=== PATIENT | male | born 1950 | race Caucasian/White ===

== ENCOUNTER 2018-08-31 01:38 | Inpatient (IN) ==
[2018-08-31] MEDS ORDERED: GLUCAGON FOR INJ 1 MG VIAL SQ PRN (04:44)
[2018-08-31] MEDS ORDERED: GLUCOSE 10 TABS/TUBE PO PRN (04:44)
[2018-08-31] MEDS ORDERED: DEXTROSE 50% 50 ML SYRINGE IV PRN (04:44)
[2018-08-31] MEDS ORDERED: CARBOHYDRATES FOR HYPOGLYCEMIA PO PRN (04:44)
[2018-08-31] MEDS ORDERED: GLUCOSE 40% GEL 15 GM TUBE PO PRN (04:44)
--- NOTE | 2018-08-31 05:01 | History & Physical Report ---
Date of Service August 31, 2018 Assessment & Plan (1) Atrial fibrillation: Patient with new onset atrial fibrillation with RVR. HR presently 132. Blood pressure stable. Patient is asymptomatic at present. -Check electrolytes and replete as needed -TSH with T4 reflex, Troponin, BNP, EKG and CXR -2D echocardiogram -Continue Cardizem gtt, presently at 15 -Continue Metoprolol. Patient has been taking 25mg po BID, will increase to 50mg po BID as tolerated -Continue anticoagulation with Xarelto Present on Admission?: Yes (2) SOB (shortness of breath): Patient with O2 dependent COPD, nocturnal hypoxia on 3L oxygen. Patient presently with adequate oxygenation but is visibly dyspneic with mobility. Ddx to include exacerbation of COPD, AF/Flutter, possible CHF. -Check CXR -Check troponin/BNP -Supplemental O2 as needed to maintain saturation of 92% -Management of acute and chronic medical problems as above Present on Admission?: Yes (3) Fever: Patient with subjective fevers, reported temperature of 39.3 at OSH. WBC per report from OSH=1.7. Patient given Zosyn 4.5 gm at OSH, presently afebrile -Check CBC with differential, UA and CXR -Follow cultures, urine and blood -Empiric Zosyn 3.375 gm IV q 8h -Tylenol as needed for fever Present on Admission?: Yes (4) Diabetes: Patient reports adequate control with oral agents -Hold Januvia, Metformin for now -Lantus 15u BID, ISS 20:7 by weight -CC diet as tolerated -Check AIC Present on Admission?: Yes (5) Gout: Chronic -Continue Allopurinol 300mg po daily, 100mg po qHS Present on Admission?: Yes (6) COPD (chronic obstructive pulmonary disease): Patient with O2 dependent COPD presenting with worsening SOB -DuoNeb q 4 hours -Albuterol q 2 hours PRN -Supplemental O2 as needed Present on Admission?: Yes (7) Pulmonary embolism: Patient with newly diagnosed PE, on anticoagulation with Xarelto. He was administered Lovenox 1mg/kg SC at OSH for concern for PE (reported to have an elevated D-dimer, some renal insufficiency which inhibits contrast dye for CTA) -Continue Xarelto, will give next dose tomorrow AM Present on Admission?: Yes (8) Obesity: Patient is quite large -Bariatric bed -Encourage lifestyle modification (9) Hypertension: Blood pressure presently well controlled -Continue Lisinopril 2.5mg po daily -Continue Metoprolol - will increase to 50mg po BID to assist with rate control -Continue Lasix and Spironolactone -Medications may need to be held/adjusted pending results of labs (10) Chronic venous insufficiency: Patient with history of chronic venous insufficiency. Recently with cellulitis and poorly healing wounds. No ulcers or drainage appreciated at present. Patient is on Keflex BID for suppressive therapy -Continue Keflex BID at home dose -EDDIE hose to bilateral LE F/E/N - Heplock, monitor electrolytes and replete as needed, continue PO magnesium and potassium supplements, CC diet as tolerated, will hold vitamins and neutraceuticals for now Ppx - Continue home Omeprazole, Xarelto as above Code - Full Dispo - Admit to PCU History of Present Illness Chief Complaint: SOB Primary Care Provider: Josi Sampson DO Antonio Leary is a 68yo C male with history of newly diagnosed SCC of the CIARRA s/p XRT and chemotherapy with Taxol/Carbaplatin, last course 16 August 2018. Patient reports feeling ill immediately following chemotherapy with subjective fevers/chills and body aches. His symptoms improved and he was feeling fairly well. Today patient developed subjective fevers and chills/rigors as well as diffuse weakness, nausea, appetite loss and shortness of breath, inability to ambulate due to weakness and dyspnea. EMS was called and the patient was transported to [facility]. Per report he was tachycardic in the ambulance with HR of 180. He was administered IV Cardizem en route to [place] [facility]. While at [place] he was given IVF, Cardizem and Zosyn. He was subsequently transferred to [facility] for continuity of care. Patient presently with multiple complaints. Mostly dyspnea with minimal exertion, dry couch. He had brief episode of chest discomfort on transport which has since resolved. No additional complaints at this time OSH: NSS, Cardizem 25mg bolus, Cardizem 60mg bolus then gtt, Ativan 0.5mg, Tylenol 1000mg PO, Zosyn 4.5 gm, Lovenox 1mg/kg EKG from OSH: AF with RVR at 126bpm, no acute ischemic changes Update: patient with worsening dyspnea, restlessness, HR increased to 150bpm, saturation decreased to 86-88%. 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 consult for possible MICU transfer Allergies Allergy/AdvReac Type Severity Reaction Status Date / Time No Known Allergies Allergy Verified 08/01/18 11:03 Home Medications Home Medications Medication Instructions Recorded Confirmed Type Lactobacillus acidophilus 100 mg 100 mg PO BID 05/04/18 08/31/18 History (1 billion cell) capsule acetaminophen 500 mg tablet 500 mg PO Q6H PRN 05/04/18 08/31/18 History allopurinol 300 mg tablet 300 mg PO QAM 05/04/18 08/31/18 History celecoxib 200 mg capsule 200 mg PO QAM 05/04/18 08/31/18 History cephalexin 250 mg capsule 250 mg PO BID cap 05/04/18 08/31/18 History cilostazol 100 mg tablet 100 mg PO BID tab 05/04/18 08/31/18 History furosemide 40 mg tablet 80 mg PO QAM tab 05/04/18 08/31/18 History geriatric multivit with iron and 1 tab PO QAM 05/04/18 08/31/18 History minerals tablet glucosamine-chondroitin 250 mg-200 1 tab PO BID tab 05/04/18 08/31/18 History mg tablet loperamide 1 mg/7.5 mL oral liquid 2 mg PO Q4H PRN 05/04/18 08/31/18 History lorazepam 0.5 mg tablet 0.5 mg PO DAILY PRN 05/04/18 08/31/18 History metformin 1,000 mg tablet 1,000 mg PO BID 05/04/18 08/31/18 History metoprolol tartrate 25 mg tablet 25 mg PO BID tab 05/04/18 08/31/18 History omeprazole 20 mg capsule,delayed 20 mg PO QAM 05/04/18 08/31/18 History release rivaroxaban 20 mg tablet 20 mg PO QAM 05/04/18 08/31/18 History sitagliptin 100 mg tablet 100 mg PO QAM 05/04/18 08/31/18 History spironolactone 50 mg tablet 50 mg PO QAM 05/04/18 08/31/18 History tramadol 50 mg tablet 50 mg PO Q12H PRN 05/04/18 08/31/18 History Adult 50+ Probiotic 1 cap PO QAM 05/23/18 08/31/18 History Anoro Ellipta 1 - 2 inh INHALATION BID PRN 05/23/18 08/31/18 History allopurinol 100 mg PO QPM 05/23/18 08/31/18 History magnesium oxide 1,000 mg PO QAM 05/23/18 08/31/18 History magnesium oxide 1,500 mg PO QPM 05/23/18 08/31/18 History potassium chloride 40 meq PO QAM 05/23/18 08/31/18 History potassium chloride 60 meq PO QPM 05/23/18 08/31/18 History lisinopril 2.5 mg PO DAILY 08/31/18 08/31/18 History Past Med/Surg History Social History Preferred Language: Japanese Communication Ability: Effective Visual Impairment: No Limitations Hearing Ability: Normal 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 Beliefs That Will Affect Care: Latter Day L[employer] Day Beliefs: Anglican marital status: marital status details: Current Living Situation: Family 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[employer] Feels Safe at Home: Yes Safety Concerns: Feels Safe At This Time Smoking Status: Former smoker Tobacco Type: cigarettes Cigarettes Per Day: 20 Do You Dip or Chew Tobacco: No Second Hand Exposure: No Hx Alcohol Use: Yes Hx Substance Use: No Review of Systems Review of Systems: All systems reviewed & are unremarkable except as noted in HPI & below +Urinary incontinence today Physical Exam Physical Exam: General: morbidly obese C male resting comfortably, mild conversational dyspnea and dyspnea with minimal exertion, NAD, non-toxic in appearance, AA&O x 4 Skin: warm, dry, intact, chronic venous stasis changes of bilateral LEs, skin thickening and hemosiderin staining, small abrasion on lateral portion of left ankle, no bleeding/drainage/purulence or active cellulitis appreciated HEENT: NC/AT, PERRL, EOMI, anicteric sclera, conjunctiva without injection, external ear normal to inspection and nontender, nares patent, moist mucus membranes, dentition intact, no oropharyngeal lesions, neck supple, trachea midline, no LAD, no thyromegaly, no JVD Heart: +S1/S2, irregularly irregular, tachycardic, no m/r/g, port present left chest wall, nontender, no erythema or drainage Lungs: diminished breath sounds bilaterally, faint crackles in CIARRA, no rhonchi/wheezes Abd: obese, +BS, soft, NT/ND, no masses/organomegaly/ascites, ventral hernia reducible Ext: warm, 2+ pulses in UE/LE bilaterally, no clubbing/cyanosis or edema, chronic venous stasis changes as above Neuro: nonfocal, patient AA&O x 4, speech intact, no facial droop, moving all extremities on command with equal strength 5/5 Results & Data Vital Signs (Past 12 Hours) Tc=36.9 MB=131, irregularly irregular BQ=859/68 RR=24 99% on 3L Laboratory Results Ordered basic labs Diagnostic Findings CXR ordered ECG Additional Comments: EKG ordered Code Status & VTE Plan Code Status Full VTE Prophylaxis Plan VTE Prophylaxis will be ordered: Yes PG Care Time/CCT Total # of Minutes Spent Total Time Spent with Patient: Total time spent is greater than 50% in coordination of care (as documented) at patient's floor/unit and/or counseling patient: (1) Fever Fever type: unspecified Qualified Code(s): R50.9 - Fever, unspecified (2) Diabetes Diabetes mellitus complication status: without complication Diabetes mellitus retirement insulin use: without retirement use Diabetes mellitus type: type 2 Qualified Code(s): E11.9 - Type 2 diabetes mellitus without complications (3) Gout Chronicity: chronic Gout etiology: unspecified cause Gout site: unspecified site (4) Atrial fibrillation Atrial fibrillation type: unspecified Qualified Code(s): I48.91 - Unspecified atrial fibrillation (5) COPD (chronic obstructive pulmonary disease) COPD type: unspecified COPD Qualified Code(s): J44.9 - Chronic obstructive pulmonary disease, unspecified (6) Pulmonary embolism Acute cor pulmonale presence: without acute cor pulmonale Chronicity: unspecified Pulmonary embolism type: unspecified Qualified Code(s): I26.99 - Other pulmonary embolism without acute cor pulmonale (7) Hypertension Hypertension type: essential hypertension Qualified Code(s): I10 - Essential (primary) hypertension (8) Obesity Body mass index: BMI 60.0-69.9 Obesity classification: adult class 3 (BMI >= 40) Obesity type: due to excess calories Serious obesity comorbidity presence: with serious comorbidity Qualified Code(s): E66.01 - Morbid (severe) obesity due to excess calories; Z68.44 - Body mass index (BMI) 60.0-69.9, adult
[2018-08-31] MEDS: dilTIAZem HCl 125 MG in DEXTROSE 5% 100 ML IV SCH ×2 (05:32→17:22)
[2018-08-31] MEDS ORDERED: LOPERAMIDE LIQUID 120 ML BOTTLE PO PRN (05:32)
[2018-08-31] MEDS ORDERED: TRAMADOL HCL 50 MG TABLET PO PRN (05:32)
[2018-08-31] MEDS ORDERED: PIPERACILL/TAZOBAC CONSULT ACTIVE PRN (06:02)
[2018-08-31] MEDS ORDERED: PIPERACILLIN/TAZOBACTAM 4.5 GM in DEXTROSE 5% 100 ML IV ONE (06:15)
[2018-08-31] MEDS: METOPROLOL TARTRATE 25 MG TAB PO SCH ×2 (06:16→06:33)
[2018-08-31] MEDS: LORazepam 0.5 MG TAB PO STA ×2 (06:16→06:33)
[2018-08-31 06:18] LABS: Appearance Urine Clear (Clear); Bacteria Urine Automated Negative (Negative); Bilirubin Urine Negative (Negative); Blood Urine Negative (Negative); Color Urine Yellow; Epithelial Cell Urine Auto 20-30 /lpf (0-5); Glucose Urine UA Negative (Negative); Ketones Urine Negative (Negative); Leukocyte Esterase Urine Trace (Negative); Nitrite Urine Positive (Negative); Protein Urine Negative (Negative); RBC Urine Automated 0-4 /hpf (0-4); Specific Gravity Urine 1.014 (1.000-1.030); Urobilinogen Urine Negative (Negative)
[2018-08-31] MEDS ORDERED: METOPROLOL TARTRATE 1 MG/ML VIAL IV STA (06:23)
[2018-08-31] MEDS ORDERED: METOPROLOL TARTRATE 1 MG/ML VIAL IV ONE (06:25)
[2018-08-31] MEDS ORDERED: FUROSEMIDE 20 MG in SYRINGE 0 ML IV ONE (06:30)
[2018-08-31 06:50] LABS: Hematocrit (blood only) 22.1 % (42-52); Hemoglobin 7.5 g/dL (14.0-18.0); Mean Corpuscular Hgb Conc 33.9 g/dL (32-36); Mean Corpuscular Volume 97.8 fL (80-100); RDW Coefficient of Variation 22.4 % (11.5-14.5); RDW Standard Deviation 76.2 fL (36.4-46.3); Red Blood Count 2.26 M/uL (4.7-6.1); White Blood Count 1.25 K/uL (4.8-10.8)
[2018-08-31 07:03] LABS: INR 1.1 (0.9-1.1); Prothrombin Time 11.4 Seconds (9.0-12.0)
[2018-08-31 07:22] LABS: BUN Creatinine Ratio 10.8 (10-20); Bilirubin Direct 0.6 mg/dl (0-0.2); Calcium 8.1 mg/dl (8.5-10.1); Creatinine Clr Calc Pharmacy 74.1 ml/min; Est GFR (African American) 49.9; Magnesium 1.3 mg/dl (1.8-2.4); Potassium 4.2 mmol/L (3.5-5.1)
[2018-08-31] MEDS: ALBUT/IPRATROP 3MG/0.5MG NEB 3 ML VIAL NEB SCH ×3 (07:26→19:31)
[2018-08-31 07:32] LABS: Bilirubin,Total 1.2 mg/dl (0.2-1); Phosphorus 2.4 mg/dl (2.5-4.9); Troponin I 0.026 ng/ml (0-0.045)
[2018-08-31 07:32] LABS: Allen Test Pos (Pos); Base Excess ABG -2.7 mEq/L (-9-1.8); HCO3 ABG 20 mmol/L (19-24); Oxygen Saturation ABG 94.6 % (90-95); PCO2 ABG 27 mmHg (35-46); PO2 ABG 127 mm/Hg (80-95); pH ABG 7.48 (7.35-7.45)
--- NOTE | 2018-08-31 07:40 | XRay Report ---
XR chest 1V portable HISTORY: Shortness of breath. COMPARISON: Chest 06/14/2018. FINDINGS: Interval improvement in the left upper lobe masslike density. No pneumothorax. No pleural e ffusions. The heart remains mildly enlarged. Mild central pulmonary vascular congestion without overt edema. Left subclavian Port-A-Cath terminates at the brachiocephalic/SVC junction. This remains unch anged. IMPRESSION: 1. Stable mild cardiomegaly with mild central pulmonary vascular congestion. 2. Left upper lobe masslike density has improved. Electronically signed by: Andi Kamara M.D. 08/31/2018 7:38 AM
[2018-08-31 07:43] LABS: Mean Platelet Volume 10.8 fL (7.4-10.4); Nucleated RBC # (auto) 0.13 K/uL (0-0); Nucleated RBC % (auto) 10.5 %; Platelet Count 59 K/uL (130-400)
[2018-08-31 07:47] LABS: Basophils # (auto) 0.01 K/uL (0-0.2); Basophils % (auto) 0.8 %; Dohle Bodies 1+; Immature Granulocytes # (auto) 0.01 K/uL (0.00-0.02); Immature Granulocytes % (auto) 0.8 %; Lymphocytes # (auto) 0.32 K/uL (1.2-3.4); Lymphocytes % (auto) 25.6 %; Monocytes # (auto) 0.09 K/uL (0.11-0.59); Monocytes % (auto) 7.2 %; Neutrophils # (auto) 0.82 K/uL (1.4-6.5); Neutrophils % (auto) 65.6 %; Platelet Estimate Decreased (Normal)
[2018-08-31] MEDS ORDERED: FUROSEMIDE 60 MG in SYRINGE 0 ML IV STA (08:10)
[2018-08-31] MEDS ORDERED: PHARMACY GLYCEMIC MGMT CONSULT SCH (08:13)
[2018-08-31] MEDS ORDERED: FUROSEMIDE 10 MG/ML 10 ML VIAL IV ONE (08:15)
--- NOTE | 2018-08-31 08:35 | Pharmacy Report ---
Pharmacy Glycemic Short Note 2 - Date of Service August 31, 2018 - Glycemic Short BSG Results (Last 24 hours): 08/31/18 08/31/18 08/31/18 06:34 06:38 07:31 Glucose 186 H POC Glucose 187 H 200 H OUTPATIENT ANTIDIABETIC REGIMEN: * Metformin 1gm PO BID * Sitagliptin 100mg PO Q AM * A1c = ? ASSESSMENT: * Type 2 diabetic admitted for A fib RVR, ADHF, and fever * We do not have a recent A1c to guide therapy. Patient states he tests BSG once daily prior to lunch and reports BSGs in the 130s * Admitting provider has ordered basal/bolus regimen based upon weight and low stress level. The current insulin doses are reasonable starting points. Would be hesitant to use weight and moderate stress level or higher for initial dose calculations given his body habitus and lack of A1c data. PLAN FOR INPATIENT GLYCEMIC CONTROL: * Hold outpatient oral diabetes medications (metformin, sitagliptin) * Basal insulin (using wt and low stress level) * Lantus 20 units SQ BID * Bolus insulin * NovoLog per scale ACHS or Q6hrs while NPO (and at 0200 tonight should initial insulin doses fall short) * Goal Range: Low 110 mg/dL - High 140 mg/dL * Correction Factor: 20 mg/dL/unit * Nutritional / Prandial insulin per carb ratio of 1 unit per 7 grams CHO consumed PLAN FOR DISCHARGE: * to be determined
[2018-08-31] MEDS ORDERED: INSULIN GLARGINE SOLOSTAR 100 UNITS/ML 3 ML PEN SC SCH (09:00)
[2018-08-31] MEDS: INSULIN ASPART 100 UNITS/ML 3 ML PEN SC SCH ×4 (09:32→21:03)
[2018-08-31] MEDS: PANTOprazole 40 MG TAB PO SCH (09:34)
[2018-08-31] MEDS: CeleBREX 200 MG CAP PO SCH (09:34)
[2018-08-31] MEDS: ALLOPURINOL 300 MG TAB PO SCH (09:34)
[2018-08-31] MEDS: MAGNESIUM OXIDE 400 MG TAB PO SCH ×2 (09:34→20:51)
[2018-08-31] MEDS: POTASSIUM CHLORIDE 20 MEQ TABCR PO SCH ×2 (09:35→20:53)
[2018-08-31] MEDS: CILOSTAZOL 100 MG TAB PO SCH ×2 (09:35→20:52)
[2018-08-31] MEDS: cephALEXin 250 MG CAP PO SCH ×2 (09:35→20:52)
[2018-08-31] MEDS: FUROSEMIDE 80 MG TAB PO SCH (10:03)
[2018-08-31] MEDS: LISINOPRIL 2.5 MG TAB PO SCH (10:04)
[2018-08-31] MEDS: SPIRONOLACTONE 25 MG TAB PO SCH (12:22)
[2018-08-31] MEDS: PIPERACILLIN/TAZOBACTAM 4.5 GM in DEXTROSE 5% 100 ML IV SCH ×2 (12:25→19:31)
--- NOTE | 2018-08-31 12:32 | Cardiology Consultation ---
Date of Consultation August 31, 2018 Assessment & Plan (1) Atrial fibrillation: Although I do not see a twelve-lead of his presenting arrhythmia on telemetry he is clearly in atrial fibrillation with a rapid heart rate. This spontaneously converted to normal. He was aware of the arrhythmia and from his description he may have had it for about 3 hours a week ago. It is possibly related to his lung cancer, and echocardiogram is pending to look for pericardial effusion or pericardial metastases. Since he is spontaneously converted to sinus rhythm I will titrate his diltiazem off. I am going to increase his metoprolol, as an outpatient he was on metoprolol tartrate 25 mg twice a day, I would like to increase him to 100 mg daily and we continue the use metoprolol tartrate 50 mg twice a day or metoprolol succinate 100 mg daily. I would favor the latter but since he is already on metoprolol tartrate 50 mg twice daily I have not altered that. (2) Anticoagulant long-term use: He has been on anticoagulation with Xarelto for a pulmonary embolism, that should be appropriate for his atrial fibrillation as well. I agree with his dose of 20 mg daily. History of Present Illness Reason for Consultation: Atrial fibrillation with rapid ventricular response Attending Physician: Ace Merchant History of Present Illness This is a 68-year-old male who has a history of oxygen dependent COPD, and recently diagnosed small cell lung cancer. He has received x-ray therapy and chemotherapy. He presents with palpitations and a rapid heart rate which occurred on the morning of August 31, 2018. He noted that his heart was beating rapidly, he felt very poorly and came into the emergency room. He notes that he had this perhaps a week ago lasting about 3 hours but this was worse and lasted longer. In the emergency room he was noted to be in atrial fibrillation with a rapid heart rate. He was treated with intravenous diltiazem (he is on metoprolol tartrate 25 mg twice daily as an outpatient). He has no prior history of atrial fibrillation, and prior to the episode a week ago had not had symptoms of it. He has a history of pulmonary embolism for which he is on Xarelto therapy at 20 mg daily. His rate was reasonably well controlled on intravenous diltiazem, and he converted to sinus rhythm at 6:29 AM and has been in sinus rhythm and low-grade sinus tachycardia since. He was aware of the change in rhythm. He has not had chest discomfort, he has not had prior cardiac history. Allergies Allergy/AdvReac Type Severity Reaction Status Date / Time No Known Allergies Allergy Verified 08/01/18 11:03 Home Medications Home Medications Medication Instructions Recorded Confirmed Type Lactobacillus acidophilus 100 mg 100 mg PO BID 05/04/18 08/31/18 History (1 billion cell) capsule acetaminophen 500 mg tablet 500 mg PO Q6H PRN 05/04/18 08/31/18 History allopurinol 300 mg tablet 300 mg PO QAM 05/04/18 08/31/18 History celecoxib 200 mg capsule 200 mg PO QAM 05/04/18 08/31/18 History cephalexin 250 mg capsule 250 mg PO BID cap 05/04/18 08/31/18 History cilostazol 100 mg tablet 100 mg PO BID tab 05/04/18 08/31/18 History furosemide 40 mg tablet 80 mg PO QAM tab 05/04/18 08/31/18 History geriatric multivit with iron and 1 tab PO QAM 05/04/18 08/31/18 History minerals tablet glucosamine-chondroitin 250 mg-200 1 tab PO BID tab 05/04/18 08/31/18 History mg tablet loperamide 1 mg/7.5 mL oral liquid 2 mg PO Q4H PRN 05/04/18 08/31/18 History lorazepam 0.5 mg tablet 0.5 mg PO DAILY PRN 05/04/18 08/31/18 History metformin 1,000 mg tablet 1,000 mg PO BID 05/04/18 08/31/18 History metoprolol tartrate 25 mg tablet 25 mg PO BID tab 05/04/18 08/31/18 History omeprazole 20 mg capsule,delayed 20 mg PO QAM 05/04/18 08/31/18 History release rivaroxaban 20 mg tablet 20 mg PO QAM 05/04/18 08/31/18 History sitagliptin 100 mg tablet 100 mg PO QAM 05/04/18 08/31/18 History spironolactone 50 mg tablet 50 mg PO QAM 05/04/18 08/31/18 History tramadol 50 mg tablet 50 mg PO Q12H PRN 05/04/18 08/31/18 History Adult 50+ Probiotic 1 cap PO QAM 05/23/18 08/31/18 History Anoro Ellipta 1 - 2 inh INHALATION BID PRN 05/23/18 08/31/18 History allopurinol 100 mg PO QPM 05/23/18 08/31/18 History magnesium oxide 1,000 mg PO QAM 05/23/18 08/31/18 History magnesium oxide 1,500 mg PO QPM 05/23/18 08/31/18 History potassium chloride 40 meq PO QAM 05/23/18 08/31/18 History potassium chloride 60 meq PO QPM 05/23/18 08/31/18 History lisinopril 2.5 mg PO DAILY 08/31/18 08/31/18 History Patient History Medical History Diabetes mellitus (Acute) Gout (Acute) Lung cancer (Acute) Squamous cell, CIARRA. Anemia Anxiety Cellulitis Chronic, on Keflex BID. Chronic obstructive pulmonary disease Depression Exertional dyspnea History of pulmonary embolism 06/2016. Has been on Xarelto since. Morbid obesity with BMI of 60.0-69.9, adult On home oxygen therapy 3L NC CONT. Osteoarthritis Suspected sleep apnea No sleep study, but per pulm rates on [place] Sleepiness Scale (+morbid obesity and need for O2 HS) Surgical History Difficult airway for intubation GLIDESCOPE #3 FOR 05/27/18 EBUS History of bronchoscopy WITH LYMPH NODE BIOPSY 05/27/18. PER SURGEON H+P "THE FACT THAT HE IS ON OXYGEN AND HIS SHEER SIZE AND OTHER COMORBID FACTORS WOULD MAKE HIM EXTREMELY HIGH RISK FOR ANY TYPE OF SURGERY." EBUS WAS WELL TOLERATED. 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 Beliefs That Will Affect Care: Orthodox Orthodox Beliefs: Alevism marital status: marital status details: Current Living Situation: Family 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 Morbidly obese. HEENT: Unremarkable Neck: No jugular venous distention although difficult to examine, carotid pulses are normal and equal bilaterally without bruits. Pulmonary: Decreased breath sounds throughout although clear to auscultation bilaterally. Cardiac: Regular rhythm with no murmur, gallop or rub. Abdomen: Soft, obese, nontender with normal bowel sounds. Extremities: +3 bilateral pretibial and pedal edema. Distal pulses are hard to evaluate. Neurologic: No focal findings. Gait was not tested. Skin: No rash, ecchymoses or petechiae. Results & Data Vital Signs (Past 12 Hours) Vital Signs Temp Pulse Pulse Resp BP Pulse Ox 08/31/18 11:45 36.8 C 99 H 22 97/64 L 95 08/31/18 07:28 118 H 24 99 08/31/18 06:29 158/115 H 08/31/18 06:25 161 H 08/31/18 06:05 37.7 C H 144 H 28 H 163/89 H 92 08/31/18 04:14 36.9 C 118 H 24 120/68 99 Diagnostic Findings I do not see an electrocardiogram on presentation, just telemetry. His electrocardiogram from this morning at 9:40 AM shows sinus rhythm with first- degree AV block, heart rate 99 bpm. Telemetry shows atrial fibrillation with a rapid ventricular response until 6:29 AM when he converts to sinus rhythm. After that the heart rate is around 100 bpm. Chest x-ray on admission shows cardiomegaly with possible pulmonary congestion although based on his body habitus this may not be true. (1) Atrial fibrillation Atrial fibrillation type: unspecified Qualified Code(s): I48.91 - Unspecified atrial fibrillation
[2018-08-31] MEDS ORDERED: FUROSEMIDE 40 MG/4 ML VIAL IV STA (19:35)
[2018-08-31] MEDS ORDERED: FUROSEMIDE 40 MG in SYRINGE 0 ML IV ONE (20:00)
[2018-08-31] MEDS: METOPROLOL TARTRATE 50 MG TAB PO SCH (20:50)
[2018-08-31] MEDS: ALLOPURINOL 100 MG TAB PO SCH (20:52)
[2018-08-31] MEDS: INSULIN GLARGINE SOLOSTAR 100 UNITS/ML 3 ML PEN SC SCH (21:02)
[2018-08-31] MEDS: ACETAMINOPHEN 325 MG TAB PO PRN (22:59)
[2018-08-31] MEDS ORDERED: VANCOMYCIN CONSULT ACTIVE PRN (23:20)
--- NOTE | 2018-08-31 23:24 | Progress Note ---
Date of Service August 31, 2018 Received text page from patient's nurse stating that the patient continues to have fever, rigors, and heart rates in the 110s to 130s. Rigors are precluding obtaining a quality EKG. Patient was admitted by Dr. Jack earlier this morning. On brief chart review, he was seen by cardiology and his metoprolol dose was increased. That last dose was about 2.5 hours ago. Discussed case with Dr. Jack. Goal for now is to control his heart rate further with temperature control. - Continue Tylenol as needed. - Added vancomycin empirically for potential lung infections. Manpreet Moore, PGY3 Overnight call Results & Data Vital Signs (Past 12 Hours) Vital Signs Temp Pulse Pulse Resp BP Pulse Ox 08/31/18 23:08 140 H 34 H 154/80 H 93 08/31/18 23:01 95 08/31/18 23:00 38.4 C H 08/31/18 22:25 37.7 C H 127 H 24 115/73 08/31/18 21:03 37.3 C 141 H 23 119/67 97 08/31/18 19:31 118 H 20 97 08/31/18 15:09 36.5 C 94 H 22 99/54 L 90 08/31/18 14:05 78 18 94 08/31/18 11:45 36.8 C 99 H 22 97/64 L 95
[2018-08-31] MEDS ORDERED: VANCOMYCIN HCL 2,750 MG in SODIUM CHLORIDE 0.9% 500 ML IV ONE (23:45)
[2018-09-01 00:32] LABS: Hematocrit (blood only) 19.4 % (42-52); Hemoglobin 6.6 g/dL (14.0-18.0); Mean Platelet Volume 10.1 fL (7.4-10.4); Nucleated RBC % (auto) 4.8 %; Platelet Count 49 K/uL (130-400); RDW Coefficient of Variation 22.9 % (11.5-14.5); RDW Standard Deviation 76.7 fL (36.4-46.3); White Blood Count 2.13 K/uL (4.8-10.8)
[2018-09-01 00:33] LABS: BUN Creatinine Ratio 13.2 (10-20); Calcium 7.9 mg/dl (8.5-10.1); Creatinine Clr Calc Pharmacy 67.3 ml/min; Est GFR (African American) 44.4; Est GFR (Non-African American) 38.3
[2018-09-01] MEDS ORDERED: SODIUM CHLORIDE 0.9% 250 ML IV PRN (00:41)
[2018-09-01 00:42] LABS: Anisocytosis Present; Basophilic Stippling Occasional; Dohle Bodies 1+; Lymphocytes # (auto) 0.14 K/uL (1.2-3.4); Lymphocytes % (auto) 6.6 %; Monocytes # (auto) 0.24 K/uL (0.11-0.59); Monocytes % (auto) 11.3 %; Neutrophils # (auto) 1.75 K/uL (1.4-6.5); Neutrophils % (auto) 82.1 %; Polychromasia 1+
[2018-09-01] MEDS ORDERED: HEPARIN 100 UNIT/ML 5ML FLUSH FLUSH PRN (00:56)
[2018-09-01] MEDS ORDERED: FUROSEMIDE 40 MG in SYRINGE 0 ML IV ONE (01:00)
[2018-09-01] MEDS: ALBUT/IPRATROP 3MG/0.5MG NEB 3 ML VIAL NEB SCH ×4 (01:33→19:34)
[2018-09-01] MEDS: PIPERACILLIN/TAZOBACTAM 4.5 GM in DEXTROSE 5% 100 ML IV SCH ×3 (01:57→19:53)
[2018-09-01] MEDS ORDERED: INSULIN ASPART 100 UNITS/ML 3 ML PEN SC SCH (02:00)
[2018-09-01] MEDS ORDERED: VANCOMYCIN HCL 2,750 MG in SODIUM CHLORIDE 0.9% 500 ML IV SCH (06:00)
--- NOTE | 2018-09-01 06:11 | Pharmacy Report ---
Pharmacy Abx Initial Consult - Date of Service September 01, 2018 - Pharmacy Dosing Scope Date of Consult: 09/01/18 Consultation requested by: Dr. Moore Pharmacy is consulted to initiate Vancomycin dosing therapy, order appropriate labs and adjust drug dose/frequency. - Subjective The patient is a 68 year old M admitted on 08/31/18 03:51 admitted about 24 hours ago for afib and exacerbation of COPD continued on Zosyn from the ED. Tonight patient HGB dropped to low of 6.6 and he was ordered 2 units of PRBC's. During the course of ordering blood and stabilizing his tachycardia, Dr. Moore added empiric Vancomycin for potential lung infection. - Objective Height: 5 ft 10 in Weight: 201.8 kg Vital Signs (Past 12hrs): Vital Signs Temp Pulse Pulse Pulse Resp BP BP 09/01/18 05:08 36.8 C 116 H 25 H 114/60 09/01/18 04:08 36.9 C 121 H 24 107/63 09/01/18 03:35 37 C 110 H 21 116/69 09/01/18 03:20 37.7 C H 124 H 22 104/61 09/01/18 03:00 37.1 C 126 H 22 146/77 H 09/01/18 01:30 128 H 22 08/31/18 23:59 36.9 C 08/31/18 23:08 140 H 34 H 154/80 H 08/31/18 23:01 08/31/18 23:00 38.4 C H 08/31/18 22:25 37.7 C H 127 H 24 115/73 08/31/18 21:03 37.3 C 141 H 23 119/67 08/31/18 19:31 118 H 20 Pulse Ox 09/01/18 05:08 98 09/01/18 04:08 95 09/01/18 03:35 96 09/01/18 03:20 96 09/01/18 03:00 96 09/01/18 01:30 96 08/31/18 23:59 08/31/18 23:08 93 08/31/18 23:01 95 08/31/18 23:00 08/31/18 22:25 08/31/18 21:03 97 08/31/18 19:31 97 Lab Results (24hrs): Laboratory Tests (24 Hours) 08/31/18 08/31/18 08/31/18 23:57 23:57 23:57 WBC 2.13 L Neut # (Auto) 1.75 Creatinine 1.76 H Est Cr Clr Drug Dosing 67.3 Procalcitonin 29.01 H 08/31/18 08/31/18 06:38 06:38 WBC 1.25 L Neut # (Auto) 0.82 L* Creatinine 1.60 H Est Cr Clr Drug Dosing 74.1 Procalcitonin Micro Results: 08/31/18 05:50 Urine Culture - Pending Urine,Clean Catch - Assessment & Plan Assessment 68 year old M Plan Vancomycin IV * Estimated PK Parameters: Vd 0.7 L/kg, Bry 0.066 hr-1, t1/2 10.5 hr * Loading dose: 2750 mg (14 mg/kg) * Maintenance dose: 2750 mg IV (14 mg/kg) every 12 hours * Goal trough level : 15 to 20 mcg/mL * Trough level ordered prior to 1800 dose on 09/02/18 * A less than traditional dose has been selected due to likelihood of drug accumulation in obese patient. Piperacillin/tazobactam * 4.5 g bolus administered over 30 minutes, then 4.5 g IV extended infusion every 8 hours for CrCl greater than 20 mL/min * Aggressive dosing selected due to critically ill status/BMI 35 or more/history of cystic fibrosis. Pharmacy will continue to follow and will adjust dose/frequency as necessary. Thank you.
[2018-09-01] MEDS: ACETAMINOPHEN 325 MG TAB PO PRN (06:39)
[2018-09-01] MEDS: INSULIN ASPART 100 UNITS/ML 3 ML PEN SC SCH ×4 (08:58→21:51)
[2018-09-01] MEDS: POTASSIUM CHLORIDE 20 MEQ TABCR PO SCH ×3 (08:59→21:43)
[2018-09-01] MEDS: CeleBREX 200 MG CAP PO SCH ×2 (08:59→11:33)
[2018-09-01] MEDS: MAGNESIUM OXIDE 400 MG TAB PO SCH ×3 (08:59→21:41)
[2018-09-01] MEDS: METOPROLOL TARTRATE 50 MG TAB PO SCH ×2 (08:59→14:05)
[2018-09-01] MEDS: RIVAROXABAN 20 MG TAB PO SCH ×2 (08:59→14:05)
[2018-09-01] MEDS: ALLOPURINOL 300 MG TAB PO SCH ×2 (09:00→11:33)
[2018-09-01] MEDS: LISINOPRIL 2.5 MG TAB PO SCH ×2 (09:00→11:33)
[2018-09-01] MEDS: CILOSTAZOL 100 MG TAB PO SCH ×2 (09:00→14:05)
[2018-09-01] MEDS: cephALEXin 250 MG CAP PO SCH ×2 (09:00→11:33)
[2018-09-01] MEDS: PANTOprazole 40 MG TAB PO SCH ×2 (09:00→11:33)
[2018-09-01] MEDS: INSULIN GLARGINE SOLOSTAR 100 UNITS/ML 3 ML PEN SC SCH ×2 (09:01→21:50)
[2018-09-01] MEDS: ONDANSETRON INJ 2 MG/ML 2 ML VIAL IV PRN ×3 (09:16→18:31)
[2018-09-01] MEDS: dilTIAZem HCl 125 MG in DEXTROSE 5% 100 ML IV SCH ×2 (09:19→14:04)
[2018-09-01] MEDS: FUROSEMIDE 80 MG TAB PO SCH (09:52)
[2018-09-01 10:03] LABS: Hematocrit (blood only) 21.7 % (42-52); Hemoglobin 7.5 g/dL (14.0-18.0); Mean Corpuscular Volume 95.2 fL (80-100); Nucleated RBC # (auto) 0.03 K/uL (0-0); Nucleated RBC % (auto) 0.7 %; RDW Coefficient of Variation 21.2 % (11.5-14.5); RDW Standard Deviation 70.1 fL (36.4-46.3); Red Blood Count 2.28 M/uL (4.7-6.1)
[2018-09-01 10:04] LABS: Mean Corpuscular Hgb Conc 34.6 g/dL (32-36); Mean Platelet Volume 10.8 fL (7.4-10.4); Platelet Count 43 K/uL (130-400)
[2018-09-01] MEDS ORDERED: LACTATED RINGER'S 1,000 ML IV SCH (10:15)
[2018-09-01] MEDS ORDERED: dexAMETHasone 4 MG in SYRINGE 0 ML IV PRN (10:16)
[2018-09-01 10:46] LABS: BUN Creatinine Ratio 13.8 (10-20); Calcium 7.6 mg/dl (8.5-10.1); Creatinine Clr Calc Pharmacy 75.7 ml/min; Est GFR (African American) 49.9; Magnesium 1.7 mg/dl (1.8-2.4); Phosphorus 2.4 mg/dl (2.5-4.9); Potassium 3.4 mmol/L (3.5-5.1)
[2018-09-01] MEDS: FAMOTIDINE 20 MG in SYRINGE 3 ML IV SCH ×2 (11:05→21:18)
[2018-09-01] MEDS ORDERED: MoRPHine SULFATE 2 MG/ML CARP IV STA (11:17)
[2018-09-01] MEDS ORDERED: MoRPHine SULFATE 2 MG/ML CARP ONE (11:17)
[2018-09-01] MEDS ORDERED: ACETAMINOPHEN 1,000 MG/100 ML VIAL IV PRN (11:21)
[2018-09-01] MEDS ORDERED: ACETAMINOPHEN 1000 MG/100 ML IV IV ONE (11:24)
--- NOTE | 2018-09-01 11:40 | Critical Care Consultation ---
Date of Consultation September 01, 2018 Assessment & Plan (1) Acute respiratory failure with hypoxia: Neuro- awake alert. anxious CV- BP stable. rapid afib. continue diltiazem Pulmonary- acute hypoxic respiratory failure. not tolerating bipap well but now tolerating facemask. his respiratory status has improved over the past hour. still may need intubation(discussed with him and his ). ABG with hypoxia and slight respiratory alkalosis. titrate fio2 for sat >92% ID- sepsis with evidence of end organ dysfunction. immunocompromised. follow cultures. vancomycin and piperacillin-tazobactam Renal- acute renal failure. suspect prerenal. continue fluids as I suspect he is dry but need to be careful with his respiratory status GI- NPO until respiratory status improved. nausea and diarrhea. may need to consider CT abd. await c diff Heme- pancytopenia. s/p recent chemo for squamous cell CA. hold anticoagulation for now until counts better Endocrine- keep blood sugars <180 Dispo- transfer to ICU for ventilatory and hemodynamic support I have personally spent 90 minutes of critical care time in the direct management of this patient. This is a life/limb threatening event. This includes time spent evaluating patient, direct bedside care, chart review, placing orders, interpretation of diagnostic studies, discussion with consultants, patient, and/or family members regarding treatment decisions, as well as other required patient management activities. This time is exclusive of all separately billable procedures, and teaching time and separate from and in addition to any other critical care service time. (2) Severe sepsis: (3) Atrial fibrillation: History of Present Illness Attending Physician: Ace Merchant History of Present Illness 68 yo male with history of squamous cell ca of the lung s/p chemo 2 weeks ago, afib, pulmonary embolism, COPD who presented yesterday with fevers, chills and bodyaches. He says he has not been feeling well since getting chemo 2 weeks ago. He has been feeling weak. He has had diarrhea. poor appetite. he has been short of breath and coughing. He had one episode of vomiting this morning He has been getting treated with diuretics without response. He has been tachycardic in rapid a fib getting treated with diltiazem just after my initial eval he vomiting again and had worsening respiratory distress and was started on bipap which he did not tolerate because he says that it was making him feel like he needs to throw up. Allergies Allergy/AdvReac Type Severity Reaction Status Date / Time No Known Allergies Allergy Verified 08/01/18 11:03 Home Medications Home Medications Medication Instructions Recorded Confirmed Type Lactobacillus acidophilus 100 mg 100 mg PO BID 05/04/18 08/31/18 History (1 billion cell) capsule acetaminophen 500 mg tablet 500 mg PO Q6H PRN 05/04/18 08/31/18 History allopurinol 300 mg tablet 300 mg PO QAM 05/04/18 08/31/18 History celecoxib 200 mg capsule 200 mg PO QAM 05/04/18 08/31/18 History cephalexin 250 mg capsule 250 mg PO BID cap 05/04/18 08/31/18 History cilostazol 100 mg tablet 100 mg PO BID tab 05/04/18 08/31/18 History furosemide 40 mg tablet 80 mg PO QAM tab 05/04/18 08/31/18 History geriatric multivit with iron and 1 tab PO QAM 05/04/18 08/31/18 History minerals tablet glucosamine-chondroitin 250 mg-200 1 tab PO BID tab 05/04/18 08/31/18 History mg tablet loperamide 1 mg/7.5 mL oral liquid 2 mg PO Q4H PRN 05/04/18 08/31/18 History lorazepam 0.5 mg tablet 0.5 mg PO DAILY PRN 05/04/18 08/31/18 History metformin 1,000 mg tablet 1,000 mg PO BID 05/04/18 08/31/18 History metoprolol tartrate 25 mg tablet 25 mg PO BID tab 05/04/18 08/31/18 History omeprazole 20 mg capsule,delayed 20 mg PO QAM 05/04/18 08/31/18 History release rivaroxaban 20 mg tablet 20 mg PO QAM 05/04/18 08/31/18 History sitagliptin 100 mg tablet 100 mg PO QAM 05/04/18 08/31/18 History spironolactone 50 mg tablet 50 mg PO QAM 05/04/18 08/31/18 History tramadol 50 mg tablet 50 mg PO Q12H PRN 05/04/18 08/31/18 History Adult 50+ Probiotic 1 cap PO QAM 05/23/18 08/31/18 History Anoro Ellipta 1 - 2 inh INHALATION BID PRN 05/23/18 08/31/18 History allopurinol 100 mg PO QPM 05/23/18 08/31/18 History magnesium oxide 1,000 mg PO QAM 05/23/18 08/31/18 History magnesium oxide 1,500 mg PO QPM 05/23/18 08/31/18 History potassium chloride 40 meq PO QAM 05/23/18 08/31/18 History potassium chloride 60 meq PO QPM 05/23/18 08/31/18 History lisinopril 2.5 mg PO DAILY 08/31/18 08/31/18 History Patient History Medical History Diabetes mellitus (Acute) Gout (Acute) Lung cancer (Acute) Squamous cell, CIARRA. Anemia Anxiety Cellulitis Chronic, on Keflex BID. Chronic obstructive pulmonary disease Depression Exertional dyspnea History of pulmonary embolism 06/2016. Has been on Xarelto since. Morbid obesity with BMI of 60.0-69.9, adult On home oxygen therapy 3L [place] CONT. Osteoarthritis Suspected sleep apnea No sleep study, but per pulm rates on Grundy Sleepiness Scale (+morbid obesity and need for O2 HS) Surgical History Difficult airway for intubation GLIDESCOPE #3 FOR 05/27/18 EBUS History of bronchoscopy WITH LYMPH NODE BIOPSY 05/27/18. PER SURGEON H+P "THE FACT THAT HE IS ON OXYGEN AND HIS SHEER SIZE AND OTHER COMORBID FACTORS WOULD MAKE HIM EXTREMELY HIGH RISK FOR ANY TYPE OF SURGERY." EBUS WAS WELL TOLERATED. History of cardiac cath History of cholecystectomy History of tonsillectomy Family History Mother , age 71 Myotonic dystrophy Father , age 58 CHF (congestive heart failure) Diabetes 1.5, managed as type 1 Brother , age 66 Myotonic dystrophy Daughter Anxiety Daughter History of back problems Son History of back problems Uncle , age 87 Lung cancer Social History Preferred Language: Yi Communication Ability: Effective Visual Impairment: No Limitations Hearing Ability: Normal Food And Nutrition Supervisor Required: No Beliefs That Will Affect Care: Gnosticism Gnosticism Beliefs: Islam marital status: marital status details: Current Living Situation: Family current occupational status: retired 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: 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 Feels Safe at Home: Yes Safety Concerns: Feels Safe At This Time Smoking Status: Former smoker Tobacco Type: cigarettes Cigarettes Per Day: 20 Do You Dip or Chew Tobacco: No Second Hand Exposure: No Hx Alcohol Use: Yes Hx Substance Use: No Review of Systems Review of Systems: Constitutional: + fevers no chills no weight loss Eyes: no blurry or double vision EENT: no sore throat, no congestion Respiratory: + cough + shortness of breath Cardiovascular: no chest pain no palpitations GI: no abdominal pain, + nausea, + vomiting, + diarrhea, no constipation Gu: no dysuria, no frequency MSK: no joint pain, no muscle aches Skin: no rash Neuro: no headache, + dizziness, no focal weakness Endocrine: no heat or cold intolerance heme: no easy bruising, no lymphadenopathy Psych: no depression, no anxiety Physical Exam Physical Exam: Constitutional: uncomfortable tachypneic HEENT: normocephalic atraumatic. MMM. no cervical lymphadenopathy CV: RRR nl s1,s2 no murmurs rubs or gallops Lungs: crackles bilaterally. no accessory muscle use Abd: soft nontender nondistended. obese. normal bowel sounds Ext: + LE edema. no cyanosis, no clubbing Skin: warm dry Neuro: alert and oriented. moving all extremities Psych: anxious Results & Data Vital Signs (Past 12 Hours) Vital Signs Temp Pulse Pulse Pulse Resp BP Pulse Ox 09/01/18 08:54 36.6 C 111 H 26 H 126/61 94 09/01/18 08:36 36.8 C 128 H 26 H 118/68 93 09/01/18 07:36 37.7 C H 122 H 24 123/66 94 09/01/18 07:32 113 H 09/01/18 07:06 36.9 C 122 H 28 H 113/74 95 09/01/18 07:02 120 H 22 95 09/01/18 06:51 36.7 C 128 H 24 141/68 H 93 09/01/18 06:34 36.8 C 115 H 22 104/69 09/01/18 06:13 36.8 C 109 H 22 117/67 95 09/01/18 06:08 36.8 C 117 H 22 126/68 92 09/01/18 05:08 36.8 C 116 H 25 H 114/60 98 09/01/18 04:08 36.9 C 121 H 24 107/63 95 09/01/18 03:35 37 C 110 H 21 116/69 96 09/01/18 03:20 37.7 C H 124 H 22 104/61 96 09/01/18 03:00 37.1 C 126 H 22 146/77 H 96 09/01/18 01:30 128 H 22 96 08/31/18 23:59 36.9 C Laboratory Results Laboratory Results - last 24 hr 08/31/18 08/31/18 08/31/18 11:01 16:43 20:57 WBC RBC Hgb Hct MCV MCH MCHC RDW Std Deviation RDW Coeff of Preeti Plt Count MPV Immature Gran % (Auto) Neut % (Auto) Lymph % (Auto) Josephine % (Auto) Eos % (Auto) Baso % (Auto) Immature Gran # (Auto) Neut # (Auto) Lymph # (Auto) Josephine # (Auto) Eos # (Auto) Baso # (Auto) Absolute Nucleated RBC Nucleated RBC % (auto) Dohle Bodies Polychromasia Basophilic Stippling Anisocytosis Sodium Potassium Chloride Carbon Dioxide Anion Gap BUN Creatinine Est Cr Clr Drug Dosing Est GFR ( Amer) Est GFR (Non-Af Amer) BUN/Creatinine Ratio Glucose POC Glucose 185 H 144 H 136 H Lactate Calcium Phosphorus Magnesium Procalcitonin Nasal Screen MRSA (PCR) Stl C. diff Tox B Gene Blood Type Blood Type Recheck Antibody Screen Crossmatch 08/31/18 08/31/18 08/31/18 23:57 23:57 23:57 WBC 2.13 L RBC 2.00 L Hgb 6.6 L* Hct 19.4 L* MCV 97.0 MCH 33.0 MCHC 34.0 RDW Std Deviation 76.7 H RDW Coeff of Preeti 22.9 H Plt Count 49 L MPV 10.1 Immature Gran % (Auto) 0.0 Neut % (Auto) 82.1 Lymph % (Auto) 6.6 Josephine % (Auto) 11.3 Eos % (Auto) 0.0 Baso % (Auto) 0.0 Immature Gran # (Auto) 0.00 Neut # (Auto) 1.75 Lymph # (Auto) 0.14 L Josephine # (Auto) 0.24 Eos # (Auto) 0.00 Baso # (Auto) 0.00 Absolute Nucleated RBC 0.10 H Nucleated RBC % (auto) 4.8 Dohle Bodies 1+ Polychromasia 1+ Basophilic Stippling Occasional Anisocytosis Present Sodium 135 L Potassium 4.0 Chloride 100 Carbon Dioxide 24 Anion Gap 11.0 BUN 23 H Creatinine 1.76 H Est Cr Clr Drug Dosing 67.3 Est GFR ( Amer) 44.4 Est GFR (Non-Af Amer) 38.3 BUN/Creatinine Ratio 13.2 Glucose 160 H POC Glucose Lactate 3.0 H* Calcium 7.9 L Phosphorus Magnesium Procalcitonin Nasal Screen MRSA (PCR) Stl C. diff Tox B Gene Blood Type Blood Type Recheck Antibody Screen Crossmatch 08/31/18 08/31/18 09/01/18 23:57 23:57 00:56 WBC RBC Hgb Hct MCV MCH MCHC RDW Std Deviation RDW Coeff of Preeti Plt Count MPV Immature Gran % (Auto) Neut % (Auto) Lymph % (Auto) Josephine % (Auto) Eos % (Auto) Baso % (Auto) Immature Gran # (Auto) Neut # (Auto) Lymph # (Auto) Josephine # (Auto) Eos # (Auto) Baso # (Auto) Absolute Nucleated RBC Nucleated RBC % (auto) Dohle Bodies Polychromasia Basophilic Stippling Anisocytosis Sodium Potassium Chloride Carbon Dioxide Anion Gap BUN Creatinine Est Cr Clr Drug Dosing Est GFR ( Amer) Est GFR (Non-Af Amer) BUN/Creatinine Ratio Glucose POC Glucose Lactate Calcium Phosphorus Magnesium Procalcitonin 29.01 H Nasal Screen MRSA (PCR) Stl C. diff Tox B Gene Blood Type O Negative Blood Type Recheck O Negative Antibody Screen NEGATIVE Crossmatch See Detail 09/01/18 09/01/18 09/01/18 01:54 02:55 07:26 WBC RBC Hgb Hct MCV MCH MCHC RDW Std Deviation RDW Coeff of Preeti Plt Count MPV Immature Gran % (Auto) Neut % (Auto) Lymph % (Auto) Josephine % (Auto) Eos % (Auto) Baso % (Auto) Immature Gran # (Auto) Neut # (Auto) Lymph # (Auto) Josephine # (Auto) Eos # (Auto) Baso # (Auto) Absolute Nucleated RBC Nucleated RBC % (auto) Dohle Bodies Polychromasia Basophilic Stippling Anisocytosis Sodium Potassium Chloride Carbon Dioxide Anion Gap BUN Creatinine Est Cr Clr Drug Dosing Est GFR ( Amer) Est GFR (Non-Af Amer) BUN/Creatinine Ratio Glucose POC Glucose 179 H 142 H Lactate Calcium Phosphorus Magnesium Procalcitonin Nasal Screen MRSA (PCR) Negative Stl C. diff Tox B Gene Blood Type Blood Type Recheck Antibody Screen Crossmatch 09/01/18 09/01/18 09/01/18 09:44 09:44 09:44 WBC 3.80 L RBC 2.28 L Hgb 7.5 L Hct 21.7 L MCV 95.2 MCH 32.9 MCHC 34.6 RDW Std Deviation 70.1 H RDW Coeff of Preeti 21.2 H Plt Count 43 L MPV 10.8 H Immature Gran % (Auto) Neut % (Auto) Lymph % (Auto) Josephine % (Auto) Eos % (Auto) Baso % (Auto) Immature Gran # (Auto) Neut # (Auto) Lymph # (Auto) Josephine # (Auto) Eos # (Auto) Baso # (Auto) Absolute Nucleated RBC 0.03 H Nucleated RBC % (auto) 0.7 Dohle Bodies Polychromasia Basophilic Stippling Anisocytosis Sodium 135 L Potassium 3.4 L Chloride 101 Carbon Dioxide 26 Anion Gap 8.0 BUN 22 H Creatinine 1.60 H Est Cr Clr Drug Dosing 75.7 Est GFR ( Amer) 49.9 Est GFR (Non-Af Amer) 43.0 BUN/Creatinine Ratio 13.8 Glucose 173 H POC Glucose Lactate 1.4 Calcium 7.6 L Phosphorus 2.4 L Magnesium 1.7 L Procalcitonin Nasal Screen MRSA (PCR) Stl C. diff Tox B Gene Blood Type Blood Type Recheck Antibody Screen Crossmatch 09/01/18 09/01/18 09/01/18 09:44 11:00 11:35 WBC RBC Hgb Hct MCV MCH MCHC RDW Std Deviation RDW Coeff of Preeti Plt Count MPV Immature Gran % (Auto) Neut % (Auto) Lymph % (Auto) Josephine % (Auto) Eos % (Auto) Baso % (Auto) Immature Gran # (Auto) Neut # (Auto) Lymph # (Auto) Josephine # (Auto) Eos # (Auto) Baso # (Auto) Absolute Nucleated RBC Nucleated RBC % (auto) Dohle Bodies Polychromasia Basophilic Stippling Anisocytosis Sodium Cancelled Potassium Cancelled Chloride Cancelled Carbon Dioxide Cancelled Anion Gap Cancelled BUN Cancelled Creatinine Cancelled Est Cr Clr Drug Dosing Cancelled Est GFR ( Amer) Cancelled Est GFR (Non-Af Amer) Cancelled BUN/Creatinine Ratio Cancelled Glucose Cancelled POC Glucose 195 H Lactate Calcium Cancelled Phosphorus Magnesium Procalcitonin Nasal Screen MRSA (PCR) Stl C. diff Tox B Gene Pending Blood Type Blood Type Recheck Antibody Screen Crossmatch Diagnostic Findings XR chest 1V portable HISTORY: 68 years-old Male shortness of breath acute shortness of breath COMPARISON: Chest radiograph 08/31/2018 TECHNIQUE: Semierect AP view of the chest FINDINGS: Cardiac silhouette is enlarged, unchanged. Mild pulmonary vascular congestion. Persistent ill-defined opacity of the left upper lobe. No pneumothorax, pleural effusion or new focal airspace consolidation. Stable positioning of left subclavian [id number] catheter. IMPRESSION: 1. Cardiomegaly with mild pulmonary vascular congestion. 2. Masslike opacity of the left upper lobe appears unchanged. The above report was generated using voice recognition software. It may contain grammatical, syntax or spelling errors. Electronically signed by: Mc Jones M.D. 09/01/2018 11:48 AM PG Care Time/CCT Critical Care Time: Yes Total Critical Care Time: 90 (1) Atrial fibrillation Atrial fibrillation type: unspecified Qualified Code(s): I48.91 - Unspecified atrial fibrillation
--- NOTE | 2018-09-01 11:49 | XRay Report ---
XR chest 1V portable HISTORY: 68 years-old Male shortness of breath acute shortness of breath COMPARISON: Chest radiograph 08/31/2018 TECHNIQUE: Semierect AP view of the chest FINDINGS: Cardiac silhouette is enlarged, unchanged. Mild pulmonary vascular congestion. Persistent ill-defined opacity of the left upper lobe. No pneumothorax, pleural effusion or new focal airspace consolidatio n. Stable positioning of left subclavian [id number] catheter. IMPRESSION: 1. Cardiomegaly with mild pulmonary vascular congestion. 2. Masslike opacity of the left upper lobe appears unchanged. The above report was generated using voice recognition software. It may contain grammatical, syntax o r spelling errors. Electronically signed by: Mc Jones M.D. 09/01/2018 11:48 AM
--- NOTE | 2018-09-01 12:06 | Pharmacy Report ---
Pharmacy Abx Dose Short Note - Date of Service September 01, 2018 - Assessment & Plan Assessment 68 year old M receiving Vancomycin for treatment of potential lung infection. Patient received chemo around 2 weeks ago. Day # 1 of antimicrobial therapy. Vancomycin was dosed at 2750 mg (14 mg/kg) IV x1 @ 2355 last night. Then Vancomycin 2750 mg IV q12h was started this AM at 0520. This dose was started early so that patient can receive a full loading dose of 24 mg/kg. However patient is morbidly obese with BMI = 61.8 kg/m2 which increases risk for Vancomycin accumulation. Also Scr is high at 1.6 currently (this was 1.7 earlier this AM). Plan Vancomycin * Patient is morbidly obese with BMI = 61.8 kg/m2. Decreased Vancomycin dosing to prevent drug accumulation. * Dose changed to 1750 mg (9 mg/kg) IV x 1 for tonight at 2000. * A peak Vanco level was ordered after this dose and then a random level 14 hrs after the dose to try to estimate a half-life for this patient. * If renal function is stable, patient may need every 14 to 16 hr dosing interval. * Levels ordered for tomorrow will not be at steady state since these are checked on day 2 of therapy after 1 maintenance dose. * Goal trough level for lung infection: 15 to 20 mcg/mL Pharmacy will continue to follow and will adjust dose/frequency as necessary. Thank you.
[2018-09-01 12:22] LABS: iSTAT Arterial Blood Gas HCO3 21 meg/L (19-24); iSTAT Arterial Blood Gas pCO2 32 mmHg (35-46); iSTAT Arterial Blood Gas pH 7.43 (7.35-7.45); iSTAT Carbon Dioxide 22 mEq/l (24-31); iSTAT Site R Radial
[2018-09-01] MEDS: SPIRONOLACTONE 25 MG TAB PO SCH (14:04)
[2018-09-01] MEDS: POTASSIUM CHLORIDE / WTR 20 MEQ/100 ML PLCT IV SCH ×2 (14:24→16:34)
[2018-09-01] MEDS: MAGNESIUM SULFATE / D5W 1 GM/100 ML BAG IV SCH ×2 (14:26→15:32)
[2018-09-01] MEDS ORDERED: POTASSIUM CHLORIDE / WTR 10 MEQ/100 ML PLCT IV SCH (14:30)
--- NOTE | 2018-09-01 14:31 | Ultrasound Report ---
US renal/blad retro comp HISTORY: 68 years-old Male BACTEREMIA/ RENAL ABSCESS acute bacteremia COMPARISON: PET CT 04/14/2018 TECHNIQUE: Multiple real-time sonographic images of the kidneys and urinary bladder were obtained ass essing grayscale appearance and color flow FINDINGS: Limited exam secondary to patient body habitus and portable technique. Left kidney not diagnostically visualized. Right kidney is suboptimally visualized, 12.5 cm without focal abnormality, renal calcul i or hydronephrosis identified. Hepatic steatosis. Urinary bladder is also not visualized. IMPRESSION: 1. Extremely limited exam secondary to portable technique and body habitus. 2. Nonvisualization of the urinary bladder and left kidney. Visualized right kidney demonstrates no g ross abnormality. The above report was generated using voice recognition software. It may contain grammatical, syntax o r spelling errors. Electronically signed by: Mc Jones M.D. 09/01/2018 2:30 PM
[2018-09-01] MEDS ORDERED: LORazepam 1 MG/2 ML VIAL IV ONE (15:44)
[2018-09-01] MEDS ORDERED: LORazepam 2 MG/4 ML VIAL ONE (18:30)
[2018-09-01] MEDS: LORazepam 1 MG/2 ML VIAL IV PRN ×2 (18:31→19:25)
[2018-09-01] MEDS ORDERED: VANCOMYCIN HCL 1,750 MG in SODIUM CHLORIDE 0.9% 500 ML IV SCH (20:00)
[2018-09-01] MEDS ORDERED: [UNRECOGNIZED DRUG - OTHER] IV SCH (20:00)
--- NOTE | 2018-09-01 20:09 | CT Scan Report ---
CT chest wo con, CT abd pelvis wo con CT DOSE: 3759.92 mGy.cm CLINICAL HISTORY: 68 years-old Male with acute hypoxic respiratory failure. SCC of lung. Acute gener alized abdominal pain. Acute respiratory failure with squamous cell carcinoma of the lung. TECHNIQUE: Multiaxial CT images of the chest, abdomen and pelvis were performed without contrast. A dose lowering technique was utilized adhering to the principles of ALARA. COMPARISON: Chest CT from outside hospital 04/18/2018 and 04/04/2018 (images only without accompanying r eport), PET CT 04/14/2018. FINDINGS: CT CHEST: Limited exam without the use of IV contrast. No focal thyroid nodule. Subcarinal lymph nodes are seen measuring up to 1.6 x 1.2 cm on image 146 series 6, previously 1.5 x 1.1 cm. No definite new or prog ressive adenopathy of the chest. Moderate cardiomegaly with coronary arterial calcifications. Mild di lation of the pulmonary arterial tree may reflect pulmonary arterial hypertension. No aortic aneurysm . Left subclavian [id number] catheter terminates about the mid SVC. Trace left pleural effusion. Linear subsegmental consolidative opacities suggest atelectasis. Limited evaluation of the lungs secondary to respiratory motion. Calcified granuloma of the anterior segment right upper lobe. Mild bibasilar bronchial wall thickening. No focal airspace consolidation typical for pneumonia. Mild intralobular septal thickening of the left upper lobe. Irregular cavitary mass of the left upper lobe, 5.5 x 3.1 x 4.4 cm in AP, transverse and cranial, dimensions respectively (prev iously measuring 5.5 x 4.2 x 4.4 cm when measured in a similar fashion) there is progressive central cavitation on today's study with overall decreased size of the mass. No new pulmonary nodules or mass es identified. Central airways appear patent. Soft tissues are within normal limits. Degenerative des nges of the shoulders and spine. No new suspicious bone lesions. Healed remote left-sided rib fractur es. CT ABDOMEN/PELVIS: No pneumatosis or pneumoperitoneum. Study is limited without the use of IV contrast. Hepatomegaly wit h hepatic steatosis. No definite focal hepatic mass lesion identified. Cholecystectomy. Spleen, pancr eas and right adrenal gland are unremarkable. Moderate thickening of the left adrenal gland suggestiv e of hyperplasia. Kidneys, and ureters are unremarkable. Decompressed urinary bladder with Cooper cath eter. Aorta and IVC are within normal limits. Enlarged bilateral inguinal chain lymph nodes, 3.0 x 1. 9 cm on the right and 3.1 x 1.8 cm on the left, both of which have mildly increased in size from comp arison. Additional more superior inguinal lymph nodes have also increased in size. Small fat filled b ilateral inguinal hernias. Fluid-filled distended esophagus with mostly air-filled moderately distended stomach. Duodenum is air and fluid-filled measuring up to 4.2 cm transversely. No obstructing process or lesion identified. E xtensive colonic diverticulosis without acute diverticulitis identified. Mild nonspecific inflammator y stranding about the sigmoid colon, image 362 series 7. Appendix not definitively seen. Soft tissues are unremarkable. No new suspicious lytic or blastic bony lesions. IMPRESSION: 1. Limited exam without the use of IV contrast. 2. Slightly decreased size of the large mass of the left upper lobe compatible with patient's known p rimary bronchogenic carcinoma. Additionally, there is progressive central cavitation suggestive of po st treatment-related change. 3. Increased size of the enlarged bilateral inguinal chain lymph nodes, nonspecific without additiona l progressive adenopathy identified within each chest, abdomen or pelvis. Attention at follow-up victorino mmended. 4. Mild nonspecific inflammatory stranding about the mid sigmoid colon may reflect a nonspecific coli tis or diverticulitis. 5. Air-filled distended stomach and duodenum without obstructing lesion identified may be on a physio logic basis. 6. Hepatomegaly with hepatic steatosis. 7. Trace left pleural effusion with bibasilar opacities suggestive of probable atelectasis. 8. Additional findings as above. Electronically signed by: Mc Jones M.D. 09/01/2018 8:07 PM
[2018-09-01] MEDS: ALLOPURINOL 100 MG TAB PO SCH (21:42)
--- NOTE | 2018-09-01 23:15 | Hospitalist Progress Note ---
Date of Service September 01, 2018 Assessment & Plan (1) Severe sepsis: Patient appearc clinically ill. Patient is hypoxic bacteremia. Overnight patient was found to have elevated lactic acid. patient also having temps. Cultures from outside hospital are positive. Will continue with vanc and zosyn. Will repeat blood cultures. Patient will require IV fluids. Source appears likely to be urinary given urine findings. (2) Acute respiratory failure with hypoxia: will be transferred to ICU. Currently placed on BIPAP. Patient may require intubation. Will defer to ICU team. (3) Atrial fibrillation: Patient with new onset atrial fibrillation with RVR. HR presently 132. Blood pressure stable. Patient is asymptomatic at present. -Check electrolytes and replete as needed -TSH with T4 reflex, Troponin, BNP, EKG and CXR -2D echocardiogram -Continue Cardizem gtt, presently at 15 -Continue Metoprolol. Patient has been taking 25mg po BID, will increase to 50mg po BID as tolerated -Continue anticoagulation with Xarelto (4) SOB (shortness of breath): Initally felt patient may be in CHF as he was improving with lasix, had elevated BNP despite morbid obesity and was no longer hypoxic. However he worsened overnight. (5) Fever: As noted above. (6) Diabetes: Patient reports adequate control with oral agents -Hold Januvia, Metformin for now -Lantus 15u BID, ISS 20:7 by weight -CC diet as tolerated (7) Gout: Chronic -Continue Allopurinol 300mg po daily, 100mg po qHS (8) COPD (chronic obstructive pulmonary disease): Patient with O2 dependent COPD presenting with worsening SOB -DuoNeb q 4 hours -Albuterol q 2 hours PRN -Supplemental O2 as needed (9) Pulmonary embolism: Patient with newly diagnosed PE, on anticoagulation with Xarelto. He was administered Lovenox 1mg/kg SC at OSH for concern for PE (reported to have an elevated D-dimer, some renal insufficiency which inhibits contrast dye for CTA) -Continue Xarelto, (10) Obesity: Patient is quite large -Bariatric bed -Encourage lifestyle modification (11) Hypertension: Blood pressure presently well controlled -will hold diuretics for now. (12) Chronic venous insufficiency: Patient with history of chronic venous insufficiency. Recently with cellu litis and poorly healing wounds. No ulcers or drainage appreciated at present. Patient is on Keflex BID for suppressive therapy -Continue Keflex BID at home dose -EDDIE hose to bilateral LE F/E/N - Heplock, monitor electrolytes and replete as needed, continue PO magnesium and potassium supplements, CC diet as tolerated, will hold vitamins and neutraceuticals for now Ppx - Continue home Omeprazole, Xarelto as above Code - Full Spent 80 minutes in management of patient. 45 minutes were in critical care. This is a life/limb threatening event. This includes time spent evaluating patient, direct bedside care, chart review, placing orders, interpretation of diagnostic studies, discussion with consultants, patient, and/or family members regarding treatment decisions, as well as other required patient management activities. This time is exclusive of all separately billable procedures, and teaching time and separate from and in addition to any other critical care service time. 8:00 to 8:40 9:00 to 9:40 Subjective Patient appears clinically ill. He reports he has been vomiting multiple times today. He also appears SOB. D/W nurse overnight, patient required PRBC. 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 Review of Systems Constitutional: + sweats, + malaise and + weakness Eyes: no diplopia Ear, Nose, Mouth, Throat: no ear trauma Respiratory: + cough and + dyspnea Cardiovascular: no chest pain Gastrointestinal: + bloating, + nausea and + vomiting Musculoskeletal: no myalgia Neurologic: no falls Psychiatric: no hallucinations Endocrine: + fatigue Physical Exam Physical Exam: General: morbidly obese appears dyspneic, AA&O x 4 Skin: warm, dry, intact, chronic venous stasis changes of bilateral LEs, skin thickening and hemosiderin staining, small abrasion on lateral portion of left ankle, no bleeding/drainage/purulence or active cellulitis appreciated HEENT: NC/AT, PERRL, EOMI, anicteric sclera, conjunctiva without injection, external ear normal to inspection and nontender, nares patent, moist mucus membranes, dentition intact, no oropharyngeal lesions, neck supple, trachea midline, no LAD, no thyromegaly, no JVD Heart: +S1/S2, irregularly irregular, tachycardic, no m/r/g, port present left chest wall, nontender, no erythema or drainage Lungs: diminished breath sounds bilaterally Abd: obese, +BS, soft, NT, distended, no masses/organomegaly/ascites, ventral hernia reducible Ext: warm, 2+ pulses in UE/LE bilaterally, no clubbing/cyanosis or edema, chronic venous stasis changes as above Neuro: nonfocal, patient AA&O x 4, speech intact, no facial droop, moving all extremities on command with equal strength 5/5 Results & Data Vital Signs (Past 12 Hours) Vital Signs Temp Pulse Pulse Pulse Resp BP Pulse Ox 09/01/18 19:34 103 H 20 97 09/01/18 18:01 36.9 C 91 H 24 161/90 H 96 09/01/18 17:46 99 H 26 H 115/68 96 09/01/18 17:31 107 H 110/76 93 09/01/18 17:16 111 H 26 H 136/105 H 98 09/01/18 17:02 98 H 24 118/80 95 09/01/18 16:46 117 H 28 H 110/61 95 09/01/18 16:31 109 H 137/75 96 09/01/18 16:30 100 H 96 09/01/18 16:22 90 124/107 H 95 09/01/18 16:16 108 H 124/107 H 93 09/01/18 16:01 37.4 C 115 H 25 H 133/69 94 09/01/18 16:00 110 H 09/01/18 15:31 115 H 109/76 96 09/01/18 15:16 105 H 128/76 96 09/01/18 15:01 111 H 96/58 L 96 09/01/18 14:46 110 H 138/76 97 09/01/18 14:19 106 H 114/81 96 09/01/18 14:15 119 H 114/81 97 09/01/18 14:02 113 H 24 96 09/01/18 14:00 37.8 C H 109 H 114/81 96 09/01/18 13:45 121 H 117/61 93 09/01/18 13:30 123 H 108/80 96 09/01/18 13:15 124 H 113/50 L 95 09/01/18 13:00 120 H 99/55 L 95 09/01/18 12:46 121 H 104/62 95 09/01/18 12:15 120 H 134/80 09/01/18 12:10 130 H 96 09/01/18 12:01 36.8 C 136 H 105/62 96 09/01/18 12:00 136 H 97 09/01/18 11:50 129 H 96 09/01/18 11:41 135 H 135/79 96 09/01/18 11:31 138 H 141/90 H 95 09/01/18 11:16 141 H 117/53 L 96 PG Care Time/CCT Total # of Minutes Spent Total Time Spent with Patient: Total time spent is greater than 50% in coordination of care (as documented) at patient's floor/unit and/or counseling patient: Critical Care Time: Yes Total Critical Care Time: 35 (1) Fever Fever type: unspecified Qualified Code(s): R50.9 - Fever, unspecified (2) Diabetes Diabetes mellitus complication status: without complication Diabetes mellitus long term care pharmacist insulin use: without long term care pharmacist use Diabetes mellitus type: type 2 Qualified Code(s): E11.9 - Type 2 diabetes mellitus without complications (3) Gout Chronicity: chronic Gout etiology: unspecified cause Gout site: unspecified site (4) Atrial fibrillation Atrial fibrillation type: unspecified Qualified Code(s): I48.91 - Unspecified atrial fibrillation (5) COPD (chronic obstructive pulmonary disease) COPD type: unspecified COPD Qualified Code(s): J44.9 - Chronic obstructive pulmonary disease, unspecified (6) Pulmonary embolism Acute cor pulmonale presence: without acute cor pulmonale Chronicity: unspecified Pulmonary embolism type: unspecified Qualified Code(s): I26.99 - Other pulmonary embolism without acute cor pulmonale (7) Hypertension Hypertension type: essential hypertension Qualified Code(s): I10 - Essential (primary) hypertension (8) Obesity Body mass index: BMI 60.0-69.9 Obesity classification: adult class 3 (BMI >= 40) Obesity type: due to excess calories Serious obesity comorbidity presence: with serious comorbidity Qualified Code(s): E66.01 - Morbid (severe) obesity due to excess calories; Z68.44 - Body mass index (BMI) 60.0-69.9, adult
[2018-09-02] MEDS ORDERED: [UNRECOGNIZED DRUG - OTHER] IV SCH
[2018-09-02] MEDS: dilTIAZem HCl 125 MG in DEXTROSE 5% 100 ML IV SCH ×3 (00:41→15:49)
[2018-09-02] MEDS: LORazepam 1 MG/2 ML VIAL IV PRN (01:12)
[2018-09-02] MEDS: ALBUT/IPRATROP 3MG/0.5MG NEB 3 ML VIAL NEB SCH ×4 (02:10→19:55)
[2018-09-02] MEDS: PIPERACILLIN/TAZOBACTAM 4.5 GM in DEXTROSE 5% 100 ML IV SCH ×3 (04:06→18:04)
[2018-09-02] MEDS ORDERED: VANCOMYCIN HCL 2,250 MG in SODIUM CHLORIDE 0.9% 500 ML IV STA (07:08)
[2018-09-02 07:33] LABS: Hematocrit (blood only) 21.3 % (42-52); Hemoglobin 7.2 g/dL (14.0-18.0); Mean Corpuscular Hgb Conc 33.8 g/dL (32-36); Mean Corpuscular Volume 96.4 fL (80-100); Nucleated RBC # (auto) 0.05 K/uL (0-0); RDW Coefficient of Variation 21.9 % (11.5-14.5); RDW Standard Deviation 73.7 fL (36.4-46.3); Red Blood Count 2.21 M/uL (4.7-6.1); White Blood Count 5.02 K/uL (4.8-10.8)
[2018-09-02 07:37] LABS: Mean Platelet Volume 11.5 fL (7.4-10.4); Platelet Count 38 K/uL (130-400)
[2018-09-02] MEDS: PANTOprazole 40 MG TAB PO SCH (07:54)
[2018-09-02] MEDS: MAGNESIUM OXIDE 400 MG TAB PO SCH ×2 (07:54→20:40)
[2018-09-02 07:55] LABS: Anisocytosis Present; Basophils # (auto) 0.01 K/uL (0-0.2); Basophils % (auto) 0.2 %; Immature Granulocytes # (auto) 0.01 K/uL (0.00-0.02); Immature Granulocytes % (auto) 0.2 %; Lymphocytes # (auto) 0.38 K/uL (1.2-3.4); Lymphocytes % (auto) 7.6 %; Monocytes # (auto) 0.64 K/uL (0.11-0.59); Monocytes % (auto) 12.7 %; Neutrophils # (auto) 3.98 K/uL (1.4-6.5); Neutrophils % (auto) 79.3 %; Spherocytes 1+
[2018-09-02] MEDS: POTASSIUM CHLORIDE 20 MEQ TABCR PO SCH ×2 (07:55→20:40)
[2018-09-02] MEDS: INSULIN ASPART 100 UNITS/ML 3 ML PEN SC SCH ×4 (07:55→20:36)
[2018-09-02] MEDS: INSULIN GLARGINE SOLOSTAR 100 UNITS/ML 3 ML PEN SC SCH ×2 (07:58→20:41)
[2018-09-02] MEDS ORDERED: LORazepam 0.5 MG/1 ML VIAL IV PRN (08:34)
[2018-09-02 08:43] LABS: BUN Creatinine Ratio 17.8 (10-20); Calcium 8.2 mg/dl (8.5-10.1); Creatinine Clr Calc Pharmacy 95.7 ml/min; Est GFR (African American) 67.2
[2018-09-02] MEDS: MoRPHine SULFATE 2 MG/ML CARP IV PRN ×3 (09:21→20:43)
[2018-09-02 09:57] LABS: Potassium 4.2 mmol/L (3.5-5.1)
[2018-09-02] MEDS: FAMOTIDINE 20 MG in SYRINGE 3 ML IV SCH ×2 (10:12→20:40)
--- NOTE | 2018-09-02 10:13 | Pharmacy Report ---
Pharmacy Glycemic Short Note 2 - Date of Service September 02, 2018 - Glycemic Short BSG Results (Last 24 hours): 09/01/18 09/01/18 09/01/18 09:44 09:44 11:35 Glucose 173 H Cancelled POC Glucose 195 H 09/01/18 09/01/18 09/02/18 16:40 21:36 07:22 Glucose 197 H POC Glucose 229 H 248 H 09/02/18 07:36 Glucose POC Glucose 208 H OUTPATIENT ANTIDIABETIC REGIMEN: * Metformin 1gm PO BID * Sitagliptin 100mg PO Q AM * A1c = ? The patient is currently receiving: * Basal insulin: Lantus 20 units every 12 hours * Correctional Insulin: Novolog Correction per scale ACHS Goal Range: Low 110 mg/dL - High 140 mg/dL Correction Factor: 20 mg/dL/unit * Prandial insulin: Per carb ratio of 1 unit per 6 grams CHO consumed ASSESSMENT: 09/02 * Glycemic control deteriorated quickly yesterday with the administration of dexamethasone IV for nausea * Dexamethasone was administered at ~1400 09/01 and BSGs have remained in the mid 200s since * Patient was transferred to ICU for increasing respiratory distress * Will begin IV insulin drip at this time per ICU protocol as BSG > 220 is a trigger to begin the drip. [facility] recommends initiating IV insulin drip when BSG is greater than 150. An IV insulin drip is really the best suited method to address hyperglycemia induced by PRN high dose steroid therapy as it can be titrated up and down quickly. * This patient may not be agreeable to IV insulin infusion, thus will continue some basal insulin should we have to return to a SQ basal/bolus regimen due to patient refusal 08/31 * Type 2 diabetic admitted for A fib RVR, ADHF, and fever * We do not have a recent A1c to guide therapy. Patient states he tests BSG once daily prior to lunch and reports BSGs in the 130s * Admitting provider has ordered basal/bolus regimen based upon weight and low stress level. The current insulin doses are reasonable starting points. Would be hesitant to use weight and moderate stress level or higher for initial dose calculations given his body habitus and lack of A1c data. PLAN FOR INPATIENT GLYCEMIC CONTROL: * Hold outpatient oral diabetes medications (metformin, sitagliptin) * Initiate IV insulin infusion per MODERATE stress protocol; goal range: 110- 180mg/dL * Basal insulin (dose increase) * Lantus 30 units SQ BID - to be given with the insulin drip * Bolus insulin * Nutritional / Prandial insulin per carb ratio of 1 unit per 4 grams CHO consumed with meals PLAN FOR DISCHARGE: * to be determined
[2018-09-02] MEDS ORDERED: MODERATE STRESS LEVEL ONE (10:30)
[2018-09-02] MEDS ORDERED: NovoLIN-R BOLUS FROM BAG IV ONE (10:31)
[2018-09-02] MEDS: INSULIN REGULAR 250 UNITS in SODIUM CHLORIDE 0.9% 247.5 ML IV SCH (10:31)
--- NOTE | 2018-09-02 10:36 | Pharmacy Report ---
Pharmacy Abx Dose Short Note - Date of Service September 02, 2018 - Assessment & Plan Assessment * 68 year old M receiving empiric VANCOMYCIN + ZOSYN therapy for sepsis in the setting of immunocompromise (chemotherapy ~2 wks ago); possible pulm vs urinary vs gi source vs skin * Day # 3 of antimicrobial therapy * Cultures remain negative thus far * MRSA nasal swab was negative greatly lessening the likelihood of MRSA pneumonia * Renal fxn may be improving at this time based upon labs * CT read as nonspecific inflammatory stranding of mid-sigmoid colon, trace pleural effusion with bibasilar opacities sugg of atelectasis, large mass of CIARRA consistent w/ CA, central cavitation consistent w/ treatment related changes * WBC count recovering; non-neutropenic Plan Vancomycin * 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 * I estimate the following p'kinetic parameters based upon these levels: half- life 8-9 hrs, Vd 0.55L/kg (due to BMI > 40) * Will begin new maint dose of 2250mg (~11.4mg/kg) Q 10 hrs * Goal trough: 15-20mcg/mL for sepsis * Will order trough level w/ 4th dose of this regimen Zosyn * eCrCl >20; BMI > 35 * Continue 4.5gm ext-infusion IV Q 8 hrs Pharmacy will continue to follow and will adjust dose/frequency as necessary. Thank you.
[2018-09-02] MEDS ORDERED: LIDOCAINE HCL 2% VISCOUS 60 ML, DiphenhydrAMINE Syrup 150 MG, ALUMINUM/MAGNESIUM SUSP 6... PO PRN (11:27)
[2018-09-02] MEDS: ONDANSETRON INJ 2 MG/ML 2 ML VIAL IV PRN (11:53)
--- NOTE | 2018-09-02 12:22 | Critical Care Progress Note ---
Date of Service September 02, 2018 Assessment & Plan (1) Acute respiratory failure with hypoxia: Neuro- awake alert. anxious CV- BP stable. rapid afib. continue diltiazem - transition to oral once nausea improves Pulmonary- acute hypoxic respiratory failure. tolerating facemask. titrate fio2 for sat >92%. PE off anticoagulation with platlet count ID- possible sepsis with evidence of end organ dysfunction. immunocompromised. follow cultures. vancomycin and piperacillin-tazobactam. CT without clear source on infection Renal- acute renal failure. suspect prerenal. cr improved. good UOP. continue fluids GI- nausea and diarrhea. ct abd without cause of abd pain but does have air filled stomach and air and fluid filled duodeunum Heme- pancytopenia. s/p recent chemo for squamous cell CA. hold anticoagulation for now until counts better. his symptoms may be related to his chemotherapy Endocrine- blood sugars high. insulin drip to keep <180 Dispo- continue ICU care for ventilatory and hemodynamic support I have personally spent 35 minutes of critical care time in the direct management of this patient. This is a life/limb threatening event. This includes time spent evaluating patient, direct bedside care, chart review, placing orders, interpretation of diagnostic studies, discussion with consultants, patient, and/or family members regarding treatment decisions, as well as other required patient management activities. This time is exclusive of all separately billable procedures, and teaching time and separate from and in addition to any other critical care service time. (2) Severe sepsis: (3) Atrial fibrillation: Subjective overnight with agitation continued nausea Physical Exam Physical Exam: Constitutional: comfortable NAD HEENT: normocephalic atraumatic. MMM. CV: RRR nl s1,s2 no murmurs rubs or gallops Lungs: decreased bilaterally. no accessory muscle use Abd: soft nontender nondistended. obese. normal bowel sounds Ext: + LE edema. no cyanosis, no clubbing Skin: warm dry Neuro: alert and oriented. moving all extremities Psych: anxious Results & Data Vital Signs (Past 12 Hours) Vital Signs Temp Pulse Pulse Resp BP BP Pulse Ox 09/02/18 08:00 37.1 C 108 H 24 133/78 94 09/02/18 07:10 104 H 18 95 09/02/18 06:31 95 H 137/69 95 09/02/18 06:30 100 H 95 09/02/18 06:01 105 H 124/81 96 09/02/18 06:00 99 H 96 09/02/18 05:31 108 H 116/79 98 09/02/18 05:30 103 H 94 09/02/18 05:03 101 H 124/75 99 09/02/18 05:02 97 H 124/73 99 09/02/18 05:00 99 H 98 09/02/18 04:30 101 H 96 09/02/18 04:02 36.4 C L 104 H 122/66 92 09/02/18 04:00 100 H 93 09/02/18 03:32 99 H 118/72 99 09/02/18 03:30 101 H 100 09/02/18 03:03 107 H 150/78 H 91 09/02/18 03:01 101 H 68/55 L 91 09/02/18 03:00 103 H 90 09/02/18 02:32 102 H 98/45 L 89 L 09/02/18 02:30 102 H 82 L 09/02/18 02:01 91 H 81/55 L 91 09/02/18 02:00 106 H 91 09/02/18 01:30 99/56 L 92 09/02/18 01:01 107 H 103/45 L 89 L 09/02/18 01:00 99 H 93 09/02/18 00:30 100 H 104/55 L 95 Laboratory Results Laboratory Results - last 24 hr 09/01/18 09/01/18 09/01/18 11:00 16:40 21:36 WBC RBC Hgb Hct MCV MCH MCHC RDW Std Deviation RDW Coeff of Preeti Plt Count MPV Immature Gran % (Auto) Neut % (Auto) Lymph % (Auto) [place] % (Auto) Eos % (Auto) Baso % (Auto) Immature Gran # (Auto) Neut # (Auto) Lymph # (Auto) [place] # (Auto) Eos # (Auto) Baso # (Auto) Absolute Nucleated RBC Nucleated RBC % (auto) Anisocytosis Spherocytes Sodium Potassium Chloride Carbon Dioxide Anion Gap BUN Creatinine Est Cr Clr Drug Dosing Est GFR ( Amer) Est GFR (Non-Af Amer) BUN/Creatinine Ratio Glucose POC Glucose 229 H 248 H Calcium Stl C. diff Tox B Gene Negative Cdiff Gene Vancomycin Peak Random Vancomycin 09/02/18 09/02/1809/02/19 01:23 05:59 07:22 WBC 5.02 RBC 2.21 L Hgb 7.2 L Hct 21.3 L MCV 96.4 MCH 32.6 MCHC 33.8 RDW Std Deviation 73.7 H RDW Coeff of Preeti 21.9 H Plt Count 38 L MPV 11.5 H Immature Gran % (Auto) 0.2 Neut % (Auto) 79.3 Lymph % (Auto) 7.6 [place] % (Auto) 12.7 Eos % (Auto) 0.0 Baso % (Auto) 0.2 Immature Gran # (Auto) 0.01 Neut # (Auto) 3.98 Lymph # (Auto) 0.38 L [place] # (Auto) 0.64 H Eos # (Auto) 0.00 Baso # (Auto) 0.01 Absolute Nucleated RBC 0.05 H Nucleated RBC % (auto) 1.0 Anisocytosis Present Spherocytes 1+ Sodium Potassium Chloride Carbon Dioxide Anion Gap BUN Creatinine Est Cr Clr Drug Dosing Est GFR ( Amer) Est GFR (Non-Af Amer) BUN/Creatinine Ratio Glucose POC Glucose Calcium Stl C. diff Tox B Gene Vancomycin Peak 23.9 L Random Vancomycin 16.3 09/02/18 09/02/18 09/02/18 07:22 07:36 10:21 WBC RBC Hgb Hct MCV MCH MCHC RDW Std Deviation RDW Coeff of Preeti Plt Count MPV Immature Gran % (Auto) Neut % (Auto) Lymph % (Auto) [place] % (Auto) Eos % (Auto) Baso % (Auto) Immature Gran # (Auto) Neut # (Auto) Lymph # (Auto) [place] # (Auto) Eos # (Auto) Baso # (Auto) Absolute Nucleated RBC Nucleated RBC % (auto) Anisocytosis Spherocytes Sodium 134 L Potassium 4.2 D Chloride 100 Carbon Dioxide 27 Anion Gap 7.0 BUN 22 H Creatinine 1.25 D Est Cr Clr Drug Dosing 95.7 Est GFR ( Amer) 67.2 Est GFR (Non-Af Amer) 58.0 BUN/Creatinine Ratio 17.8 Glucose 197 H POC Glucose 208 H 210 H Calcium 8.2 L Stl C. diff Tox B Gene Vancomycin Peak Random Vancomycin 09/02/18 09/02/18 11:03 11:45 WBC RBC Hgb Hct MCV MCH MCHC RDW Std Deviation RDW Coeff of Preeti Plt Count MPV Immature Gran % (Auto) Neut % (Auto) Lymph % (Auto) [place] % (Auto) Eos % (Auto) Baso % (Auto) Immature Gran # (Auto) Neut # (Auto) Lymph # (Auto) [place] # (Auto) Eos # (Auto) Baso # (Auto) Absolute Nucleated RBC Nucleated RBC % (auto) Anisocytosis Spherocytes Sodium Potassium Chloride Carbon Dioxide Anion Gap BUN Creatinine Est Cr Clr Drug Dosing Est GFR ( Amer) Est GFR (Non-Af Amer) BUN/Creatinine Ratio Glucose POC Glucose 186 H 181 H Calcium Stl C. diff Tox B Gene Vancomycin Peak Random Vancomycin Diagnostic Findings CT chest wo con, CT abd pelvis wo con CT DOSE: 3759.92 mGy.cm CLINICAL HISTORY: 68 years-old Male with acute hypoxic respiratory failure. SCC of lung. Acute generalized abdominal pain. Acute respiratory failure with squamous cell carcinoma of the lung. TECHNIQUE: Multiaxial CT images of the chest, abdomen and pelvis were performed without contrast. A dose lowering technique was utilized adhering to the principles of ALARA. COMPARISON: Chest CT from outside hospital 04/18/2018 and 04/04/2018 (images only without accompanying report), PET CT 04/14/2018. FINDINGS: CT CHEST: Limited exam without the use of IV contrast. No focal thyroid nodule. Subcarinal lymph nodes are seen measuring up to 1.6 x 1.2 cm on image 146 series 6, previously 1.5 x 1.1 cm. No definite new or progressive adenopathy of the chest. Moderate cardiomegaly with coronary arterial calcifications. Mild dilation of the pulmonary arterial tree may reflect pulmonary arterial hypertension. No aortic aneurysm. Left subclavian [id number] catheter terminates about the mid SVC. Trace left pleural effusion. Linear subsegmental consolidative opacities suggest atelectasis. Limited evaluation of the lungs secondary to respiratory motion. Calcified granuloma of the anterior segment right upper lobe. Mild bibasilar bronchial wall thickening. No focal airspace consolidation typical for pneumonia. Mild intralobular septal thickening of the left upper lobe. Irregular cavitary mass of the left upper lobe, 5.5 x 3.1 x 4.4 cm in AP, transverse and cranial, dimensions respectively (previously measuring 5.5 x 4.2 x 4.4 cm when measured in a similar fashion) there is progressive central cavitation on today's study with overall decreased size of the mass. No new pulmonary nodules or masses identified. Central airways appear patent. Soft tissues are within normal limits. Degenerative changes of the shoulders and spine. No new suspicious bone lesions. Healed remote left-sided rib fractures. CT ABDOMEN/PELVIS: No pneumatosis or pneumoperitoneum. Study is limited without the use of IV contrast. Hepatomegaly with hepatic steatosis. No definite focal hepatic mass lesion identified. Cholecystectomy. Spleen, pancreas and right adrenal gland are unremarkable. Moderate thickening of the left adrenal gland suggestive of hyperplasia. Kidneys, and ureters are unremarkable. Decompressed urinary bladder with Cooper catheter. Aorta and IVC are within normal limits. Enlarged bilateral inguinal chain lymph nodes, 3.0 x 1.9 cm on the right and 3.1 x 1.8 cm on the left, both of which have mildly increased in size from comparison. Additional more superior inguinal lymph nodes have also increased in size. Small fat filled bilateral inguinal hernias. Fluid-filled distended esophagus with mostly air-filled moderately distended stomach. Duodenum is air and fluid-filled measuring up to 4.2 cm transversely. No obstructing process or lesion identified. Extensive colonic diverticulosis without acute diverticulitis identified. Mild nonspecific inflammatory stranding about the sigmoid colon, image 362 series 7. Appendix not definitively seen. Soft tissues are unremarkable. No new suspicious lytic or blastic bony lesions. IMPRESSION: 1. Limited exam without the use of IV contrast. 2. Slightly decreased size of the large mass of the left upper lobe compatible with patient's known primary bronchogenic carcinoma. Additionally, there is progressive central cavitation suggestive of post treatment-related change. 3. Increased size of the enlarged bilateral inguinal chain lymph nodes, nonspecific without additional progressive adenopathy identified within each chest, abdomen or pelvis. Attention at follow-up recommended. 4. Mild nonspecific inflammatory stranding about the mid sigmoid colon may reflect a nonspecific colitis or diverticulitis. 5. Air-filled distended stomach and duodenum without obstructing lesion identified may be on a physiologic basis. 6. Hepatomegaly with hepatic steatosis. 7. Trace left pleural effusion with bibasilar opacities suggestive of probable atelectasis. 8. Additional findings as above. Electronically signed by: Mc Jones M.D. 09/01/2018 8:07 PM Dictated: 09/01/181921 Transcribed: 09/01/181923 PG Care Time/CCT Critical Care Time: Yes Total Critical Care Time: 35 (1) Atrial fibrillation Atrial fibrillation type: unspecified Qualified Code(s): I48.91 - Unspecified atrial fibrillation
--- NOTE | 2018-09-02 12:40 | Consultation Report ---
DATE OF CONSULTATION: 09/02/2018 MEDICAL ONCOLOGY CONSULTATION REASON FOR CONSULTATION: Morbidly obese 68-year-old gentleman with locally advanced nonsmall cell lung cancer. HISTORY OF PRESENT ILLNESS: Mr. Leary is a very pleasant morbidly obese 68-year-old gentleman who was admitted to [facility] on August 31 with the complaint of generally feeling ill, fevers, chills, and musculoskeletal pain. Apparently, he originally presented to [facility], was reportedly tachycardic with the heart rate in excess of 180 beats per minute. He was administered IV Cardizem and given IV fluids, subsequently transferred to our facility for further evaluation. When I was at Mr. Leary's bedside yesterday, he was in the midst of decompensating manifested by recurrent fever, again uncontrolled atrial fibrillation and hypoxia. He was subsequently transferred to the ICU and was immediately placed on BiPAP. I spoke to the critical care team today and Mr. Leary is doing much better, was administered morphine. His nausea is better controlled and his heart rate is now in the 90 beats per minute range. Mr. Leary again is a patient of Dr. Crandall's diagnosed with a stage IIB nonsmall cell lung cancer, originally treated with chemoradiation and had received his first course of consolidative paclitaxel and carboplatin approximately 2 weeks ago. He is due for cycle #2 within the next week or so. PAST MEDICAL HISTORY: Positive for morbid obesity, recent diagnosis of pulmonary embolism, COPD, diabetes mellitus, nonsmall cell lung cancer. MEDICATIONS: Prior to admission include acetaminophen p.r.n., allopurinol 300 mg p.o. daily, celecoxib 200 mg p.o. daily, cephalexin 250 mg p.o. b.i.d., cilostazol 100 mg p.o. b.i.d., furosemide 40 mg p.o. daily, lorazepam 0.5 mg p.o. daily p.r.n., metformin 1000 mg p.o. b.i.d., metoprolol 25 mg p.o. b.i.d., omeprazole 20 mg p.o. daily, Xarelto 20 mg p.o. daily, sitagliptin 100 mg p.o. daily, spironolactone 50 mg p.o. daily, tramadol 50 mg p.o. q. 12 hours p.r.n., Anoro Ellipta 1-2 inhalation b.i.d. p.r.n., mag oxide 1000 mg p.o. q.a.m. and 1500 mg q.p.m., potassium chloride 40 mEq p.o. q.a.m. and 60 mEq p.o. q.p.m., lisinopril 2.5 mg p.o. daily. ALLERGIES: No known drug allergies. SOCIAL HISTORY: He is retired. 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 FAMILY HISTORY: Noncontributory. REVIEW OF SYSTEMS: As per HPI, most notably for shortness of breath, asthenia, intractable nausea and vomiting and fever. SKIN: Suffers from stasis dermatitis, but no active dermatoses otherwise. HEENT: Negative for headaches, lightheadedness or dizziness. No acute visual or hearing deficits. No sinus symptoms. Positive for sore throat. No dysphagia, however. LYMPH: No history of lymphoproliferative disease. CARDIAC: No history of coronary artery disease. Positive history of atrial fibrillation. No current angina or palpitation. PULMONARY: Positive for mild COPD. He is presently on nonrebreather oxygen. No cough or hemoptysis presently. GASTROINTESTINAL: Negative for abdominal pain. Positive for nausea and vomiting. Positive for intermittent diarrhea. No hematochezia, melena or mateo rectal bleeding. GENITOURINARY: No history of prostate disease. No hematuria, dysuria, urinary incontinence. PSYCHIATRIC: Negative for anxiety, depression or psychoses. ENDOCRINE: Positive for diabetes. Negative for thyroid disease. MUSCULOSKELETAL: No arthralgias or myalgias. No overt focal muscle weakness. NEUROLOGIC: Negative for seizure, stroke, or migraine headache. HEMATOLOGIC: Positive for cytopenias, attributable to therapy. PHYSICAL EXAMINATION: GENERAL: Examined this morbidly obese 68-year-old gentleman at bedside. He is awake, alert and appropriate. VITAL SIGNS: Temperature 36.4, pulse 104, respiratory rate 18, blood pressure 137/69. SKIN: Warm, dry, noncyanotic without petechiae, rash or ecchymosis. Again, stasis dermatitis changes in his lower extremity noted. HEENT: Head: Atraumatic, normocephalic. Eyes: PERRLA, EOMI. Sclerae nonicteric. No conjunctival injection. Nares are patent without rhinorrhea or discharge. Throat is clear. No evidence of thrush. No buccal lesions or ulcerations. NECK: Bull neck. Trachea is midline. HEART: Tachy, but regular. LUNGS: Clear to auscultation bilaterally. ABDOMEN: Soft, nontender, nondistended without palpable hepatosplenomegaly. EXTREMITIES: No clubbing, cyanosis or edema. NEUROLOGICALLY: He is awake, alert and oriented x3. Cranial nerves are intact. LABORATORY DATA: WBC count 5020, hemoglobin 7.2, platelet count 38,000. Chemistries pending. Phosphorus was decreased yesterday 2.4, magnesium the same 1.7. CT scan of the chest was a limited examination, slightly decreased large mass in the left upper lobe is noted, increased size of enlarged bilateral inguinal chain lymph nodes. IMPRESSION: 1. Atrial fibrillation. 2. Acute respiratory failure. 3. Pulmonary embolism. 4. Locally advanced nonsmall cell lung cancer. 5. Electrolyte dysfunction. 6. Cytopenias/anemia/thrombocytopenia, attributable treatment. 7. Fever. PLAN: In summary, Mr. Leary is a very pleasant 68-year-old morbidly obese gentleman with a stage IIB nonsmall cell lung cancer, currently under the care of Dr. Crandall, recently completed chemoradiation and consolidative chemotherapy x1 cycle administered 2 weeks prior. He had presented with what I suspect treatment-induced effects asthenia, intractable nausea and vomiting and skeletal pain. He initially presented to [facility], subsequently transferred to our facility. He acutely decompensated yesterday and was transferred to the ICU where he is doing much better today. Mr. Leary received a very generous dose of chemotherapy 2 weeks ago and anticipate a prolonged myelosuppression. Therefore, would proceed with transfusion 2 units packed RBCs and anticipate the need for platelet transfusion within the next day or two, if his platelets fall below 20,000. His risk of bleeding is high on anticoagulation. Would continue to monitor peripheral blood counts on a daily basis. I spoke to the critical care team with his improvement, I believe he will remain in the critical care unit for another 24 hours or so and then hopefully be transferred out to a monitored bed. Mr. Leary is due for his next dose consolidative chemotherapy and anticipate dose adjustment as per Dr. Crandall. Reviewed his most recent blood and urine cultures which were negative thus far. I believe his fevers have also improved over the past 24 hours. Perhaps adding Magic mouthwash would be helpful in alleviating Mr. Leary's sore throat. I also recommended synergistic dexamethasone with Zofran dosing moving forward. Thank you very much for allowing us to participate in his care. We will continue to follow Mr. Leary periodically during his hospital stay.
[2018-09-02] MEDS ORDERED: VANCOMYCIN TROUGH ONE (17:30)
[2018-09-02] MEDS: VANCOMYCIN HCL 2,250 MG in SODIUM CHLORIDE 0.9% 500 ML IV SCH (18:04)
--- NOTE | 2018-09-02 20:28 | Cardiology Progress Note ---
Date of Service September 02, 2018 Assessment & Plan (1) Atrial fibrillation: Although I do not see a twelve-lead of his presenting arrhythmia on telemetry he is clearly in atrial fibrillation with a rapid heart rate. This spontaneously converted to normal but he has had recurrence. He was aware of the arrhythmia initially and from his description he may have had it for about 3 hours a week ago. Now he is unaware of it. I suspect he has more of it than he realizes and it is likely a chronic issue. It is possibly related to his lung cancer, an echocardiogram is unrevealing. 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 (2) Anticoagulant long-term use: He has been on anticoagulation with Xarelto for a pulmonary embolism, that should be appropriate for his atrial fibrillation as well. I agree with his dose of 20 mg daily. Subjective He denies cardiovascular symptoms today. He is SOB but in good spirits. He may be a little confused but is conversational. Physical Exam Physical Exam: Constitutional: Alert, cooperative and in mild respiratory distress. Morbidly obese. HEENT: Unremarkable. On an oxygen mask. Neck: No jugular venous distention although difficult to examine, carotid pulses are normal and equal bilaterally without bruits. Pulmonary: Decreased breath sounds throughout although clear to auscultation bilaterally. Cardiac: Irregular rhythm with no murmur, gallop or rub. Abdomen: Soft, obese, nontender with normal bowel sounds. Skin: No rash, ecchymoses or petechiae. Results & Data Vital Signs (Past 12 Hours) Vital Signs Pulse Pulse Pulse Resp BP Pulse Ox Pulse Ox 09/02/18 19:55 105 H 22 93 09/02/18 18:33 107 H 24 161/87 H 88 L 09/02/18 18:30 104 H 18 97 09/02/18 18:00 108 H 20 95 09/02/18 17:30 109 H 26 H 96 09/02/18 17:01 100 H 23 122/85 91 09/02/18 17:00 100 H 25 H 93 09/02/18 16:52 105 H 24 168/85 H 94 09/02/18 16:30 107 H 25 H 149/77 H 96 09/02/18 16:00 97 H 147/88 H 93 09/02/18 15:30 108 H 143/76 H 96 09/02/18 15:01 111 H 132/85 96 09/02/18 15:00 111 H 92 09/02/18 14:30 103 H 115/66 94 09/02/18 14:22 97 H 24 87 L 09/02/18 14:00 103 H 130/88 97 09/02/18 13:30 106 H 123/79 95 09/02/18 13:00 102 H 140/81 96 09/02/18 12:30 102 H 128/76 97 09/02/18 12:29 94 09/02/18 12:04 115 H 147/79 H 92 09/02/18 12:00 119 H 93 09/02/18 11:31 104 H 93/65 L 95 09/02/18 11:30 111 H 95 09/02/18 11:01 103 H 118/60 95 09/02/18 11:00 100 H 94 09/02/18 10:30 95 H 133/84 99 09/02/18 10:00 100 H 140/99 95 09/02/18 09:30 97 H 138/79 95 09/02/18 09:28 98 H 139/72 96 09/02/18 09:24 113 H 139/72 95 09/02/18 09:01 116 H 91/68 L 94 09/02/18 09:00 107 H 92 09/02/18 08:30 101 H 95 Diagnostic Findings Telemetry: Although a little hard to tell at times, he is having frequent episodes of atrial fibrillation at a somewhat rapid HR. Echo: Although technically limited his LV function is normal. (1) Atrial fibrillation Atrial fibrillation type: unspecified Qualified Code(s): I48.91 - Unspecified atrial fibrillation
[2018-09-02] MEDS: ALLOPURINOL 100 MG TAB PO SCH (20:40)
--- NOTE | 2018-09-02 22:53 | Hospitalist Progress Note ---
Date of Service September 02, 2018 Assessment & Plan (1) Severe sepsis: due to gram negative with acute organ dysfunction including acute on chronic hypoxic respiratory failure and CRESCENCIO Patient appears clinically ill. Patient is hypoxic and bacteremic. Patient transferred to ICU Cultures from outside hospital are positive. Will continue with vanc and zosyn. Will await repeat blood cultures. Patient will require IV fluids. Source appears likely to be urinary given urine findings. (2) Acute respiratory failure with hypoxia: IN ICU. On oxymask. Patient may require intubation. Will defer to ICU team. (3) Atrial fibrillation: Patient with new onset atrial fibrillation with RVR. HR presently 132. Blood pressure stable. Patient is asymptomatic at present. -Check electrolytes and replete as needed -TSH with T4 reflex, Troponin, BNP, EKG and CXR -2D echocardiogram -Continue Cardizem gtt, presently at 15 -Continue Metoprolol. Patient has been taking 25mg po BID, will increase to 50mg po BID as tolerated -Xarelto held by patient care manager (4) SOB (shortness of breath): Initially felt patient may be in CHF as he was improving with lasix, had elevated BNP despite morbid obesity and was no longer hypoxic. However he worsened overnight. (5) Fever: As noted above. (6) Diabetes: Patient reports adequate control with oral agents -Hold Januvia, Metformin for now -Lantus 15u BID, ISS 20:7 by weight -CC diet as tolerated (7) Gout: Chronic -Continue Allopurinol 300mg po daily, 100mg po qHS (8) COPD (chronic obstructive pulmonary disease): Patient with O2 dependent COPD presenting with worsening SOB -DuoNeb q 4 hours -Albuterol q 2 hours PRN -Supplemental O2 as needed (9) Pulmonary embolism: Patient with newly diagnosed PE, on anticoagulation with Xarelto. He was administered Lovenox 1mg/kg SC at OSH for concern for PE (reported to have an elevated D-dimer, some renal insufficiency which inhibits contrast dye for CTA) -xarelto held by patient care manager (10) Obesity: Patient is quite large -Bariatric bed -Encourage lifestyle modification (11) Hypertension: Blood pressure presently well controlled -will hold diuretics for now. (12) Chronic venous insufficiency: Patient with history of chronic venous insufficiency. Recently with cellulitis and poorly healing wounds. No ulcers or drainage appreciated at present. Patient is on Keflex BID for suppressive therapy -Continue Keflex BID at home dose -EDDIE hose to bilateral LE F/E/N - Heplock, monitor electrolytes and replete as needed, continue PO magnesium and potassium supplements, CC diet as tolerated, will hold vitamins and neutraceuticals for now Ppx - Continue home Omeprazole, Xarelto as above Code - Full spent 35 minutes of management of case. d/w patient care manager. (13) Antineoplastic chemotherapy induced pancytopenia: Subjective Patient continues to be a poor historian. He is tolerating his oxy-mask. He is confused and does not provide a good history. Family is not at bedside. Review of Systems Review of Systems: Unobtainable due to mental health condition Physical Exam Physical Exam: General: morbidly obese appears dyspneic, AA&O x 2 Skin: warm, dry, intact, chronic venous stasis changes of bilateral LEs, skin thickening and hemosiderin staining, small abrasion on lateral portion of left ankle, no bleeding/drainage/purulence or active cellulitis appreciated HEENT: NC/AT, PERRL, EOMI, anicteric sclera, conjunctiva without injection, external ear normal to inspection and nontender, nares patent, moist mucus membranes, dentition intact, no oropharyngeal lesions, neck supple, trachea midline, no LAD, no thyromegaly, no JVD Heart: +S1/S2, irregularly irregular, tachycardic, no m/r/g, port present left chest wall, nontender, no erythema or drainage Lungs: diminished breath sounds bilaterally Abd: obese, +BS, soft, NT, distended, no masses/organomegaly/ascites, ventral hernia reducible Ext: warm, 2+ pulses in UE/LE bilaterally, no clubbing/cyanosis or edema, chronic venous stasis changes as above Neuro: nonfocal, patient AA&O x 2, speech intact, no facial droop, moving all extremities on command with equal strength 5/5 Results & Data Vital Signs (Past 12 Hours) Vital Signs Pulse Pulse Pulse Resp BP Pulse Ox Pulse Ox 09/02/18 19:55 105 H 22 93 09/02/18 18:33 107 H 24 161/87 H 88 L 09/02/18 18:30 104 H 18 97 09/02/18 18:00 108 H 20 95 09/02/18 17:30 109 H 26 H 96 09/02/18 17:01 100 H 23 122/85 91 09/02/18 17:00 100 H 25 H 93 09/02/18 16:52 105 H 24 168/85 H 94 09/02/18 16:30 107 H 25 H 149/77 H 96 09/02/18 16:00 97 H 147/88 H 93 09/02/18 15:30 108 H 143/76 H 96 09/02/18 15:01 111 H 132/85 96 09/02/18 15:00 111 H 92 09/02/18 14:30 103 H 115/66 94 09/02/18 14:22 97 H 24 87 L 09/02/18 14:00 103 H 130/88 97 09/02/18 13:30 106 H 123/79 95 09/02/18 13:00 102 H 140/81 96 09/02/18 12:30 102 H 128/76 97 09/02/18 12:29 94 09/02/18 12:04 115 H 147/79 H 92 09/02/18 12:00 119 H 93 09/02/18 11:31 104 H 93/65 L 95 09/02/18 11:30 111 H 95 09/02/18 11:01 103 H 118/60 95 09/02/18 11:00 100 H 94 PG Care Time/CCT Total # of Minutes Spent Total Time Spent with Patient: Total time spent is greater than 50% in coordination of care (as documented) at patient's floor/unit and/or counseling patient: (1) Fever Fever type: unspecified Qualified Code(s): R50.9 - Fever, unspecified (2) Diabetes Diabetes mellitus complication status: without complication Diabetes mellitus terminal system operator insulin use: without terminal system operator use Diabetes mellitus type: type 2 Qualified Code(s): E11.9 - Type 2 diabetes mellitus without complications (3) Gout Chronicity: chronic Gout etiology: unspecified cause Gout site: unspecified site (4) Atrial fibrillation Atrial fibrillation type: unspecified Qualified Code(s): I48.91 - Unspecified atrial fibrillation (5) COPD (chronic obstructive pulmonary disease) COPD type: unspecified COPD Qualified Code(s): J44.9 - Chronic obstructive pulmonary disease, unspecified (6) Pulmonary embolism Acute cor pulmonale presence: without acute cor pulmonale Chronicity: unspecified Pulmonary embolism type: unspecified Qualified Code(s): I26.99 - Other pulmonary embolism without acute cor pulmonale (7) Hypertension Hypertension type: essential hypertension Qualified Code(s): I10 - Essential (primary) hypertension (8) Obesity Body mass index: BMI 60.0-69.9 Obesity classification: adult class 3 (BMI >= 40) Obesity type: due to excess calories Serious obesity comorbidity presence: with serious comorbidity Qualified Code(s): E66.01 - Morbid (severe) obesity due to excess calories; Z68.44 - Body mass index (BMI) 60.0-69.9, adult
[2018-09-03] MEDS: MoRPHine SULFATE 2 MG/ML CARP IV PRN (00:02)
[2018-09-03] MEDS: dilTIAZem HCl 125 MG in DEXTROSE 5% 100 ML IV SCH ×3 (00:34→17:56)
[2018-09-03] MEDS ORDERED: HALOPERIDOL LACTATE 5 MG/ML 1 ML VIAL IV STA (01:11)
[2018-09-03] MEDS ORDERED: MoRPHine SULFATE 2 MG/ML CARP IV STA (01:11)
[2018-09-03] MEDS ORDERED: HALOPERIDOL LACTATE 5 MG/ML 1 ML VIAL ONE (01:18)
--- NOTE | 2018-09-03 01:19 | Hospitalist Progress Note ---
Date of Service September 03, 2018 Subjective Called by nurse for tachycardia, elevated respiratory rate and tachypnea. On exam patient is afebrile, EB=692 WY=200/79 RR=35 96% on BiPAP 02/03 60% Patient appears to be delirious, possible hallucinations and talking about his dog HEENT - BiPAP placed Heart - +S1/S2, irregularly irregular and tachycardic Lungs - coarse BS anteriorly Abd - Obese, +BS Labs from the day reviewed Assessment/Plan: -Will administer additional dose of Morphine 2mg -Haldol 2mg IV x 2 -BiPAP placed -Will continue to follow -Metoprolol 5mg IV Results & Data Vital Signs (Past 12 Hours) Vital Signs Pulse Pulse Pulse Resp BP Pulse Ox 09/02/18 19:55 105 H 22 93 09/02/18 18:33 107 H 24 161/87 H 88 L 09/02/18 18:30 104 H 18 97 09/02/18 18:00 108 H 20 95 09/02/18 17:30 109 H 26 H 96 09/02/18 17:01 100 H 23 122/85 91 09/02/18 17:00 100 H 25 H 93 09/02/18 16:52 105 H 24 168/85 H 94 09/02/18 16:30 107 H 25 H 149/77 H 96 09/02/18 16:00 97 H 147/88 H 93 09/02/18 15:30 108 H 143/76 H 96 09/02/18 15:01 111 H 132/85 96 09/02/18 15:00 111 H 92 09/02/18 14:30 103 H 115/66 94 09/02/18 14:22 97 H 24 87 L 09/02/18 14:00 103 H 130/88 97 09/02/18 13:30 106 H 123/79 95
[2018-09-03] MEDS ORDERED: METOPROLOL TARTRATE 1 MG/ML VIAL IV STA (01:30)
[2018-09-03] MEDS: ALBUT/IPRATROP 3MG/0.5MG NEB 3 ML VIAL NEB SCH ×4 (01:55→18:58)
[2018-09-03] MEDS: VANCOMYCIN HCL 2,250 MG in SODIUM CHLORIDE 0.9% 500 ML IV SCH ×2 (03:53→13:12)
[2018-09-03] MEDS: PIPERACILLIN/TAZOBACTAM 4.5 GM in DEXTROSE 5% 100 ML IV SCH ×2 (03:53→11:13)
[2018-09-03 04:59] LABS: Creatinine Clr Calc Pharmacy 110.7 ml/min; Est GFR (African American) 80.2; Est GFR (Non-African American) 69.2
[2018-09-03 08:04] LABS: Hemoglobin 7.6 g/dL (14.0-18.0); Mean Corpuscular Volume 98.7 fL (80-100); Nucleated RBC # (auto) 0.06 K/uL (0-0); Nucleated RBC % (auto) 0.8 %; RDW Coefficient of Variation 22.5 % (11.5-14.5); RDW Standard Deviation 78.5 fL (36.4-46.3); Red Blood Count 2.33 M/uL (4.7-6.1); White Blood Count 7.53 K/uL (4.8-10.8)
[2018-09-03] MEDS: PANTOprazole 40 MG TAB PO SCH ×2 (08:14→19:56)
[2018-09-03] MEDS: FAMOTIDINE 20 MG in SYRINGE 3 ML IV SCH ×2 (08:14→20:55)
[2018-09-03 08:17] LABS: Mean Platelet Volume 11.3 fL (7.4-10.4); Platelet Count 38 K/uL (130-400)
[2018-09-03] MEDS: MAGNESIUM OXIDE 400 MG TAB PO SCH ×2 (08:21→19:56)
[2018-09-03] MEDS: POTASSIUM CHLORIDE 20 MEQ TABCR PO SCH ×2 (08:22→19:56)
[2018-09-03] MEDS: INSULIN GLARGINE SOLOSTAR 100 UNITS/ML 3 ML PEN SC SCH ×2 (08:22→20:59)
[2018-09-03 08:29] LABS: Anisocytosis Present; Immature Granulocytes # (auto) 0.03 K/uL (0.00-0.02); Immature Granulocytes % (auto) 0.4 %; Lymphocytes # (auto) 0.19 K/uL (1.2-3.4); Lymphocytes % (auto) 2.5 %; Monocytes # (auto) 1.06 K/uL (0.11-0.59); Monocytes % (auto) 14.1 %; Neutrophils # (auto) 6.25 K/uL (1.4-6.5); Ovalocytes 1+
[2018-09-03] MEDS: INSULIN ASPART 100 UNITS/ML 3 ML PEN SC SCH ×4 (08:39→20:58)
[2018-09-03 09:01] LABS: BUN Creatinine Ratio 16.3 (10-20); Calcium 8.3 mg/dl (8.5-10.1); Creatinine Clr Calc Pharmacy 107.7 ml/min; Est GFR (Non-African American) 70.8; Magnesium 2.5 mg/dl (1.8-2.4); Phosphorus 2.5 mg/dl (2.5-4.9); Potassium 5.1 mmol/L (3.5-5.1)
--- NOTE | 2018-09-03 09:02 | Critical Care Progress Note ---
Date of Service September 03, 2018 Assessment & Plan (1) Acute respiratory failure with hypoxia: Neuro- mental status worse. toxic metabolic encephalopathy due to medications(sedatives or chemo) vs infectious. check ABG if agitated again try dexmedetomidine CV- BP stable. rapid afib. continue diltiazem - transition to oral once nausea and mental status improves Pulmonary- acute hypoxic respiratory failure. on bipap today continue as needed. titrate fio2 for sat >92%. history PE off anticoagulation with platelet count ID- possible sepsis with evidence of end organ dysfunction. immunocompromised. follow cultures. vancomycin and piperacillin-tazobactam. CT without clear source on infection Renal- acute renal failure. suspect prerenal. cr improved. good UOP. continue fluids GI- nausea and diarrhea. ct abd without cause of abd pain but does have air filled stomach and air and fluid filled duodenum Heme- pancytopenia. s/p recent chemo for squamous cell CA. hold anticoagulation for now until counts better. his symptoms may be related to his chemotherapy Endocrine- blood sugars controlled on insulin drip Dispo- continue ICU care for ventilatory and hemodynamic support I have personally spent 35 minutes of critical care time in the direct management of this patient. This is a life/limb threatening event. This includes time spent evaluating patient, direct bedside care, chart review, placing orders, interpretation of diagnostic studies, discussion with co nsultants, patient, and/or family members regarding treatment decisions, as well as other required patient management activities. This time is exclusive of all separately billable procedures, and teaching time and separate from and in addition to any other critical care service time. (2) Severe sepsis: (3) Atrial fibrillation: Subjective more agitated. delirium last night this morning more lethargic Physical Exam Physical Exam: Constitutional: comfortable NAD on bipap. tachypnea HEENT: normocephalic atraumatic. MMM. CV: RRR nl s1,s2 no murmurs rubs or gallops Lungs: decreased bilaterally. no accessory muscle use tachypnea Abd: soft nontender nondistended. obese. normal bowel sounds Ext: + LE edema. no cyanosis, no clubbing Skin: warm dry Neuro: lethargic. opens eyes to voice but not following other commands Psych: lethargic Results & Data Vital Signs (Past 12 Hours) Vital Signs Temp Pulse Pulse Resp BP Pulse Ox 09/03/18 07:19 113 H 27 H 94 07/06/19 07:17 113 H 27 H 94 09/03/18 06:00 117 H 34 H 141/81 H 94 09/03/18 05:30 110 H 31 H 94 09/03/18 05:18 113 H 30 H 145/65 H 95 09/03/18 05:00 110 H 33 H 96 09/03/18 04:30 112 H 31 H 94 09/03/18 04:00 37.7 C H 109 H 32 H 176/88 H 95 09/03/18 03:30 123 H 30 H 94 09/03/18 03:00 120 H 31 H 160/84 H 95 09/03/18 02:30 122 H 30 H 96 09/03/18 02:00 113 H 29 H 155/83 H 99 09/03/18 01:55 123 H 123 H 31 H 96 09/03/18 01:36 122 H 30 H 161/85 H 93 09/03/18 01:30 119 H 30 H 94 09/03/18 01:26 126 H 33 H 193/85 H 93 09/03/18 01:24 135 H 32 H 193/87 H 93 09/03/18 01:00 118 H 36 H 87 L 09/03/18 00:30 128 H 28 H 90 09/03/18 00:01 114 H 27 H 116/79 89 L 09/03/18 00:00 37.3 C 121 H 21 96 09/02/18 23:30 119 H 46 H 95 09/02/18 23:10 114 H 26 H 151/85 H 90 09/02/18 23:00 113 H 35 H 193/103 H 91 09/02/18 22:30 121 H 32 H 93 09/02/18 22:00 108 H 29 H 157/78 H 93 09/02/18 21:30 120 H 28 H 95 09/02/18 21:16 117 H 28 H 177/78 H 96 09/02/18 21:01 122 H 17 186/146 H 09/02/18 21:00 121 H 24 87 L Laboratory Results Laboratory Results - last 24 hr 09/02/18 09/02/18 09/02/18 07:22 10:21 11:03 WBC RBC Hgb Hct MCV MCH MCHC RDW Std Deviation RDW Coeff of Preeti Plt Count MPV Immature Gran % (Auto) Neut % (Auto) Lymph % (Auto) [place] % (Auto) Eos % (Auto) Baso % (Auto) Immature Gran # (Auto) Neut # (Auto) Lymph # (Auto) [place] # (Auto) Eos # (Auto) Baso # (Auto) Absolute Nucleated RBC Nucleated RBC % (auto) Anisocytosis Ovalocytes Sodium Potassium 4.2 D Chloride Carbon Dioxide Anion Gap BUN Creatinine Est Cr Clr Drug Dosing Est GFR ( Amer) Est GFR (Non-Af Amer) BUN/Creatinine Ratio Glucose POC Glucose 210 H 186 H Calcium Phosphorus Magnesium 09/02/18 09/02/18 09/02/18 11:45 12:49 13:55 WBC RBC Hgb Hct MCV MCH MCHC RDW Std Deviation RDW Coeff of Preeti Plt Count MPV Immature Gran % (Auto) Neut % (Auto) Lymph % (Auto) [place] % (Auto) Eos % (Auto) Baso % (Auto) Immature Gran # (Auto) Neut # (Auto) Lymph # (Auto) [place] # (Auto) Eos # (Auto) Baso # (Auto) Absolute Nucleated RBC Nucleated RBC % (auto) Anisocytosis Ovalocytes Sodium Potassium Chloride Carbon Dioxide Anion Gap BUN Creatinine Est Cr Clr Drug Dosing Est GFR ( Amer) Est GFR (Non-Af Amer) BUN/Creatinine Ratio Glucose POC Glucose 181 H 155 H 151 H Calcium Phosphorus Magnesium 09/02/18 09/02/18 09/02/18 15:52 17:56 20:04 WBC RBC Hgb Hct MCV MCH MCHC RDW Std Deviation RDW Coeff of Preeti Plt Count MPV Immature Gran % (Auto) Neut % (Auto) Lymph % (Auto) [place] % (Auto) Eos % (Auto) Baso % (Auto) Immature Gran # (Auto) Neut # (Auto) Lymph # (Auto) [place] # (Auto) Eos # (Auto) Baso # (Auto) Absolute Nucleated RBC Nucleated RBC % (auto) Anisocytosis Ovalocytes Sodium Potassium Chloride Carbon Dioxide Anion Gap BUN Creatinine Est Cr Clr Drug Dosing Est GFR ( Amer) Est GFR (Non-Af Amer) BUN/Creatinine Ratio Glucose POC Glucose 166 H 179 H 192 H Calcium Phosphorus Magnesium 09/02/18 09/02/18 09/02/18 21:09 22:14 23:07 WBC RBC Hgb Hct MCV MCH MCHC RDW Std Deviation RDW Coeff of Preeti Plt Count MPV Immature Gran % (Auto) Neut % (Auto) Lymph % (Auto) [place] % (Auto) Eos % (Auto) Baso % (Auto) Immature Gran # (Auto) Neut # (Auto) Lymph # (Auto) [place] # (Auto) Eos # (Auto) Baso # (Auto) Absolute Nucleated RBC Nucleated RBC % (auto) Anisocytosis Ovalocytes Sodium Potassium Chloride Carbon Dioxide Anion Gap BUN Creatinine Est Cr Clr Drug Dosing Est GFR ( Amer) Est GFR (Non-Af Amer) BUN/Creatinine Ratio Glucose POC Glucose 169 H 188 H 170 H Calcium Phosphorus Magnesium 09/03/18 09/03/18 09/03/18 00:07 01:07 03:11 WBC RBC Hgb Hct MCV MCH MCHC RDW Std Deviation RDW Coeff of Preeti Plt Count MPV Immature Gran % (Auto) Neut % (Auto) Lymph % (Auto) [place] % (Auto) Eos % (Auto) Baso % (Auto) Immature Gran # (Auto) Neut # (Auto) Lymph # (Auto) [place] # (Auto) Eos # (Auto) Baso # (Auto) Absolute Nucleated RBC Nucleated RBC % (auto) Anisocytosis Ovalocytes Sodium Potassium Chloride Carbon Dioxide Anion Gap BUN Creatinine Est Cr Clr Drug Dosing Est GFR ( Amer) Est GFR (Non-Af Amer) BUN/Creatinine Ratio Glucose POC Glucose 155 H 146 H 148 H Calcium Phosphorus Magnesium 09/03/18 09/03/18 09/03/18 04:10 05:09 07:21 WBC RBC Hgb Hct MCV MCH MCHC RDW Std Deviation RDW Coeff of Preeti Plt Count MPV Immature Gran % (Auto) Neut % (Auto) Lymph % (Auto) [place] % (Auto) Eos % (Auto) Baso % (Auto) Immature Gran # (Auto) Neut # (Auto) Lymph # (Auto) [place] # (Auto) Eos # (Auto) Baso # (Auto) Absolute Nucleated RBC Nucleated RBC % (auto) Anisocytosis Ovalocytes Sodium Potassium Chloride Carbon Dioxide Anion Gap BUN Creatinine 1.08 Est Cr Clr Drug Dosing 110.7 Est GFR ( Amer) 80.2 Est GFR (Non-Af Amer) 69.2 BUN/Creatinine Ratio Glucose POC Glucose 150 H 139 H Calcium Phosphorus Magnesium 09/03/18 09/03/18 07:48 07:48 WBC 7.53 RBC 2.33 L Hgb 7.6 L Hct 23.0 L MCV 98.7 MCH 32.6 MCHC 33.0 RDW Std Deviation 78.5 H RDW Coeff of Preeti 22.5 H Plt Count 38 L MPV 11.3 H Immature Gran % (Auto) 0.4 Neut % (Auto) 83.0 Lymph % (Auto) 2.5 [place] % (Auto) 14.1 Eos % (Auto) 0.0 Baso % (Auto) 0.0 Immature Gran # (Auto) 0.03 H Neut # (Auto) 6.25 Lymph # (Auto) 0.19 L [place] # (Auto) 1.06 H Eos # (Auto) 0.00 Baso # (Auto) 0.00 Absolute Nucleated RBC 0.06 H Nucleated RBC % (auto) 0.8 Anisocytosis Present Ovalocytes 1+ Sodium Pending Potassium Pending Chloride Pending Carbon Dioxide Pending Anion Gap Pending BUN Pending Creatinine Pending Est Cr Clr Drug Dosing Pending Est GFR ( Amer) Pending Est GFR (Non-Af Amer) Pending BUN/Creatinine Ratio Pending Glucose Pending POC Glucose Calcium Pending Phosphorus Pending Magnesium Pending PG Care Time/CCT Critical Care Time: Yes Total Critical Care Time: 35 (1) Atrial fibrillation Atrial fibrillation type: unspecified Qualified Code(s): I48.91 - Unspecified atrial fibrillation
[2018-09-03 09:30] LABS: iSTAT Allen Test Pass; iSTAT Arterial Blood Gas HCO3 29 meg/L (19-24); iSTAT Arterial Blood Gas pCO2 71 mmHg (35-46); iSTAT Arterial Blood Gas pH 7.21 (7.35-7.45); iSTAT Carbon Dioxide 31 mEq/l (24-31); iSTAT FiO2 50 %; iSTAT Site R Radial
[2018-09-03] MEDS ORDERED: VANCOMYCIN TROUGH ONE (13:30)
--- NOTE | 2018-09-03 14:34 | Pharmacy Report ---
Pharmacy Abx Dose Short Note - Date of Service September 03, 2018 - Assessment & Plan Assessment 68 year old M receiving empiric vancomycin and Zosyn for treatment of sepsis in the setting of immunocompromise (chemotherapy about 2 weeks ago) * Unknown source at this time * Day # 4 of antimicrobial therapy * MRSA nasal swab negative - MRSA pneumonia unlikely * Blood culture x 2: gram negative bacilli in 1 anaerobic bottle * Patient intermittently febrile (Tmax over last 24 hours is 37.7 C) * WBC: 7.53 * Procalcitonin on 08/31: 29.01 Plan Vancomycin * Trough level of 19.3 mcg/mL is therapeutic * Continue dose of 2250 mg IV every 10 hours * Goal trough level for sepsis : 15 to 20 mcg/mL * Follow-up trough will be ordered if vancomycin is to continue beyond tomorrow Zosyn * Continue 4.5 g IV q8h based on CrCl > 20 mL/min and BMI > 35 Pharmacy will continue to follow and will adjust dose/frequency as necessary. Thank you.
--- NOTE | 2018-09-03 15:10 | Hospitalist Progress Note ---
Date of Service September 03, 2018 Assessment & Plan (1) Severe sepsis: due to gram negative with acute organ dysfunction including acute on chronic hypoxic respiratory failure and CRESCENCIO -await further sensitivities on GNR in blood culture - continue zosyn for now. consider cessation of vanco, although severity of illness and possible polymicrobial pulmonary source - continue for now. (2) Acute respiratory failure with hypoxia: related to sepsis. continue bipap, supportive care. (3) Atrial fibrillation: Patient with new onset atrial fibrillation with RVR. -rates controlled -Continue anticoagulation with Xarelto (4) SOB (shortness of breath): likely multifactorial. continue bipap/supportive care (5) Fever: related to sepsis. (6) Diabetes: insulin management. sugars reasonable. (7) Gout: Chronic -Continue Allopurinol 300mg po daily, 100mg po qHS (8) COPD (chronic obstructive pulmonary disease): bipap, supportive care (9) Pulmonary embolism: Patient with newly diagnosed PE, on anticoagulation with Xarelto. -Continue Xarelto, supportive care (10) Obesity: noted. current BMI listed as 58.2 (11) Hypertension: follow BP (12) Chronic venous insufficiency: Patient with history of chronic venous insufficiency. Recently with cellulitis and poorly healing wounds. No ulcers or drainage appreciated at present. Patient is on Keflex BID for suppressive therapy (13) Antineoplastic chemotherapy induced pancytopenia: Subjective no HPI or ROS obtainable from pt. d/w nursing. no new issues. hemodynamically stable. updated family and answered all questions to their satisfaction Review of Systems Review of Systems: Unobtainable due to reduced consciousness Physical Exam Physical Exam: gen - sedate, on bipap, resting comfortably though and no appearance of distress. heent nc at bipap in place without notable air leak. breathing unlabored on bipap no accessory muscles or appearance of dysnpnea/tachypnea when i am in the room. abd large. ext no cyanosis. neuro no focal deficits at rest. Results & Data Vital Signs (Past 12 Hours) Vital Signs Temp Pulse Pulse Resp BP Pulse Ox 09/03/18 14:11 97 H 25 H 95 09/03/18 14:10 97 H 25 H 95 09/03/18 12:30 91 H 25 H 97 09/03/18 12:00 36.7 C 90 30 H 122/73 99 09/03/18 11:33 90 30 H 95 09/03/18 11:30 114 H 22 96 09/03/18 11:01 109 H 23 147/75 H 96 09/03/18 11:00 102 H 29 H 92 09/03/18 10:30 96 H 36 H 93 09/03/18 10:29 107 H 36 H 144/75 H 92 09/03/18 10:00 105 H 32 H 97 09/03/18 09:32 102 H 30 H 95 09/03/18 09:30 102 H 30 H 96 09/03/18 09:00 111 H 38 H 131/74 92 09/03/18 08:30 108 H 39 H 90 09/03/18 08:01 104 H 32 H 123/72 92 09/03/18 08:00 36.6 C 106 H 28 H 92 09/03/18 07:30 110 H 34 H 93 09/03/18 07:19 113 H 27 H 94 09/03/18 07:17 113 H 27 H 94 09/03/18 07:00 110 H 31 H 157/78 H 94 09/03/18 06:00 117 H 34 H 141/81 H 94 09/03/18 05:30 110 H 31 H 94 09/03/18 05:18 113 H 30 H 145/65 H 95 09/03/18 05:00 110 H 33 H 96 09/03/18 04:30 112 H 31 H 94 09/03/18 04:00 37.7 C H 109 H 32 H 176/88 H 95 09/03/18 03:30 123 H 30 H 94 PG Care Time/CCT Total # of Minutes Spent Total Time Spent with Patient: Total time spent is greater than 50% in coordination of care (as documented) at patient's floor/unit and/or counseling patient: (1) Atrial fibrillation Atrial fibrillation type: unspecified Qualified Code(s): I48.91 - Unspecified atrial fibrillation (2) Fever Fever type: unspecified Qualified Code(s): R50.9 - Fever, unspecified (3) Diabetes Diabetes mellitus type: type 2 Diabetes mellitus [facility] insulin use: without [facility] use Diabetes mellitus complication status: without complication Qualified Code(s): E11.9 - Type 2 diabetes mellitus without complications (4) Gout Gout site: unspecified site Gout etiology: unspecified cause Chronicity: chronic (5) COPD (chronic obstructive pulmonary disease) COPD type: unspecified COPD Qualified Code(s): J44.9 - Chronic obstructive pulmonary disease, unspecified (6) Pulmonary embolism Pulmonary embolism type: unspecified Chronicity: unspecified Acute cor pulmonale presence: without acute cor pulmonale Qualified Code(s): I26.99 - Other pulmonary embolism without acute cor pulmonale (7) Obesity Obesity type: due to excess calories Obesity classification: adult class 3 (BMI >= 40) Serious obesity comorbidity presence: with serious comorbidity Body mass index: BMI 60.0-69.9 Qualified Code(s): E66.01 - Morbid (severe) obesity due to excess calories; Z68.44 - Body mass index (BMI) 60.0-69.9, adult (8) Hypertension Hypertension type: essential hypertension Qualified Code(s): I10 - Essential (primary) hypertension
[2018-09-03] MEDS: ERTAPENEM SODIUM 1,000 MG in SODIUM CHLORIDE 0.9% 50 ML IV SCH (18:07)
[2018-09-03] MEDS: INSULIN REGULAR 250 UNITS in SODIUM CHLORIDE 0.9% 247.5 ML IV SCH (20:55)
[2018-09-03] MEDS: ALLOPURINOL 100 MG TAB PO SCH (21:00)
[2018-09-04] MEDS: VANCOMYCIN HCL 2,250 MG in SODIUM CHLORIDE 0.9% 500 ML IV SCH (00:52)
[2018-09-04] MEDS: ALBUT/IPRATROP 3MG/0.5MG NEB 3 ML VIAL NEB SCH ×4 (02:02→19:56)
[2018-09-04] MEDS: dilTIAZem HCl 125 MG in DEXTROSE 5% 100 ML IV SCH ×3 (02:46→23:06)
[2018-09-04 04:36] LABS: Creatinine Clr Calc Pharmacy 132.7 ml/min; Est GFR (African American) 101.8; Est GFR (Non-African American) 87.9
[2018-09-04] MEDS: INSULIN GLARGINE SOLOSTAR 100 UNITS/ML 3 ML PEN SC SCH (07:44)
[2018-09-04] MEDS: INSULIN ASPART 100 UNITS/ML 3 ML PEN SC SCH ×4 (07:46→21:54)
[2018-09-04] MEDS: FAMOTIDINE 20 MG in SYRINGE 3 ML IV SCH ×2 (07:49→21:49)
--- NOTE | 2018-09-04 07:59 | Critical Care Progress Note ---
Date of Service September 04, 2018 Assessment & Plan (1) Acute respiratory failure with hypoxia: Neuro- mental status slightly better today. toxic metabolic encephalopathy due to medications(sedatives or chemo) vs infectious. if agitated again try dexmedetomidine CV- BP stable. rapid afib. continue diltiazem - transition to oral once nausea and mental status improves Pulmonary- acute hypoxic respiratory failure. on bipap today continue as needed. titrate fio2 for sat >92%. history PE off anticoagulation with platelet count ID- sepsis with evidence of end organ dysfunction. immunocompromised. e coli bacteremia sensaative to piperacillin-tazobactam though was switched to ertapenam. can stop vancomycin. ?source. CT without clear source on infection Renal- acute renal failure resolved. cr improved. good UOP. GI- nausea and diarrhea. improved. tolerating diet Heme- pancytopenia. s/p recent chemo for squamous cell CA. hold anticoagulation for now until counts better. his symptoms may be related to his chemotherapy Endocrine- blood sugars controlled on insulin drip Dispo- continue ICU care for ventilatory and hemodynamic support I have personally spent 35 minutes of critical care time in the direct management of this patient. This is a life/limb threatening event. This includes time spent evaluating patient, direct bedside care, chart review, placing orders, interpretation of diagnostic studies, discussion with consultants, patient, and/or family members regarding treatment decisions, as well as other required patient management activities. This time is exclusive of all separately billable procedures, and teaching time and separate from and in addition to any other critical care service time. (2) Severe sepsis: (3) Atrial fibrillation: Subjective more awake making more sense today only tolerates short periods off bipap Physical Exam Physical Exam: Constitutional: comfortable NAD on bipap. tachypnea HEENT: normocephalic atraumatic. MMM. CV: RRR nl s1,s2 no murmurs rubs or gallops Lungs: decreased bilaterally. no accessory muscle use tachypnea Abd: soft nontender nondistended. obese. normal bowel sounds Ext: + LE edema. no cyanosis, no clubbing Skin: warm dry Neuro: awake but confused Psych: not as agitated as yesterday Results & Data Vital Signs (Past 12 Hours) Vital Signs Temp Pulse Pulse Pulse Resp BP Pulse Ox 09/04/18 07:45 102 H 35 H 93 09/04/18 07:39 102 H 22 94 09/04/18 06:01 93 H 31 H 126/70 98 09/04/18 06:00 103 H 34 H 92 09/04/18 05:30 97 H 36 H 98 09/04/18 05:01 96 H 39 H 120/63 97 09/04/18 05:00 90 31 H 96 09/04/18 04:30 95 H 30 H 96 09/04/18 04:01 98 H 34 H 136/64 97 09/04/18 04:00 37.2 C 99 H 29 H 87 L 09/04/18 03:30 92 H 37 H 96 09/04/18 03:00 87 34 H 138/79 88 L 09/04/18 02:30 101 H 36 H 93 09/04/18 02:04 100 H 30 H 97 09/04/18 02:02 100 H 30 H 97 09/04/18 02:01 86 36 H 135/76 98 09/04/18 02:00 100 H 35 H 97 09/04/18 01:30 96 H 34 H 92 09/04/18 01:01 103 H 32 H 123/80 98 09/04/18 01:00 97 H 37 H 99 09/04/18 00:30 92 H 34 H 99 09/04/18 00:01 93 H 32 H 148/69 H 97 09/04/18 00:00 37.2 C 100 H 35 H 95 09/03/18 23:30 95 H 33 H 92 09/03/18 23:14 95 H 33 H 95 09/03/18 23:00 92 H 39 H 146/68 H 96 09/03/18 22:30 95 H 31 H 96 09/03/18 22:00 95 H 33 H 133/72 98 09/03/18 21:30 91 H 30 H 95 09/03/18 21:00 100 H 30 H 126/72 93 09/03/18 20:30 87 33 H 79 L 09/03/18 20:01 90 29 H 126/64 98 09/03/18 20:00 37.1 C 97 H 36 H 98 Laboratory Results Laboratory Results - last 24 hr 09/03/18 09/03/18 09/03/18 07:48 07:48 09:15 WBC 7.53 RBC 2.33 L Hgb 7.6 L Hct 23.0 L MCV 98.7 MCH 32.6 MCHC 33.0 RDW Std Deviation 78.5 H RDW Coeff of Preeti 22.5 H Plt Count 38 L MPV 11.3 H Immature Gran % (Auto) 0.4 Neut % (Auto) 83.0 Lymph % (Auto) 2.5 [place] % (Auto) 14.1 Eos % (Auto) 0.0 Baso % (Auto) 0.0 Immature Gran # (Auto) 0.03 H Neut # (Auto) 6.25 Lymph # (Auto) 0.19 L [place] # (Auto) 1.06 H Eos # (Auto) 0.00 Baso # (Auto) 0.00 Absolute Nucleated RBC 0.06 H Nucleated RBC % (auto) 0.8 Anisocytosis Present Ovalocytes 1+ Sample Site R Radial POC pH 7.21 L POC pCO2 71 H POC pO2 78 L POC HCO3 29 H POC Total CO2 31 POC Base Excess 1.0 POC ABG O2 Sat 92.0 Pete Test Pass O2 Delivery Device BIPAP POC O2 Rate 12 POC FiO2 50 IPAP 12 Sodium 137 Potassium 5.1 D Chloride 103 Carbon Dioxide 30 Anion Gap 4.0 BUN 17 Creatinine 1.06 Est Cr Clr Drug Dosing 107.7 Est GFR ( Amer) 82.0 Est GFR (Non-Af Amer) 70.8 BUN/Creatinine Ratio 16.3 Glucose 163 H POC Glucose Calcium 8.3 L Phosphorus 2.5 Magnesium 2.5 H Vancomycin Trough 09/03/18 09/03/18 09/03/18 11:09 13:07 15:09 WBC RBC Hgb Hct MCV MCH MCHC RDW Std Deviation RDW Coeff of Preeti Plt Count MPV Immature Gran % (Auto) Neut % (Auto) Lymph % (Auto) [place] % (Auto) Eos % (Auto) Baso % (Auto) Immature Gran # (Auto) Neut # (Auto) Lymph # (Auto) [place] # (Auto) Eos # (Auto) Baso # (Auto) Absolute Nucleated RBC Nucleated RBC % (auto) Anisocytosis Ovalocytes Sample Site POC pH POC pCO2 POC pO2 POC HCO3 POC Total CO2 POC Base Excess POC ABG O2 Sat Pete Test O2 Delivery Device POC O2 Rate POC FiO2 IPAP Sodium Potassium Chloride Carbon Dioxide Anion Gap BUN Creatinine Est Cr Clr Drug Dosing Est GFR ( Amer) Est GFR (Non-Af Amer) BUN/Creatinine Ratio Glucose POC Glucose 151 H 134 H Calcium Phosphorus Magnesium Vancomycin Trough 19.3 09/03/18 09/03/18 09/03/18 19:19 19:34 20:38 WBC RBC Hgb Hct MCV MCH MCHC RDW Std Deviation RDW Coeff of Preeti Plt Count MPV Immature Gran % (Auto) Neut % (Auto) Lymph % (Auto) [place] % (Auto) Eos % (Auto) Baso % (Auto) Immature Gran # (Auto) Neut # (Auto) Lymph # (Auto) [place] # (Auto) Eos # (Auto) Baso # (Auto) Absolute Nucleated RBC Nucleated RBC % (auto) Anisocytosis Ovalocytes Sample Site POC pH POC pCO2 POC pO2 POC HCO3 POC Total CO2 POC Base Excess POC ABG O2 Sat Pete Test O2 Delivery Device POC O2 Rate POC FiO2 IPAP Sodium Potassium Chloride Carbon Dioxide Anion Gap BUN Creatinine Est Cr Clr Drug Dosing Est GFR ( Amer) Est GFR (Non-Af Amer) BUN/Creatinine Ratio Glucose POC Glucose 108 H 121 H 125 H Calcium Phosphorus Magnesium Vancomycin Trough 09/03/18 09/03/18 09/04/18 21:46 22:35 00:43 WBC RBC Hgb Hct MCV MCH MCHC RDW Std Deviation RDW Coeff of Preeti Plt Count MPV Immature Gran % (Auto) Neut % (Auto) Lymph % (Auto) [place] % (Auto) Eos % (Auto) Baso % (Auto) Immature Gran # (Auto) Neut # (Auto) Lymph # (Auto) [place] # (Auto) Eos # (Auto) Baso # (Auto) Absolute Nucleated RBC Nucleated RBC % (auto) Anisocytosis Ovalocytes Sample Site POC pH POC pCO2 POC pO2 POC HCO3 POC Total CO2 POC Base Excess POC ABG O2 Sat Pete Test O2 Delivery Device POC O2 Rate POC FiO2 IPAP Sodium Potassium Chloride Carbon Dioxide Anion Gap BUN Creatinine Est Cr Clr Drug Dosing Est GFR ( Amer) Est GFR (Non-Af Amer) BUN/Creatinine Ratio Glucose POC Glucose 117 H 116 H 123 H Calcium Phosphorus Magnesium Vancomycin Trough 09/04/18 09/04/18 09/04/18 02:39 03:52 04:48 WBC RBC Hgb Hct MCV MCH MCHC RDW Std Deviation RDW Coeff of Preeti Plt Count MPV Immature Gran % (Auto) Neut % (Auto) Lymph % (Auto) [place] % (Auto) Eos % (Auto) Baso % (Auto) Immature Gran # (Auto) Neut # (Auto) Lymph # (Auto) [place] # (Auto) Eos # (Auto) Baso # (Auto) Absolute Nucleated RBC Nucleated RBC % (auto) Anisocytosis Ovalocytes Sample Site POC pH POC pCO2 POC pO2 POC HCO3 POC Total CO2 POC Base Excess POC ABG O2 Sat Pete Test O2 Delivery Device POC O2 Rate POC FiO2 IPAP Sodium Potassium Chloride Carbon Dioxide Anion Gap BUN Creatinine 0.86 Est Cr Clr Drug Dosing 132.7 Est GFR ( Amer) 101.8 Est GFR (Non-Af Amer) 87.9 BUN/Creatinine Ratio Glucose POC Glucose 120 H 115 H Calcium Phosphorus Magnesium Vancomycin Trough 09/04/18 07:52 WBC RBC Hgb Hct MCV MCH MCHC RDW Std Deviation RDW Coeff of Preeti Plt Count MPV Immature Gran % (Auto) Neut % (Auto) Lymph % (Auto) [place] % (Auto) Eos % (Auto) Baso % (Auto) Immature Gran # (Auto) Neut # (Auto) Lymph # (Auto) [place] # (Auto) Eos # (Auto) Baso # (Auto) Absolute Nucleated RBC Nucleated RBC % (auto) Anisocytosis Ovalocytes Sample Site POC pH POC pCO2 POC pO2 POC HCO3 POC Total CO2 POC Base Excess POC ABG O2 Sat Pete Test O2 Delivery Device POC O2 Rate POC FiO2 IPAP Sodium Potassium Chloride Carbon Dioxide Anion Gap BUN Creatinine Est Cr Clr Drug Dosing Est GFR ( Amer) Est GFR (Non-Af Amer) BUN/Creatinine Ratio Glucose POC Glucose 111 H Calcium Phosphorus Magnesium Vancomycin Trough PG Care Time/CCT Critical Care Time: Yes Total Critical Care Time: 35 (1) Atrial fibrillation Atrial fibrillation type: unspecified Qualified Code(s): I48.91 - Unspecified atrial fibrillation
--- NOTE | 2018-09-04 08:19 | Pharmacy Report ---
Glycemic Control Progress Note - Date of Service September 04, 2018 - Scope Glycemic Pharmacist consulted for glycemic control to write orders per [facility] inpatient glycemic control protocol. - Objective Accuchecks BSG(last 24 hours):: 09/03/18 09/03/18 09/03/18 07:48 11:09 15:09 Glucose 163 H POC Glucose 151 H 134 H 09/03/18 09/03/18 09/03/18 19:19 19:34 20:38 Glucose POC Glucose 108 H 121 H 125 H 09/03/18 09/03/18 09/04/18 21:46 22:35 00:43 Glucose POC Glucose 117 H 116 H 123 H 09/04/18 09/04/18 09/04/18 02:39 04:48 07:52 Glucose POC Glucose 120 H 115 H 111 H - Recent Pertinent Medications The patient is currently receiving: * Basal insulin: Lantus 30 units every 12 hours * Correctional Insulin: Novolog Correction per scale ACHS Goal Range: Low 110 mg/dL - High 180 mg/dL Correction Factor: (INSULIN INFUSION) mg/dL/unit * Prandial insulin: Per carb ratio of 1 unit per (PER CALCULATOR) grams CHO consumed * Insulin infusion: stable rate, yesterday decreased in the evening from 5.8 units/hr to 4.6 units/hr - Outpatient Anti-Diabetic Meds metformin 1 gm PO BID plus Januvia 100 mg PO daily - Assessment & Plan ASSESSMENT: * See progress note from 08/31/18 for more background info, in short: * Pt receiving SQ basal bolus insulin regimen for hyperglycemia secondary to baseline DM (outpatient regimen on hold),stress/infection (bacteremia currently on vancomycin and Invanz), diltiazem infusion, and BiPAP (only tolerates short time off). Patient does have PRN dexamethasone available (no doses given yesterday). * Patient is currently receiving an average of 60 units of insulin per day * 60 units of basal insulin * 0 units of prandial/correctional insulin * IV insulin via infusion: 133 units * BSGs ranging 116 - 151 mg/dl over the past 24hrs * Changes needed to insulin regimen: * AM Fasting BSG = 111 mg/dl. This is in goal range for patient based on inpatient targets and co-morbidities. Patient is very stable on insulin infusion with only one titration downwards yesterday. This is expected as steroid's hyperglycemic effect wears off. Patient is still not taking oral and only tolerates being off BiPAP for short periods. Continue current regimen. * Post-prandial BSGs cannot be evaluated at this time. * Total daily dose = ? units. Will be evaluated once patient eating and off insulin infusion. PLAN FOR INPATIENT GLYCEMIC CONTROL: * Continuing IV insulin infusion per moderate (moderate/severe) stress protocol * Goal Range 110 - 180 mg/dl * In the critical care setting, continuous IV insulin infusion has been shown to be the best method for achieving glycemic targets. * Oral Agents * Continue to hold outpatient oral diabetes medications. * Basal insulin * Lantus 30 units SQ BID * Bolus insulin * NovoLog per scale ACHS or Q6hrs while NPO * Goal Range: Low 110 mg/dL - High 180 mg/dL * Correction Factor: -- mg/dL/unit * Nutritional / Prandial insulin per carb ratio of 1 unit per (per calculator) grams CHO consumed RECOMMENDATIONS FOR DISCHARGE: * await patient improvement for further recommendations * Please note that the plan above was derived based on current level of insulin resistance and hospital stress. These recommendations are appropriate for inpatient admission only. Plan of care upon discharge will need to be reassessed to avoid potential outpatient hypo/hyperglycemia. Thank you.
[2018-09-04 08:22] LABS: Mean Corpuscular Hgb Conc 32.5 g/dL (32-36); Nucleated RBC # (auto) 0.04 K/uL (0-0); Nucleated RBC % (auto) 0.8 %
[2018-09-04 08:26] LABS: BUN Creatinine Ratio 19.5 (10-20); Calcium 8.7 mg/dl (8.5-10.1); Creatinine Clr Calc Pharmacy 126.7 ml/min; Est GFR (African American) 98.6; Est GFR (Non-African American) 85.1; Potassium 5.4 mmol/L (3.5-5.1)
[2018-09-04 08:40] LABS: Hematocrit (blood only) 22.8 % (42-52); Hemoglobin 7.4 g/dL (14.0-18.0); Mean Corpuscular Volume 102.7 fL (80-100); RDW Coefficient of Variation 22.9 % (11.5-14.5); RDW Standard Deviation 82.4 fL (36.4-46.3); Red Blood Count 2.22 M/uL (4.7-6.1); White Blood Count 5.28 K/uL (4.8-10.8)
[2018-09-04 08:50] LABS: Platelet Count 35 K/uL (130-400)
[2018-09-04 08:51] LABS: Anisocytosis Present; Immature Granulocytes # (auto) 0.02 K/uL (0.00-0.02); Immature Granulocytes % (auto) 0.4 %; Lymphocytes # (auto) 0.33 K/uL (1.2-3.4); Lymphocytes % (auto) 6.3 %; Monocytes % (auto) 9.5 %; Neutrophils # (auto) 4.43 K/uL (1.4-6.5); Neutrophils % (auto) 83.8 %; Platelet Estimate Decreased (Normal)
--- NOTE | 2018-09-04 10:02 | XRay Report ---
XR chest 1V portable HISTORY: 68 years-old Male hypoxia, rales acute hypoxia COMPARISON: Chest radiograph 09/01/2018 TECHNIQUE: Portable AP view of the chest FINDINGS: Cardiac silhouette is enlarged. Pulmonary vascular congestion with progressed bilateral mixed interst itial and alveolar opacities. No pneumothorax. Trace pleural effusions with bibasilar opacities. Mass like opacity of the left upper lobe redemonstrated. Stable positioning of left subclavian Infuse-a-Po rt catheter. Degenerative changes of the shoulders and spine. IMPRESSION: 1. Cardiomegaly with bilateral mixed interstitial and alveolar opacities congestive of pulmonary rhea a versus multifocal pneumonia. 2. Small pleural effusions with bibasilar opacities. 3. Masslike opacity of the left upper lobe appears unchanged. The above report was generated using voice recognition software. It may contain grammatical, syntax o r spelling errors. Electronically signed by: Mc Jones M.D. 09/04/2018 10:01 AM
[2018-09-04 10:23] LABS: iSTAT Allen Test Pass; iSTAT Arterial Blood Gas HCO3 32 meg/L (19-24); iSTAT Arterial Blood Gas pCO2 68 mmHg (35-46); iSTAT Arterial Blood Gas pH 7.29 (7.35-7.45); iSTAT Carbon Dioxide 34 mEq/l (24-31); iSTAT FiO2 55 %; iSTAT Site R Radial
[2018-09-04] MEDS ORDERED: RAPID SEQUENCE INDUCTION BAG ONE (11:34)
[2018-09-04] MEDS ORDERED: fentaNYL citrate 100 MCG/2 ML VIAL IV PRN (12:05)
[2018-09-04] MEDS ORDERED: MIDAZOLAM HCL 5 MG/ML 1 ML VIAL IV STA (12:05)
[2018-09-04] MEDS ORDERED: ETOMIDATE 2 MG/ML 20 ML VIAL IV ONE ×2 (12:05→13:18)
--- NOTE | 2018-09-04 12:10 | Procedure Note ---
Procedure Note Date of Service September 04, 2018 Note pt with worsening mental status and increased RR and was not getting his volumes on the bipap. decision made to intubate. discussed with etomidate 40 mg given using glidescope 4 grade 1 view. 8-0 tube placed and secured 25 at lip good color change equal breath sounds. Coding CPT Codes Resuscitation - Resuscitation: Endotracheal Intubation, emergency ([id number])
--- NOTE | 2018-09-04 12:31 | XRay Report ---
XR chest 1V portable HISTORY: 68 years-old Male intubation acute respiratory failure COMPARISON: Chest radiograph of same day at 9:50 AM, chest CT 09/01/2018 TECHNIQUE: Portable AP view of the chest FINDINGS: Endotracheal tube overlies the midline, 5.9 cm superior to the alyson. Stable positioning of left sub clavian [id number] catheter. Cardiomegaly with persistent bilateral mixed interstitial and alveola r opacities with pulmonary vascular congestion, small pleural effusions with bibasilar opacities. Ill -defined masslike opacity of the left upper lung redemonstrated. No pneumothorax. Degenerative change s of the shoulders and spine. IMPRESSION: 1. Endotracheal tube overlies the midline, 5.9 cm superior to the alyson. 2. Cardiomegaly with persistent bilateral mixed interstitial and alveolar opacities, right greater th an left. 3. Small pleural effusions. The above report was generated using voice recognition software. It may contain grammatical, syntax o r spelling errors. Electronically signed by: Mc Jones M.D. 09/04/2018 12:29 PM
[2018-09-04] MEDS: fentaNYL DRIP 1,250 MCG/250 ML BAG IV PRN (12:36)
[2018-09-04] MEDS ORDERED: ROCURONIUM BROMIDE 10 MG/ML 5 ML VIAL IV ONE (13:18)
[2018-09-04] MEDS ORDERED: MIDAZOLAM HCL 5 MG/ML 1 ML VIAL IV ONE (13:18)
--- NOTE | 2018-09-04 13:23 | Progress Note ---
DATE: 09/04/2018 MEDICAL ONCOLOGY PROGRESS NOTE DIAGNOSES: 1. Acute on chronic respiratory failure. 2. Pulmonary embolism. 3. Locally advanced nonsmall cell lung cancer. 4. Electrolyte dysfunction. 5. Obesity/hypoventilation syndrome. 6. Bacteremia (E. coli). 7. Low-grade fever. HISTORY OF PRESENT ILLNESS: Mr. Leary is a morbidly obese 68-year-old gentleman originally, admitted to [facility] on August 31 with complaint of generally feeling ill, fevers, chills, and musculoskeletal pain, originally presenting to [facility] where he was reportedly tachycardic. He has been intermittently battling with atrial fibrillation since his arrival at [facility]. He was transferred to the ICU on 01 of September because of rapid decompensation, shortness of breath, dyspnea on exertion and uncontrolled atrial fibrillation. Initially, he was doing reasonably well; however, over the past 24 hours, critical care team had to titrate BiPAP to improve his breathing status. He is once again making slow progress, but was minimally verbal during my encounter with him today. PHYSICAL EXAMINATION: GENERAL: Morbidly obese 68-year-old gentleman in no acute distress. VITAL SIGNS: Temperature 37.2, pulse 101, respiratory rate 33, blood pressure 126/70. SKIN: Without rash or lesion. HEENT: BiPAP mask in place. NECK: Supple. Trachea midline. HEART: Tachycardic, but regular. LUNGS: Clear. Visibly tachypneic. ABDOMEN: Obese, soft, nontender, nondistended. EXTREMITIES: 1+ peripheral edema bilaterally. NEUROLOGIC: Grossly intact. LABORATORY DATA: WBC count 5280, hemoglobin 7.4, platelet count 35,000. Sodium 141, potassium 5.4, chloride 107, carbon dioxide 32, creatinine 0.86, BUN 18. IMPRESSION: 1. Acute respiratory failure with hypoxia. 2. Atrial fibrillation. 3. Bacteremia (E. coli), acute renal injury. 4. Nonsmall cell lung cancer. 5. Hyperkalemia. 6. Cytopenias, attributable to previous treatment. PLAN: I spoke with the critical care team outlining Mr. Leary's progress over the past 24 hours, apparently had some difficulties yesterday and thus required adjustment of BiPAP with an expiratory pressure of 18. According to Dr. Hurd, Antonio has improved but still has considerable way to go. I believe Mr. Leary is due for chemotherapy this week, but don'tt anticipate that will occur. Again, he is currently under Dr. Crandall's care and will defer when therapy is resumed. The only suggestion I have today is perhaps again 2 packed RBCs to assist in oxygen carrying capability. His platelets I believe are near krystyna and hopefully we will start to rise. Thrombocytopenia is most likely an effect from carboplatin. Dr. Crandall will take over service tomorrow. Thank you very much for assisting us in the care of this very pleasant gentleman. TANISHA
[2018-09-04 13:26] LABS: iSTAT Allen Test Pass; iSTAT Arterial Blood Gas HCO3 32 meg/L (19-24); iSTAT Arterial Blood Gas pCO2 74 mmHg (35-46); iSTAT Arterial Blood Gas pH 7.24 (7.35-7.45); iSTAT Carbon Dioxide 34 mEq/l (24-31); iSTAT FiO2 100 %; iSTAT Site R Radial
[2018-09-04] MEDS ORDERED: PROPOFOL IV EMULSION 10 MG/ML 100 ML VIAL IV ONE (13:44)
[2018-09-04] MEDS: PROPOFOL 1,000 MG/100 ML VIAL IV SCH ×3 (13:45→21:30)
[2018-09-04] MEDS ORDERED: FUROSEMIDE 40 MG in SYRINGE 0 ML IV ONE (13:45)
--- NOTE | 2018-09-04 14:17 | Hospitalist Progress Note ---
Date of Service September 04, 2018 Assessment & Plan (1) Severe sepsis: Appears to be due to urinary tract infection/sepsis/bacteremia. Current sensitivities on blood cultures drawn here pending, but [facility], most sensitive to ertapenem, antibiotics adjusted accordingly (2) Acute respiratory failure with hypoxia: Seems to be related to sepsis and/or primary lung pathology. He seemed nonspecifically worse this morning, chest x-ray and blood gas checked and noted, later in the day with progression of respiratory distress the decision was made for intubation. Continue ventilator support at this time. (3) Atrial fibrillation: Patient with new onset atrial fibrillation with RVR. -rates controlled -Depending on the duration of his intubation, we may need to switch over to Lovenox or heparin drip for anticoagulation (4) SOB (shortness of breath): likely multifactorial. Now intubated, continue supportive care (5) Fever: related to sepsis. (6) Diabetes: insulin management. sugars show reasonable control (7) Gout: Chronic -Continue Allopurinol 300mg po daily, 100mg po qHS (8) COPD (chronic obstructive pulmonary disease): bipap, supportive care (9) Pulmonary embolism: Patient with newly diagnosed PE, will likely need parenteral anticoagulation as above noted (10) Obesity: noted. current BMI listed as 59.2 (11) Hypertension: follow BP, medicate as needed. (12) Chronic venous insufficiency: Patient with history of chronic venous insufficiency. Recently with cellulitis and poorly healing wounds. No ulcers or drainage appreciated at present. Patient is on Keflex BID for suppressive therapy, current antibiotics certainly will cover (13) Antineoplastic chemotherapy induced pancytopenia: Subjective Awake this morning, but talking nonsensically with the BiPAP on, discussing that he needed to check his email. No meaningful HPI or review of systems obtainable. Later with ongoing poor respiratory status the decision was made to intubate. Review of Systems Review of Systems: Unobtainable due to cognitive status Physical Exam Physical Exam: In general he is awake and alert but disoriented. Mild respiratory distress. HEENT normocephalic atraumatic mucous membranes moist. Breathing somewhat labored and discoordinated with the BiPAP, he had scattered rhonchi, no accessory muscle use, good effort. Mildly tachypneic. Cardio distant without any notable rubs murmurs or gallops. Abdomen soft but protuberant, no guarding/rebound/rigidity. Extremities show no cyanosis, neuro shows no deficits. Results & Data Vital Signs (Past 12 Hours) Vital Signs Temp Pulse Pulse Resp BP Pulse Ox 09/04/18 13:18 18 09/04/18 12:18 105 H 19 93 09/04/18 10:15 101 H 33 H 96 09/04/18 07:45 102 H 35 H 93 09/04/18 07:39 102 H 22 94 09/04/18 06:01 93 H 31 H 126/70 98 09/04/18 06:00 103 H 34 H 92 09/04/18 05:30 97 H 36 H 98 09/04/18 05:01 96 H 39 H 120/63 97 09/04/18 05:00 90 31 H 96 09/04/18 04:30 95 H 30 H 96 09/04/18 04:01 98 H 34 H 136/64 97 09/04/18 04:00 37.2 C 99 H 29 H 87 L 09/04/18 03:30 92 H 37 H 96 09/04/18 03:00 87 34 H 138/79 88 L 09/04/18 02:30 101 H 36 H 93 PG Care Time/CCT Total # of Minutes Spent Total Time Spent with Patient: Total time spent is greater than 50% in coordination of care (as documented) at patient's floor/unit and/or counseling patient: (1) Atrial fibrillation Atrial fibrillation type: unspecified Qualified Code(s): I48.91 - Unspecified atrial fibrillation (2) Fever Fever type: unspecified Qualified Code(s): R50.9 - Fever, unspecified (3) Diabetes Diabetes mellitus type: type 2 Diabetes mellitus fci insulin use: without meterman use Diabetes mellitus complication status: without complication Qualified Code(s): E11.9 - Type 2 diabetes mellitus without complications (4) Gout Gout site: unspecified site Gout etiology: unspecified cause Chronicity: chronic (5) COPD (chronic obstructive pulmonary disease) COPD type: unspecified COPD Qualified Code(s): J44.9 - Chronic obstructive pulmonary disease, unspecified (6) Pulmonary embolism Pulmonary embolism type: unspecified Chronicity: unspecified Acute cor pulmonale presence: without acute cor pulmonale Qualified Code(s): I26.99 - Other pulmonary embolism without acute cor pulmonale (7) Obesity Obesity type: due to excess calories Obesity classification: adult class 3 (BMI >= 40) Serious obesity comorbidity presence: with serious comorbidity Body mass index: BMI 60.0-69.9 Qualified Code(s): E66.01 - Morbid (severe) obesity due to excess calories; Z68.44 - Body mass index (BMI) 60.0-69.9, adult (8) Hypertension Hypertension type: essential hypertension Qualified Code(s): I10 - Essential (primary) hypertension
[2018-09-04] MEDS: ERTAPENEM SODIUM 1,000 MG in SODIUM CHLORIDE 0.9% 50 ML IV SCH (17:34)
[2018-09-04] MEDS: ALLOPURINOL 100 MG TAB PO SCH (21:50)
[2018-09-05] MEDS: PROPOFOL 1,000 MG/100 ML VIAL IV SCH ×10 (00:21→23:14)
[2018-09-05] MEDS: fentaNYL DRIP 1,250 MCG/250 ML BAG IV PRN ×2 (00:56→14:02)
[2018-09-05] MEDS: ALBUT/IPRATROP 3MG/0.5MG NEB 3 ML VIAL NEB SCH ×4 (02:29→20:16)
[2018-09-05] MEDS: INSULIN ASPART 100 UNITS/ML 3 ML PEN SC SCH ×5 (04:09→20:53)
[2018-09-05 06:11] LABS: Hematocrit (blood only) 21.2 % (42-52); Hemoglobin 6.9 g/dL (14.0-18.0); Mean Corpuscular Hgb Conc 32.5 g/dL (32-36); Mean Corpuscular Volume 103.4 fL (80-100); Nucleated RBC # (auto) 0.03 K/uL (0-0); Nucleated RBC % (auto) 0.8 %; Platelet Count 49 K/uL (130-400); RDW Coefficient of Variation 22.8 % (11.5-14.5); RDW Standard Deviation 83.1 fL (36.4-46.3); Red Blood Count 2.05 M/uL (4.7-6.1); White Blood Count 3.16 K/uL (4.8-10.8)
[2018-09-05 06:28] LABS: Anisocytosis Present; Eosinophils # (auto) 0.01 K/uL (0-0.5); Eosinophils % (auto) 0.3 %; Immature Granulocytes # (auto) 0.02 K/uL (0.00-0.02); Immature Granulocytes % (auto) 0.6 %; Lymphocytes # (auto) 0.58 K/uL (1.2-3.4); Lymphocytes % (auto) 18.4 %; Monocytes # (auto) 0.39 K/uL (0.11-0.59); Monocytes % (auto) 12.3 %; Neutrophils # (auto) 2.16 K/uL (1.4-6.5); Neutrophils % (auto) 68.4 %
[2018-09-05 06:36] LABS: BUN Creatinine Ratio 27.3 (10-20); Calcium 8.8 mg/dl (8.5-10.1); Creatinine Clr Calc Pharmacy 108.8 ml/min; Est GFR (Non-African American) 70.8; Magnesium 2.3 mg/dl (1.8-2.4); Potassium 4.8 mmol/L (3.5-5.1)
[2018-09-05 06:37] LABS: Phosphorus 2.7 mg/dl (2.5-4.9)
--- NOTE | 2018-09-05 07:36 | Hospitalist Progress Note ---
Date of Service September 05, 2018 Assessment & Plan (1) Severe sepsis: Appears to be due to urinary tract infection/sepsis/bacteremia. Current sensitivities on blood cultures drawn here pending, but blood cultures from sodus reviewed, E coli bacteremia most sensitive to ertapenem, antibiotics adjusted accordingly (2) Acute respiratory failure with hypoxia: Seems to be related to sepsis and/or primary lung pathology. pt developed acidosis and hypercarbia, the decision was made for intubation. Continues with ventilator support at this time. (3) Atrial fibrillation: Patient with new onset atrial fibrillation with RVR. -rates controlled -Depending on the duration of his intubation, pt is now pancytopenic, with low platelets, will delay starting Lovenox or heparin drip for anticoagulation (4) SOB (shortness of breath): likely multifactorial. Now intubated, continue supportive care (5) Fever: related to sepsis. (6) Diabetes: insulin sliding scale management. with reasonable control (7) Gout: Chronic -Continue Allopurinol 300mg po daily, 100mg po qHS (8) COPD (chronic obstructive pulmonary disease): bipap, supportive care, playing a role in his respiratory distress (9) Pulmonary embolism: Patient with newly diagnosed PE, (10) Obesity: noted. current BMI listed as 59.2 (11) Hypertension: follow BP, medicate as needed. (12) Chronic venous insufficiency: Patient with history of chronic venous insufficiency. Recently with cellulitis and poorly healing wounds. No ulcers or drainage appreciated at present. Patient is ertapenem (13) Antineoplastic chemotherapy induced pancytopenia: Subjective pt is sedated on diprivan and on ventilator, at bedside and updated Review of Systems Review of Systems: Unobtainable due to endotracheal tube Physical Exam Physical Exam: The patient appeared morbidly obese in mild to moderate distress Vital signs as documented. Head exam is unremarkable. normocephalic, atraumatic Neck is without jugular venous distension, trachea is midline Lungs are clear but coarse bilaterally Cardiac exam reveals Rhythm is regular. First and second heart sounds normal. Abdominal exam reveals normal bowel sounds, no masses, no organomegaly Extremities are mildly edematous and both pedal pulses are present Neurologic exam is unable be assessed due to sedation Skin is warm Dry with some bruises on his abdomen likely from DVT prevention injections however he is now thrombus cytopenic and this should be stopped Results & Data Vital Signs (Past 12 Hours) Vital Signs Temp Pulse Pulse Resp BP Pulse Ox 09/05/18 07:26 106 H 24 96 09/05/18 06:30 96 H 97/62 L 91 09/05/18 06:15 101 H 99/53 L 87 L 09/05/18 06:07 101 H 90/64 L 91 09/05/18 06:00 107 H 09/05/18 05:57 90 20 95 09/05/18 05:46 96 H 106/53 L 94 09/05/18 05:31 92 H 107/60 95 09/05/18 05:30 103 H 95 09/05/18 05:15 98 H 111/59 L 95 09/05/18 05:01 97 H 102/59 L 93 09/05/18 05:00 99 H 92 09/05/18 04:45 87 88/52 L 94 09/05/18 04:31 101 H 84/62 L 95 09/05/18 04:30 97 H 94 09/05/18 04:15 95 H 90/58 L 95 09/05/18 04:01 36.9 C 96 H 101/51 L 93 09/05/18 04:00 92 H 93 09/05/18 03:46 94 H 108/52 L 94 09/05/18 03:30 95 H 111/53 L 94 09/05/18 03:15 97 H 94/55 L 94 09/05/18 03:01 98 H 98/58 L 93 09/05/18 03:00 96 H 93 09/05/18 02:45 104 H 111/53 L 93 09/05/18 02:35 97 H 20 92 09/05/18 02:31 97 H 99/54 L 92 09/05/18 02:30 96 H 93 09/05/18 02:16 95 H 101/56 L 93 09/05/18 02:00 104 H 109/58 L 93 09/05/18 01:45 107 H 106/61 93 09/05/18 01:30 104 H 108/66 93 09/05/18 01:15 101 H 104/61 92 09/05/18 01:01 97 H 109/59 L 93 09/05/18 01:00 99 H 93 09/05/18 00:46 102 H 109/73 93 09/05/18 00:31 99 H 116/60 93 09/05/18 00:30 101 H 94 09/05/18 00:15 109 H 132/55 L 94 09/05/18 00:01 95 H 113/58 L 93 09/05/18 00:00 37 C 95 H 93 09/04/18 23:46 98 H 107/61 93 09/04/18 23:31 95 H 110/52 L 94 09/04/18 23:30 92 H 93 09/04/18 23:15 96 H 124/54 L 93 09/04/18 23:14 103 H 98/64 L 93 09/04/18 23:00 94 H 98/64 L 93 09/04/18 22:45 99 H 98/59 L 93 09/04/18 22:30 102 H 20 105/64 93 09/04/18 22:15 99 H 111/54 L 93 09/04/18 22:00 102 H 101/59 L 93 09/04/18 21:45 103 H 105/54 L 93 09/04/18 21:30 104 H 99/57 L 92 09/04/18 21:15 102 H 112/60 93 09/04/18 21:01 101 H 101/57 L 92 09/04/18 21:00 105 H 92 09/04/18 20:46 100 H 110/63 88 L 09/04/18 20:30 98 H 105/57 L 92 09/04/18 20:15 105 H 108/57 L 94 09/04/18 20:00 37.1 C 100 H 124/60 94 09/04/18 19:56 101 H 20 95 09/04/18 19:45 103 H 103/59 L 92 PG Care Time/CCT Total # of Minutes Spent Total Time Spent with Patient: Total time spent is greater than 50% in coordination of care (as documented) at patient's floor/unit and/or counseling patient: (1) Fever Fever type: unspecified Qualified Code(s): R50.9 - Fever, unspecified (2) Diabetes Diabetes mellitus complication status: without complication Diabetes mellitus fpc insulin use: without long term care pharmacist use Diabetes mellitus type: type 2 Qualified Code(s): E11.9 - Type 2 diabetes mellitus without complications (3) Gout Chronicity: chronic Gout etiology: unspecified cause Gout site: unspecified site (4) Atrial fibrillation Atrial fibrillation type: unspecified Qualified Code(s): I48.91 - Unspecified atrial fibrillation (5) COPD (chronic obstructive pulmonary disease) COPD type: unspecified COPD Qualified Code(s): J44.9 - Chronic obstructive pulmonary disease, unspecified (6) Pulmonary embolism Acute cor pulmonale presence: without acute cor pulmonale Chronicity: unspecified Pulmonary embolism type: unspecified Qualified Code(s): I26.99 - Other pulmonary embolism without acute cor pulmonale (7) Hypertension Hypertension type: essential hypertension Qualified Code(s): I10 - Essential (primary) hypertension (8) Obesity Body mass index: BMI 60.0-69.9 Obesity classification: adult class 3 (BMI >= 40) Obesity type: due to excess calories Serious obesity comorbidity presence: with serious comorbidity Qualified Code(s): E66.01 - Morbid (severe) obesity due to excess calories; Z68.44 - Body mass index (BMI) 60.0-69.9, adult
[2018-09-05] MEDS: FAMOTIDINE 20 MG in SYRINGE 3 ML IV SCH ×2 (07:48→21:06)
--- NOTE | 2018-09-05 08:04 | Critical Care Progress Note ---
Date of Service September 05, 2018 Assessment & Plan (1) Acute respiratory failure with hypoxia: Neuro- toxic metabolic encephalopathy due to medications(sedatives or chemo) vs infectious. now sedated on fentanyl and propofol CV- BP stable. rapid afib. now off diltiazem IV. if rate high will start PO meds Pulmonary- acute hypoxic respiratory failure. intubated yesterday. remains uncomfortable at times on vent. does not appear ready for weaning at this time. SBT tomorrow . titrate fio2 for sat >92%. history PE off anticoagulation with platelet count ID- sepsis with evidence of end organ dysfunction. immunocompromised. ESBL e coli bacteremia ertapenam. ?source. CT without clear source of infection Renal- acute renal failure resolved. cr improved. good UOP. GI- will start tube feeds. famotidine proph Heme- pancytopenia. s/p recent chemo for squamous cell CA. hold anticoagulation for now until counts better then will start heparin drip. his symptoms may be related to his chemotherapy Endocrine- blood sugars controlled on insulin drip Dispo- continue ICU care for ventilatory and hemodynamic support I have personally spent 50 minutes of critical care time in the direct management of this patient. This is a life/limb threatening event. This includes time spent evaluating patient, direct bedside care, chart review, placing orders, interpretation of diagnostic studies, discussion with consultants, patient, and/or family members regarding treatment decisions, as well as other required patient management activities. This time is exclusive of all separately billable procedures, and teaching time and separate from and in addition to any other critical care service time. (2) Severe sepsis: (3) Atrial fibrillation: Subjective remains on vent sedated on fentanyl and propofol. Physical Exam Physical Exam: Constitutional: comfortable NAD on vent HEENT: normocephalic atraumatic. MMM. CV: RRR nl s1,s2 no murmurs rubs or gallops Lungs: decreased bilaterally. no accessory muscle use. tachypnea low 30s Abd: soft nontender nondistended. obese. normal bowel sounds Ext: + LE edema. no cyanosis, no clubbing Skin: warm dry Neuro: sedated but opens eyes to voice Psych: sedated Results & Data Vital Signs (Past 12 Hours) Vital Signs Temp Pulse Resp BP Pulse Ox 09/05/18 07:26 106 H 24 96 09/05/18 06:30 96 H 97/62 L 91 09/05/18 06:15 101 H 99/53 L 87 L 09/05/18 06:07 101 H 90/64 L 91 09/05/18 06:00 107 H 09/05/18 05:57 90 20 95 09/05/18 05:46 96 H 106/53 L 94 09/05/18 05:31 92 H 107/60 95 09/05/18 05:30 103 H 95 09/05/18 05:15 98 H 111/59 L 95 09/05/18 05:01 97 H 102/59 L 93 09/05/18 05:00 99 H 92 09/05/18 04:45 87 88/52 L 94 09/05/18 04:31 101 H 84/62 L 95 09/05/18 04:30 97 H 94 09/05/18 04:15 95 H 90/58 L 95 09/05/18 04:01 36.9 C 96 H 101/51 L 93 09/05/18 04:00 92 H 93 09/05/18 03:46 94 H 108/52 L 94 09/05/18 03:30 95 H 111/53 L 94 09/05/18 03:15 97 H 94/55 L 94 09/05/18 03:01 98 H 98/58 L 93 09/05/18 03:00 96 H 93 09/05/18 02:45 104 H 111/53 L 93 09/05/18 02:35 97 H 20 92 09/05/18 02:31 97 H 99/54 L 92 09/05/18 02:30 96 H 93 09/05/18 02:16 95 H 101/56 L 93 09/05/18 02:00 104 H 109/58 L 93 09/05/18 01:45 107 H 106/61 93 09/05/18 01:30 104 H 108/66 93 09/05/18 01:15 101 H 104/61 92 09/05/18 01:01 97 H 109/59 L 93 09/05/18 01:00 99 H 93 09/05/18 00:46 102 H 109/73 93 09/05/18 00:31 99 H 116/60 93 09/05/18 00:30 101 H 94 09/05/18 00:15 109 H 132/55 L 94 09/05/18 00:01 95 H 113/58 L 93 09/05/18 00:00 37 C 95 H 93 09/04/18 23:46 98 H 107/61 93 09/04/18 23:31 95 H 110/52 L 94 09/04/18 23:30 92 H 93 09/04/18 23:15 96 H 124/54 L 93 09/04/18 23:14 103 H 98/64 L 93 09/04/18 23:00 94 H 98/64 L 93 09/04/18 22:45 99 H 98/59 L 93 09/04/18 22:30 102 H 20 105/64 93 09/04/18 22:15 99 H 111/54 L 93 09/04/18 22:00 102 H 101/59 L 93 09/04/18 21:45 103 H 105/54 L 93 09/04/18 21:30 104 H 99/57 L 92 09/04/18 21:15 102 H 112/60 93 09/04/18 21:01 101 H 101/57 L 92 09/04/18 21:00 105 H 92 09/04/18 20:46 100 H 110/63 88 L 09/04/18 20:30 98 H 105/57 L 92 09/04/18 20:15 105 H 108/57 L 94 Laboratory Results Laboratory Results - last 24 hr 09/04/18 09/04/18 09/04/18 03:51 03:51 03:52 WBC 5.28 RBC 2.22 L Hgb 7.4 L Hct 22.8 L MCV 102.7 H MCH 33.3 MCHC 32.5 RDW Std Deviation 82.4 H RDW Coeff of Preeti 22.9 H Plt Count 35 L MPV Immature Gran % (Auto) 0.4 Neut % (Auto) 83.8 Lymph % (Auto) 6.3 [place] % (Auto) 9.5 Eos % (Auto) 0.0 Baso % (Auto) 0.0 Immature Gran # (Auto) 0.02 Neut # (Auto) 4.43 Lymph # (Auto) 0.33 L [place] # (Auto) 0.50 Eos # (Auto) 0.00 Baso # (Auto) 0.00 Absolute Nucleated RBC 0.04 H Nucleated RBC % (auto) 0.8 Platelet Estimate Decreased L Anisocytosis Present Sample Site POC pH POC pCO2 POC pO2 POC HCO3 POC Total CO2 POC Base Excess POC ABG O2 Sat Pete Test O2 Delivery Device POC O2 Rate Minute Ventilation POC FiO2 Tidal Volume PEEP IPAP Sodium 141 Potassium 5.4 H Chloride 107 Carbon Dioxide 32 Anion Gap 2.0 L BUN 18 Creatinine 0.91 0.86 Est Cr Clr Drug Dosing 126.7 Est GFR ( Amer) 98.6 Est GFR (Non-Af Amer) 85.1 BUN/Creatinine Ratio 19.5 Glucose 113 H POC Glucose Calcium 8.7 Phosphorus Magnesium 09/04/18 09/04/18 09/04/18 10:08 12:10 13:11 WBC RBC Hgb Hct MCV MCH MCHC RDW Std Deviation RDW Coeff of Preeti Plt Count MPV Immature Gran % (Auto) Neut % (Auto) Lymph % (Auto) [place] % (Auto) Eos % (Auto) Baso % (Auto) Immature Gran # (Auto) Neut # (Auto) Lymph # (Auto) [place] # (Auto) Eos # (Auto) Baso # (Auto) Absolute Nucleated RBC Nucleated RBC % (auto) Platelet Estimate Anisocytosis Sample Site R Radial R Radial POC pH 7.29 L 7.24 L POC pCO2 68 H 74 H POC pO2 97 H 110 H POC HCO3 32 H 32 H POC Total CO2 34 H 34 H POC Base Excess 6.0 H 4.0 H POC ABG O2 Sat 96.0 H 97.0 H Pete Test Pass Pass O2 Delivery Device BIPAP Ventilator POC O2 Rate 16 18 Minute Ventilation 8.8 POC FiO2 55 100 Tidal Volume 500 PEEP 5 IPAP 18 Sodium Potassium Chloride Carbon Dioxide Anion Gap BUN Creatinine Est Cr Clr Drug Dosing Est GFR ( Amer) Est GFR (Non-Af Amer) BUN/Creatinine Ratio Glucose POC Glucose 128 H Calcium Phosphorus Magnesium 09/04/18 09/04/18 09/04/18 16:17 17:06 17:44 WBC RBC Hgb Hct MCV MCH MCHC RDW Std Deviation RDW Coeff of Preeti Plt Count MPV Immature Gran % (Auto) Neut % (Auto) Lymph % (Auto) [place] % (Auto) Eos % (Auto) Baso % (Auto) Immature Gran # (Auto) Neut # (Auto) Lymph # (Auto) [place] # (Auto) Eos # (Auto) Baso # (Auto) Absolute Nucleated RBC Nucleated RBC % (auto) Platelet Estimate Anisocytosis Sample Site POC pH POC pCO2 POC pO2 POC HCO3 POC Total CO2 POC Base Excess POC ABG O2 Sat Pete Test O2 Delivery Device POC O2 Rate Minute Ventilation POC FiO2 Tidal Volume PEEP IPAP Sodium Potassium Chloride Carbon Dioxide Anion Gap BUN Creatinine Est Cr Clr Drug Dosing Est GFR ( Amer) Est GFR (Non-Af Amer) BUN/Creatinine Ratio Glucose POC Glucose 97 80 79 Calcium Phosphorus Magnesium 09/04/18 09/04/18 09/04/18 18:43 19:50 21:53 WBC RBC Hgb Hct MCV MCH MCHC RDW Std Deviation RDW Coeff of Preeti Plt Count MPV Immature Gran % (Auto) Neut % (Auto) Lymph % (Auto) [place] % (Auto) Eos % (Auto) Baso % (Auto) Immature Gran # (Auto) Neut # (Auto) Lymph # (Auto) [place] # (Auto) Eos # (Auto) Baso # (Auto) Absolute Nucleated RBC Nucleated RBC % (auto) Platelet Estimate Anisocytosis Sample Site POC pH POC pCO2 POC pO2 POC HCO3 POC Total CO2 POC Base Excess POC ABG O2 Sat Pete Test O2 Delivery Device POC O2 Rate Minute Ventilation POC FiO2 Tidal Volume PEEP IPAP Sodium Potassium Chloride Carbon Dioxide Anion Gap BUN Creatinine Est Cr Clr Drug Dosing Est GFR ( Amer) Est GFR (Non-Af Amer) BUN/Creatinine Ratio Glucose POC Glucose 110 H 106 H 107 H Calcium Phosphorus Magnesium 09/05/18 09/05/18 09/05/18 00:25 04:05 05:33 WBC RBC Hgb Hct MCV MCH MCHC RDW Std Deviation RDW Coeff of Preeti Plt Count MPV Immature Gran % (Auto) Neut % (Auto) Lymph % (Auto) [place] % (Auto) Eos % (Auto) Baso % (Auto) Immature Gran # (Auto) Neut # (Auto) Lymph # (Auto) [place] # (Auto) Eos # (Auto) Baso # (Auto) Absolute Nucleated RBC Nucleated RBC % (auto) Platelet Estimate Anisocytosis Sample Site POC pH POC pCO2 POC pO2 POC HCO3 POC Total CO2 POC Base Excess POC ABG O2 Sat Pete Test O2 Delivery Device POC O2 Rate Minute Ventilation POC FiO2 Tidal Volume PEEP IPAP Sodium 142 Potassium 4.8 Chloride 105 Carbon Dioxide 32 Anion Gap 5.0 BUN 29 H D Creatinine 1.06 Est Cr Clr Drug Dosing 108.8 Est GFR ( Amer) 82.0 Est GFR (Non-Af Amer) 70.8 BUN/Creatinine Ratio 27.3 H Glucose 130 H POC Glucose 129 H 129 H Calcium 8.8 Phosphorus 2.7 Magnesium 2.3 09/05/18 09/05/18 05:33 05:42 WBC 3.16 L RBC 2.05 L Hgb 6.9 L* Hct 21.2 L MCV 103.4 H MCH 33.7 MCHC 32.5 RDW Std Deviation 83.1 H RDW Coeff of Preeti 22.8 H Plt Count 49 L MPV 12.0 H Immature Gran % (Auto) 0.6 Neut % (Auto) 68.4 Lymph % (Auto) 18.4 [place] % (Auto) 12.3 Eos % (Auto) 0.3 Baso % (Auto) 0.0 Immature Gran # (Auto) 0.02 Neut # (Auto) 2.16 Lymph # (Auto) 0.58 L [place] # (Auto) 0.39 Eos # (Auto) 0.01 Baso # (Auto) 0.00 Absolute Nucleated RBC 0.03 H Nucleated RBC % (auto) 0.8 Platelet Estimate Anisocytosis Present Sample Site POC pH POC pCO2 POC pO2 POC HCO3 POC Total CO2 POC Base Excess POC ABG O2 Sat Pete Test O2 Delivery Device POC O2 Rate Minute Ventilation POC FiO2 Tidal Volume PEEP IPAP Sodium Potassium Chloride Carbon Dioxide Anion Gap BUN Creatinine Est Cr Clr Drug Dosing Est GFR ( Amer) Est GFR (Non-Af Amer) BUN/Creatinine Ratio Glucose POC Glucose 138 H Calcium Phosphorus Magnesium PG Care Time/CCT Critical Care Time: Yes Total Critical Care Time: 50 (1) Atrial fibrillation Atrial fibrillation type: unspecified Qualified Code(s): I48.91 - Unspecified atrial fibrillation
[2018-09-05] MEDS ORDERED: SODIUM CHLORIDE 0.9% 250 ML IV PRN (08:35)
[2018-09-05] MEDS ORDERED: PEPTAMEN INTENSE VHP 1.0 CAL 1,000 ML BAG OG SCH (11:00)
--- NOTE | 2018-09-05 12:52 | Pharmacy Report ---
Glycemic Control Progress Note - Date of Service September 05, 2018 - Scope Glycemic Pharmacist consulted for glycemic control to write orders per [facility] inpatient glycemic control protocol. - Objective Accuchecks BSG(last 24 hours):: 09/04/18 09/04/18 09/04/18 16:17 17:06 17:44 Glucose POC Glucose 97 80 79 09/04/18 09/04/18 09/04/18 18:43 19:50 21:53 Glucose POC Glucose 110 H 106 H 107 H 09/05/18 09/05/18 09/05/18 00:25 04:05 05:33 Glucose 130 H POC Glucose 129 H 129 H 09/05/18 09/05/18 05:42 11:50 Glucose POC Glucose 138 H 116 H - Recent Pertinent Medications The patient is currently receiving: * Basal insulin: Lantus -- units every -- hours * Correctional Insulin: Novolog Correction per scale ACHS Goal Range: Low 110 mg/dL - High 180 mg/dL Correction Factor: (covered by insulin infusion) mg/dL/unit * Prandial insulin: Per carb ratio of 1 unit per (per calculator) grams CHO consumed - Outpatient Anti-Diabetic Meds metformin 1000 mg PO BID plus Januvia 100 mg PO qAM - Assessment & Plan ASSESSMENT: * See progress note from 08/31/18 for more background info, in short: * Pt receiving SQ basal bolus insulin regimen for hyperglycemia secondary to baseline DM (outpatient regimen on hold), currently intubated on propofol and fentanyl infusion, infection on Invanz. * Patient is currently receiving an average of 30 units of insulin per day + IV insulin infusion * 30 units of basal insulin * -- units of prandial/correctional insulin * BSGs ranging 79 - 128 mg/dl over the past 24hrs * Changes needed to insulin regimen: * AM Fasting BSG = 138 mg/dl. This is below goal goal range for patient based on inpatient targets and co-morbidities. Continue to hold basal insulin. Patient has had dramatic change after intubation. Previously was tolerating Lantus 30 units SQ BID plus IV insulin at rates of 4.6-5.8 units/hr. Once intubated, insulin infusion titrated downwards quickly. Ultimately held last night. Yesterday night's Lantus held as well. With such a change, will continue to hold all basal insulin. * Post-prandial BSGs are unable to be evaluated. Patient is not being fed. If tube feeds begin, would only recommend carbohydrate coverage for 20 mL/hr or more. Can utilize carbohydrate ratio of 1 units per 9 grams of carbohydrates consumed. * Total daily dose = ? units. More to see once patient is not critical. * Additional notes / comments: continue to hold oral agents. PLAN FOR INPATIENT GLYCEMIC CONTROL: * HOLD Lantus * Continuing correction factor of 25 mg/dl/unit * Continuing carb ratio of 1 unit per 9 grams CHO consumed * Increasing goal range to Low 140 mg/dL - High 180 mg/dL RECOMMENDATIONS FOR DISCHARGE: * determine once patient less critically ill. * Please note that the plan above was derived based on current level of insulin resistance and hospital stress. These recommendations are appropriate for inpatient admission only. Plan of care upon discharge will need to be reassessed to avoid potential outpatient hypo/hyperglycemia. Thank you.
--- NOTE | 2018-09-05 13:38 | XRay Report ---
XR chest 1V portable CLINICAL HISTORY: 68 years-old Male presenting with intubation. TECHNIQUE: Portable upright AP view of the chest was obtained. COMPARISON: 09/04/2018. FINDINGS: Endotracheal tube terminates in the midthoracic trachea proximate 5 cm from the alyson. Nasogastric t ube is likely in place descending along the course of the esophagus though the portable technique and patient body habitus prohibits visualization of the distal course. Left subclavian Mediport terminat es at the upper SVC. Atherosclerosis of the aortic arch. Cardiac silhouette enlarged. Pulmonary vascu lar prominence similar to prior. Bronchial wall cuffing and perihilar predominant opacities evident t chris these maybe slightly decreased from prior. Small bilateral pleural effusions may be present. No pneumothorax. IMPRESSION: 1. Evaluation limited by portable technique and body habitus. This limits evaluation of the nasogast anabell tube, which is not visualized in the distal course and position cannot be confirmed. 2. Appropriately positioned endotracheal tube. 3. Slight decrease of central predominant pulmonary infiltrates, which may represent slight decrease d edema in the setting of cardiomegaly, volume overload, and congestive change. Electronically signed by: Sami Polanco M.D. 09/05/2018 1:36 PM
--- NOTE | 2018-09-05 14:26 | Cardiology Progress Note ---
Date of Service September 05, 2018 Assessment & Plan (1) Atrial fibrillation: Although by history he did not have much atrial fibrillation prior to admission, I suspect he has had it and now he has been in it in a relatively sustained manner. He should have long-term anticoagulation. Anticoagulation was held with low platelets, however I would recommend starting it as soon as possible. (2) Anticoagulant long-term use: He was on Xarelto for PE which will work for atrial fibrillation over the long run but for now probably heparin would be safer.. Subjective He is now intubated and sedated Physical Exam Physical Exam: Constitutional: Intubated and heavily sedated. Pulmonary: Clear to auscultation bilaterally. Cardiac: Irregular rhythm with no murmur, gallop or rub. Abdomen: Soft, nontender with normal bowel sounds. Extremities: No edema. Skin: No rash, ecchymoses or petechiae. Results & Data Vital Signs (Past 12 Hours) Vital Signs Temp Pulse Resp BP Pulse Ox 09/05/18 14:08 107 H 22 92 09/05/18 13:25 115 H 22 121/73 94 09/05/18 13:00 37.1 C 114 H 23 134/79 93 09/05/18 12:45 105 H 138/76 94 09/05/18 12:30 37 C 107 H 26 H 126/87 94 09/05/18 12:17 111 H 88 L 09/05/18 12:15 37 C 115 H 31 H 118/73 92 09/05/18 12:05 106 H 94 09/05/18 12:00 37 C 115 H 25 H 120/91 92 09/05/18 11:45 36.8 C 107 H 26 H 116/72 94 09/05/18 11:30 36.8 C 112 H 26 H 115/83 93 09/05/18 11:25 116 H 22 94 09/05/18 11:15 113 H 132/73 95 09/05/18 11:00 118 H 111/73 93 09/05/18 10:46 110 H 108/75 09/05/18 10:45 113 H 09/05/18 10:31 123 H 130/74 95 09/05/18 10:30 119 H 90 09/05/18 10:15 114 H 139/71 91 09/05/18 10:05 123 H 127/77 93 09/05/18 10:01 120 H 127/77 88 L 09/05/18 10:00 124 H 87 L 09/05/18 09:46 120 H 112/79 86 L 09/05/18 09:45 105 H 91 09/05/18 09:30 124 H 118/73 95 09/05/18 09:16 113 H 117/81 93 09/05/18 09:15 106 H 09/05/18 09:01 107 H 68/59 L 91 09/05/18 09:00 110 H 92 09/05/18 08:45 121 H 121/88 94 09/05/18 08:30 108 H 107/71 94 09/05/18 08:16 115 H 116/66 93 09/05/18 08:15 108 H 90 09/05/18 08:00 125 H 124/77 92 09/05/18 07:45 112 H 111/75 91 09/05/18 07:31 36.7 C 108 H 103/69 91 09/05/18 07:30 108 H 92 09/05/18 07:26 106 H 24 96 09/05/18 07:17 112 H 114/61 09/05/18 07:15 112 H 89 L 09/05/18 07:00 111 H 100/64 92 09/05/18 06:45 101 H 98/61 L 92 09/05/18 06:30 96 H 97/62 L 91 09/05/18 06:15 101 H 99/53 L 87 L 09/05/18 06:07 101 H 90/64 L 91 09/05/18 06:00 107 H 09/05/18 05:57 90 20 95 09/05/18 05:46 96 H 106/53 L 94 09/05/18 05:45 94 H 94 09/05/18 05:31 92 H 107/60 95 09/05/18 05:30 103 H 95 09/05/18 05:15 98 H 111/59 L 95 09/05/18 05:01 97 H 102/59 L 93 09/05/18 05:00 99 H 92 09/05/18 04:45 87 88/52 L 94 09/05/18 04:31 101 H 84/62 L 95 09/05/18 04:30 97 H 94 09/05/18 04:15 95 H 90/58 L 95 09/05/18 04:01 36.9 C 96 H 101/51 L 93 09/05/18 04:00 92 H 93 09/05/18 03:46 94 H 108/52 L 94 09/05/18 03:45 95 H 94 09/05/18 03:30 95 H 111/53 L 94 09/05/18 03:15 97 H 94/55 L 94 09/05/18 03:01 98 H 98/58 L 93 09/05/18 03:00 96 H 93 09/05/18 02:45 104 H 111/53 L 93 09/05/18 02:35 97 H 20 92 09/05/18 02:31 97 H 99/54 L 92 09/05/18 02:30 96 H 93 Diagnostic Findings Telemetry: Atrial fibrillation with a relatively well-controlled heart rate on no AV jack blocking medications (1) Atrial fibrillation Atrial fibrillation type: unspecified Qualified Code(s): I48.91 - Unspecified atrial fibrillation
[2018-09-05] MEDS: ERTAPENEM SODIUM 1,000 MG in SODIUM CHLORIDE 0.9% 50 ML IV SCH (18:01)
[2018-09-05] MEDS: ALLOPURINOL 100 MG TAB PO SCH (21:06)
[2018-09-05] MEDS: METOPROLOL TARTRATE 1 MG/ML VIAL IV PRN (21:48)
[2018-09-06] MEDS: INSULIN ASPART 100 UNITS/ML 3 ML PEN SC SCH ×7 (00:45→23:19)
[2018-09-06] MEDS: PROPOFOL 1,000 MG/100 ML VIAL IV SCH ×8 (01:46→21:42)
[2018-09-06] MEDS: ALBUT/IPRATROP 3MG/0.5MG NEB 3 ML VIAL NEB SCH ×4 (01:57→19:48)
[2018-09-06] MEDS: fentaNYL DRIP 1,250 MCG/250 ML BAG IV PRN ×2 (03:58→16:20)
[2018-09-06] MEDS: METOPROLOL TARTRATE 1 MG/ML VIAL IV PRN (04:02)
[2018-09-06 04:54] LABS: Hemoglobin 7.4 g/dL (14.0-18.0); Mean Corpuscular Hgb Conc 32.2 g/dL (32-36); Mean Corpuscular Volume 101.3 fL (80-100); Nucleated RBC # (auto) 0.04 K/uL (0-0); Nucleated RBC % (auto) 1.2 %; RDW Coefficient of Variation 23.5 % (11.5-14.5); Red Blood Count 2.27 M/uL (4.7-6.1); White Blood Count 3.19 K/uL (4.8-10.8)
[2018-09-06 05:03] LABS: Mean Platelet Volume 11.6 fL (7.4-10.4); Platelet Count 52 K/uL (130-400)
[2018-09-06 05:22] LABS: Anisocytosis Present; Basophils # (auto) 0.01 K/uL (0-0.2); Basophils % (auto) 0.3 %; Eosinophils # (auto) 0.01 K/uL (0-0.5); Eosinophils % (auto) 0.3 %; Giant Platelets 1+; Immature Granulocytes # (auto) 0.02 K/uL (0.00-0.02); Immature Granulocytes % (auto) 0.6 %; Lymphocytes # (auto) 0.55 K/uL (1.2-3.4); Lymphocytes % (auto) 17.2 %; Monocytes # (auto) 0.37 K/uL (0.11-0.59); Monocytes % (auto) 11.6 %; Neutrophils # (auto) 2.23 K/uL (1.4-6.5)
[2018-09-06 05:25] LABS: BUN Creatinine Ratio 21.9 (10-20); Calcium 8.5 mg/dl (8.5-10.1); Creatinine Clr Calc Pharmacy 103.4 ml/min; Est GFR (African American) 78.4; Est GFR (Non-African American) 67.7; Magnesium 2.1 mg/dl (1.8-2.4); Phosphorus 3.8 mg/dl (2.5-4.9); Potassium 4.3 mmol/L (3.5-5.1)
--- NOTE | 2018-09-06 07:58 | Critical Care Progress Note ---
Date of Service September 06, 2018 Assessment & Plan (1) Admitted to intensive care unit: Reason Critically Ill: Severe Sepsis likely due to UTI and Acute Hypoxic Resp Failure related to sepsis requiring mechanical vent, Pancytopenia 2/2 chemotherapy PLAN: NEURO ICU CAM: NEGATIVE -Toxic metabolic encephalopathy due to medications (sedatives or chemo) vs infectious. Pt sedated on propofol, decreased fentanyl CARDIO -Hemodynamically stable -Afib- IV Diltiazem dcd, today metoprolol 25 mg BID added. Anticoagulation initally held 2/2 low plts, today restart with IV Heparin. Pt was on Xarelto for PE prior. -HTN- Hold Lisinopril, Spirinolactone PULMONARY -Acute hypoxic respiratory failure likely from sepsis and/or primary lung pathology of previous left upper lobe squamous cell carcinoma. -Heme/Onc consult, will f/u for management moving forward - Intubated 09/04. Does not appear ready for weaning at this time. ?SBT tomorrow. Titrate FiO2 for sat >92%. -History PE now on anticoagulation GI -Cont tube feeds (goal of 70). Start enteral meds -Famotidine prophylaxis RENAL/ -Stable Cr. ARF resolved. Good UOP -No other acute concerns or complaints -cont diurese today with 40 Lasix IV ENDO -ICU Hyperglycemia protocol. BSG Stable -No other acute concerns or complaints ID -Sepsis with evidence of end organ dysfunction. Immunocompromised. ESBL e coli bacteremia --> Ertapenam. ?source. CT without clear source of infection HEME -pancytopenia likely from sepsis/chemo, improving. s/p recent chemo for squamous cell CA. hold anticoagulation for now until counts better then will start heparin drip. His symptoms may be related to his chemotherapy -1 unit pRBC 09/05 LINES: L chest port, PIV x3, Cooper DVT Prophylaxis: Heparin low intensity Full Code DISPO: ICU for vent support. Pal Care consult placed- family contemplating Code status and if want to undergo further chemo. Supervising Physician Co-Signing Physician Notes Dr. Watson was resident physician during care of patient. I separately evaluated patient for lovelace portions of the history and the exam. I was present during the critical portion of medical decision making, and I discussed the case with the resident. I generally agree with the findings and plan. Patient was discussed in multidisciplinary rounds Reason Critically Ill: Severe sepsis with immunocompromise secondary to chemotherapy-induced pancytopenia PLAN: Neuro: Metabolic encephalopathy -Improving, arouses with sedation vacation -Decreased fentanyl Resp: Acute hypoxic respiratory failure -Weaning ventilator: Weaning parameters in a.m. CV: Atrial fibrillation -Metoprolol 25 mg twice daily Fluids/Renal: Goal diuresis to be negative ID: ESBL E. coli urinary tract infection -Ertapenem GI/Nutrition: Tolerating tube feedings -Can start enteral medications Heme: Pancytopenia -Secondary to chemotherapy induced pancytopenia, improving Pulmonary embolism DVT prophylaxis: Low intensity heparin infusion without bolus -Bleeding precautions Endocrine: ICU hyperglycemia protocol Insulin infusion on hold -Pharmacy glycemic management Vascular access: Peripheral IVs Code Status: Full code: Palliative care consult: Patient not going to receive chemotherapy in immediate future per family discussion I have personally spent 55 minutes of critical care time in the direct management of this patient. This is a life/limb threatening event. This includes time spent evaluating patient, direct bedside care, chart review, placing orders, interpretation of diagnostic studies, discussion with consultants, patient, and/or family members regarding treatment decisions, as well as other required patient management activities. This time is exclusive of all separately billable procedures, and teaching time and separate from and in addition to any other critical care service time. Subjective Limited due to [facility] Vent. Review of Systems Review of Systems: Unobtainable due to endotracheal tube Physical Exam Constitutional: + obese Respiratory: decreased breath sounds b/l, tachypneic Cardiovascular: Rate/Rhythm: + tachycardic systolic murmur Gastrointestinal (Abdomen): normal bowel sounds, soft, nontender, no hepatosplenomegaly Skin: no rashes, warm and dry Lymphatic: mild LE edema Results & Data Vital Signs (Past 12 Hours) Vital Signs Temp Pulse Resp BP Pulse Ox 09/06/18 07:13 112 H 24 91 09/06/18 07:00 122 H 122/67 94 09/06/18 06:30 120 H 130/78 96 09/06/18 06:01 119 H 117/72 96 09/06/18 06:00 116 H 96 09/06/18 05:54 120 H 24 95 09/06/18 05:45 119 H 129/82 100 09/06/18 05:30 118 H 09/06/18 05:00 117 H 129/74 95 09/06/18 04:31 96 H 129/72 99 09/06/18 04:30 115 H 09/06/18 04:02 123 H 135/83 09/06/18 04:00 37 C 126 H 135/83 96 09/06/18 03:30 115 H 118/82 95 09/06/18 03:00 105 H 121/73 94 09/06/18 02:30 123 H 135/70 94 09/06/18 02:05 100 H 22 94 09/06/18 02:00 102 H 123/67 92 09/06/18 01:30 113 H 117/68 93 09/06/18 01:00 107 H 127/73 93 09/06/18 00:30 106 H 105/68 93 09/06/18 00:00 37.2 C 108 H 130/74 93 09/05/18 23:30 110 H 130/65 93 09/05/18 23:00 107 H 129/86 93 09/05/18 22:30 105 H 102/69 94 09/05/18 22:28 105 H 24 93 09/05/18 22:00 104 H 124/67 96 09/05/18 21:48 127 H 125/75 09/05/18 21:30 122 H 96 09/05/18 21:00 120 H 125/75 95 09/05/18 20:30 117 H 94 09/05/18 20:00 37.1 C 117 H 22 112/73 96 Laboratory Results Laboratory Results - last 24 hr 09/05/18 09/05/18 09/06/18 15:47 20:13 00:42 WBC RBC Hgb Hct MCV MCH MCHC RDW Std Deviation RDW Coeff of Preeti Plt Count MPV Immature Gran % (Auto) Neut % (Auto) Lymph % (Auto) [place] % (Auto) Eos % (Auto) Baso % (Auto) Immature Gran # (Auto) Neut # (Auto) Lymph # (Auto) [place] # (Auto) Eos # (Auto) Baso # (Auto) Absolute Nucleated RBC Nucleated RBC % (auto) Giant Platelets Anisocytosis PT INR APTT PTT Ratio Sample Site POC pH POC pCO2 POC pO2 POC HCO3 POC Total CO2 POC Base Excess POC ABG O2 Sat Pete Test O2 Delivery Device POC O2 Rate Minute Ventilation POC FiO2 Tidal Volume PEEP Sodium Potassium Chloride Carbon Dioxide Anion Gap BUN Creatinine Est Cr Clr Drug Dosing Est GFR ( Amer) Est GFR (Non-Af Amer) BUN/Creatinine Ratio Glucose POC Glucose 107 H 133 H 129 H Calcium Phosphorus Magnesium 09/06/18 09/06/18 09/06/18 04:18 04:18 04:21 WBC 3.19 L RBC 2.27 L Hgb 7.4 L Hct 23.0 L MCV 101.3 H MCH 32.6 MCHC 32.2 RDW Std Deviation 83.0 H RDW Coeff of Preeti 23.5 H Plt Count 52 L MPV 11.6 H Immature Gran % (Auto) 0.6 Neut % (Auto) 70.0 Lymph % (Auto) 17.2 [place] % (Auto) 11.6 Eos % (Auto) 0.3 Baso % (Auto) 0.3 Immature Gran # (Auto) 0.02 Neut # (Auto) 2.23 Lymph # (Auto) 0.55 L [place] # (Auto) 0.37 Eos # (Auto) 0.01 Baso # (Auto) 0.01 Absolute Nucleated RBC 0.04 H Nucleated RBC % (auto) 1.2 Giant Platelets 1+ Anisocytosis Present PT INR APTT PTT Ratio Sample Site POC pH POC pCO2 POC pO2 POC HCO3 POC Total CO2 POC Base Excess POC ABG O2 Sat Pete Test O2 Delivery Device POC O2 Rate Minute Ventilation POC FiO2 Tidal Volume PEEP Sodium 143 Potassium 4.3 Chloride 104 Carbon Dioxide 34 H Anion Gap 5.0 BUN 24 H Creatinine 1.10 Est Cr Clr Drug Dosing 103.4 Est GFR ( Amer) 78.4 Est GFR (Non-Af Amer) 67.7 BUN/Creatinine Ratio 21.9 H Glucose 133 H POC Glucose 135 H Calcium 8.5 Phosphorus 3.8 D Magnesium 2.1 09/06/18 09/06/18 09/06/18 08:15 09:07 09:50 WBC RBC Hgb Hct MCV MCH MCHC RDW Std Deviation RDW Coeff of Preeti Plt Count MPV Immature Gran % (Auto) Neut % (Auto) Lymph % (Auto) [place] % (Auto) Eos % (Auto) Baso % (Auto) Immature Gran # (Auto) Neut # (Auto) Lymph # (Auto) [place] # (Auto) Eos # (Auto) Baso # (Auto) Absolute Nucleated RBC Nucleated RBC % (auto) Giant Platelets Anisocytosis PT 11.0 INR 1.1 APTT 23.0 PTT Ratio 0.8 Sample Site L Radial POC pH 7.49 H POC pCO2 43 POC pO2 88 POC HCO3 32 H POC Total CO2 34 H POC Base Excess 9.0 H POC ABG O2 Sat 97.0 H Pete Test Pass O2 Delivery Device Ventilator POC O2 Rate 20 Minute Ventilation 11.3 POC FiO2 50 Tidal Volume 500 PEEP 8 Sodium Potassium Chloride Carbon Dioxide Anion Gap BUN Creatinine Est Cr Clr Drug Dosing Est GFR ( Amer) Est GFR (Non-Af Amer) BUN/Creatinine Ratio Glucose POC Glucose 131 H Calcium Phosphorus Magnesium 09/06/18 12:28 WBC RBC Hgb Hct MCV MCH MCHC RDW Std Deviation RDW Coeff of Preeti Plt Count MPV Immature Gran % (Auto) Neut % (Auto) Lymph % (Auto) [place] % (Auto) Eos % (Auto) Baso % (Auto) Immature Gran # (Auto) Neut # (Auto) Lymph # (Auto) [place] # (Auto) Eos # (Auto) Baso # (Auto) Absolute Nucleated RBC Nucleated RBC % (auto) Giant Platelets Anisocytosis PT INR APTT PTT Ratio Sample Site POC pH POC pCO2 POC pO2 POC HCO3 POC Total CO2 POC Base Excess POC ABG O2 Sat Pete Test O2 Delivery Device POC O2 Rate Minute Ventilation POC FiO2 Tidal Volume PEEP Sodium Potassium Chloride Carbon Dioxide Anion Gap BUN Creatinine Est Cr Clr Drug Dosing Est GFR ( Amer) Est GFR (Non-Af Amer) BUN/Creatinine Ratio Glucose POC Glucose 158 H Calcium Phosphorus Magnesium Medications Administered Current Inpatient Medications Acetaminophen (Tylenol) 650 mg PO Q4H PRN PRN Reason: Pain or Fever Stop: 09/30/18 04:43 Last Admin: 09/01/18 06:39 Dose: 650 mg Documented by: Albuterol (Duoneb) 3 ml NEB Q6R [facility] Stop: 09/30/18 07:59 Last Admin: 09/06/18 14:45 Dose: 3 ml Documented by: Albuterol (Ventolin 0.5% 2.5mg/0.5ml) 2.5 mg NEB Q2H PRN PRN Reason: SOB/Wheeze Stop: 09/30/18 04:49 Allopurinol (Zyloprim) 100 mg PO QPM [facility]Y Stop: 09/30/18 20:59 Last Admin: 09/05/18 21:06 Dose: 100 mg Documented by: Celecoxib (Celebrex) 200 mg PO QAM [facility] Stop: 09/30/18 08:59 Last Admin: 09/01/18 11:33 Dose: Not Given Documented by: Cephalexin HCl (Keflex) 250 mg PO BID GERRY Stop: 09/30/18 08:59 Last Admin: 09/01/18 11:33 Dose: Not Given Documented by: Lidocaine HCl 60 ml/Diphenhydramine HCl 150 mg/ Al Hydrox/Mg Hydrox/Simethicone 60 ml/ Glycerin 60 ml/ BARCODE IDENTIFIER 1 ea 0 ml PO Q8H PRN PRN Reason: SORE THROAT Stop: 10/02/18 11:26 Last Admin: 09/02/18 12:59 Dose: 5 ml Documented by: Dextrose (Dextrose 50%) 25 - 50 ml IV UD PRN; Protocol PRN Reason: Hypoglycemia Protocol Stop: 09/30/18 04:43 Fentanyl Citrate (Fentanyl Citrate) 25 mcg IV ONE PRN PRN Reason: Pain Not Controlled by Drip Stop: 09/18/18 12:04 Furosemide (Lasix) 80 mg PO QAM [facility] Stop: 09/30/18 08:59 Last Admin: 09/01/18 09:52 Dose: Not Given Documented by: Glucagon (Glucagen) 1 mg SQ UD PRN; Protocol PRN Reason: Hypoglycemia Protocol Stop: 09/30/18 04:43 Glucose (Glucose 40%) 15 - 30 gm PO UD PRN; Protocol PRN Reason: Hypoglycemia Protocol Stop: 09/30/18 04:43 Glucose (Dex4 Glucose) 4 - 8 tabs PO UD PRN; Protocol PRN Reason: Hypoglycemia Protocol Stop: 09/30/18 04:43 Heparin Sodium (Porcine) (Heparin Sod 100 Unit/Ml Flush) 5 ml FLUSH PRN PRN PRN Reason: Flush Stop: 10/01/18 00:59 Sodium Chloride (Nss) 250 mls @ 15 mls/hr IV .[id number] PRN PRN Reason: For Transfusion Stop: 10/01/18 00:40 Famotidine 20 mg/ Syringe 5 mls @ 2.5 mls/min IV Q12 [facility] Stop: 10/01/18 09:59 Last Admin: 09/06/18 08:17 Dose: 2.5 mls/min Documented by: Dexamethasone 4 mg/ Syringe 1 mls @ 1 mls/min IV Q6 PRN PRN Reason: Nausea Stop: 10/01/18 11:59 Last Admin: 09/01/18 14:27 Dose: 1 mls/min Documented by: Acetaminophen (Ofirmev) 1,000 mg in 100 mls @ 400 mls/hr IV Q8H PRN PRN Reason: Fever Stop: 10/01/18 11:20 Insulin Human Regular 250 (units/ Sodium Chloride) 250 mls @ 0 mls/hr IV .Q0M [facility]Y; Protocol Stop: 10/02/18 10:31 Last Titration: 09/05/18 06:56 Dose: 0 units/hr, 0 mls/hr Documented by: Ertapenem 1,000 mg/ Sodium (Chloride) 60 mls @ 100 mls/hr IV Q24H [facility] Stop: 09/17/18 17:59 Last Infusion: 09/05/18 18:33 Dose: Infused Documented by: Fentanyl Citrate (Fentanyl Drip) 1,250 mcg in 250 mls @ 10 mls/hr IV .Q24H PRN; Protocol PRN Reason: Pain Stop: 09/18/18 12:04 Last Titration: 09/06/18 07:11 Dose: 100 mcg/hr, 20 mls/hr Documented by: Propofol (Diprivan) 1,000 mg in 100 mls @ 33.66 mls/hr IV .Q2H59M [facility]; Protocol Stop: 09/07/18 13:43 Last Admin: 09/06/18 14:16 Dose: 35.03 mcg/kg/min, 39.3 mls/hr Documented by: Sodium Chloride (Nss) 250 mls @ 15 mls/hr IV .[id number] PRN PRN Reason: For Transfusion Stop: 10/05/18 08:34 Heparin Sodium/Dextrose (Heparin Sodium/Dextrose) 25,000 units in 500 mls @ 20 mls/hr IV .Q24H [facility]Y; Protocol Stop: 10/06/18 10:14 Last Admin: 09/06/18 10:39 Dose: 1,000 units/hr, 20 mls/hr Documented by: Insulin Aspart (Novolog Flexpen) 0 units SC Q4 [facility]; Protocol Stop: 10/05/18 11:59 Last Admin: 09/06/18 12:30 Dose: 1 units Documented by: Lisinopril (Zestril) 2.5 mg PO DAILY [facility] Stop: 09/30/18 08:59 Last Admin: 09/01/18 11:33 Dose: Not Given Documented by: Metoprolol Tartrate (Lopressor) 25 mg PO BID [facility] Stop: 10/06/18 08:59 Last Admin: 09/06/18 09:28 Dose: 25 mg Documented by: Miscellaneous (Pending Order) 1 ea N/A Q4 [facility] Stop: 10/05/18 11:59 Last Admin: 09/06/18 12:30 Dose: Not Given Documented by: Miscellaneous (Carbohydrates For Hypoglycemia) 15 - 30 gm PO UD PRN PRN Reason: Hypoglycemia Treatment Stop: 09/30/18 04:43 Miscellaneous Information (Consult Glycemic Management Pharmacy) 1 ea N/A UD [facility] Stop: 09/30/18 08:12 Morphine Sulfate (Morphine Sulfate) 2 mg IV Q3H PRN PRN Reason: Anxiety Stop: 09/16/18 08:32 Last Admin: 09/03/18 00:02 Dose: 2 mg Documented by: Nutritional Formula (Peptamen Intense Vhp 1.0 Cornel) 1,000 ml OG [facility] [place] Protocol Stop: 10/05/18 10:59 Last Admin: 09/05/18 14:15 Dose: 1,000 ml Documented by: Ondansetron HCl (Zofran) 4 mg IV Q6H PRN PRN Reason: Nausea Stop: 09/30/18 04:43 Last Admin: 09/02/18 11:53 Dose: 4 mg Documented by: PG Care Time/CCT Critical Care Time: Yes Total Critical Care Time: 55 Resident Activity Tracking Resident Involvement: Resident Care Provided Care Provided: Adult Hospital Medicine
[2018-09-06] MEDS: FAMOTIDINE 20 MG in SYRINGE 3 ML IV SCH ×2 (08:17→20:26)
[2018-09-06] MEDS ORDERED: Heparin IV Low Dose *NO* Bolus IV SCH (08:30)
[2018-09-06] MEDS ORDERED: FUROSEMIDE 40 MG in SYRINGE 0 ML IV ONE (08:45)
--- NOTE | 2018-09-06 09:06 | XRay Report ---
XR chest 1V portable CLINICAL HISTORY: 68 years-old Male presenting with repeat. TECHNIQUE: Portable upright AP view of the chest was obtained. COMPARISON: 09/05/2018. FINDINGS: Left subclavian Mediport terminates in the mid SVC. Tracheal tube terminates approximate 5 cm from th e alyson. Nasogastric tube only visualized to the mid to distal esophageal course due to portable mekhi hnique and body habitus. Cardiac silhouette mildly enlarged with persistent pulmonary vascular prominence. Increasing right pl eural effusion suspected. A left pleural effusion may also be present. Linear radiolucency along the left heart border is more apparent on the current exam and could raise concern for underlying pneumom ediastinum. No gas is evident in the base of the neck however. Central and bibasilar predominant opac ities. IMPRESSION: 1. Current radiographic appearance raises concern for underlying pneumomediastinum, although this no gas in the base of the neck to confirm this. 2. Nasogastric tube not visualized beyond the distal esophagus due to portable technique and body wilson bitus. 3. Appropriately positioned endotracheal tube. 4. Right greater than left pleural effusions and central and bibasilar predominant pulmonary infiltr ates. This may represent moderate edema although underlying infection is not excluded. Overall degree of volume overload and congestive changes similar to prior. Electronically signed by: Sami Polanco M.D. 09/06/2018 9:05 AM
[2018-09-06 09:21] LABS: iSTAT Allen Test Pass; iSTAT Arterial Blood Gas HCO3 32 meg/L (19-24); iSTAT Arterial Blood Gas pCO2 43 mmHg (35-46); iSTAT Arterial Blood Gas pH 7.49 (7.35-7.45); iSTAT Carbon Dioxide 34 mEq/l (24-31); iSTAT FiO2 50 %; iSTAT Site L Radial
[2018-09-06] MEDS: METOPROLOL TARTRATE 25 MG TAB PO SCH ×2 (09:28→20:26)
[2018-09-06 10:20] LABS: INR 1.1 (0.9-1.1); Partial Thromboplastin Ratio 0.8
[2018-09-06] MEDS: Heparin Adult LOW DOSE Wt-Based Dextrose 5% 25,000 units/500 mL IV SCH (10:39)
--- NOTE | 2018-09-06 11:48 | Palliative Care Consultation ---
Date of Consultation September 06, 2018 Assessment & Plan (1) Goals of care, counseling/discussion: -68 year old male with non-small cell lung cancer, oxygen-dependent COPD, DM, and obesity, presented to the hospital six days ago from [facility]. Admitted to ICU with respiratory failure and severe sepsis 2/2 UTI. The day of arrival, patient had developed subjective fevers and chills/rigors as well as diffuse weakness, nausea, appetite loss and shortness of breath, inability to ambulate due to weakness and dyspnea. EMS was called and the patient was transported to [facility]. Per report he was tachycardic in the ambulance with HR of 180. He was administered IV Cardizem en route to [place]. While at [place] he was given IVF, Cardizem and Zosyn. He was subsequently transferred to [facility] for continuity of care. Initially, he was doing okay with supplemental oxygen, but continued to decompensate until he had to be sent to ICU and intubated. He remains intubated in the ICU on 50% FiO2, being treated for his severe sepsis. Patient is currently undergoing chemotherapy under the care of Dr. Crandall. Given his cancer diagnosis, comorbidities, and critical illness, palliative care is consulted to discuss goals of care and provide support. -Saw patient initially this morning in room 109. No family at bedside. patient was discussed with IDT at ICU rounds. -Met with patient and his again around 1100 in room 109. He is sedated on ventilator. Patient's , Colette, is at the bedside. She states that prior to patient's dose of "casey chemo" two weeks prior to arrival to hospital, he was doing quite well. He tolerated his 30 radiation treatments and 7 doses of chemo well with little side effects. He was still fully independent and functional, able to go out to eat and had a good quality of life. After his last dose of chemo, he became increasingly weak over a couple weeks. He seemed to be getting better then for a little bit, but suddenly worsened with weakness, fever and chills. Eventually, he could not even stand, which is why they had to call the ambulance. -Colette states patient will not be continuing to under go chemo, "at least until he is able to get better from this." -Discussed CODE STATUS. Patient's would like to discuss with their daughter, Gila, who is a nurse. For now, remain full code. -Goal is for patient to get better and as close to baseline as possible. But states, "I just don't know if he can pull through this." She is hopeful. -For now, continue with full treatment. Palliative care will continue to follow. 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 Chart review, pt seen and examined, collaborated with ELLA Ly. Met with spouse at length at bedside - discussed goal of care and pt's wishes PE: pt intubated and sedated Resp: on vent CV: RR Abd: obese Neuro: seddated, NR Agree with above note assessment and plan as per ELLA Ly - will cont to follow and assist family with medical decision making History of Present Illness Reason for Consultation: Goals of care Requesting Physician: Dr. Kyle Attending Physician: Abe Andersen MD History of Present Illness This 68 year old male with non-small cell lung cancer, oxygen-dependent COPD, DM, and obesity, presented to the hospital six days ago from [facility]. Admitted to ICU with respiratory failure and severe sepsis 2/2 UTI. The day of arrival, patient had developed subjective fevers and chills/rigors as well as diffuse weakness, nausea, appetite loss and shortness of breath, inability to ambulate due to weakness and dyspnea. EMS was called and the patient was transported to [facility]. Per report he was tachycardic in the ambulance with HR of 180. He was administered IV Cardizem en route to [place]. While at [place] he was given IVF, Cardizem and Zosyn. He was subsequently transferred to [facility] for continuity of care. Initially, he was doing okay with supplemental oxygen, but continued to decompensate until he had to be sent to ICU and intubated. He remains intubated in the ICU on 50% FiO2, being treated for his severe sepsis. Patient is currently undergoing chemotherapy under the care of Dr. Crandall. Given his cancer diagnosis, comorbidities, and critical illness, palliative care is consulted to discuss goals of care and provide support. Thank you kindly for this consult. I will follow as needed. Allergies Allergy/AdvReac Type Severity Reaction Status Date / Time No Known Drug Allergies Allergy Verified 09/06/18 16:12 Home Medications Home Medications Medication Instructions Recorded Confirmed Type Lactobacillus acidophilus 100 mg 100 mg PO BID 05/04/18 08/31/18 History (1 billion cell) capsule acetaminophen 500 mg tablet 500 mg PO Q6H PRN 05/04/18 08/31/18 History allopurinol 300 mg tablet 300 mg PO QAM 05/04/18 08/31/18 History celecoxib 200 mg capsule 200 mg PO QAM 05/04/18 08/31/18 History cephalexin 250 mg capsule 250 mg PO BID cap 05/04/18 08/31/18 History cilostazol 100 mg tablet 100 mg PO BID tab 05/04/18 08/31/18 History furosemide 40 mg tablet 80 mg PO QAM tab 05/04/18 08/31/18 History geriatric multivit with iron and 1 tab PO QAM 05/04/18 08/31/18 History minerals tablet glucosamine-chondroitin 250 mg-200 1 tab PO BID tab 05/04/18 08/31/18 History mg tablet loperamide 1 mg/7.5 mL oral liquid 2 mg PO Q4H PRN 05/04/18 08/31/18 History lorazepam 0.5 mg tablet 0.5 mg PO DAILY PRN 05/04/18 08/31/18 History metformin 1,000 mg tablet 1,000 mg PO BID 05/04/18 08/31/18 History metoprolol tartrate 25 mg tablet 25 mg PO BID tab 05/04/18 08/31/18 History omeprazole 20 mg capsule,delayed 20 mg PO QAM 05/04/18 08/31/18 History release rivaroxaban 20 mg tablet 20 mg PO QAM 05/04/18 08/31/18 History sitagliptin 100 mg tablet 100 mg PO QAM 05/04/18 08/31/18 History spironolactone 50 mg tablet 50 mg PO QAM 05/04/18 08/31/18 History tramadol 50 mg tablet 50 mg PO Q12H PRN 05/04/18 08/31/18 History Adult 50+ Probiotic 1 cap PO QAM 05/23/18 08/31/18 History Anoro Ellipta 1 - 2 inh INHALATION BID PRN 05/23/18 08/31/18 History allopurinol 100 mg PO QPM 05/23/18 08/31/18 History magnesium oxide 1,000 mg PO QAM 05/23/18 08/31/18 History magnesium oxide 1,500 mg PO QPM 05/23/18 08/31/18 History potassium chloride 40 meq PO QAM 05/23/18 08/31/18 History potassium chloride 60 meq PO QPM 05/23/18 08/31/18 History lisinopril 2.5 mg PO DAILY 08/31/18 08/31/18 History Patient History Medical History Diabetes mellitus (Acute) Gout (Acute) Lung cancer (Acute) Squamous cell, CIARRA. Anemia Anxiety Cellulitis Chronic, on Keflex BID. Chronic obstructive pulmonary disease Depression Exertional dyspnea History of pulmonary embolism 06/2016. Has been on Xarelto since. Morbid obesity with BMI of 60.0-69.9, adult On home oxygen therapy 3L [place] CONT. Osteoarthritis Suspected sleep apnea No sleep study, but per pulm rates 20/24 on [place] Sleepiness Scale (+morbid obesity and need for O2 HS) Surgical History Difficult airway for intubation GLIDESCOPE #3 FOR 05/27/18 EBUS History of bronchoscopy WITH LYMPH NODE BIOPSY 05/27/18. PER SURGEON H+P "THE FACT THAT HE IS ON OXYGEN AND HIS SHEER SIZE AND OTHER COMORBID FACTORS WOULD MAKE HIM EXTREMELY HIGH RISK FOR ANY TYPE OF SURGERY." EBUS WAS WELL TOLERATED. History of cardiac cath History of cholecystectomy History of tonsillectomy Family History Mother , age 71 Myotonic dystrophy Father , age 58 CHF (congestive heart failure) Diabetes 1.5, managed as type 1 Brother , age 66 Myotonic dystrophy Daughter Anxiety Daughter History of back problems Son History of back problems Uncle , age 87 Lung cancer Social History Preferred Language: Frisian Communication Ability: Effective Visual Impairment: No Limitations Hearing Ability: Normal Lease Buyer Required: No Beliefs That Will Affect Care: Shinto Shinto Beliefs: Rastafarian marital status: marital status details: Current Living Situation: Family current occupational status: retired 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: 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 Feels Safe at Home: Yes Safety Concerns: Feels Safe At This Time Smoking Status: Former smoker Tobacco Type: cigarettes Cigarettes Per Day: 20 Do You Dip or Chew Tobacco: No Second Hand Exposure: No Hx Alcohol Use: Yes Hx Substance Use: No Review of Systems Review of Systems: Unobtainable due to endotracheal tube Physical Exam Constitutional: + ill appearing and + obese ENMT: ETT present Neck: + thick neck Respiratory: normal respiratory effort, lungs clear to auscultation Auscultation: + diminished lung sounds Cardiovascular: RRR, no murmur, no edema Extremities: + edema (generalized) Gastrointestinal (Abdomen): Inspection/Auscultation: + abdomen distended (obesely distended) Neurologic: + not awake (sedated on ventilator) Results & Data Vital Signs (Past 12 Hours) Vital Signs Temp Pulse Resp BP Pulse Ox 09/06/18 10:00 130 H 142/94 H 92 09/06/18 09:00 127 H 120/82 100 09/06/18 08:00 122 H 111/76 99 09/06/18 07:30 37.4 C 116 H 95/64 L 93 09/06/18 07:13 112 H 24 91 09/06/18 07:00 122 H 122/67 94 09/06/18 06:30 120 H 130/78 96 09/06/18 06:01 119 H 117/72 96 09/06/18 06:00 116 H 96 09/06/18 05:54 120 H 24 95 09/06/18 05:45 119 H 129/82 100 09/06/18 05:30 118 H 09/06/18 05:00 117 H 129/74 95 09/06/18 04:31 96 H 129/72 99 09/06/18 04:30 115 H 09/06/18 04:02 123 H 135/83 09/06/18 04:00 37 C 126 H 135/83 96 09/06/18 03:30 115 H 118/82 95 09/06/18 03:00 105 H 121/73 94 09/06/18 02:30 123 H 135/70 94 09/06/18 02:05 100 H 22 94 09/06/18 02:00 102 H 123/67 92 09/06/18 01:30 113 H 117/68 93 09/06/18 01:00 107 H 127/73 93 09/06/18 00:30 106 H 105/68 93 09/06/18 00:00 37.2 C 108 H 130/74 93 PG Care Time/CCT Prolonged Care Time Prolonged Care Time: Yes Total Prolonged Care Time: 105 Time Spent Midlevel 105 minutes with >50% of time spent at bedside with [patient and family] discussing [condition and GOC]. Attending spent 40 min in addition to the 105 min spent by PAYROLL SPECIALIST for a total of 145 min with > 50% of time spent at bedside discussing goals of care and pt's prior stated wishes
--- NOTE | 2018-09-06 13:15 | Hospitalist Progress Note ---
Date of Service September 06, 2018 Assessment & Plan (1) Severe sepsis: Appears to be due to urinary tract infection/sepsis/bacteremia. Current sensitivities on blood cultures drawn here pending, but blood cultures [facility] reviewed, ESBL bacteremia most sensitive to ertapenem due to sepsis this is likely cause of bone marrow supression (2) Acute respiratory failure with hypoxia: Seems to be related to sepsis and/or primary lung pathology of previous left upper lobe squamous cell carcinoma. pt developed acidosis and hypercarbia, the decision was made for intubation. Continues with ventilator support at this time 09/06. (3) Atrial fibrillation: Patient with new onset atrial fibrillation with RVR. -rates remain controlled -Depending on the duration of his intubation, pt is now pancytopenic, with low platelets, currently heparin drip for anticoagulation (4) SOB (shortness of breath): likely multifactorial. Now intubated, continue supportive care (5) Fever: related to esbl sepsis. (6) Diabetes: insulin sliding scale management. remains with reasonable control (7) Gout: Chronic, previously without acute flare -Continue Allopurinol 300mg po daily, 100mg po qHS (8) COPD (chronic obstructive pulmonary disease): , supportive care, playing a role in his respiratory distress (9) Pulmonary embolism: Patient with newly diagnosed PE, systemic anticoagulation cautiously (10) Obesity: noted. will make weaning ventilator more difficult, current BMI listed as 59.2 (11) Hypertension: follow BP, medicate as needed. (12) Chronic venous insufficiency: Patient with history of chronic venous insufficiency. Recently with cellulitis and poorly healing wounds. No ulcers or drainage appreciated at present. Patient is ertapenem (13) Antineoplastic chemotherapy induced pancytopenia: Subjective Patient remains intubated ventilated and sedated. Review of Systems Review of Systems: Unobtainable due to endotracheal tube Physical Exam Physical Exam: The patient appeared well nourished and demian in distress to his ventilation life support Vital signs as documented. Head exam is unremarkable. normocephalic, atraumatic Neck is without jugular venous distension, trachea is midline Lungs are clear to auscultation but with coarse breath sounds Cardiac exam reveals Rhythm is tachycardic systolic murmur heard Abdominal exam reveals hypoactive bowel sounds, no masses, no organomegaly Extremities are mildly edematous and both pedal pulses are present Neurologic exam is obtunded due to sedation Skin is warm Dry Results & Data Vital Signs (Past 12 Hours) Vital Signs Temp Pulse Resp BP Pulse Ox 09/06/18 12:00 37.3 C 122 H 102/76 97 09/06/18 11:41 128 H 24 98 09/06/18 11:00 127 H 126/70 97 09/06/18 10:00 130 H 142/94 H 92 09/06/18 09:00 127 H 120/82 100 09/06/18 08:00 122 H 111/76 99 09/06/18 07:30 37.4 C 116 H 95/64 L 93 09/06/18 07:13 112 H 24 91 09/06/18 07:00 122 H 122/67 94 09/06/18 06:30 120 H 130/78 96 09/06/18 06:01 119 H 117/72 96 09/06/18 06:00 116 H 96 09/06/18 05:54 120 H 24 95 09/06/18 05:45 119 H 129/82 100 09/06/18 05:30 118 H 09/06/18 05:00 117 H 129/74 95 09/06/18 04:31 96 H 129/72 99 09/06/18 04:30 115 H 09/06/18 04:02 123 H 135/83 09/06/18 04:00 37 C 126 H 135/83 96 09/06/18 03:30 115 H 118/82 95 09/06/18 03:00 105 H 121/73 94 09/06/18 02:30 123 H 135/70 94 09/06/18 02:05 100 H 22 94 09/06/18 02:00 102 H 123/67 92 09/06/18 01:30 113 H 117/68 93 PG Care Time/CCT Total # of Minutes Spent Total Time Spent with Patient: Total time spent is greater than 50% in coordination of care (as documented) at patient's floor/unit and/or counseling patient: (1) Fever Fever type: unspecified Qualified Code(s): R50.9 - Fever, unspecified (2) Diabetes Diabetes mellitus complication status: without complication 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 insulin use: without care home use Diabetes mellitus type: type 2 Qualified Code(s): E11.9 - Type 2 diabetes mellitus without complications (3) Gout Chronicity: chronic Gout etiology: unspecified cause Gout site: unspecified site (4) Atrial fibrillation Atrial fibrillation type: unspecified Qualified Code(s): I48.91 - Unspecified atrial fibrillation (5) COPD (chronic obstructive pulmonary disease) COPD type: unspecified COPD Qualified Code(s): J44.9 - Chronic obstructive pulmonary disease, unspecified (6) Pulmonary embolism Acute cor pulmonale presence: without acute cor pulmonale Chronicity: unspecified Pulmonary embolism type: unspecified Qualified Code(s): I26.99 - Other pulmonary embolism without acute cor pulmonale (7) Hypertension Hypertension type: essential hypertension Qualified Code(s): I10 - Essential (primary) hypertension (8) Obesity Body mass index: BMI 60.0-69.9 Obesity classification: adult class 3 (BMI >= 40) Obesity type: due to excess calories Serious obesity comorbidity presence: with serious comorbidity Qualified Code(s): E66.01 - Morbid (severe) obesity due to excess calories; Z68.44 - Body mass index (BMI) 60.0-69.9, adult
[2018-09-06 16:57] LABS: Partial Thromboplastin Ratio 0.9; Partial Thromboplastin Time 25.7 Seconds (21.0-31.0)
[2018-09-06] MEDS ORDERED: HEPARIN IV BOLUS 4,500 UNITS in SYRINGE 0 ML IV STA (17:03)
[2018-09-06] MEDS: ERTAPENEM SODIUM 1,000 MG in SODIUM CHLORIDE 0.9% 50 ML IV SCH (17:27)
[2018-09-06] MEDS: ALLOPURINOL 100 MG TAB PO SCH (20:26)
[2018-09-06 23:28] LABS: Partial Thromboplastin Time 27.4 Seconds (21.0-31.0)
[2018-09-07] MEDS: PROPOFOL 1,000 MG/100 ML VIAL IV SCH ×3 (00:20→05:19)
[2018-09-07] MEDS ORDERED: HEPARIN IV BOLUS 4,500 UNITS in SYRINGE 0 ML IV ONE ×4 (00:36→23:16)
[2018-09-07] MEDS: ALBUT/IPRATROP 3MG/0.5MG NEB 3 ML VIAL NEB SCH ×2 (01:59→07:29)
[2018-09-07] MEDS: INSULIN ASPART 100 UNITS/ML 3 ML PEN SC SCH ×6 (04:24→23:40)
[2018-09-07 04:43] LABS: Hematocrit (blood only) 22.5 % (42-52); Hemoglobin 7.3 g/dL (14.0-18.0); Mean Corpuscular Hgb Conc 32.4 g/dL (32-36); Mean Corpuscular Volume 98.7 fL (80-100); Nucleated RBC # (auto) 0.07 K/uL (0-0); Nucleated RBC % (auto) 2.5 %; RDW Coefficient of Variation 22.6 % (11.5-14.5); RDW Standard Deviation 77.4 fL (36.4-46.3); Red Blood Count 2.28 M/uL (4.7-6.1); White Blood Count 2.85 K/uL (4.8-10.8)
[2018-09-07 04:48] LABS: Mean Platelet Volume 11.3 fL (7.4-10.4); Platelet Count 51 K/uL (130-400)
[2018-09-07 05:05] LABS: Albumin Level 2.1 gm/dl (3.4-5.0); BUN Creatinine Ratio 20.9 (10-20); Calcium 8.5 mg/dl (8.5-10.1); Creatinine Clr Calc Pharmacy 106.1 ml/min; Est GFR (Non-African American) 71.6; Magnesium 1.8 mg/dl (1.8-2.4)
[2018-09-07 05:07] LABS: Bilirubin,Total 0.8 mg/dl (0.2-1); Phosphorus 3.6 mg/dl (2.5-4.9)
[2018-09-07 05:08] LABS: Albumin Globulin Ratio 0.5 (0.9-2); Globulin 4.1 gm/dl (2.5-4.0); Total Protein 6.2 gm/dl (6.4-8.2)
[2018-09-07 05:17] LABS: Anisocytosis Present; Basophils # (auto) 0.01 K/uL (0-0.2); Basophils % (auto) 0.4 %; Eosinophils # (auto) 0.01 K/uL (0-0.5); Eosinophils % (auto) 0.4 %; Giant Platelets 1+; Immature Granulocytes # (auto) 0.02 K/uL (0.00-0.02); Immature Granulocytes % (auto) 0.7 %; Lymphocytes # (auto) 0.54 K/uL (1.2-3.4); Lymphocytes % (auto) 18.9 %; Monocytes % (auto) 10.5 %; Neutrophils # (auto) 1.97 K/uL (1.4-6.5); Neutrophils % (auto) 69.1 %
[2018-09-07] MEDS: Heparin Adult LOW DOSE Wt-Based Dextrose 5% 25,000 units/500 mL IV SCH ×2 (06:57→20:08)
[2018-09-07 07:31] LABS: Partial Thromboplastin Time 26.2 Seconds (21.0-31.0)
[2018-09-07] MEDS: METOPROLOL TARTRATE 25 MG TAB PO SCH (07:47)
[2018-09-07] MEDS: FAMOTIDINE 20 MG in SYRINGE 3 ML IV SCH ×2 (07:50→20:06)
--- NOTE | 2018-09-07 07:58 | Critical Care Progress Note ---
Date of Service September 07, 2018 Assessment & Plan (1) Admitted to intensive care unit: Reason Critically Ill: Severe Sepsis likely due to UTI and Acute Hypoxic Resp Failure related to sepsis requiring mechanical vent, Pancytopenia 2/2 chemotherapy PLAN: NEURO ICU CAM: NEGATIVE -Toxic metabolic encephalopathy due to medications (sedatives or chemo) vs infectious. Improved today s/p extubation CARDIO -Hemodynamically stable -Afib- Cont metoprolol 25 mg BID. Anticoagulation initially held 2/2 low plts, restarted with IV Heparin. Pt was on Xarelto for PE prior. -HTN- Hold Lisinopril, Spirinolactone PULMONARY -Acute hypoxic respiratory failure likely from sepsis and/or primary lung pa thology of previous left upper lobe squamous cell carcinoma. -Extubated today, sating well on 5L NC -CXR- concern for underlying pneumomediastinum. Will consider CT moving forward -Heme/Onc consult, will f/u for management moving forward -History PE now on anticoagulation GI -Diet advanced to CL after extubation -Famotidine prophylaxis RENAL/ -Stable Cr. ARF resolved. Good UOP -No other acute concerns or complaints -cont gentle diurese today with 20 Lasix IV and 500 mg Diamox ENDO -ICU Hyperglycemia protocol. BSG Stable -No other acute concerns or complaints ID -Sepsis with evidence of end organ dysfunction. Immunocompromised. ESBL e coli bacteremia --> Ertapenam for 14 days HEME -pancytopenia 2/2 chemotherapy induced pancytopenia- resolved -1 unit pRBC today LINES: L chest port, PIV x3, Cooper DVT Prophylaxis: Heparin low intensity Full Code DISPO: ICU. Pal Care consult- Ongoing talks with patient and family about goals of care. Full tx for now Supervising Physician Co-Signing Physician Notes Dr. Watson was resident physician during care of patient. I separately evaluated patient for lovelace portions of the history and the exam. I was present during the critical portion of medical decision making, and I discussed the case with the resident. I generally agree with the findings and plan. Patient was discussed in multidisciplinary rounds Reason Critically Ill: Severe sepsis with immunocompromise secondary to chemotherapy-induced pancytopenia PLAN: Neuro: Metabolic encephalopathy: Improved liberated from ventilator today Resp: Acute hypoxic respiratory failure -Parameters reassuring with strong cough CV: Atrial fibrillation -Metoprolol 25 mg twice daily Fluids/Renal: Gentle diuresis today 20 mg Lasix with 500 mg Diamox ID: ESBL E. coli urinary tract infection and associated bacteremia -Ertapenem: 14 days total treatment GI/Nutrition: N.p.o. following extubation hopefully progress diet tomorrow Heme: Pancytopenia: Resolved -Secondary to chemotherapy induced pancytopenia, improving Pulmonary embolism DVT prophylaxis: Low intensity heparin infusion without bolus -Bleeding precautions Endocrine: ICU hyperglycemia protocol -Sliding scale via pharmacy glycemic control Vascular access: Peripheral IVs Code Status: Full code: Palliative care consult: Patient not going to receive chemotherapy in immediate future per family discussion I have personally spent 35 minutes of critical care time in the direct management of this patient. This is a life/limb threatening event. This includes time spent evaluating patient, direct bedside care, chart review, placing orders, interpretation of diagnostic studies, discussion with consultants, patient, and/or family members regarding treatment decisions, as well as other required patient management activities. This time is exclusive of all separately billable procedures, and teaching time and separate from and in addition to any other critical care service time. Patient was discussed in multidisciplinary rounds, liberated from ventilator today Reviewed the x-ray results possible concern for pneumomediastinum will continue to follow and may get advanced imaging as patient gets further away from extubation Subjective 68 y/o M found in bed this morning in NAD. Pt was seen before and after being extubated, seemed to tolerate well. Was initially tachypneic, but improved as day progressed. Tolerating CL diet. Otherwise, denies any other acute concerns or complaints. Review of Systems Review of Systems: All systems reviewed & are unremarkable except as noted in HPI & below Physical Exam Constitutional: + morbidly obese Eyes: PERRL, conjunctivae normal, anicteric sclerae Neck: + thick neck Respiratory: difficult to auscultate but seems diminished at bases Cardiovascular: Rate/Rhythm: + tachycardic Gastrointestinal (Abdomen): normal bowel sounds, soft, nontender, no hepatosplenomegaly Skin: no rashes, warm and dry Lymphatic: mild LE edema Results & Data Vital Signs (Past 12 Hours) Vital Signs Temp Pulse Resp BP Pulse Ox 09/07/18 07:35 118 H 22 96 09/07/18 06:00 126 H 105/72 95 09/07/18 05:30 109 H 125/62 94 09/07/18 05:01 98 H 99/73 L 09/07/18 05:00 106 H 96 09/07/18 04:58 112 H 20 96 09/07/18 04:30 115 H 128/70 95 09/07/18 04:00 37.4 C 109 H 122/72 95 09/07/18 03:30 116 H 107/70 95 09/07/18 03:00 117 H 127/74 95 09/07/18 02:31 119 H 127/70 94 09/07/18 02:30 113 H 94 09/07/18 02:00 121 H 140/74 92 09/07/18 01:55 118 H 23 97 09/07/18 01:31 117 H 129/70 90 09/07/18 01:30 119 H 92 09/07/18 01:00 121 H 104/69 92 09/07/18 00:31 111 H 117/69 94 09/07/18 00:30 117 H 94 09/07/18 00:00 37.5 C 132 H 147/86 H 97 09/06/18 23:31 113 H 121/72 100 09/06/18 23:30 115 H 100 09/06/18 23:09 116 H 28 H 100 09/06/18 23:00 119 H 133/76 100 09/06/18 22:30 118 H 135/82 99 09/06/18 22:00 116 H 117/72 100 09/06/18 21:30 119 H 124/74 99 09/06/18 21:01 109 H 96/68 L 98 09/06/18 21:00 119 H 99 09/06/18 20:30 122 H 136/69 99 09/06/18 20:00 37.3 C 118 H 128/75 99 Laboratory Results Laboratory Results - last 24 hr 09/05/18 09/06/18 09/06/18 08:52 20:23 23:10 WBC RBC Hgb Hct MCV MCH MCHC RDW Std Deviation RDW Coeff of Preeti Plt Count MPV Immature Gran % (Auto) Neut % (Auto) Lymph % (Auto) [place] % (Auto) Eos % (Auto) Baso % (Auto) Immature Gran # (Auto) Neut # (Auto) Lymph # (Auto) [place] # (Auto) Eos # (Auto) Baso # (Auto) Absolute Nucleated RBC Nucleated RBC % (auto) Giant Platelets Anisocytosis APTT 27.4 PTT Ratio 1.0 Sodium Potassium Chloride Carbon Dioxide Anion Gap BUN Creatinine Est Cr Clr Drug Dosing Est GFR ( Amer) Est GFR (Non-Af Amer) BUN/Creatinine Ratio Glucose POC Glucose 137 H Calcium Phosphorus Magnesium Total Bilirubin AST ALT Alkaline Phosphatase Total Protein Albumin Globulin Albumin/Globulin Ratio Blood Type O Negative Antibody Screen NEGATIVE Crossmatch See Detail 09/06/18 09/07/18 09/07/18 23:15 04:20 04:20 WBC 2.85 L RBC 2.28 L Hgb 7.3 L Hct 22.5 L MCV 98.7 MCH 32.0 MCHC 32.4 RDW Std Deviation 77.4 H RDW Coeff of Preeti 22.6 H Plt Count 51 L MPV 11.3 H Immature Gran % (Auto) 0.7 Neut % (Auto) 69.1 Lymph % (Auto) 18.9 [place] % (Auto) 10.5 Eos % (Auto) 0.4 Baso % (Auto) 0.4 Immature Gran # (Auto) 0.02 Neut # (Auto) 1.97 Lymph # (Auto) 0.54 L [place] # (Auto) 0.30 Eos # (Auto) 0.01 Baso # (Auto) 0.01 Absolute Nucleated RBC 0.07 H Nucleated RBC % (auto) 2.5 Giant Platelets 1+ Anisocytosis Present APTT PTT Ratio Sodium 142 Potassium 4.0 Chloride 103 Carbon Dioxide 36 H Anion Gap 3.0 BUN 22 H Creatinine 1.05 Est Cr Clr Drug Dosing 106.1 Est GFR ( Amer) 83.0 Est GFR (Non-Af Amer) 71.6 BUN/Creatinine Ratio 20.9 H Glucose 136 H POC Glucose 150 H Calcium 8.5 Phosphorus 3.6 Magnesium 1.8 Total Bilirubin 0.8 AST 142 H ALT 83 H Alkaline Phosphatase 64 Total Protein 6.2 L Albumin 2.1 L Globulin 4.1 H Albumin/Globulin Ratio 0.5 L Blood Type Antibody Screen Crossmatch 09/07/18 09/07/18 09/07/18 04:23 07:00 07:01 WBC RBC Hgb Hct MCV MCH MCHC RDW Std Deviation RDW Coeff of Preeti Plt Count MPV Immature Gran % (Auto) Neut % (Auto) Lymph % (Auto) [place] % (Auto) Eos % (Auto) Baso % (Auto) Immature Gran # (Auto) Neut # (Auto) Lymph # (Auto) [place] # (Auto) Eos # (Auto) Baso # (Auto) Absolute Nucleated RBC Nucleated RBC % (auto) Giant Platelets Anisocytosis APTT 26.2 PTT Ratio 1.0 Sodium Potassium Chloride Carbon Dioxide Anion Gap BUN Creatinine Est Cr Clr Drug Dosing Est GFR ( Amer) Est GFR (Non-Af Amer) BUN/Creatinine Ratio Glucose POC Glucose 145 H 135 H Calcium Phosphorus Magnesium Total Bilirubin AST ALT Alkaline Phosphatase Total Protein Albumin Globulin Albumin/Globulin Ratio Blood Type Antibody Screen Crossmatch 09/07/18 09/07/18 09/07/18 11:44 15:02 15:56 WBC RBC Hgb Hct MCV MCH MCHC RDW Std Deviation RDW Coeff of Preeti Plt Count MPV Immature Gran % (Auto) Neut % (Auto) Lymph % (Auto) [place] % (Auto) Eos % (Auto) Baso % (Auto) Immature Gran # (Auto) Neut # (Auto) Lymph # (Auto) [place] # (Auto) Eos # (Auto) Baso # (Auto) Absolute Nucleated RBC Nucleated RBC % (auto) Giant Platelets Anisocytosis APTT 32.6 H PTT Ratio 1.2 Sodium Potassium Chloride Carbon Dioxide Anion Gap BUN Creatinine Est Cr Clr Drug Dosing Est GFR ( Amer) Est GFR (Non-Af Amer) BUN/Creatinine Ratio Glucose POC Glucose 168 H 149 H Calcium Phosphorus Magnesium Total Bilirubin AST ALT Alkaline Phosphatase Total Protein Albumin Globulin Albumin/Globulin Ratio Blood Type Antibody Screen Crossmatch Medications Administered Current Inpatient Medications Acetaminophen (Tylenol) 650 mg PO Q4H PRN PRN Reason: Pain or Fever Stop: 09/30/18 04:43 Last Admin: 09/01/18 06:39 Dose: 650 mg Documented by: Albuterol (Ventolin 0.5% 2.5mg/0.5ml) 2.5 mg NEB Q2H PRN PRN Reason: SOB/Wheeze Stop: 09/30/18 04:49 Allopurinol (Zyloprim) 100 mg PO QPM GERRY Stop: 09/30/18 20:59 Last Admin: 09/06/18 20:26 Dose: 100 mg Documented by: Celecoxib (Celebrex) 200 mg PO QAM GERRY Stop: 09/30/18 08:59 Last Admin: 09/01/18 11:33 Dose: Not Given Documented by: Dextrose (Dextrose 50%) 25 - 50 ml IV UD PRN; Protocol PRN Reason: Hypoglycemia Protocol Stop: 09/30/18 04:43 Glucagon (Glucagen) 1 mg SQ UD PRN; Protocol PRN Reason: Hypoglycemia Protocol Stop: 09/30/18 04:43 Glucose (Glucose 40%) 15 - 30 gm PO UD PRN; Protocol PRN Reason: Hypoglycemia Protocol Stop: 09/30/18 04:43 Glucose (Dex4 Glucose) 4 - 8 tabs PO UD PRN; Protocol PRN Reason: Hypoglycemia Protocol Stop: 09/30/18 04:43 Heparin Sodium (Porcine) (Heparin Sod 100 Unit/Ml Flush) 5 ml FLUSH PRN PRN PRN Reason: Flush Stop: 10/01/18 00:59 Sodium Chloride (Nss) 250 mls @ 15 mls/hr IV .[id number] PRN PRN Reason: For Transfusion Stop: 10/01/18 00:40 Famotidine 20 mg/ Syringe 5 mls @ 2.5 mls/min IV Q12 GERRY Stop: 10/01/18 09:59 Last Admin: 09/07/18 07:50 Dose: 2.5 mls/min Documented by: Insulin Human Regular 250 (units/ Sodium Chloride) 250 mls @ 0 mls/hr IV .Q0M GERRY; Protocol Stop: 10/02/18 10:31 Last Titration: 09/05/18 06:56 Dose: 0 units/hr, 0 mls/hr Documented by: Ertapenem 1,000 mg/ Sodium (Chloride) 60 mls @ 100 mls/hr IV Q24H GERRY Stop: 09/17/18 17:59 Last Infusion: 09/06/18 18:13 Dose: Infused Documented by: Sodium Chloride (Nss) 250 mls @ 15 mls/hr IV .[id number] PRN PRN Reason: For Transfusion Stop: 10/05/18 08:34 Heparin Sodium/Dextrose (Heparin Sodium/Dextrose) 25,000 units in 500 mls @ 40 mls/hr IV .[id number] GERRY; Protocol Stop: 10/06/18 10:14 Last Titration: 09/07/18 16:01 Dose: 2,000 units/hr, 40 mls/hr Documented by: Insulin Aspart (Novolog Flexpen) 0 units SC Q4 GERRY; Protocol Stop: 10/05/18 11:59 Last Admin: 09/07/18 11:47 Dose: 1 units Documented by: Metoprolol Tartrate (Lopressor) 5 mg IV Q6H PRN PRN Reason: HR>125 Stop: 10/07/18 09:59 Last Admin: 09/07/18 09:50 Dose: 5 mg Documented by: Metoprolol Tartrate (Lopressor) 50 mg PO BID GERRY Stop: 10/07/18 20:59 Miscellaneous (Pending Order) 1 ea N/A Q4 GERRY Stop: 10/05/18 11:59 Last Admin: 09/07/18 11:47 Dose: Not Given Documented by: Miscellaneous (Carbohydrates For Hypoglycemia) 15 - 30 gm PO UD PRN PRN Reason: Hypoglycemia Treatment Stop: 09/30/18 04:43 Miscellaneous Information (Consult Glycemic Management Pharmacy) 1 ea N/A UD [facility] Stop: 09/30/18 08:12 Nutritional Formula (Peptamen Intense Vhp 1.0 Cornel) 1,000 ml OG UD [facility]; Protocol Stop: 10/05/18 10:59 Last Admin: 09/05/18 14:15 Dose: 1,000 ml Documented by: Ondansetron HCl (Zofran) 4 mg IV Q6H PRN PRN Reason: Nausea Stop: 09/30/18 04:43 Last Admin: 09/02/18 11:53 Dose: 4 mg Documented by: PG Care Time/CCT Critical Care Time: Yes Total Critical Care Time: 35 Resident Activity Tracking Resident Involvement: Resident Care Provided Care Provided: Adult Hospital Medicine
[2018-09-07] MEDS ORDERED: acetaZOLAMIDE 500 MG in SYRINGE 0 ML IV ONE (09:00)
[2018-09-07] MEDS ORDERED: FUROSEMIDE 20 MG in SYRINGE 0 ML IV ONE (09:00)
[2018-09-07] MEDS: METOPROLOL TARTRATE 1 MG/ML VIAL IV PRN ×2 (09:50→18:10)
[2018-09-07] MEDS ORDERED: SODIUM CHLORIDE 0.9% 250 ML IV PRN ×2 (11:04→11:48)
--- NOTE | 2018-09-07 11:17 | Palliative Care Progress Note ---
Date of Service September 07, 2018 Assessment & Plan (1) Goals of care, counseling/discussion: -Patient is improved today from a respiratory standpoint per the e commerce merchant. Plan is to extubate today. -Patient awake and alert while still on ventilator. No family at bedside. -Spoke at length with patient's , Colette, yesterday. Will continue to follow and engage with patient and family about goals of care. -No changes in patient's plan or care at this time, continue with full treatment. 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 He is awake and off sedation, Still intubated but planned to be extubated soon. Review of Systems Review of Systems: Unobtainable due to endotracheal tube Physical Exam Constitutional: + ill appearing and + obese Neck: + thick neck Respiratory: normal respiratory effort, lungs clear to auscultation Auscultation: + diminished lung sounds Cardiovascular: RRR, no murmur, no edema Extremities: + edema (generalized) Gastrointestinal (Abdomen): Inspection/Auscultation: + abdomen distended (obesely distended) Neurologic: moves all extremities and awake (follows commands while on ventilator) Results & Data Vital Signs (Past 12 Hours) Vital Signs Temp Pulse Resp BP Pulse Ox 09/07/18 10:00 118 H 25 H 116/82 95 09/07/18 09:50 139 H 163/63 H 09/07/18 09:00 126 H 25 H 149/90 H 94 09/07/18 08:00 37.5 C 132 H 113/64 100 09/07/18 07:35 118 H 22 96 09/07/18 07:00 117 H 98/67 L 95 09/07/18 06:00 126 H 105/72 95 09/07/18 05:30 109 H 125/62 94 09/07/18 05:01 98 H 99/73 L 09/07/18 05:00 106 H 96 09/07/18 04:58 112 H 20 96 09/07/18 04:30 115 H 128/70 95 09/07/18 04:00 37.4 C 109 H 122/72 95 09/07/18 03:30 116 H 107/70 95 09/07/18 03:00 117 H 127/74 95 09/07/18 02:31 119 H 127/70 94 09/07/18 02:30 113 H 94 09/07/18 02:00 121 H 140/74 92 09/07/18 01:55 118 H 23 97 09/07/18 01:31 117 H 129/70 90 09/07/18 01:30 119 H 92 09/07/18 01:00 121 H 104/69 92 09/07/18 00:31 111 H 117/69 94 09/07/18 00:30 117 H 94 09/07/18 00:00 37.5 C 132 H 147/86 H 97 09/06/18 23:31 113 H 121/72 100 09/06/18 23:30 115 H 100 PG Care Time/CCT Total # of Minutes Spent Total Time Spent with Patient: Total time spent is greater than 50% in coordination of care (as documented) at patient's floor/unit and/or counseling patient: Time Spent Midlevel 35 minutes with >50% of the time spent at bedside with patient, as well as ICU team discussing plan of care and patient case. (1) COPD (chronic obstructive pulmonary disease) COPD type: unspecified COPD Qualified Code(s): J44.9 - Chronic obstructive pulmonary disease, unspecified
--- NOTE | 2018-09-07 12:37 | Hematology/Oncology Prog Note ---
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 Leary off the ventilator. Given his body habitus, it may be difficult to keep him extubated, but hopefully he can get more comfortable over the rest of today. He is on antibiotics for an ESBL E coli bacteremia. His WBCs have recovered. His platelets remain low, which may be related to severe sepsis, to antibiotics, or to marrow suppression from acute illness. In light of the recovery of his WBCs, I doubt this is still directly related to chemotherapy. His hemoglobin is in the 7s and he will be transfused today. I would aim for a goal of 8 for his hemoglobin. Otherwise, he will continue with antibiotics and supportive care and will hopefully continue to improve. Present on Admission?: Yes Subjective Mr. Leary was extubated this morning. He was mildly tachypneic when I saw him. He denied any pain. He was coughing and his oxygen saturation improved when he cleared sputum. Review of Systems Review of Systems: Other Limited due to tachypnea. See HPI for pertinent positives. Physical Exam Constitutional: + ill appearing and + morbidly obese Eyes: + anicteric sclerae and EOM intact bilaterally Respiratory: + tachypneic; + not able to speak in complete sentence Auscultation: lungs clear to auscultation bilaterally Cardiovascular: Rate/Rhythm: regular rate and + tachycardic Extremities: no edema Gastrointestinal (Abdomen): normal bowel sounds, soft, nontender, no hepatosplenomegaly Skin: no rashes, warm and dry Results & Data Vital Signs (Past 12 Hours) Vital Signs Temp Pulse Resp BP Pulse Ox 09/07/18 11:00 123 H 141/79 H 92 09/07/18 10:00 118 H 25 H 116/82 95 09/07/18 09:50 139 H 163/63 H 09/07/18 09:00 126 H 25 H 149/90 H 94 09/07/18 08:00 37.5 C 132 H 113/64 100 09/07/18 07:35 118 H 22 96 09/07/18 07:00 117 H 98/67 L 95 09/07/18 06:00 126 H 105/72 95 09/07/18 05:30 109 H 125/62 94 09/07/18 05:01 98 H 99/73 L 09/07/18 05:00 106 H 96 09/07/18 04:58 112 H 20 96 09/07/18 04:30 115 H 128/70 95 09/07/18 04:00 37.4 C 109 H 122/72 95 09/07/18 03:30 116 H 107/70 95 09/07/18 03:00 117 H 127/74 95 09/07/18 02:31 119 H 127/70 94 09/07/18 02:30 113 H 94 09/07/18 02:00 121 H 140/74 92 09/07/18 01:55 118 H 23 97 09/07/18 01:31 117 H 129/70 90 09/07/18 01:30 119 H 92 09/07/18 01:00 121 H 104/69 92 Laboratory Results Abnormal lab results 09/05/18 09/06/18 09/06/18 Range/Units 08:52 12:28 16:15 WBC (4.8-10.8) K/uL RBC (4.7-6.1) M/uL Hgb (14.0-18.0) g/dL Hct (42-52) % RDW Std Deviation (36.4-46.3) fL RDW Coeff of Preeti (11.5-14.5) % Plt Count (130-400) K/uL MPV (7.4-10.4) fL Lymph # (Auto) (1.2-3.4) K/uL Absolute Nucleated RBC (0-0) K/uL Carbon Dioxide (21-32) mmol/L BUN (7-18) mg/dl BUN/Creatinine Ratio (10-20) Glucose (70-99) mg/dl POC Glucose 158 H 151 H (70-99) AST (15-37) U/L ALT (12-78) U/L Total Protein (6.4-8.2) gm/dl Albumin (3.4-5.0) gm/dl Globulin (2.5-4.0) gm/dl Albumin/Globulin Ratio (0.9-2) Crossmatch See Detail 09/06/18 09/06/18 09/07/18 Range/Units 20:23 23:15 04:20 WBC 2.85 L (4.8-10.8) K/uL RBC 2.28 L (4.7-6.1) M/uL Hgb 7.3 L (14.0-18.0) g/dL Hct 22.5 L (42-52) % RDW Std Deviation 77.4 H (36.4-46.3) fL RDW Coeff of Preeti 22.6 H (11.5-14.5) % Plt Count 51 L (130-400) K/uL MPV 11.3 H (7.4-10.4) fL Lymph # (Auto) 0.54 L (1.2-3.4) K/uL Absolute Nucleated RBC 0.07 H (0-0) K/uL Carbon Dioxide (21-32) mmol/L BUN (7-18) mg/dl BUN/Creatinine Ratio (10-20) Glucose (70-99) mg/dl POC Glucose 137 H 150 H (70-99) AST (15-37) U/L ALT (12-78) U/L Total Protein (6.4-8.2) gm/dl Albumin (3.4-5.0) gm/dl Globulin (2.5-4.0) gm/dl Albumin/Globulin Ratio (0.9-2) Crossmatch 09/07/18 09/07/18 09/07/18 Range/Units 04:20 04:23 07:01 WBC (4.8-10.8) K/uL RBC (4.7-6.1) M/uL Hgb (14.0-18.0) g/dL Hct (42-52) % RDW Std Deviation (36.4-46.3) fL RDW Coeff of Preeti (11.5-14.5) % Plt Count (130-400) K/uL MPV (7.4-10.4) fL Lymph # (Auto) (1.2-3.4) K/uL Absolute Nucleated RBC (0-0) K/uL Carbon Dioxide 36 H (21-32) mmol/L BUN 22 H (7-18) mg/dl BUN/Creatinine Ratio 20.9 H (10-20) Glucose 136 H (70-99) mg/dl POC Glucose 145 H 135 H (70-99) AST 142 H (15-37) U/L ALT 83 H (12-78) U/L Total Protein 6.2 L (6.4-8.2) gm/dl Albumin 2.1 L (3.4-5.0) gm/dl Globulin 4.1 H (2.5-4.0) gm/dl Albumin/Globulin Ratio 0.5 L (0.9-2) Crossmatch 09/07/18 Range/Units 11:44 WBC (4.8-10.8) K/uL RBC (4.7-6.1) M/uL Hgb (14.0-18.0) g/dL Hct (42-52) % RDW Std Deviation (36.4-46.3) fL RDW Coeff of Preeti (11.5-14.5) % Plt Count (130-400) K/uL MPV (7.4-10.4) fL Lymph # (Auto) (1.2-3.4) K/uL Absolute Nucleated RBC (0-0) K/uL Carbon Dioxide (21-32) mmol/L BUN (7-18) mg/dl BUN/Creatinine Ratio (10-20) Glucose (70-99) mg/dl POC Glucose 168 H (70-99) AST (15-37) U/L ALT (12-78) U/L Total Protein (6.4-8.2) gm/dl Albumin (3.4-5.0) gm/dl Globulin (2.5-4.0) gm/dl Albumin/Globulin Ratio (0.9-2) Crossmatch
--- NOTE | 2018-09-07 13:31 | Hospitalist Progress Note ---
Date of Service September 07, 2018 Assessment & Plan (1) Severe sepsis: Appears to be due to urinary tract infection/sepsis/bacteremia, present on admission. blood cultures show ESBL bacteremia most sensitive to ertapenem due to sepsis this is likely cause of bone marrow suppression (2) Acute respiratory failure with hypoxia: Seems to be related to sepsis and/or primary lung pathology of previous left upper lobe squamous cell carcinoma. pt developed acidosis and hypercarbia, the decision was made for intubation. Patient is extubated but has increased work of breathing my concern is to revert back to BiPAP support by the evening (3) Atrial fibrillation: Patient with new onset atrial fibrillation with RVR. -Really not rate controlled we will escalate intravenous rate control attempted transfusion try to improve hemodynamics (4) SOB (shortness of breath): likely multifactorial. Watch carefully reinstitute supportive BiPAP if needed (5) Fever: related to esbl sepsis. (6) Diabetes: insulin sliding scale management. remains with reasonable control (7) Gout: Chronic, previously without acute flare -Continue Allopurinol 300mg po daily, 100mg po qHS (8) COPD (chronic obstructive pulmonary disease): , supportive care, playing a role in his respiratory distress (9) Pulmonary embolism: Patient with newly diagnosed PE, systemic anticoagulation cautiously (10) Obesity: current BMI listed >50, next work of breathing more challenging (11) Hypertension: follow BP, help with blood pressure also (12) Chronic venous insufficiency: Patient with history of chronic venous insufficiency. Recently with cellulitis and poorly healing wounds. No ulcers or drainage appreciated at present. Patient is ertapenem (13) Antineoplastic chemotherapy induced pancytopenia: Subjective This patient's been extubated he is tachypneic he is in A. fib with rapid ventricular response. His is at the bedside patient is responsive says he feels okay states he is thirsty. Denies having chest pain or awareness of his palpitations Review of Systems Review of Systems: ROS: Mild to moderate No double vision blurry vision No problems with speech or swallowing No palpitations, chest pain or pressure No Wheezing claims to be short of breath No abdominal pain nausea vomiting diarrhea No burning urine has a Cooper catheter No focal joint pain or muscle pain No skin rashes or oral lesions Bruising of the abdomen likely from injections No focused back pain or numbness or loss of strength No changes in memory or confusion Physical Exam Physical Exam: The patient appeared obese in mild to moderate distress Vital signs as documented. Tachycardic in A. fib rapid ventricular response Head exam is unremarkable. normocephalic, atraumatic Neck is without jugular venous distension, thyromegaly, or lymphademopathy Lungs are minutes at the bases difficult to examine due to large body habitus Cardiac exam reveals tachycardic and irregularly irregular Abdominal exam reveals hypoactive bowel sounds, no masses, no organomegaly Extremities are mildly edematous and both pedal pulses are present Neurologic exam is A&Ox3, no focal deficits, strength is weak bilaterally Psychologically seems anxious Skin is warm Dry Results & Data Vital Signs (Past 12 Hours) Vital Signs Temp Pulse Resp BP Pulse Ox 09/07/18 12:53 36.4 C L 119 H 28 H 170/79 H 94 09/07/18 11:00 123 H 141/79 H 92 09/07/18 10:00 118 H 25 H 116/82 95 09/07/18 09:50 139 H 163/63 H 09/07/18 09:00 126 H 25 H 149/90 H 94 09/07/18 08:00 37.5 C 132 H 113/64 100 09/07/18 07:35 118 H 22 96 09/07/18 07:00 117 H 98/67 L 95 09/07/18 06:00 126 H 105/72 95 09/07/18 05:30 109 H 125/62 94 09/07/18 05:01 98 H 99/73 L 09/07/18 05:00 106 H 96 09/07/18 04:58 112 H 20 96 09/07/18 04:30 115 H 128/70 95 09/07/18 04:00 37.4 C 109 H 122/72 95 09/07/18 03:30 116 H 107/70 95 09/07/18 03:00 117 H 127/74 95 09/07/18 02:31 119 H 127/70 94 09/07/18 02:30 113 H 94 09/07/18 02:00 121 H 140/74 92 09/07/18 01:55 118 H 23 97 09/07/18 01:31 117 H 129/70 90 09/07/18 01:30 119 H 92 PG Care Time/CCT Total # of Minutes Spent Total Time Spent with Patient: Total time spent is greater than 50% in coordination of care (as documented) at patient's floor/unit and/or counseling patient: (1) Fever Fever type: unspecified Qualified Code(s): R50.9 - Fever, unspecified (2) Diabetes Diabetes mellitus complication status: without complication Diabetes mellitus long term care social worker insulin use: without senior care use Diabetes mellitus type: type 2 Qualified Code(s): E11.9 - Type 2 diabetes mellitus without complications (3) Gout Chronicity: chronic Gout etiology: unspecified cause Gout site: unspecified site (4) Atrial fibrillation Atrial fibrillation type: unspecified Qualified Code(s): I48.91 - Unspecified atrial fibrillation (5) COPD (chronic obstructive pulmonary disease) COPD type: unspecified COPD Qualified Code(s): J44.9 - Chronic obstructive pulmonary disease, unspecified (6) Pulmonary embolism Acute cor pulmonale presence: without acute cor pulmonale Chronicity: unspecified Pulmonary embolism type: unspecified Qualified Code(s): I26.99 - Other pulmonary embolism without acute cor pulmonale (7) Hypertension Hypertension type: essential hypertension Qualified Code(s): I10 - Essential (primary) hypertension (8) Obesity Body mass index: BMI 60.0-69.9 Obesity classification: adult class 3 (BMI >= 40) Obesity type: due to excess calories Serious obesity comorbidity presence: with serious comorbidity Qualified Code(s): E66.01 - Morbid (severe) obesity due to excess calories; Z68.44 - Body mass index (BMI) 60.0-69.9, adult
[2018-09-07] MEDS ORDERED: METOPROLOL TARTRATE 25 MG TAB PO ONE (13:39)
[2018-09-07 15:36] LABS: Partial Thromboplastin Ratio 1.2; Partial Thromboplastin Time 32.6 Seconds (21.0-31.0)
[2018-09-07] MEDS: ERTAPENEM SODIUM 1,000 MG in SODIUM CHLORIDE 0.9% 50 ML IV SCH (17:13)
[2018-09-07] MEDS: METOPROLOL TARTRATE 50 MG TAB PO SCH (20:04)
[2018-09-07] MEDS: ALLOPURINOL 100 MG TAB PO SCH (20:07)
[2018-09-07 22:55] LABS: Partial Thromboplastin Ratio 1.3; Partial Thromboplastin Time 36.5 Seconds (21.0-31.0)
[2018-09-08] MEDS: INSULIN ASPART 100 UNITS/ML 3 ML PEN SC SCH ×5 (04:29→20:05)
[2018-09-08 05:40] LABS: Hematocrit (blood only) 26.3 % (42-52); Hemoglobin 8.6 g/dL (14.0-18.0); Mean Corpuscular Hgb Conc 32.7 g/dL (32-36); Nucleated RBC # (auto) 0.07 K/uL (0-0); RDW Coefficient of Variation 21.8 % (11.5-14.5); RDW Standard Deviation 75.2 fL (36.4-46.3); Red Blood Count 2.63 M/uL (4.7-6.1); White Blood Count 3.54 K/uL (4.8-10.8)
[2018-09-08 05:41] LABS: Mean Platelet Volume 11.6 fL (7.4-10.4); Platelet Count 63 K/uL (130-400)
[2018-09-08 06:05] LABS: Partial Thromboplastin Ratio 1.2; Partial Thromboplastin Time 31.3 Seconds (21.0-31.0)
[2018-09-08 06:10] LABS: Anisocytosis Present; Basophils # (auto) 0.01 K/uL (0-0.2); Basophils % (auto) 0.3 %; Eosinophils # (auto) 0.01 K/uL (0-0.5); Eosinophils % (auto) 0.3 %; Immature Granulocytes # (auto) 0.02 K/uL (0.00-0.02); Immature Granulocytes % (auto) 0.6 %; Lymphocytes # (auto) 0.52 K/uL (1.2-3.4); Lymphocytes % (auto) 14.7 %; Monocytes # (auto) 0.36 K/uL (0.11-0.59); Monocytes % (auto) 10.2 %; Neutrophils # (auto) 2.62 K/uL (1.4-6.5); Neutrophils % (auto) 73.9 %
[2018-09-08 06:12] LABS: BUN Creatinine Ratio 22.9 (10-20); Calcium 8.9 mg/dl (8.5-10.1); Creatinine Clr Calc Pharmacy 110.6 ml/min; Est GFR (Non-African American) 75.9; Magnesium 1.8 mg/dl (1.8-2.4); Potassium 3.8 mmol/L (3.5-5.1)
[2018-09-08] MEDS ORDERED: HEPARIN IV BOLUS 4,500 UNITS in SYRINGE 0 ML IV ONE (06:13)
[2018-09-08 06:25] LABS: Phosphorus 2.1 mg/dl (2.5-4.9)
[2018-09-08] MEDS: Heparin Adult LOW DOSE Wt-Based Dextrose 5% 25,000 units/500 mL IV SCH (07:11)
--- NOTE | 2018-09-08 07:42 | Critical Care Progress Note ---
Date of Service September 08, 2018 Assessment & Plan (1) Admitted to intensive care unit: Reason Critically Ill: Severe Sepsis likely due to UTI and Acute Hypoxic Resp Failure related to sepsis requiring mechanical vent, Pancytopenia 2/2 chemotherapy PLAN: NEURO ICU CAM: NEGATIVE -Toxic metabolic encephalopathy due to medications (sedatives or chemo) vs infectious. Improved today s/p extubation Intermittent confusion, suspect ICU delirium: This would be best treated with downgrade out of the ICU and normalization to the best of our ability CARDIO -Hemodynamically stable -Afib- Cont metoprolol 25 mg BID.restarted with IV Heparin at normal weight- based dosing with bolus. Pt was on Xarelto for PE prior. -HTN- Hold Lisinopril, Spirinolactone PULMONARY -Acute hypoxic respiratory failure likely from sepsis and/or primary lung pathology of previous left upper lobe squamous cell carcinoma. -Extubated yesterday with decreasing oxygen requirement -CXR- concern for underlying pneumomediastinum. Will continue to observe -Heme/Onc consult, will f/u for management moving forward -History PE now on anticoagulation. Xarelto less than optimal long-term anticoagulant given large body habitus. GI -Diet advanced to CL after extubation: Tolerating diet -Speech consult -Famotidine prophylaxis RENAL/ -Stable Cr. ARF resolved. Good UOP ENDO -ICU Hyperglycemia protocol. BSG Stable -No other acute concerns or complaints ID -Sepsis with evidence of end organ dysfunction. Immunocompromised. ESBL e coli bacteremia --> Ertapenam for 14 days -Repeat blood cultures remain negative HEME -pancytopenia 2/2 chemotherapy induced pancytopenia- resolved -Increased antithrombin III level. High risk for venous thrombi LINES: L chest port, PIV x3, Cooper DVT Prophylaxis: Heparin weight-based formula Full Code DISPO: Stable for downgrade out of ICU. Pal Care consult- Ongoing talks with patient and family about goals of care. Full tx for now Subjective 68 y/o M found in bed this AM. Appears to have improved breathing, is more awake today. At times appears confused, encephalopathy with unclear etiology, but likely ICU delirium. Pt keeps insisting that he wants to move out of bed and into chair. Otherwise no other acute concerns or complaints. Review of Systems Review of Systems: All systems reviewed & are unremarkable except as noted in HPI & below Physical Exam Constitutional: + morbidly obese Eyes: PERRL, conjunctivae normal, anicteric sclerae Neck: + thick neck Respiratory: dificulty with auscultation 2/2 body habitus, but seems diminished at bases Cardiovascular: Rate/Rhythm: + tachycardic Gastrointestinal (Abdomen): normal bowel sounds, soft, nontender, no hepatosplenomegaly Skin: no rashes, warm and dry Lymphatic: mild LE edema Results & Data Vital Signs (Past 12 Hours) Vital Signs Temp Pulse Resp BP Pulse Ox 09/08/18 05:11 112 H 24 93 09/08/18 05:00 116 H 21 131/75 90 09/08/18 04:00 36.9 C 104 H 28 H 90 09/08/18 03:01 119 H 25 H 131/75 90 09/08/18 03:00 111 H 22 91 09/08/18 02:01 112 H 21 89/63 L 93 09/08/18 01:58 109 H 22 91 09/08/18 01:30 112 H 24 90 09/08/18 01:00 113 H 21 128/80 89 L 09/08/18 00:30 107 H 25 H 89 L 09/08/18 00:02 108 H 30 H 89 L 09/08/18 00:01 110 H 20 114/79 88 L 09/07/18 23:30 103 H 33 H 09/07/18 23:01 37 C 103 H 32 H 122/71 93 09/07/18 23:00 103 H 24 93 09/07/18 22:30 100 H 34 H 88 L 09/07/18 22:26 103 H 20 93 09/07/18 22:02 109 H 34 H 91 09/07/18 22:01 101 H 36 H 122/64 94 09/07/18 22:00 109 H 24 93 09/07/18 21:45 109 H 35 H 129/74 94 09/07/18 21:32 113 H 35 H 91 09/07/18 21:31 95 H 30 H 118/78 92 09/07/18 21:16 107 H 25 H 133/71 93 09/07/18 21:01 111 H 28 H 122/66 93 09/07/18 20:46 107 H 32 H 123/72 94 09/07/18 20:31 109 H 34 H 121/70 93 09/07/18 20:30 95 H 26 H 93 09/07/18 20:16 104 H 26 H 124/77 93 09/07/18 20:01 103 H 32 H 114/71 92 09/07/18 19:46 110 H 24 125/73 92 Laboratory Results Laboratory Results - last 24 hr 09/05/18 09/07/18 09/07/18 08:52 19:59 22:30 WBC RBC Hgb POC Hgb Hct POC Hct MCV MCH MCHC RDW Std Deviation RDW Coeff of Preeti Plt Count MPV Immature Gran % (Auto) Neut % (Auto) Lymph % (Auto) [place] % (Auto) Eos % (Auto) Baso % (Auto) Immature Gran # (Auto) Neut # (Auto) Lymph # (Auto) [place] # (Auto) Eos # (Auto) Baso # (Auto) Absolute Nucleated RBC Nucleated RBC % (auto) Anisocytosis APTT 36.5 H PTT Ratio 1.3 Sample Site POC pH POC pCO2 POC pO2 POC HCO3 POC Total CO2 POC Base Excess Pete Test O2 Delivery Device POC Sodium Sodium POC Potassium Potassium Chloride Carbon Dioxide Anion Gap BUN Creatinine Est Cr Clr Drug Dosing Est GFR ( Amer) Est GFR (Non-Af Amer) BUN/Creatinine Ratio Glucose POC Glucose 166 H Calcium Phosphorus Magnesium Crossmatch See Detail 09/07/18 09/08/18 09/08/18 23:37 03:51 05:31 WBC RBC Hgb POC Hgb Hct POC Hct MCV MCH MCHC RDW Std Deviation RDW Coeff of Preeti Plt Count MPV Immature Gran % (Auto) Neut % (Auto) Lymph % (Auto) [place] % (Auto) Eos % (Auto) Baso % (Auto) Immature Gran # (Auto) Neut # (Auto) Lymph # (Auto) [place] # (Auto) Eos # (Auto) Baso # (Auto) Absolute Nucleated RBC Nucleated RBC % (auto) Anisocytosis APTT 31.3 H PTT Ratio 1.2 Sample Site POC pH POC pCO2 POC pO2 POC HCO3 POC Total CO2 POC Base Excess Pete Test O2 Delivery Device POC Sodium Sodium POC Potassium Potassium Chloride Carbon Dioxide Anion Gap BUN Creatinine Est Cr Clr Drug Dosing Est GFR ( Amer) Est GFR (Non-Af Amer) BUN/Creatinine Ratio Glucose POC Glucose 92 137 H Calcium Phosphorus Magnesium Crossmatch 09/08/18 09/08/18 09/08/18 05:33 05:33 08:03 WBC 3.54 L RBC 2.63 L Hgb 8.6 L POC Hgb Hct 26.3 L POC Hct MCV 100.0 MCH 32.7 MCHC 32.7 RDW Std Deviation 75.2 H RDW Coeff of Preeti 21.8 H Plt Count 63 L MPV 11.6 H Immature Gran % (Auto) 0.6 Neut % (Auto) 73.9 Lymph % (Auto) 14.7 [place] % (Auto) 10.2 Eos % (Auto) 0.3 Baso % (Auto) 0.3 Immature Gran # (Auto) 0.02 Neut # (Auto) 2.62 Lymph # (Auto) 0.52 L [place] # (Auto) 0.36 Eos # (Auto) 0.01 Baso # (Auto) 0.01 Absolute Nucleated RBC 0.07 H Nucleated RBC % (auto) 2.0 Anisocytosis Present APTT PTT Ratio Sample Site POC pH POC pCO2 POC pO2 POC HCO3 POC Total CO2 POC Base Excess Pete Test O2 Delivery Device POC Sodium Sodium 142 POC Potassium Potassium 3.8 Chloride 107 Carbon Dioxide 31 Anion Gap 5.0 BUN 23 H Creatinine 1.00 Est Cr Clr Drug Dosing 110.6 Est GFR ( Amer) 88.0 Est GFR (Non-Af Amer) 75.9 BUN/Creatinine Ratio 22.9 H Glucose 140 H POC Glucose 108 H Calcium 8.9 Phosphorus 2.1 L D Magnesium 1.8 Crossmatch 09/08/18 09/08/18 09/08/18 08:31 09:12 11:38 WBC RBC Hgb POC Hgb 10.9 L Hct POC Hct 32 L MCV MCH MCHC RDW Std Deviation RDW Coeff of Preeti Plt Count MPV Immature Gran % (Auto) Neut % (Auto) Lymph % (Auto) [place] % (Auto) Eos % (Auto) Baso % (Auto) Immature Gran # (Auto) Neut # (Auto) Lymph # (Auto) [place] # (Auto) Eos # (Auto) Baso # (Auto) Absolute Nucleated RBC Nucleated RBC % (auto) Anisocytosis APTT 44.1 H PTT Ratio 1.6 Sample Site R Radial POC pH 7.43 POC pCO2 41 POC pO2 77 L POC HCO3 27 H POC Total CO2 28 POC Base Excess 3.0 H Pete Test Pass O2 Delivery Device Cannula POC Sodium 141 Sodium POC Potassium 3.8 Potassium Chloride Carbon Dioxide Anion Gap BUN Creatinine Est Cr Clr Drug Dosing Est GFR ( Amer) Est GFR (Non-Af Amer) BUN/Creatinine Ratio Glucose POC Glucose 133 H Calcium Phosphorus Magnesium Crossmatch 09/08/18 16:01 WBC RBC Hgb POC Hgb Hct POC Hct MCV MCH MCHC RDW Std Deviation RDW Coeff of Preeti Plt Count MPV Immature Gran % (Auto) Neut % (Auto) Lymph % (Auto) [place] % (Auto) Eos % (Auto) Baso % (Auto) Immature Gran # (Auto) Neut # (Auto) Lymph # (Auto) [place] # (Auto) Eos # (Auto) Baso # (Auto) Absolute Nucleated RBC Nucleated RBC % (auto) Anisocytosis APTT 54.8 H* PTT Ratio 2.0 Sample Site POC pH POC pCO2 POC pO2 POC HCO3 POC Total CO2 POC Base Excess Pete Test O2 Delivery Device POC Sodium Sodium POC Potassium Potassium Chloride Carbon Dioxide Anion Gap BUN Creatinine Est Cr Clr Drug Dosing Est GFR ( Amer) Est GFR (Non-Af Amer) BUN/Creatinine Ratio Glucose POC Glucose Calcium Phosphorus Magnesium Crossmatch Medications Administered Current Inpatient Medications Acetaminophen (Tylenol) 650 mg PO Q4H PRN PRN Reason: Pain or Fever Stop: 09/30/18 04:43 Last Admin: 09/01/18 06:39 Dose: 650 mg Documented by: Albuterol (Ventolin 0.5% 2.5mg/0.5ml) 2.5 mg NEB Q2H PRN PRN Reason: SOB/Wheeze Stop: 09/30/18 04:49 Allopurinol (Zyloprim) 100 mg PO QPM [facility] Stop: 09/30/18 20:59 Last Admin: 09/07/18 20:07 Dose: 100 mg Documented by: Celecoxib (Celebrex) 200 mg PO QAM GERRY Stop: 09/30/18 08:59 Last Admin: 09/01/18 11:33 Dose: Not Given Documented by: Dextrose (Dextrose 50%) 25 - 50 ml IV UD PRN; Protocol PRN Reason: Hypoglycemia Protocol Stop: 09/30/18 04:43 Glucagon (Glucagen) 1 mg SQ UD PRN; Protocol PRN Reason: Hypoglycemia Protocol Stop: 09/30/18 04:43 Glucose (Glucose 40%) 15 - 30 gm PO UD PRN; Protocol PRN Reason: Hypoglycemia Protocol Stop: 09/30/18 04:43 Glucose (Dex4 Glucose) 4 - 8 tabs PO UD PRN; Protocol PRN Reason: Hypoglycemia Protocol Stop: 09/30/18 04:43 Heparin Sodium (Porcine) (Heparin Sod 100 Unit/Ml Flush) 5 ml FLUSH PRN PRN PRN Reason: Flush Stop: 10/01/18 00:59 Sodium Chloride (Nss) 250 mls @ 15 mls/hr IV .[id number] PRN PRN Reason: For Transfusion Stop: 10/01/18 00:40 Famotidine 20 mg/ Syringe 5 mls @ 2.5 mls/min IV Q12 GERRY Stop: 10/01/18 09:59 Last Admin: 09/08/18 08:51 Dose: 2.5 mls/min Documented by: Ertapenem 1,000 mg/ Sodium (Chloride) 60 mls @ 100 mls/hr IV Q24H GERRY Stop: 09/17/18 17:59 Last Infusion: 09/08/18 18:22 Dose: Infused Documented by: Sodium Chloride (Nss) 250 mls @ 15 mls/hr IV .[id number] PRN PRN Reason: For Transfusion Stop: 10/05/18 08:34 Sodium Chloride (Nss) 250 mls @ 15 mls/hr IV .[id number] PRN PRN Reason: For Transfusion Stop: 10/08/18 08:21 Heparin Sodium/Dextrose (Heparin Sodium/Dextrose) 25,000 units in 500 mls @ 50 mls/hr IV .Q10H GERRY; Protocol Stop: 10/08/18 08:44 Last Admin: 09/08/18 18:32 Dose: 2,500 units/hr, 50 mls/hr Documented by: Insulin Aspart (Novolog Flexpen) 0 units SC Q4 GERRY; Protocol Stop: 10/05/18 11:59 Last Admin: 09/08/18 17:04 Dose: Not Given Documented by: Metoprolol Tartrate (Lopressor) 5 mg IV Q6H PRN PRN Reason: HR>125 Stop: 10/07/18 09:59 Last Admin: 09/07/18 18:10 Dose: 5 mg Documented by: Metoprolol Tartrate (Lopressor) 50 mg PO TID GERRY Stop: 10/08/18 13:59 Last Admin: 09/08/18 13:42 Dose: 50 mg Documented by: Miscellaneous (Pending Order) 1 ea N/A Q4 GERRY Stop: 10/05/18 11:59 Last Admin: 09/08/18 17:04 Dose: Not Given Documented by: Miscellaneous (Carbohydrates For Hypoglycemia) 15 - 30 gm PO UD PRN PRN Reason: Hypoglycemia Treatment Stop: 09/30/18 04:43 Miscellaneous Information (Consult Glycemic Management Pharmacy) 1 ea N/A UD [facility] Stop: 09/30/18 08:12 Ondansetron HCl (Zofran) 4 mg IV Q6H PRN PRN Reason: Nausea Stop: 09/30/18 04:43 Last Admin: 09/02/18 11:53 Dose: 4 mg Documented by: PG Care Time/CCT Critical Care Time: No Resident Activity Tracking Resident Involvement: Resident Care Provided Care Provided: Adult Hospital Medicine
[2018-09-08] MEDS ORDERED: SODIUM CHLORIDE 0.9% 250 ML IV PRN (08:22)
[2018-09-08 08:45] LABS: iSTAT Allen Test Pass; iSTAT Arterial Blood Gas HCO3 27 meg/L (19-24); iSTAT Arterial Blood Gas pCO2 41 mmHg (35-46); iSTAT Arterial Blood Gas pH 7.43 (7.35-7.45); iSTAT Carbon Dioxide 28 mEq/l (24-31); iSTAT Hematocrit 32 % (42-52); iSTAT Hemoglobin 10.9 g/dl (14.0-18.0); iSTAT Potassium 3.8 mEq/L (3.3-5.0); iSTAT Site R Radial; iSTAT Sodium 141 mEq/L (135-144)
[2018-09-08] MEDS ORDERED: HEPARIN IV BOLUS 10,000 UNITS in SYRINGE 0 ML IV ONE (08:45)
[2018-09-08] MEDS: Heparin Adult STANDARD Wt-Based Dextrose 5% 25,000 units/500 mL IV SCH ×2 (08:46→18:32)
[2018-09-08] MEDS: METOPROLOL TARTRATE 50 MG TAB PO SCH ×3 (08:50→20:14)
[2018-09-08] MEDS: FAMOTIDINE 20 MG in SYRINGE 3 ML IV SCH ×2 (08:51→20:10)
--- NOTE | 2018-09-08 08:51 | Cardiology Progress Note ---
Date of Service September 08, 2018 Assessment & Plan (1) Atrial fibrillation: Although by history he did not have much atrial fibrillation prior to admission, I suspect he has had it and now he has been in it in a relatively sustained manner. He should have long-term anticoagulation. Anticoagulation was held with low platelets, however he is now on heparin and should be able to be transitioned back to his outpatient Xarelto when it is felt safe. His heart rate is somewhat fast, his blood pressure is not low. For rate control he is on metoprolol tartrate 50 mg twice daily, as an outpatient he was only on 25 mg daily. Some of the increased heart rate is probably due to catecholamines h owever think better heart rate control would be preferable. I am going to increase his dose to 50 mg 3 times daily but use the short acting preparation for the time being. (2) Anticoagulant long-term use: He was on Xarelto for PE which will work for atrial fibrillation over the long run but for now he is on heparin. His platelet count is still low but it is coming off and he is not having evidence of bleeding that I know of. I would transition to his outpatient dose Xarelto when able. Subjective He is still somewhat confused but he is extubated, he is conversational and his only complaint is pain in his buttocks. He has no palpitations but is in atrial fibrillation. Physical Exam Physical Exam: Constitutional: Alert, cooperative and in no distress. Pulmonary: Clear to auscultation bilaterally. Cardiac: Irregular rapid rhythm with no murmur, gallop or rub. Abdomen: Soft, nontender with normal bowel sounds. Extremities: No edema. Skin: No rash, ecchymoses or petechiae. Results & Data Vital Signs (Past 12 Hours) Vital Signs Temp Pulse Resp BP Pulse Ox 09/08/18 05:11 112 H 24 93 09/08/18 05:00 116 H 21 131/75 90 09/08/18 04:00 36.9 C 104 H 28 H 90 09/08/18 03:01 119 H 25 H 131/75 90 09/08/18 03:00 111 H 22 91 09/08/18 02:01 112 H 21 89/63 L 93 09/08/18 01:58 109 H 22 91 09/08/18 01:30 112 H 24 90 09/08/18 01:00 113 H 21 128/80 89 L 07/11/19 00:30 107 H 25 H 89 L 09/08/18 00:02 108 H 30 H 89 L 09/08/18 00:01 110 H 20 114/79 88 L 09/07/18 23:30 103 H 33 H 09/07/18 23:01 37 C 103 H 32 H 122/71 93 09/07/18 23:00 103 H 24 93 09/07/18 22:30 100 H 34 H 88 L 09/07/18 22:26 103 H 20 93 09/07/18 22:02 109 H 34 H 91 09/07/18 22:01 101 H 36 H 122/64 94 09/07/18 22:00 109 H 24 93 09/07/18 21:45 109 H 35 H 129/74 94 09/07/18 21:32 113 H 35 H 91 09/07/18 21:31 95 H 30 H 118/78 92 09/07/18 21:16 107 H 25 H 133/71 93 09/07/18 21:01 111 H 28 H 122/66 93 Diagnostic Findings Telemetry: He remains in atrial fibrillation, his heart rate has been in the low 100s for the last 72 hours. (1) Atrial fibrillation Atrial fibrillation type: unspecified Qualified Code(s): I48.91 - Unspecified atrial fibrillation
[2018-09-08] MEDS ORDERED: DOCUSATE SODIUM 100 MG CAP ONE (09:17)
[2018-09-08 09:34] LABS: Partial Thromboplastin Ratio 1.6; Partial Thromboplastin Time 44.1 Seconds (21.0-31.0)
--- NOTE | 2018-09-08 12:01 | Palliative Care Progress Note ---
Date of Service September 08, 2018 Assessment & Plan (1) Goals of care, counseling/discussion: -Patient is now extubated. He is having some confusion and delirium-- could be ICU delirium. Apparently he cannot have an MRI to rule out mets due to body habitus. -VS stable at this point on 3LNC. ABGs normal this morning. -NO family at bedside and patient currently unable to discuss code status or whether or not he'd want to be intubated again if needed. -Will follow periodically throughout hospitalization. 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 He is awake, oriented to person and place but having some hallucinations and confusion. Review of Systems Review of Systems: No pain, chest pain, N/V, dysphagia. Does c/o SOB at times, Physical Exam Constitutional: + ill appearing and + obese Neck: + thick neck Respiratory: normal respiratory effort, lungs clear to auscultation Auscultation: + diminished lung sounds Cardiovascular: RRR, no murmur, no edema Extremities: + edema (generalized) Gastrointestinal (Abdomen): Inspection/Auscultation: + abdomen distended (obesely distended) Neurologic: moves all extremities and awake Psychiatric: Orientation: alert, oriented to person and oriented to place; + not oriented to time Insight: + poor insight Results & Data Vital Signs (Past 12 Hours) Vital Signs Temp Pulse Resp BP Pulse Ox 09/08/18 10:00 114 H 26 H 95 09/08/18 09:00 115 H 21 130/93 95 09/08/18 08:00 36.6 C 105 H 26 H 149/87 H 91 09/08/18 07:00 116 H 26 H 133/72 90 09/08/18 05:11 112 H 24 93 09/08/18 05:00 116 H 21 131/75 90 09/08/18 04:00 36.9 C 104 H 28 H 90 09/08/18 03:01 119 H 25 H 131/75 90 09/08/18 03:00 111 H 22 91 09/08/18 02:01 112 H 21 89/63 L 93 09/08/18 01:58 109 H 22 91 07/11/19 01:30 112 H 24 90 09/08/18 01:00 113 H 21 128/80 89 L 09/08/18 00:30 107 H 25 H 89 L 09/08/18 00:02 108 H 30 H 89 L 09/08/18 00:01 110 H 20 114/79 88 L PG Care Time/CCT Total # of Minutes Spent Total Time Spent with Patient: Total time spent is greater than 50% in coordination of care (as documented) at patient's floor/unit and/or counseling patient: Time Spent Midlevel 35 minutes with >50% of the time spent at bedside with patient and ICU team discussing plan of care. (1) COPD (chronic obstructive pulmonary disease) COPD type: unspecified COPD Qualified Code(s): J44.9 - Chronic obstructive pulmonary disease, unspecified
--- NOTE | 2018-09-08 13:12 | Hospitalist Progress Note ---
Date of Service September 08, 2018 Assessment & Plan (1) Severe sepsis: Appears to be due to urinary tract infection/sepsis/bacteremia, present on admission. blood cultures show ESBL bacteremia most sensitive to ertapenem due to sepsis this is likely cause of bone marrow suppression (2) Acute respiratory failure with hypoxia: Seems to be related to sepsis and/or primary lung pathology of previous left upper lobe squamous cell carcinoma. pt developed acidosis and hypercarbia, the decision was made for intubation. Patient now s/p extubation but has increased work of breathing , is continuing to use BiPAP support hs, and will be monitored for his tenuous respiratory status (3) Atrial fibrillation: Patient with new onset atrial fibrillation with RVR. -remains with variable rate control and anticoaguation with iv heparin (4) SOB (shortness of breath): likely multifactorial. Watch carefully reinstitute supportive BiPAP if needed (5) Fever: related to esbl sepsis. (6) Diabetes: insulin sliding scale management. remains with reasonable control (7) Gout: Chronic, previously without acute flare -Continue Allopurinol 300mg po daily, 100mg po qHS (8) COPD (chronic obstructive pulmonary disease): , supportive care, playing a role in his respiratory distress (9) Pulmonary embolism: Patient with newly diagnosed PE, systemic anticoagulation cautiously (10) Obesity: current BMI listed >50, next work of breathing more challenging (11) Hypertension: follow BP, help with blood pressure also (12) Chronic venous insufficiency: Patient with history of chronic venous insufficiency. Recently with fara lulitis and poorly healing wounds. No ulcers or drainage appreciated at present. Patient is ertapenem (13) Antineoplastic chemotherapy induced pancytopenia: Subjective Patient is more awake today he is less respiratory distress he is confused with encephalopathy which is likely unclear etiology whether metabolic or toxic or possible perhaps even in hospital delirium. His heart rate is somewhat improved with regard to his atrial fibrillation with the transfusion his hemoglobin has been stable Review of Systems Review of Systems: ROS: Patient is confused and so some of this is also objective not just subjective well nourished well developed. No double vision blurry vision No problems with speech or swallowing No palpitations, chest pain or pressure Patient complains of no respiratory distress although has obvious increased work of breathing No abdominal pain nausea vomiting No burning urine has a Cooper catheter No focal joint pain or muscle pain No skin rashes or oral lesions Has some focal bruising on his abdomen likely from trauma No focused back pain or numbness or loss of strength Patient remains mildly confusion Physical Exam Physical Exam: The patient appeared patient is in mild to moderate distress he is mildly confused Vital signs as documented. Head exam is unremarkable. normocephalic, atraumatic Neck is without jugular venous distension, thyromegaly, or lymphademopathy Lungs are clear to auscultation but diminished at the bases Cardiac exam reveals tachycardic and irregularly irregular Abdominal exam reveals normal bowel sounds, no masses, no organomegaly Extremities are mildly edematous and both pedal pulses are present Neurologic exam is A&Ox2, no focal deficits, strength is equal bilateral Psychologically seems anxious Skin is warm Dry with bruises on his abdomen Results & Data Vital Signs (Past 12 Hours) Vital Signs Temp Pulse Resp BP Pulse Ox 09/08/18 10:00 114 H 26 H 95 09/08/18 09:00 115 H 21 130/93 95 09/08/18 08:00 36.6 C 105 H 26 H 149/87 H 91 09/08/18 07:00 116 H 26 H 133/72 90 09/08/18 05:11 112 H 24 93 09/08/18 05:00 116 H 21 131/75 90 09/08/18 04:00 36.9 C 104 H 28 H 90 09/08/18 03:01 119 H 25 H 131/75 90 09/08/18 03:00 111 H 22 91 09/08/18 02:01 112 H 21 89/63 L 93 09/08/18 01:58 109 H 22 91 09/08/18 01:30 112 H 24 90 PG Care Time/CCT Total # of Minutes Spent Total Time Spent with Patient: Total time spent is greater than 50% in coordination of care (as documented) at patient's floor/unit and/or counseling patient: (1) Fever Fever type: unspecified Qualified Code(s): R50.9 - Fever, unspecified (2) Diabetes Diabetes mellitus complication status: without complication Diabetes mellitus termite helper insulin use: without senior care use Diabetes mellitus type: type 2 Q ualified Code(s): E11.9 - Type 2 diabetes mellitus without complications (3) Gout Chronicity: chronic Gout etiology: unspecified cause Gout site: unspecified site (4) Atrial fibrillation Atrial fibrillation type: unspecified Qualified Code(s): I48.91 - Unspecified atrial fibrillation (5) COPD (chronic obstructive pulmonary disease) COPD type: unspecified COPD Qualified Code(s): J44.9 - Chronic obstructive pulmonary disease, unspecified (6) Pulmonary embolism Acute cor pulmonale presence: without acute cor pulmonale Chronicity: unspecified Pulmonary embolism type: unspecified Qualified Code(s): I26.99 - Other pulmonary embolism without acute cor pulmonale (7) Hypertension Hypertension type: essential hypertension Qualified Code(s): I10 - Essential (primary) hypertension (8) Obesity Body mass index: BMI 60.0-69.9 Obesity classification: adult class 3 (BMI >= 40) Obesity type: due to excess calories Serious obesity comorbidity presence: with serious comorbidity Qualified Code(s): E66.01 - Morbid (severe) obesity due to excess calories; Z68.44 - Body mass index (BMI) 60.0-69.9, adult
[2018-09-08] MEDS: INSULIN REGULAR 250 UNITS in SODIUM CHLORIDE 0.9% 247.5 ML IV SCH (13:45)
[2018-09-08] MEDS ORDERED: POT PHOSPHATE MONOBASIC W/ SOD TAB PO ONE (15:30)
--- NOTE | 2018-09-08 16:36 | Hematology/Oncology Prog Note ---
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 Leary continues to improve clinically. His improving counts are also encouraging, as they were low in part due to sepsis. He should continue to get stronger with time and I would continue with current management. Present on Admission?: Yes (2) Pulmonary embolism: Mr. Leary was found to have a PE on a CT in 2017, which was around the time his cancer was first identified. He has been on Xarelto ever since. Since admission, he has also been in AFib with RVR. He was switched to IV heparin when he was intubated. His aPTT has been slow to rise. His doses were initially low relative to his body habitus and attendant large volume of distribution. This morning, his heparin dose was increased and his PTTs have been rising steadily. Xarelto is poorly studied in patients his size and may be a less than optimal long-term anticoagulant. We can consider a switch to Lovenox, though it would require a fairly high dose (175 mg BID). The highest pre-filled syringe dose is 150 mg, for instance. We can discuss this with him in more depth as his stay goes on. For now, his PTT is therapeutic and I would continue with the heparin. Present on Admission?: Yes Subjective Mr. Leary looked much better today. He was alert and conversant, though he remains tired. His breathing is improving, though he is still coughing. He denies any fevers or acute pain. Review of Systems Constitutional: + fatigue and + weakness; no fever Respiratory: + cough; no dyspnea Cardiovascular: no chest pain and no edema Gastrointestinal: no abdominal pain and no nausea Musculoskeletal: + muscle weakness (generalized); no back pain Integumentary: no rash Neurologic: no headache(s) Physical Exam Constitutional: + ill appearing and + morbidly obese; no acute distress Eyes: + anicteric sclerae and EOM intact bilaterally Respiratory: normal respiratory effort Auscultation: lungs clear to auscultation bilaterally Cardiovascular: Rate/Rhythm: regular rate and + tachycardic Extremities: no edema Gastrointestinal (Abdomen): Inspection/Auscultation: normal bowel sounds Percussion/Palpation: abdomen soft; abdomen nontender Obese Skin: no rashes, warm and dry Psychiatric: A+Ox3, euthymic affect Results & Data Vital Signs (Past 12 Hours) Vital Signs Temp Pulse Pulse Resp BP BP Pulse Ox 09/08/18 15:30 36.5 C 102 H 20 153/78 H 93 09/08/18 14:45 107 H 09/08/18 13:00 108 H 30 H 141/78 H 95 09/08/18 12:00 36.5 C 100 H 25 H 139/78 96 09/08/18 11:00 111 H 28 H 134/79 96 09/08/18 10:00 114 H 26 H 95 09/08/18 09:00 115 H 21 130/93 95 09/08/18 08:00 36.6 C 105 H 26 H 149/87 H 91 09/08/18 07:00 116 H 26 H 133/72 90 09/08/18 05:11 112 H 24 93 09/08/18 05:00 116 H 21 131/75 90 Laboratory Results Abnormal lab results 09/05/18 09/07/18 09/07/18 Range/Units 08:52 19:59 22:30 WBC (4.8-10.8) K/uL RBC (4.7-6.1) M/uL Hgb (14.0-18.0) g/dL POC Hgb (14.0-18.0) g/dl Hct (42-52) % POC Hct (42-52) % RDW Std Deviation (36.4-46.3) fL RDW Coeff of Preeti (11.5-14.5) % Plt Count (130-400) K/uL MPV (7.4-10.4) fL Lymph # (Auto) (1.2-3.4) K/uL Absolute Nucleated RBC (0-0) K/uL APTT 36.5 H (21.0-31.0) Seconds POC pO2 (80-95) mmHg POC HCO3 (19-24) annamaria/L POC Base Excess (-9-1.8) annamaria/L BUN (7-18) mg/dl BUN/Creatinine Ratio (10-20) Glucose (70-99) mg/dl POC Glucose 166 H (70-99) Phosphorus (2.5-4.9) mg/dl Crossmatch See Detail 09/08/18 09/08/18 09/08/18 Range/Units 03:51 05:31 05:33 WBC 3.54 L (4.8-10.8) K/uL RBC 2.63 L (4.7-6.1) M/uL Hgb 8.6 L (14.0-18.0) g/dL POC Hgb (14.0-18.0) g/dl Hct 26.3 L (42-52) % POC Hct (42-52) % RDW Std Deviation 75.2 H (36.4-46.3) fL RDW Coeff of Preeti 21.8 H (11.5-14.5) % Plt Count 63 L (130-400) K/uL MPV 11.6 H (7.4-10.4) fL Lymph # (Auto) 0.52 L (1.2-3.4) K/uL Absolute Nucleated RBC 0.07 H (0-0) K/uL APTT 31.3 H (21.0-31.0) Seconds POC pO2 (80-95) mmHg POC HCO3 (19-24) annamaria/L POC Base Excess (-9-1.8) annamaria/L BUN (7-18) mg/dl BUN/Creatinine Ratio (10-20) Glucose (70-99) mg/dl POC Glucose 137 H (70-99) Phosphorus (2.5-4.9) mg/dl Crossmatch 09/08/18 09/08/18 09/08/18 Range/Units 05:33 08:03 08:31 WBC (4.8-10.8) K/uL RBC (4.7-6.1) M/uL Hgb (14.0-18.0) g/dL POC Hgb 10.9 L (14.0-18.0) g/dl Hct (42-52) % POC Hct 32 L (42-52) % RDW Std Deviation (36.4-46.3) fL RDW Coeff of Preeti (11.5-14.5) % Plt Count (130-400) K/uL MPV (7.4-10.4) fL Lymph # (Auto) (1.2-3.4) K/uL Absolute Nucleated RBC (0-0) K/uL APTT (21.0-31.0) Seconds POC pO2 77 L (80-95) mmHg POC HCO3 27 H (19-24) annamaria/L POC Base Excess 3.0 H (-9-1.8) annamaria/L BUN 23 H (7-18) mg/dl BUN/Creatinine Ratio 22.9 H (10-20) Glucose 140 H (70-99) mg/dl POC Glucose 108 H (70-99) Phosphorus 2.1 L D (2.5-4.9) mg/dl Crossmatch 09/08/18 09/08/18 Range/Units 09:12 11:38 WBC (4.8-10.8) K/uL RBC (4.7-6.1) M/uL Hgb (14.0-18.0) g/dL POC Hgb (14.0-18.0) g/dl Hct (42-52) % POC Hct (42-52) % RDW Std Deviation (36.4-46.3) fL RDW Coeff of Preeti (11.5-14.5) % Plt Count (130-400) K/uL MPV (7.4-10.4) fL Lymph # (Auto) (1.2-3.4) K/uL Absolute Nucleated RBC (0-0) K/uL APTT 44.1 H (21.0-31.0) Seconds POC pO2 (80-95) mmHg POC HCO3 (19-24) annamaria/L POC Base Excess (-9-1.8) annamaria/L BUN (7-18) mg/dl BUN/Creatinine Ratio (10-20) Glucose (70-99) mg/dl POC Glucose 133 H (70-99) Phosphorus (2.5-4.9) mg/dl Crossmatch (1) Pulmonary embolism Pulmonary embolism type: unspecified Chronicity: unspecified Acute cor pulmonale presence: without acute cor pulmonale Qualified Code(s): I26.99 - Other pulmonary embolism without acute cor pulmonale
[2018-09-08 16:43] LABS: Partial Thromboplastin Time 54.8 Seconds (21.0-31.0)
[2018-09-08] MEDS: ERTAPENEM SODIUM 1,000 MG in SODIUM CHLORIDE 0.9% 50 ML IV SCH (17:46)
[2018-09-08] MEDS: ALLOPURINOL 100 MG TAB PO SCH (20:14)
[2018-09-08] MEDS: ONDANSETRON INJ 2 MG/ML 2 ML VIAL IV PRN (20:53)
[2018-09-09] MEDS: ACETAMINOPHEN 325 MG TAB PO PRN (00:07)
[2018-09-09] MEDS: INSULIN ASPART 100 UNITS/ML 3 ML PEN SC SCH ×6 (00:07→21:11)
[2018-09-09] MEDS: METOPROLOL TARTRATE 1 MG/ML VIAL IV PRN (00:29)
[2018-09-09] MEDS: Heparin Adult STANDARD Wt-Based Dextrose 5% 25,000 units/500 mL IV SCH ×3 (04:21→23:12)
[2018-09-09 06:34] LABS: Partial Thromboplastin Ratio 1.6; Partial Thromboplastin Time 42.7 Seconds (21.0-31.0)
[2018-09-09 06:49] LABS: BUN Creatinine Ratio 19.9 (10-20); Calcium 8.7 mg/dl (8.5-10.1); Creatinine Clr Calc Pharmacy 104.6 ml/min; Est GFR (African American) 80.2; Est GFR (Non-African American) 69.2; Phosphorus 2.4 mg/dl (2.5-4.9); Potassium 4.2 mmol/L (3.5-5.1)
[2018-09-09 07:05] LABS: Estimated Average Glucose 151 mg/dl; Hemoglobin A1C 6.9 % (4.5-5.6)
[2018-09-09 07:08] LABS: Hematocrit (blood only) 26.8 % (42-52); Hemoglobin 8.7 g/dL (14.0-18.0); Mean Corpuscular Hgb Conc 32.5 g/dL (32-36); Mean Corpuscular Volume 98.9 fL (80-100); Mean Platelet Volume 12.2 fL (7.4-10.4); Nucleated RBC # (auto) 0.09 K/uL (0-0); Platelet Count 83 K/uL (130-400); RDW Coefficient of Variation 21.7 % (11.5-14.5); RDW Standard Deviation 75.2 fL (36.4-46.3); Red Blood Count 2.71 M/uL (4.7-6.1); White Blood Count 4.43 K/uL (4.8-10.8)
[2018-09-09 07:13] LABS: Anisocytosis Present; Basophils # (auto) 0.01 K/uL (0-0.2); Basophils % (auto) 0.2 %; Eosinophils # (auto) 0.02 K/uL (0-0.5); Eosinophils % (auto) 0.5 %; Immature Granulocytes # (auto) 0.02 K/uL (0.00-0.02); Immature Granulocytes % (auto) 0.5 %; Lymphocytes # (auto) 0.62 K/uL (1.2-3.4); Monocytes # (auto) 0.42 K/uL (0.11-0.59); Monocytes % (auto) 9.5 %; Neutrophils # (auto) 3.34 K/uL (1.4-6.5); Neutrophils % (auto) 75.3 %; Polychromasia 1+
[2018-09-09] MEDS ORDERED: HEPARIN SOD (PORCINE) 1000 UNIT/ML 10 ML VIAL IV ONE (07:16)
[2018-09-09] MEDS ORDERED: HEPARIN IV BOLUS 5,000 UNITS in SYRINGE 0 ML IV ONE (07:30)
[2018-09-09] MEDS: METOPROLOL TARTRATE 50 MG TAB PO SCH ×3 (08:14→21:10)
[2018-09-09] MEDS: FAMOTIDINE 20 MG in SYRINGE 3 ML IV SCH (08:16)
--- NOTE | 2018-09-09 13:13 | Pharmacy Report ---
Pharmacy Glycemic Short Note 2 - Date of Service September 09, 2018 - Glycemic Short BSG Results (Last 24 hours): 09/08/18 09/08/18 09/09/18 16:31 20:06 00:06 Glucose POC Glucose 140 H 134 H 133 H 09/09/18 09/09/18 09/09/18 04:20 05:43 08:13 Glucose 134 H POC Glucose 126 H 139 H 09/09/18 11:28 Glucose POC Glucose 161 H OUTPATIENT ANTIDIABETIC REGIMEN: * Metformin 1gm PO BID * Sitagliptin 100mg PO Q AM * A1c = 6.9% 09/09 The patient is currently receiving: * Basal insulin: * Correctional Insulin: Novolog Correction per scale ACHS Goal Range: Low 120 mg/dL - High 160 mg/dL Correction Factor: 25 mg/dL/unit * Prandial insulin: Per carb ratio of 1 unit per 9 grams CHO consumed ASSESSMENT: 09/09 * Patient's BSGs have been well controlled over past 3 days with no basal insulin * Fasting BSG this AM 134 * Patient had previously been NPO and has started on clears, pre-lunch BSG 161 * Will continue current parameters, continue to monitor for basal/bolus adjusments. 09/02 * Glycemic control deteriorated quickly yesterday with the administration of dexamethasone IV for nausea * Dexamethasone was administered at ~1400 09/01 and BSGs have remained in the mid 200s since * Patient was transferred to ICU for increasing respiratory distress * Will begin IV insulin drip at this time per ICU protocol as BSG > 220 is a trigger to begin the drip. [facility] recommends initiating IV insulin drip when BSG is greater than 150. An IV insulin drip is really the best suited method to address hyperglycemia induced by PRN high dose steroid therapy as it can be titrated up and down quickly. * This patient may not be agreeable to IV insulin infusion, thus will continue some basal insulin should we have to return to a SQ basal/bolus regimen due to patient refusal 08/31 * Type 2 diabetic admitted for A fib RVR, ADHF, and fever * We do not have a recent A1c to guide therapy. Patient states he tests BSG once daily prior to lunch and reports BSGs in the 130s * Admitting provider has ordered basal/bolus regimen based upon weight and low stress level. The current insulin doses are reasonable starting points. Would be hesitant to use weight and moderate stress level or higher for initial dose calculations given his body habitus and lack of A1c data. PLAN FOR INPATIENT GLYCEMIC CONTROL: Basal insulin: None * Correctional Insulin: Novolog Correction per scale ACHS Goal Range: Low 120 mg/dL - High 160 mg/dL Correction Factor: 25 mg/dL/unit * Prandial insulin: Per carb ratio of 1 unit per 9 grams CHO consumed PLAN FOR DISCHARGE: * to be determined
[2018-09-09] MEDS ORDERED: COUGH DROP (SUGAR FREE) LOZ 24 LOZ/1 BOX BUCCAL ONE (13:38)
--- NOTE | 2018-09-09 14:03 | Hospitalist Progress Note ---
Date of Service September 09, 2018 Assessment & Plan (1) Severe sepsis: Appears to be due to urinary tract infection/sepsis/bacteremia, present on admission. blood cultures show ESBL bacteremia most sensitive to ertapenem due to sepsis this is likely cause of bone marrow suppression which is related to his pancytopenia (2) Acute respiratory failure with hypoxia: Seems to be related to sepsis and/or primary lung pathology of previous left upper lobe squamous cell carcinoma. pt developed acidosis and hypercarbia, the decision was made for intubation. Patient now s/p extubation but has increased work of breathing but is improving every day, is continuing to use BiPAP support hs, and will be monitored for his tenuous respiratory status which is compounded by his morbid obesity and airway which is influenced by this same also (3) Atrial fibrillation: Patient with new onset atrial fibrillation with RVR. Below will discuss with cardiology further rate controlling agents -remains with variable rate control and anticoaguation with iv heparin (4) SOB (shortness of breath): likely multifactorial. Watch carefully reinstitute supportive BiPAP if needed (5) Fever: related to esbl sepsis. (6) Diabetes: insulin sliding scale management. remains with reasonable control (7) Gout: Chronic, previously without acute flare -Continue Allopurinol 300mg po daily, 100mg po qHS (8) COPD (chronic obstructive pulmonary disease): , supportive care, playing a role in his respiratory distress (9) Pulmonary embolism: Patient with newly diagnosed PE, systemic anticoagulation cautiously (10) Obesity: current BMI listed >50, next work of breathing more challenging (11) Hypertension: follow BP, help with blood pressure also (12) Chronic venous insufficiency: Patient with history of chronic venous insufficiency. Recently with cellulitis and poorly healing wounds. No ulcers or drainage appreciated at present. Patient is ertapenem (13) Antineoplastic chemotherapy induced pancytopenia: Subjective Patient's mom wants more awake and alert today though still somewhat confused he is improved respiratory distress. His is present at the bedside we di scussed the likelihood he is going need some rehab there is been some also discussion of long-term acute care rehab although he may improved to the point where we can deal with local acute rehab He has no complaints or problems he is unaware of his tachycardia related to his poorly controlled atrial fibrillation cardiology is continuing his beta- blockers. Consideration may be adding an additional agent such as digoxin Review of Systems Review of Systems: ROS: well nourished well developed. In mild to moderate distress still No double vision blurry vision No problems with speech or swallowing No palpitations, chest pain or pressure Continues to feel short of breath with increased work of breathing No abdominal pain nausea vomiting diarrhea changes in appetite or weight No burning urine has a urinary catheter No focal joint pain or muscle pain No skin rashes or oral lesions No unusual bruising or bleeding No focused back pain or numbness or loss of strength No changes in memory or confusion Physical Exam Physical Exam: The patient appeared well nourished and normally developed. Vital signs as documented. Head exam is unremarkable. normocephalic, atraumatic Neck is without jugular venous distension, thyromegaly, or lymphademopathy Lungs are coarse bilaterally with decreased breath sounds at the bases and accessory muscle use consistent with mild to moderate respiratory distress Cardiac exam reveals tachycardic and irregularly irregular Abdominal exam reveals normal bowel sounds, no masses, no organomegaly Extremities are moderately edematous and both pedal pulses are present Neurologic exam is A&Ox3, no focal deficits, strength is equal bilateral Psychologically seems anxious confused at times Skin is warm Dry Results & Data Vital Signs (Past 12 Hours) Vital Signs Temp Pulse Pulse Resp BP Pulse Ox 09/09/18 10:53 36.5 C 100 H 30 H 123/76 96 09/09/18 07:43 36.7 C 110 H 29 H 117/69 95 09/09/18 03:06 36.6 C 110 H 26 H 126/80 93 PG Care Time/CCT Total # of Minutes Spent Total Time Spent with Patient: Total time spent is greater than 50% in coordination of care (as documented) at patient's floor/unit and/or counseling patient: (1) Atrial fibrillation Atrial fibrillation type: unspecified Qualified Code(s): I48.91 - Unspecified atrial fibrillation (2) Fever Fever type: unspecified Qualified Code(s): R50.9 - Fever, unspecified (3) Diabetes Diabetes mellitus type: type 2 Diabetes mellitus detention insulin use: without exterminator helper use Diabetes mellitus complication status: without complication Qualified Code(s): E11.9 - Type 2 diabetes mellitus without complications (4) Gout Gout site: unspecified site Gout etiology: unspecified cause Chronicity: chronic (5) COPD (chronic obstructive pulmonary disease) COPD type: unspecified COPD Qualified Code(s): J44.9 - Chronic obstructive pulmonary disease, unspecified (6) Pulmonary embolism Pulmonary embolism type: unspecified Chronicity: unspecified Acute cor pulmonale presence: without acute cor pulmonale Qualified Code(s): I26.99 - Other pulmonary embolism without acute cor pulmonale (7) Obesity Obesity type: due to excess calories Obesity classification: adult class 3 (BMI >= 40) Serious obesity comorbidity presence: with serious comorbidity Body mass index: BMI 60.0-69.9 Qualified Code(s): E66.01 - Morbid (severe) obesity due to excess calories; Z68.44 - Body mass index (BMI) 60.0-69.9, adult (8) Hypertension Hypertension type: essential hypertension Qualified Code(s): I10 - Essential (primary) hypertension
[2018-09-09 14:22] LABS: Partial Thromboplastin Ratio 2.2
[2018-09-09 14:24] LABS: Partial Thromboplastin Time 59.2 Seconds (21.0-31.0)
[2018-09-09 15:17] LABS: iSTAT Allen Test Pass; iSTAT Arterial Blood Gas HCO3 27 meg/L (19-24); iSTAT Arterial Blood Gas pCO2 41 mmHg (35-46); iSTAT Arterial Blood Gas pH 7.43 (7.35-7.45); iSTAT Carbon Dioxide 28 mEq/l (24-31); iSTAT Hematocrit 32 % (42-52); iSTAT Hemoglobin 10.9 g/dl (14.0-18.0); iSTAT Potassium 3.8 mEq/L (3.3-5.0); iSTAT Site R Radial; iSTAT Sodium 141 mEq/L (135-144)
[2018-09-09] MEDS: ERTAPENEM SODIUM 1,000 MG in SODIUM CHLORIDE 0.9% 50 ML IV SCH (16:45)
[2018-09-09] MEDS: ONDANSETRON INJ 2 MG/ML 2 ML VIAL IV PRN (16:52)
[2018-09-09] MEDS: FAMOTIDINE 20 MG TAB PO SCH (21:10)
[2018-09-09] MEDS: ALLOPURINOL 100 MG TAB PO SCH (21:10)
[2018-09-10 06:38] LABS: Partial Thromboplastin Ratio 1.9
[2018-09-10 06:40] LABS: Partial Thromboplastin Time 52.1 Seconds (21.0-31.0)
--- NOTE | 2018-09-10 07:52 | Hospitalist Progress Note ---
Date of Service September 10, 2018 Assessment & Plan (1) Severe sepsis: Appears to be due to urinary tract infection/sepsis/bacteremia, present on admission. blood cultures show ESBL bacteremia most sensitive to ertapenem due to sepsis this is likely cause of bone marrow suppression which is related to his pancytopenia patient remains stubbornly mildly pancytopenic (2) Acute respiratory failure with hypoxia: Seems to be related to sepsis and/or primary lung pathology of previous left upper lobe squamous cell carcinoma. pt developed acidosis and hypercarbia, the decision was made for intubation. Patient now s/p extubation and is improving every day, is continuing to use BiPAP support hs. His respiratory failure is compounded by his morbid obesity and airway size reduction which could be influenced by his obesity also (3) Atrial fibrillation: Patient with new onset atrial fibrillation with RVR. Remains on 3 times daily metoprolol tartrate -remains with variable rate control and anticoaguation with iv heparin previously was on Xarelto however at this time given his anemia and thrombocytopenia we will hold on conversion to Xarelto of note he has a PE which would likely require fully therapeutic Xarelto when initiated (4) Antineoplastic chemotherapy induced pancytopenia: Patient's anemia is likely multifactorial both from the chemotherapy-ind uced and also anemia of chronic disease no overt signs of acute blood loss anemia at this time (5) Fever: related to esbl sepsis. (6) Diabetes: insulin sliding scale management. Continues to remain with reasonable control (7) Gout: Chronic, previously without acute flare -Continue Allopurinol 300mg po daily, 100mg po qHS (8) COPD (chronic obstructive pulmonary disease): (9) Pulmonary embolism: Patient with newly diagnosed PE, systemic anticoagulation cautiously will eventually convert to Xarelto both for A. fib and for his PE (10) Obesity: current BMI listed >50, this increases work of breathing makes physical therapy and rehab more challenging (11) Hypertension: Metoprolol tartrate (12) Chronic venous insufficiency: Patient with history of chronic venous insufficiency. Recently with cellulitis and poorly healing wounds. No ulcers or drainage appreciated at present. Patient is on ertapenem for his ESBL E. coli UTI Subjective Patient feels getting better every day is encouraged to try to get out of bed today he says he feels his breathing is improved he is having very little coughing his appetite is also improving Review of Systems Review of Systems: ROS: Patient is markedly morbidly obese with a BMI of 57 No double vision blurry vision No problems with speech or swallowing No palpitations, chest pain or pressure No Wheezing does still get dyspneic with exertion and movement No abdominal pain nausea vomiting diarrhea No burning urine does a Cooper catheter in place Has muscular skeletal discomfort from lying in bed No skin rashes or oral lesions No focused back pain or numbness or loss of strength Improving confusion and memory loss Physical Exam Physical Exam: Irregular with better rate controlThe patient appeared well nourished and is morbidly obese Vital signs as documented. Remains with mild respiratory distress Head exam is unremarkable. normocephalic, atraumatic Neck is without jugular venous distension, thyromegaly, or lymphademopathy Lungs are managed at the base likely to his recumbency and obesity Cardiac exam reveals Rhythm is regular. First and second heart sounds normal. Abdominal exam reveals normal bowel sounds, no masses, no organomegaly Extremities are mildly edematous and both pedal pulses are present Neurologic exam is A&Ox3, no focal deficits, strength is diminished but is able to stand for short periods of time on 09/10 Psychologically seems neither anxious or depressed Skin is warm Dry Results & Data Vital Signs (Past 12 Hours) Vital Signs Temp Pulse Pulse Pulse Resp BP BP 09/10/18 07: 36.6 C 93 H 27 H 114/81 09/10/18 03:19 36.4 C L 103 H 26 H 106/63 09/10/18 02:13 106 H 24 09/10/18 00:56 104 H 09/09/18 23:06 36.8 C 94 H 18 115/63 Pulse Ox 09/10/18 07:19 91 09/10/18 03:19 93 09/10/18 02:13 96 09/10/18 00:56 09/09/18 23:06 96 PG Care Time/CCT Total # of Minutes Spent Total Time Spent with Patient: Total time spent is greater than 50% in coordination of care (as documented) at patient's floor/unit and/or counseling patient: (1) Fever Fever type: unspecified Qualified Code(s): R50.9 - Fever, unspecified (2) Diabetes Diabetes mellitus complication status: without complication Diabetes mellitus long-term insulin use: without long-term use Diabetes mellitus type: type 2 Qualified Code(s): E11.9 - Type 2 diabetes mellitus without complications (3) Gout Chronicity: chronic Gout etiology: unspecified cause Gout site: unspecified site (4) Atrial fibrillation Atrial fibrillation type: unspecified Qualified Code(s): I48.91 - Unspecified atrial fibrillation (5) COPD (chronic obstructive pulmonary disease) COPD type: unspecified COPD Qualified Code(s): J44.9 - Chronic obstructive pulmonary disease, unspecified (6) Pulmonary embolism Acute cor pulmonale presence: without acute cor pulmonale Chronicity: unspecified Pulmonary embolism type: unspecified Qualified Code(s): I26.99 - Other pulmonary embolism without acute cor pulmonale (7) Hypertension Hypertension type: essential hypertension Qualified Code(s): I10 - Essential (primary) hypertension (8) Obesity Body mass index: BMI 60.0-69.9 Obesity classification: adult class 3 (BMI >= 40) Obesity type: due to excess calories Serious obesity comorbidity presence: with serious comorbidity Qualified Code(s): E66.01 - Morbid (severe) obesity due to excess calories; Z68.44 - Body mass index (BMI) 60.0-69.9, adult
[2018-09-10] MEDS: INSULIN ASPART 100 UNITS/ML 3 ML PEN SC SCH ×4 (08:22→21:13)
[2018-09-10] MEDS: Heparin Adult STANDARD Wt-Based Dextrose 5% 25,000 units/500 mL IV SCH ×2 (08:23→17:59)
[2018-09-10] MEDS: FAMOTIDINE 20 MG TAB PO SCH ×2 (08:24→21:12)
[2018-09-10] MEDS: METOPROLOL TARTRATE 50 MG TAB PO SCH ×3 (08:24→21:12)
[2018-09-10 09:00] LABS: BUN Creatinine Ratio 18.9 (10-20); Calcium 8.9 mg/dl (8.5-10.1); Creatinine Clr Calc Pharmacy 120.2 ml/min; Est GFR (African American) 94.8; Est GFR (Non-African American) 81.8; Potassium 3.8 mmol/L (3.5-5.1)
[2018-09-10 09:43] LABS: Anisocytosis Present; Basophils # (auto) 0.01 K/uL (0-0.2); Basophils % (auto) 0.3 %; Eosinophils # (auto) 0.01 K/uL (0-0.5); Eosinophils % (auto) 0.3 %; Hematocrit (blood only) 24.8 % (42-52); Immature Granulocytes # (auto) 0.01 K/uL (0.00-0.02); Immature Granulocytes % (auto) 0.3 %; Lymphocytes % (auto) 15.9 %; Mean Corpuscular Hgb Conc 32.3 g/dL (32-36); Mean Corpuscular Volume 99.2 fL (80-100); Mean Platelet Volume 13.2 fL (7.4-10.4); Monocytes # (auto) 0.36 K/uL (0.11-0.59); Monocytes % (auto) 9.5 %; Neutrophils # (auto) 2.79 K/uL (1.4-6.5); Neutrophils % (auto) 73.7 %; Nucleated RBC # (auto) 0.03 K/uL (0-0); Nucleated RBC % (auto) 0.8 %; Platelet Count 82 K/uL (130-400); Platelet Estimate Decreased (Normal); RDW Coefficient of Variation 21.3 % (11.5-14.5); RDW Standard Deviation 75.4 fL (36.4-46.3); White Blood Count 3.78 K/uL (4.8-10.8)
--- NOTE | 2018-09-10 10:21 | Pharmacy Report ---
Pharmacy Glycemic Short Note 2 - Date of Service September 10, 2018 - Glycemic Short BSG Results (Last 24 hours): 09/09/18 09/09/18 09/09/18 11:28 16:29 20:34 Glucose POC Glucose 161 H 140 H 136 H 09/10/18 09/10/18 06:09 07:21 Glucose 132 H POC Glucose 123 H OUTPATIENT ANTIDIABETIC REGIMEN: * Metformin 1gm PO BID * Sitagliptin 100mg PO Q AM * A1c = 6.9% 09/09 The patient is currently receiving: * Basal insulin: * Correctional Insulin: Novolog Correction per scale ACHS Goal Range: Low 120 mg/dL - High 160 mg/dL Correction Factor: 25 mg/dL/unit * Prandial insulin: Per carb ratio of 1 unit per 9 grams CHO consumed ASSESSMENT: * Patient's BSGs have been well controlled over past 4 days with no basal insulin * Fasting BSG this AM 123 * Full liquid diet, advanced from [facility] * Will continue current parameters, continue to monitor for basal/bolus adjusments. PLAN FOR INPATIENT GLYCEMIC CONTROL: Basal insulin: None * Correctional Insulin: Novolog Correction per scale ACHS Goal Range: Low 120 mg/dL - High 160 mg/dL Correction Factor: 25 mg/dL/unit * Prandial insulin: Per carb ratio of 1 unit per 9 grams CHO consumed
[2018-09-10] MEDS: ERTAPENEM SODIUM 1,000 MG in SODIUM CHLORIDE 0.9% 50 ML IV SCH (17:21)
[2018-09-10] MEDS: ALLOPURINOL 100 MG TAB PO SCH (21:12)
[2018-09-11] MEDS: CHLORASEPTIC 1.4% SOLN 180 ML BTL MT PRN ×2 (00:25→06:50)
[2018-09-11] MEDS: ACETAMINOPHEN 325 MG TAB PO PRN ×2 (00:25→21:47)
[2018-09-11] MEDS: Heparin Adult STANDARD Wt-Based Dextrose 5% 25,000 units/500 mL IV SCH ×3 (03:55→21:39)
[2018-09-11 06:27] LABS: Partial Thromboplastin Ratio 2.1
[2018-09-11 06:40] LABS: BUN Creatinine Ratio 17.7 (10-20); Calcium 8.4 mg/dl (8.5-10.1); Creatinine Clr Calc Pharmacy 137.8 ml/min; Est GFR (African American) 103.8; Est GFR (Non-African American) 89.6; Potassium 3.5 mmol/L (3.5-5.1)
--- NOTE | 2018-09-11 07:54 | Hospitalist Progress Note ---
Date of Service September 11, 2018 Assessment & Plan (1) Severe sepsis: Appears to be due to urinary tract infection/sepsis/bacteremia, present on admission. blood cultures show ESBL bacteremia most sensitive to ertapenem started 09/03 due to sepsis this is likely cause of bone marrow suppression which is related to his pancytopenia patient remains stubbornly mildly pancytopenic (2) Acute respiratory failure with hypoxia: Seems to be related to sepsis and/or primary lung pathology of previous left upper lobe squamous cell carcinoma. pt developed acidosis and hypercarbia, the decision was made for intubation. Patient now s/p extubation and is improving every day, is continuing to use BiPAP support hs. His respiratory failure is compounded by his morbid obesity and airway size reduction which could be influenced by his obesity also He continues to stabilize with regard to his respiratory status (3) Atrial fibrillation: Patient with new onset atrial fibrillation with RVR.transition to po metoprolol succinate bid -remains with anticoaguation with iv heparin previously was on Xarelto however at this time given his anemia and thrombocytopenia we will hold on conversion to Xarelto of note he has a PE which would likely require fully therapeutic Xarelto when initiated 09/12 change metoprolol tartrate to succinate increased dose from 150mg a day to 200 day given in divided doses. (4) Antineoplastic chemotherapy induced pancytopenia: Patient's anemia is likely multifactorial both from the chemotherapy- induced and also anemia of chronic disease no overt signs of acute blood loss anemia at this time His hemoglobin is been hovering around 8 is hopes that it would improve not his sepsis is treated and is time from his last chemotherapy treatment is becoming more distant however hemoglobin check is pending on 09/12 (5) Fever: Resolved related to esbl sepsis. (6) Diabetes: insulin sliding scale management. Continues to remain with reasonable control (7) Gout: Chronic, previously without acute flare -Continue Allopurinol 300mg po daily, 100mg po qHS (8) COPD (chronic obstructive pulmonary disease): , Is been stable (9) Pulmonary embolism: Patient with newly diagnosed PE, systemic anticoagulation cautiously will eventually convert to Xarelto both for A. fib and for his PE (10) Obesity: current BMI listed >50, this increases work of breathing makes physical therapy and rehab more challenging (11) Hypertension: Metoprolol succinate (12) Chronic venous insufficiency: Patient with history of chronic venous insufficiency. Recently with cellulitis and poorly healing wounds. No ulcers or drainage appreciated at present. Patient is on ertapenem for his ESBL E. coli UTI Subjective Patient's been able to stand and pivot and get out of bed he is sitting in the chair. He still is markedly dyspneic on exertion. He is a no signs of melena or other blood loss. He remains pancytopenic from his chemotherapy and sepsis. He is understanding that he will proceed to rehab facility after discharge after personal discussion by myself with physical and occupational therapy today to do believe he is too weak to go to acute rehab and may benefit from subacute rehab. Review of Systems Review of Systems: ROS: Patient is fatigued and tired he remains morbidly obese with a BMI of 57 No double vision blurry vision No problems with speech or swallowing No palpitations, chest pain or pressure Persistent dyspnea with minimal exertion No abdominal pain nausea vomiting diarrhea changes in appetite or weight No burning urine urine frequency or changes in color No focal joint pain or muscle pain No skin rashes or oral lesions No unusual bruising or bleeding No focused back pain or numbness or loss of strength No changes in memory or confusion Physical Exam Physical Exam: The patient appeared well nourished and normally developed. Vital signs as documented he remains with some tachycardic heart rates his metoprolol was changed on 09/12. Head exam is unremarkable. normocephalic, atraumatic Neck is without jugular venous distension, thyromegaly, or lymphademopathy Lungs are diminished bibasilarly Cardiac exam reveals tachycardic irregular rhythm Abdominal exam reveals normal bowel sounds, no masses, no organomegaly Extremities are mild to moderately edematous and both pedal pulses are present Neurologic exam is A&Ox3, no focal deficits, strength is equal bilateral but globally weak Psychologically seems neither anxious or depressed Skin is warm Dry Results & Data Vital Signs (Past 12 Hours) Vital Signs Temp Pulse Pulse Pulse Resp BP Pulse Ox 09/11/18 07:37 36.8 C 107 H 21 151/61 H 96 09/11/18 03:20 36.9 C 98 H 20 151/62 H 92 09/11/18 00:01 102 H 09/10/18 22:58 36.9 C 109 H 26 H 134/65 94 09/10/18 22:12 102 H 22 90 PG Care Time/CCT Total # of Minutes Spent Total Time Spent with Patient: Total time spent is greater than 50% in coordin ation of care (as documented) at patient's floor/unit and/or counseling patient: (1) Fever Fever type: unspecified Qualified Code(s): R50.9 - Fever, unspecified (2) Diabetes Diabetes mellitus complication status: without complication Diabetes mellitus fpc insulin use: without termination clerk use Diabetes mellitus type: type 2 Qualified Code(s): E11.9 - Type 2 diabetes mellitus without complications (3) Gout Chronicity: chronic Gout etiology: unspecified cause Gout site: unspecified site (4) Atrial fibrillation Atrial fibrillation type: unspecified Qualified Code(s): I48.91 - Unspecified atrial fibrillation (5) COPD (chronic obstructive pulmonary disease) COPD type: unspecified COPD Qualified Code(s): J44.9 - Chronic obstructive pulmonary disease, unspecified (6) Pulmonary embolism Acute cor pulmonale presence: without acute cor pulmonale Chronicity: unspecified Pulmonary embolism type: unspecified Qualified Code(s): I26.99 - Other pulmonary embolism without acute cor pulmonale (7) Hypertension Hypertension type: essential hypertension Qualified Code(s): I10 - Essential (primary) hypertension (8) Obesity Body mass index: BMI 60.0-69.9 Obesity classification: adult class 3 (BMI >= 40) Obesity type: due to excess calories Serious obesity comorbidity presence: with serious comorbidity Qualified Code(s): E66.01 - Morbid (severe) obesity due to excess calories; Z68.44 - Body mass index (BMI) 60.0-69.9, adult
[2018-09-11] MEDS: FAMOTIDINE 20 MG TAB PO SCH ×2 (08:21→21:40)
[2018-09-11] MEDS: INSULIN ASPART 100 UNITS/ML 3 ML PEN SC SCH ×4 (08:22→21:39)
[2018-09-11] MEDS: METOPROLOL SUCC 50MG EXT REL TAB PO SCH ×2 (08:23→21:40)
[2018-09-11] MEDS: ALBUTEROL 0.5% NEB SOLN 2.5 MG/0.5 ML VIAL NEB PRN ×2 (12:49→15:49)
[2018-09-11] MEDS: ERTAPENEM SODIUM 1,000 MG in SODIUM CHLORIDE 0.9% 50 ML IV SCH (18:09)
[2018-09-11] MEDS: ALLOPURINOL 100 MG TAB PO SCH (21:41)
[2018-09-12] MEDS: Heparin Adult STANDARD Wt-Based Dextrose 5% 25,000 units/500 mL IV SCH ×3 (05:29→23:31)
[2018-09-12 06:11] LABS: Hematocrit (blood only) 25.6 % (42-52); Hemoglobin 8.2 g/dL (14.0-18.0); Mean Corpuscular Volume 99.6 fL (80-100); Mean Platelet Volume 10.4 fL (7.4-10.4); Platelet Count 101 K/uL (130-400); RDW Coefficient of Variation 21.4 % (11.5-14.5); RDW Standard Deviation 75.6 fL (36.4-46.3); Red Blood Count 2.57 M/uL (4.7-6.1); White Blood Count 3.18 K/uL (4.8-10.8)
[2018-09-12 06:37] LABS: Partial Thromboplastin Ratio 2.4
[2018-09-12 06:40] LABS: Calcium 8.5 mg/dl (8.5-10.1); Creatinine Clr Calc Pharmacy 141.2 ml/min; Est GFR (African American) 104.9; Est GFR (Non-African American) 90.5; Potassium 3.6 mmol/L (3.5-5.1)
[2018-09-12 06:51] LABS: Partial Thromboplastin Time 66.3 Seconds (21.0-31.0)
[2018-09-12] MEDS: INSULIN GLARGINE SOLOSTAR 100 UNITS/ML 3 ML PEN SC SCH (08:52)
[2018-09-12] MEDS: INSULIN ASPART 100 UNITS/ML 3 ML PEN SC SCH ×4 (08:52→22:17)
[2018-09-12] MEDS: METOPROLOL SUCC 50MG EXT REL TAB PO SCH ×2 (08:53→20:16)
[2018-09-12] MEDS: FAMOTIDINE 20 MG TAB PO SCH ×2 (08:53→20:17)
[2018-09-12] MEDS: ALBUTEROL 0.5% NEB SOLN 2.5 MG/0.5 ML VIAL NEB PRN (09:14)
--- NOTE | 2018-09-12 09:22 | Progress Note ---
DATE: 09/12/2018 FOLLOWUP NOTE DIAGNOSES: 1. Severe sepsis. 2. Acute respiratory failure with hypoxia. 3. Pancytopenia, attributable to chemotherapy. 4. Fever. 5. Nonsmall cell lung cancer. 6. Obesity/hypoventilation syndrome. SUBJECTIVE: Greyson was seen and examined at bedside. I was happy to see, he was transferred from the ICU to a monitored bed. His breathing has improved dramatically. He is slowly turning the corner; however, now seems to be hampered with sore throat, I suspect attributable to an endotracheal tube. His appetite has been slow to return mainly because he has difficulty with swallowing. Nursing reports no overnight difficulties otherwise. PHYSICAL EXAMINATION: GENERAL: Morbidly obese 68-year-old gentleman in no acute distress. VITAL SIGNS: Temperature 36.9, pulse 95, respiratory rate 37, blood pressure 118/69. SKIN: Without rash or lesion. HEENT: No evidence of thrush. Mucosa is clear otherwise. NECK: Bull neck. HEART: Regular rate and rhythm. LUNGS: Clear to auscultation. ABDOMEN: Obese, nontender, nondistended. EXTREMITIES: No clubbing, cyanosis or edema. LABORATORY DATA: WBC count 3180, hemoglobin 8.2, platelet count 101,000. PTT 66.3 seconds. Sodium 139, potassium 3.6, chloride 103, carbon dioxide 31, creatinine 0.8, BUN 10. IMPRESSION: 1. Acute respiratory failure with hypoxia. 2. Sepsis. 3. Atrial fibrillation. 4. Cytopenias, attributable to previous chemo. 5. Fever. 6. Diabetes mellitus. 7. Nonsmall cell lung cancer. PLAN: Mr. Leary seems to be making some progress here. I have asked nursing to add Magic mouthwash to his current medicines, hopefully assist in his ongoing sore throat which I believe is attributed to his previous endotracheal tube. There is no evidence of thrush on oral examination today. Again, he is not well enough to resume chemotherapy. Would try to maintain his hemoglobin closer to 10. Thank you very much for assisting us in his care. TANISHA
--- NOTE | 2018-09-12 09:32 | Cardiology Progress Note ---
Date of Service September 12, 2018 Assessment & Plan (1) Atrial fibrillation: Although by history he did not have much atrial fibrillation prior to admission, I suspect he has had it and now he has been in it in a persistent manner. He should have long-term anticoagulation. Anticoagulation was held with low platelets, however he is now on heparin and should be able to be transitioned back to his outpatient Xarelto when it is felt safe. His heart rate is somewhat fast, his blood pressure is not low. For rate control he is on metoprolol tartrate 100 mg twice daily, as an outpatient he was only on 25 mg daily. Some of the increased heart rate is probably due to catecholamines however think better heart rate control would be preferable and I would maintain the current dose if possible. (2) Anticoagulant long-term use: He was on Xarelto for PE which will work for atrial fibrillation over the long run but for now he is on heparin. His platelet count is still low but it is coming up and he is not having evidence of bleeding that I know of. I would transition to his outpatient dose Xarelto when able. Subjective Today he is awake and alert and has no cardiovascular complaints. When asked about chest discomfort however he tells me he has pain in his esophagus, sounds like that is what it is not cardiac pain. No shortness of breath now. Physical Exam Physical Exam: Constitutional: Alert, cooperative and in no distress. He is morbidly obese. Pulmonary: Clear to auscultation bilaterally. Cardiac: Irregular rhythm with no murmur, gallop or rub. Abdomen: Soft, nontender with normal bowel sounds. Extremities: No edema. Skin: No rash, ecchymoses or petechiae. Results & Data Vital Signs (Past 12 Hours) Vital Signs Temp Pulse Pulse Pulse Resp BP Pulse Ox 09/12/18 09:14 105 H 18 94 09/12/18 07:18 95 H 09/12/18 07:08 36.9 C 101 H 37 H 118/69 96 09/12/18 03:56 36.5 C 99 H 20 115/62 97 09/12/18 00:16 98 H 34 H 93 09/11/18 23:38 37.0 C 100 H 118/67 96 Diagnostic Findings Telemetry: Atrial fibrillation, heart rate adequately controlled (1) Atrial fibrillation Atrial fibrillation type: unspecified Qualified Code(s): I48.91 - Unspecified atrial fibrillation
[2018-09-12] MEDS: DEXAMETHASONE CONC 3.75 MG, NYSTATIN 30 ML, DiphenhydrAMINE Syrup 300 MG, ORA-SWEET SYR... PO PRN ×3 (10:33→20:14)
[2018-09-12] MEDS ORDERED: NYSTATIN CR 15 GM TUBE EXT PRN (10:47)
--- NOTE | 2018-09-12 11:27 | Palliative Care Progress Note ---
Date of Service September 12, 2018 Assessment & Plan (1) Goals of care, counseling/discussion: 68 year old male with non-small cell lung cancer, oxygen-dependent COPD, DM, and obesity, presented to the hospital six days ago from [facility]. Admitted to ICU with respiratory failure and severe sepsis 2/2 UTI. The day of arrival, patient had developed subjective fevers and chills/rigors as well as diffuse weakness, nausea, appetite loss and shortness of breath, inability to ambulate due to weakness and dyspnea. EMS was called and the patient was transported to [facility]. Per report he was tachycardic in the ambulance with HR of 180. He was administered IV Cardizem en route to [facility]. While at [place] he was given IVF, Cardizem and Zosyn. He was subsequently transferred to [facility] for continuity of care. Initially, he was doing okay with supplemental oxygen, but continued to decompensate until he had to be sent to ICU and intubated. He remains intubated in the ICU on 50% FiO2, being treated for his severe sepsis. Patient is currently undergoing chemotherapy u nder the care of Dr. Crandall. Given his cancer diagnosis, comorbidities, and critical illness, palliative care is consulted to discuss goals of care and provide support. -Patient improving back towards baseline; however, anticipated multiple days more for his current admission. -Patients mental status has significantly improved and he is able to have a full conversation while understanding the complexity of his illness. -Patient states that he feels that he has overall showed significant improvement over the past few days, but knows "I have a long road to go" -We talked about his code status, unrelated to any other events and he did state that he would continue to want to receive CPR and intubation, at least give it a try one time. He stated that his daughter is an RN and he trusts she will know when the time is to change his decision. Pt to remain a FULL CODE. -At this time, we would like to remain involved with this patient peripherally and to provide support for the patients . Please contact us with any additional changes in his medical condition or if the patient or family requests to see us. 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 Patient states "I am getting better, slowly, but am getting better. His main concern today was that he does not have a cell phone clerk operator. He chuckled when he said that. Per nursing, no acute complaints. Patient , Colette, was in the patient's room initially and she said she was pleased with his progress. Wednesday, patient was OOB to chair for 6 hours and yesterday for 4 hours. Review of Systems Review of Systems: Pt denies CP, SOB, pain, N/V/D, PAREDES, dizziness. Physical Exam Constitutional: well nourished, + ill appearing, + well hydrated and + obese Eyes: PERRL, conjunctivae normal, anicteric sclerae ENMT: external ear and nose normal, oropharynx normal Neck: + short neck Respiratory: normal respiratory effort, + uses accessory muscles and able to speak in complete sentences Auscultation: + diminished lung sounds and + wheezes Cardiovascular: Rate/Rhythm: regular rate Heart Sounds: normal S1 and normal S2 Extremities: normal capillary refill and + edema Gastrointestinal (Abdomen): Inspection/Auscultation: normal bowel sounds and + significant pannus Percussion/Palpation: abdomen soft Skin: + pallor teds on Psychiatric: A+Ox3, euthymic affect Insight: good insight Judgement: + limited judgement Genitourinary: pichardo catheter draining clear yellow urine Lymphatic: no cervical or axillary lymphadenopathy Results & Data Vital Signs (Past 12 Hours) Vital Signs Temp Pulse Pulse Pulse Resp BP Pulse Ox 09/12/18 09:14 105 H 18 94 09/12/18 07:18 95 H 09/12/18 07:08 36.9 C 101 H 37 H 118/69 96 09/12/18 03:56 36.5 C 99 H 20 115/62 97 09/12/18 00:16 98 H 34 H 93 09/11/18 23:38 37.0 C 100 H 118/67 96 PG Care Time/CCT Total # of Minutes Spent Total Time Spent with Patient: Total time spent is greater than 50% in coordination of care (as documented) at patient's floor/unit and/or counseling patient: 25 Time Spent Midlevel Total time spent 25 minutes with > 50% of that time spent assessing patient and discussing code status (1) COPD (chronic obstructive pulmonary disease) COPD type: unspecified COPD Qualified Code(s): J44.9 - Chronic obstructive pulmonary disease, unspecified
--- NOTE | 2018-09-12 12:13 | Hospitalist Progress Note ---
Date of Service September 12, 2018 Assessment & Plan (1) Acute on chronic respiratory failure with hypoxia and hypercapnia: Multifactorial, in setting of severe sepsis/bacteremia, CIARRA lung cancer, COPD, acute diastolic CHF, etc. reports chronic O2 dependency at home. Finishing IV antibiotics for bacteremia. Resume lasix for diastolic CHF. (2) Severe sepsis: 2nd to ESBL e.coli bacteremia. Source? urine cx did not grow pathogen. positive blood culture was NOT from port and subsequent cultures were negative making the port unlikely. he does not have a gall bladder. lung? day #11 of ertapenem. plan 14 days in total. Present on Admission?: Yes (3) Acute diastolic CHF (congestive heart failure): patient's weight is down 15-20 kg since admission. x-rays suggest element of volume overload. continue lasix 80mg po daily (home dose). continue metoprolol succinate 100mg BID. recent echo results were limited but appeared to show intact LV function. Present on Admission?: Yes (4) Atrial fibrillation: New this admission. Remains in sustained a.fib. Rate control fair. Continues on metoprolol succinate 100mg BID. Appreciate cardiology consultation. Will transition off heparin drip back to xarelto in am. (5) Diabetes: Glycemic control satisfactory at this time. Cont novolog SSI. (6) Gout: Continue Allopurinol - need to clarify dose with patient and his . No flare at this time. (7) COPD (chronic obstructive pulmonary disease): Stable. Cont xopenex /atrovent q6h. (8) Pulmonary embolism: Patient with newly diagnosed PE - discovered at outside hospital by report. (reported to have an elevated D-dimer but could not obtain CTA due to CKD). Will need to review those records. Transition to xarelto in am. Present on Admission?: Yes (9) Obesity: BMI 56 (10) Hypertension: Continue Metoprolol succinate Controlled (11) Chronic venous insufficiency: normally takes BID keflex for cellulitis prophylaxis hold while on IV ertapenem (12) Antineoplastic chemotherapy induced pancytopenia: Improving - last chemo was before admission. CBC in am for stability. (13) Sore throat: due to recent intubation? no signs of thrush or mucositis. magic mouthwash qid added by Dr Patel today. 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 but no orthopnea. a.fib on tele - rates low 100s at rest, with some 90s. in the afternoon he was working with PT/OT and developed subcostal pain with ambulation. any movement causes pain over this area. c/o sore throat. c/o anorexia. Review of Systems Constitutional: no fever Respiratory: + dyspnea; no hemoptysis Cardiovascular: no chest pain, no orthopnea and no edema Gastrointestinal: no abdominal pain, no nausea and no vomiting Physical Exam Constitutional: + morbidly obese; no acute distress and no altered mental status ENMT: external ear and nose normal, oropharynx normal Mouth: no oral mucosal abnormality and oral mucous membranes not dry (no thrush or mucositis ) Respiratory: no respiratory distress Auscultation: + wheezes; no rales very course BS left chest Cardiovascular: Rate/Rhythm: + tachycardic and + irregularly irregular Heart Sounds: normal S1 and normal S2; no murmur Vessels: posterior tibial pulses present and dorsalis pedis pulses present; no JVD Extremities: no edema Gastrointestinal (Abdomen): normal bowel sounds, soft, nontender, no hepatosplenomegaly Psychiatric: A+Ox3, euthymic affect Results & Data Vital Signs (Past 12 Hours) Vital Signs Temp Pulse Pulse Resp BP Pulse Ox 09/12/18 09:14 105 H 18 94 09/12/18 07:18 95 H 09/12/18 07:08 36.9 C 101 H 37 H 118/69 96 09/12/18 03:56 36.5 C 99 H 20 115/62 97 09/12/18 00:16 98 H 34 H 93 Laboratory Results Laboratory Results - last 24 hr 09/11/18 09/11/18 09/12/18 16:30 21:01 05:58 WBC 3.18 L RBC 2.57 L Hgb 8.2 L Hct 25.6 L MCV 99.6 MCH 31.9 MCHC 32.0 RDW Std Deviation 75.6 H RDW Coeff of Preeti 21.4 H Plt Count 101 L MPV 10.4 APTT PTT Ratio Sodium Potassium Chloride Carbon Dioxide Anion Gap BUN Creatinine Est Cr Clr Drug Dosing Est GFR ( Amer) Est GFR (Non-Af Amer) BUN/Creatinine Ratio Glucose POC Glucose 123 H 143 H Calcium 09/12/18 09/12/18 09/12/18 05:58 05:58 07:18 WBC RBC Hgb Hct MCV MCH MCHC RDW Std Deviation RDW Coeff of Preeti Plt Count MPV APTT 66.3 H* PTT Ratio 2.4 Sodium 139 Potassium 3.6 Chloride 103 Carbon Dioxide 31 Anion Gap 5.0 BUN 10 D Creatinine 0.80 Est Cr Clr Drug Dosing 141.2 Est GFR ( Amer) 104.9 Est GFR (Non-Af Amer) 90.5 BUN/Creatinine Ratio 12.0 Glucose 131 H POC Glucose 132 H Calcium 8.5 09/12/18 11:41 WBC RBC Hgb Hct MCV MCH MCHC RDW Std Deviation RDW Coeff of Preeti Plt Count MPV APTT PTT Ratio Sodium Potassium Chloride Carbon Dioxide Anion Gap BUN Creatinine Est Cr Clr Drug Dosing Est GFR ( Amer) Est GFR (Non-Af Amer) BUN/Creatinine Ratio Glucose POC Glucose 137 H Calcium PG Care Time/CCT Total # of Minutes Spent Total Time Spent with Patient: Total time spent is greater than 50% in coordination of care (as documented) at patient's floor/unit and/or counseling patient: (1) Diabetes Diabetes mellitus complication status: without complication 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: without group home use Diabetes mellitus type: type 2 Qualified Code(s): E11.9 - Type 2 diabetes mellitus without complications (2) Gout Chronicity: chronic Gout etiology: unspecified cause Gout site: unspecified site Presence of tophus: without tophus Qualified Code(s): M1A.9XX0 - Chronic gout, unspecified, without tophus (tophi) (3) Atrial fibrillation Atrial fibrillation type: unspecified Qualified Code(s): I48.91 - Unspecified atrial fibrillation (4) COPD (chronic obstructive pulmonary disease) COPD type: unspecified COPD Qualified Code(s): J44.9 - Chronic obstructive pulmonary disease, unspecified (5) Pulmonary embolism Acute cor pulmonale presence: without acute cor pulmonale Chronicity: unspecified Pulmonary embolism type: unspecified Qualified Code(s): I26.99 - Other pulmonary embolism without acute cor pulmonale (6) Hypertension Hypertension type: essential hypertension Qualified Code(s): I10 - Essential (primary) hypertension (7) Obesity Body mass index: BMI 60.0-69.9 Obesity classification: adult class 3 (BMI >= 40) Obesity type: due to excess calories Serious obesity comorbidity presence: with serious comorbidity Qualified Code(s): E66.01 - Morbid (severe) obesity due to excess calories; Z68.44 - Body mass index (BMI) 60.0-69.9, adult
--- NOTE | 2018-09-12 12:34 | XRay Report ---
XR chest 1V portable CLINICAL HISTORY: left lung ca; resp failure; interval change dyspnea COMPARISON STUDY: 09/06/2018 FINDINGS: Mildly improved exam. Slight decrease in cardiac size. Slight improvement in aeration left infrahilar region. Small persistent bilateral pleural effusions. Pulmonary apices are clear. Central catheter remains in the superior vena cava. No evidence for pneumomediastinum or subcutaneous emphysema on the current s tudy. IMPRESSION: Mildly improved exam. Persistent components of congestive failure as well as small bilat eral pleural effusions. The above report was generated using voice recognition software. It may contain grammatical, syntax or spelling errors. Electronically signed by: Sigifredo Hutton M.D. 09/12/2018 12:33 PM
[2018-09-12] MEDS: guaiFENesin 600 MG TABCR PO SCH ×2 (13:09→20:17)
--- NOTE | 2018-09-12 13:28 | Pharmacy Report ---
Pharmacy Glycemic Short Note 2 - Date of Service September 12, 2018 - Glycemic Short BSG Results (Last 24 hours): 09/11/18 09/11/18 09/12/18 16:30 21:01 05:58 Glucose 131 H POC Glucose 123 H 143 H 09/12/18 09/12/18 07:18 11:41 Glucose POC Glucose 132 H 137 H OUTPATIENT ANTIDIABETIC REGIMEN: * Metformin 1gm PO BID * Sitagliptin 100mg PO Q AM * A1c = 6.9% 09/09 The patient is currently receiving: * Basal insulin: None * Correctional Insulin: Novolog Correction per scale ACHS Goal Range: Low 120 mg/dL - High 160 mg/dL Correction Factor: 25 mg/dL/unit * Prandial insulin: Per carb ratio of 1 unit per 9 grams CHO consumed ASSESSMENT: * Patient's BSGs have been well controlled over past 4 days with no basal insulin * AM fasting BSG still <140 mg/dL therefore no basal insulin needed, but will add scale to give if BSG >140 mg/dL * Full liquid diet continues * Will continue current parameters with the exception of decreasing goal range PLAN FOR INPATIENT GLYCEMIC CONTROL: * Basal insulin: Lantus qAM based on BSG * 0 units for BSG < 140 mg/dL * 10 units for BSG 140-180 mg/dL * 20 units for BSG > 180 mg/dL * Correctional Insulin: Novolog Correction per scale ACHS Goal Range: Low 110 mg/dL - High 140 mg/dL Correction Factor: 25 mg/dL/unit * Prandial insulin: Per carb ratio of 1 unit per 9 grams CHO consumed
[2018-09-12] MEDS ORDERED: XOPENEX/ATROVENT 1.25mg/0.5MG NEB COMBO NEB SCH (14:00)
[2018-09-12] MEDS: LEVALBUTEROL 1.25MG/0.5ML NEB INH SCH ×2 (15:07→18:57)
[2018-09-12] MEDS: IPRATROPIUM BROMIDE NEB SOLN 0.02% 2.5 ML VIAL INH SCH ×2 (15:07→18:57)
[2018-09-12] MEDS: ACETAMINOPHEN 325 MG TAB PO PRN ×2 (15:58→20:15)
[2018-09-12] MEDS ORDERED: FUROSEMIDE 40 MG TAB PO ONE (17:09)
[2018-09-12] MEDS: ERTAPENEM SODIUM 1,000 MG in SODIUM CHLORIDE 0.9% 50 ML IV SCH (17:26)
[2018-09-12] MEDS: NYSTATIN POWDER 15GM BTL EXT PRN (20:14)
[2018-09-12] MEDS: ALLOPURINOL 100 MG TAB PO SCH (20:16)
[2018-09-13] MEDS: LEVALBUTEROL 1.25MG/0.5ML NEB INH SCH ×4 (01:20→19:22)
[2018-09-13] MEDS: IPRATROPIUM BROMIDE NEB SOLN 0.02% 2.5 ML VIAL INH SCH ×4 (01:20→19:22)
[2018-09-13] MEDS: ACETAMINOPHEN 325 MG TAB PO PRN ×3 (02:12→17:26)
[2018-09-13] MEDS: DEXAMETHASONE CONC 3.75 MG, NYSTATIN 30 ML, DiphenhydrAMINE Syrup 300 MG, ORA-SWEET SYR... PO PRN ×4 (02:17→21:25)
[2018-09-13 06:56] LABS: Partial Thromboplastin Ratio 2.8
[2018-09-13 07:03] LABS: BUN Creatinine Ratio 13.2 (10-20); Calcium 8.8 mg/dl (8.5-10.1); Creatinine Clr Calc Pharmacy 134.7 ml/min; Est GFR (African American) 103.3; Est GFR (Non-African American) 89.2; Potassium 3.6 mmol/L (3.5-5.1)
[2018-09-13 07:11] LABS: Partial Thromboplastin Time 74.6 Seconds (21.0-31.0)
[2018-09-13] MEDS: FAMOTIDINE 20 MG TAB PO SCH ×2 (09:11→21:24)
[2018-09-13] MEDS: RIVAROXABAN 20 MG TAB PO SCH (09:11)
[2018-09-13] MEDS: FUROSEMIDE 80 MG TAB PO SCH (09:11)
[2018-09-13] MEDS: guaiFENesin 600 MG TABCR PO SCH ×2 (09:11→21:23)
[2018-09-13] MEDS: METOPROLOL SUCC 50MG EXT REL TAB PO SCH ×2 (09:12→21:23)
[2018-09-13] MEDS: INSULIN GLARGINE SOLOSTAR 100 UNITS/ML 3 ML PEN SC SCH (09:12)
[2018-09-13] MEDS: INSULIN ASPART 100 UNITS/ML 3 ML PEN SC SCH ×4 (09:13→21:58)
--- NOTE | 2018-09-13 10:01 | Progress Note ---
DATE: 09/13/2018 MEDICAL ONCOLOGY PROGRESS NOTE DIAGNOSES: 1. Sepsis. 2. Acute respiratory failure with hypoxia. 3. Pancytopenia attributable to previous chemotherapy. 4. Fever. 5. Nonsmall cell lung cancer. 6. Obesity/hypoventilation syndrome. SUBJECTIVE: Mr. Leary was seen and examined at bedside this morning. Mentally, he was much brighter and conversant today. Sore throat did improve with some magic mouthwash. He is tolerating his diet presently. He moved his bowels this morning as well. All in all, I believe he is slowly turning the corner. He offers no specific complaints and nursing brings up no overnight issues. PHYSICAL EXAMINATION: GENERAL: Morbidly obese 68-year-old gentleman in no acute distress. VITAL SIGNS: Temperature 37.3, pulse 104, respiratory rate 22, blood pressure 100/74. SKIN: Without rash or lesion. HEENT: Oral mucosa without erythema or ulceration. NECK: A bull neck, supple otherwise. HEART: Regular rate and rhythm, mildly tachy. LUNGS: Coarse breath sounds heard diffusely. ABDOMEN: Obese, soft, nontender, nondistended. EXTREMITIES: Trace to 1+ peripheral edema bilaterally. NEUROLOGIC: Grossly intact. LABORATORY DATA: Pending at the time of dictation. IMPRESSION: 1. Acute respiratory failure with hypoxia. 2. Sepsis. 3. Atrial fibrillation. 4. Cytopenias attributable to previous chemotherapy. 5. Fever. 6. Nonsmall cell lung cancer. PLAN: Mr. Leary continues to make a steady progress. I added magic mouthwash to alleviate throat discomfort, which was helpful. I suspect he is heading towards discharge and probable rehabilitation. It is not clear when he will resume chemotherapy and ultimately it will be Dr. Crandall's decision. Really at this point I have nothing further to add and will officially sign off. Thank you for assisting us in the care of this very pleasant gentleman. [facility] CENTERAmish
[2018-09-13] MEDS: ERTAPENEM SODIUM 1,000 MG in SODIUM CHLORIDE 0.9% 50 ML IV SCH (17:29)
[2018-09-13] MEDS: NYSTATIN POWDER 15GM BTL EXT PRN (21:24)
[2018-09-13] MEDS: ALLOPURINOL 100 MG TAB PO SCH (21:24)
--- NOTE | 2018-09-13 22:39 | Hospitalist Progress Note ---
Date of Service September 13, 2018 Assessment & Plan (1) Acute on chronic respiratory failure with hypoxia and hypercapnia: acute component multifactorial, in setting of severe sepsis/bacteremia, JUVENTINO lung cancer, COPD, acute diastolic CHF, etc. reports chronic O2 dependency at home. Finishing IV antibiotics for bacteremia. Resumed lasix for diastolic CHF. (2) Severe sepsis: 2nd to ESBL e.coli bacteremia. Source? urine cx did not grow pathogen but still possible. positive blood culture was NOT from port and subsequent cultures were negative making the port unlikely. he does not have a gall bladder. lung? day #12 of ertapenem. plan 14 days in total. (3) Acute diastolic CHF (congestive heart failure): patient's weight considerably since admission. x-rays suggest element of volume overload. continue lasix 80mg po daily (home dose). continue metoprolol succinate 100mg BID. recent echo results were limited but appeared to show intact LV function. resume aldactone tomorrow if stable labs. (4) Atrial fibrillation: New this admission. Remains in sustained a.fib. Continues on metoprolol succinate 100mg BID. Appreciate cardiology consultation. Stop heparin drip today; resume xarelto. Overall rate control acceptable at this time. (5) Diabetes: Glycemic control satisfactory at this time. Cont novolog SSI. (6) Gout: Continue Allopurinol - dose clarified w/ - 300mg am, 100mg pm. (7) COPD (chronic obstructive pulmonary disease): Stable. Cont xopenex /atrovent q6h. No flare at this time. (8) Pulmonary embolism: h/o - diagnosed 2017 in [place]. resume xarelto today. stop heparin drip. (9) Obesity: Morbid obesity - BMI 56 (10) Hypertension: Continue Metoprolol succinate Controlled (11) Chronic venous insufficiency: normally takes BID keflex for cellulitis prophylaxis hold while on IV ertapenem (12) Antineoplastic chemotherapy induced pancytopenia: Improving - last chemo was before admission. check cbc tomorrow am. (13) Sore throat: due to recent intubation? no signs of thrush or mucositis. magic mouthwash qid. overall symptoms improved. 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 updated today Subjective tele overnight with trav, rates 90s to 100s. no new complaints today. sore throat is improved. appetite is improved. was sitting in chair upon my arrival. patient and feel the [facility] would [facility] best for rehab. breathing is comfortable today. confirms that date of PE event was 2 years ago and he has been on anticoagulation since. Review of Systems Constitutional: + weakness; no fever and no anorexia Respiratory: + cough and + wheezing; no change in sputum and no hemoptysis Cardiovascular: no chest pain Gastrointestinal: no abdominal pain Physical Exam Constitutional: + morbidly obese; no acute distress and no altered mental status coughing ENMT: external ear and nose normal, oropharynx normal Respiratory: no respiratory distress Auscultation: + wheezes (juventino only); no rales Cardiovascular: Rate/Rhythm: regular rate and + irregularly irregular Heart Sounds: normal S1 and normal S2; no murmur Vessels: posterior tibial pulses present and dorsalis pedis pulses present; no JVD Extremities: no edema Gastrointestinal (Abdomen): normal bowel sounds, soft, nontender, no hepatosplenomegaly Psychiatric: A+Ox3, euthymic affect Results & Data Vital Signs (Past 12 Hours) Vital Signs Temp Pulse Pulse Resp BP BP Pulse Ox 09/13/18 21:20 96 H 126/81 09/13/18 20:17 37.2 C 109 H 23 102/62 95 09/13/18 19:23 99 H 18 95 09/13/18 15:38 36.4 C L 100 H 24 107/74 93 09/13/18 13:59 107 H 20 96 09/13/18 11:16 36.9 C 103 H 39 H 111/71 98 Laboratory Results Laboratory Results - last 24 hr 09/13/18 09/13/18 09/13/18 06:21 06:21 07:15 APTT 74.6 H* PTT Ratio 2.8 Sodium 140 Potassium 3.6 Chloride 101 Carbon Dioxide 34 H Anion Gap 4.0 BUN 11 Creatinine 0.83 Est Cr Clr Drug Dosing 134.7 Est GFR ( Amer) 103.3 Est GFR (Non-Af Amer) 89.2 BUN/Creatinine Ratio 13.2 Glucose 130 H POC Glucose 130 H Calcium 8.8 09/13/18 09/13/18 09/13/18 10:59 16:38 21:13 APTT PTT Ratio Sodium Potassium Chloride Carbon Dioxide Anion Gap BUN Creatinine Est Cr Clr Drug Dosing Est GFR ( Amer) Est GFR (Non-Af Amer) BUN/Creatinine Ratio Glucose POC Glucose 151 H 138 H 135 H Calcium PG Care Time/CCT Total # of Minutes Spent Total Time Spent with Patient: Total time spent is greater than 50% in coordination of care (as documented) at patient's floor/unit and/or counseling patient: (1) Diabetes Diabetes mellitus complication status: without complication 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 superintendent container terminal use Diabetes mellitus type: type 2 Qualified Code(s): E11.9 - Type 2 diabetes mellitus without complications (2) Gout Chronicity: chronic Gout etiology: unspecified cause Gout site: unspecified site Presence of tophus: without tophus Qualified Code(s): M1A.9XX0 - Chronic gout, unspecified, without tophus (tophi) (3) Atrial fibrillation Atrial fibrillation type: unspecified Qualified Code(s): I48.91 - Unspecified atrial fibrillation (4) COPD (chronic obstructive pulmonary disease) COPD type: unspecified COPD Qualified Code(s): J44.9 - Chronic obstructive pulmonary disease, unspecified (5) Pulmonary embolism Acute cor pulmonale presence: without acute cor pulmonale Chronicity: unspecified Pulmonary embolism type: unspecified Qualified Code(s): I26.99 - Other pulmonary embolism without acute cor pulmonale (6) Hypertension Hypertension type: essential hypertension Qualified Code(s): I10 - Essential (primary) hypertension (7) Obesity Body mass index: BMI 60.0-69.9 Obesity classification: adult class 3 (BMI >= 40) Obesity type: due to excess calories Serious obesity comorbidity presence: with serious comorbidity Qualified Code(s): E66.01 - Morbid (severe) obesity due to excess calories; Z68.44 - Body mass index (BMI) 60.0-69.9, adult
[2018-09-14] MEDS: IPRATROPIUM BROMIDE NEB SOLN 0.02% 2.5 ML VIAL INH SCH ×4 (01:58→19:03)
[2018-09-14] MEDS: LEVALBUTEROL 1.25MG/0.5ML NEB INH SCH ×4 (01:58→19:03)
[2018-09-14 06:24] LABS: Hematocrit (blood only) 24.4 % (42-52); Hemoglobin 7.8 g/dL (14.0-18.0); Mean Platelet Volume 10.7 fL (7.4-10.4); Platelet Count 131 K/uL (130-400); RDW Coefficient of Variation 21.8 % (11.5-14.5); RDW Standard Deviation 78.4 fL (36.4-46.3); Red Blood Count 2.44 M/uL (4.7-6.1); White Blood Count 3.06 K/uL (4.8-10.8)
[2018-09-14 06:52] LABS: BUN Creatinine Ratio 15.3 (10-20); Creatinine Clr Calc Pharmacy 130.3 ml/min; Est GFR (African American) 102.8; Est GFR (Non-African American) 88.7; Potassium 3.5 mmol/L (3.5-5.1)
[2018-09-14] MEDS: ALLOPURINOL 300 MG TAB PO SCH (07:59)
[2018-09-14] MEDS: guaiFENesin 600 MG TABCR PO SCH ×2 (07:59→21:30)
[2018-09-14] MEDS: RIVAROXABAN 20 MG TAB PO SCH (07:59)
[2018-09-14] MEDS: FUROSEMIDE 80 MG TAB PO SCH (08:00)
[2018-09-14] MEDS: FAMOTIDINE 20 MG TAB PO SCH ×2 (08:00→21:31)
[2018-09-14] MEDS: METOPROLOL SUCC 50MG EXT REL TAB PO SCH ×2 (08:00→21:30)
[2018-09-14] MEDS: INSULIN ASPART 100 UNITS/ML 3 ML PEN SC SCH ×4 (08:38→21:32)
[2018-09-14] MEDS: INSULIN GLARGINE SOLOSTAR 100 UNITS/ML 3 ML PEN SC SCH (08:39)
[2018-09-14] MEDS: ACETAMINOPHEN 325 MG TAB PO PRN ×2 (09:32→23:27)
[2018-09-14] MEDS: FERROUS SULFATE 325 MG TAB PO SCH ×2 (09:32→21:31)
[2018-09-14] MEDS: DEXAMETHASONE CONC 3.75 MG, NYSTATIN 30 ML, DiphenhydrAMINE Syrup 300 MG, ORA-SWEET SYR... PO PRN ×2 (10:52→23:28)
[2018-09-14] MEDS: ONDANSETRON INJ 2 MG/ML 2 ML VIAL IV PRN (12:52)
[2018-09-14] MEDS: BENZONATATE 100 MG CAPSULE PO SCH ×2 (14:28→21:31)
[2018-09-14] MEDS: ERTAPENEM SODIUM 1,000 MG in SODIUM CHLORIDE 0.9% 50 ML IV SCH (17:01)
[2018-09-14] MEDS ORDERED: SODIUM CHLORIDE 0.9% 250 ML IV PRN (20:58)
--- NOTE | 2018-09-14 20:59 | Hospitalist Progress Note ---
Date of Service September 14, 2018 Assessment & Plan (1) Acute on chronic respiratory failure with hypoxia and hypercapnia: acute component multifactorial, in setting of severe sepsis/bacteremia, JUVENTINO lung cancer, COPD, acute diastolic CHF, etc. reports chronic O2 dependency at home. Finishing IV antibiotics for bacteremia. Resumed PO lasix for chronic diastolic CHF. (2) Severe sepsis: 2nd to ESBL e.coli bacteremia. RESOLVED. Source? urine cx did not grow pathogen but still possible. positive blood culture was NOT from port and subsequent cultures were negative making the port unlikely. he does not have a gall bladder. lung source? day #13 of ertapenem. plan 14 days in total then stop. (3) Acute diastolic CHF (congestive heart failure): patient's weight continues to drop with PO lasix. continue lasix 80mg po daily (home dose). continue metoprolol succinate 100mg BID. recent echo results were limited but appeared to show intact LV function. (4) Atrial fibrillation: New this admission. Remains in sustained a.fib. Continues on metoprolol succinate 100mg BID. Appreciate cardiology consultation. Cont xarelto. Overall rate control acceptable in the setting of severe COPD and anemia. (5) Diabetes: Glycemic control satisfactory at this time. Cont novolog SSI. (6) Gout: Continue Allopurinol 300mg am, 100mg pm. No flares. (7) COPD (chronic obstructive pulmonary disease): Stable. Cont xopenex /atrovent q6h. No flare at this time. Add tessalon TID for cough. (8) Pulmonary embolism: h/o - diagnosed 2017 in [place]. xarelto 20mg daily. (9) Obesity: Morbid obesity - BMI 54 (10) Hypertension: Continue Metoprolol succinate Controlled (11) Chronic venous insufficiency: normally takes BID keflex for cellulitis prophylaxis hold while on IV ertapenem (12) Antineoplastic chemotherapy induced pancytopenia: Improving - last chemo was before admission. Hemoglobin in the 7's. If any lower tomorrow then Tx 2 units PRBCs. (13) Sore throat: resolving with magic mouthwash qid. 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 (15) Physical deconditioning: severe cont PT, OT will need rehab - likely SNF level (16) DVT prophylaxis: on systemic anticoagulation w/ xarelto d/c pichardo updated at bedside today Subjective main complaint is that of cough. nonproductive. no dyspnea or orthopnea. mild wheeze remains. eating better. sore throat is better. had mild nausea following lunch but no abd pain. has mild subcostal pain w/ coughing only. unfortunately the bed at [facility] in [place] is now NOT available. looking at other SNFs per . Review of Systems Constitutional: + fatigue; no fever, no chills and no anorexia Cardiovascular: no chest pain, no orthopnea and no edema Gastrointestinal: no vomiting, no constipation and no diarrhea/loose stools Physical Exam Constitutional: + morbidly obese; no acute distress and no altered mental stat us ENMT: external ear and nose normal, oropharynx normal Mouth: no oral mucosal abnormality Respiratory: no respiratory distress Auscultation: + diminished lung sounds (bases) and + wheezes (juventino anteriorly only); no rales Cardiovascular: Rate/Rhythm: regular rate and + irregularly irregular Heart Sounds: normal S1 and normal S2; no murmur Vessels: posterior tibial pulses present and dorsalis pedis pulses present; no JVD Extremities: no edema Gastrointestinal (Abdomen): normal bowel sounds, soft, nontender, no hepatosplenomegaly Psychiatric: A+Ox3, euthymic affect Results & Data Vital Signs (Past 12 Hours) Vital Signs Temp Pulse Pulse Pulse Resp BP BP 09/14/18 19:03 105 H 22 09/14/18 18:53 37.0 C 104 H 24 109/70 09/14/18 15:46 37.3 C 117 H 17 116/75 09/14/18 15:24 09/14/18 14:05 110 H 18 09/14/18 10:54 36.4 C L 93 H 37 H 106/63 Pulse Ox 09/14/18 19:03 93 09/14/18 18:53 93 09/14/18 15:46 98 09/14/18 15:24 88 L 09/14/18 14:05 92 09/14/18 10:54 93 Laboratory Results Laboratory Results - last 24 hr 09/13/18 09/14/18 09/14/18 21:13 06:02 06:02 WBC 3.06 L RBC 2.44 L Hgb 7.8 L Hct 24.4 L MCV 100.0 MCH 32.0 MCHC 32.0 RDW Std Deviation 78.4 H RDW Coeff of Preeti 21.8 H Plt Count 131 MPV 10.7 H Sodium 140 Potassium 3.5 Chloride 102 Carbon Dioxide 36 H Anion Gap 2.0 L BUN 13 Creatinine 0.84 Est Cr Clr Drug Dosing 130.3 Est GFR ( Amer) 102.8 Est GFR (Non-Af Amer) 88.7 BUN/Creatinine Ratio 15.3 Glucose 122 H POC Glucose 135 H Calcium 9.0 09/14/18 09/14/18 09/14/18 07:04 11:10 16:31 WBC RBC Hgb Hct MCV MCH MCHC RDW Std Deviation RDW Coeff of Preeti Plt Count MPV Sodium Potassium Chloride Carbon Dioxide Anion Gap BUN Creatinine Est Cr Clr Drug Dosing Est GFR ( Amer) Est GFR (Non-Af Amer) BUN/Creatinine Ratio Glucose POC Glucose 111 H 141 H 152 H Calcium PG Care Time/CCT Total # of Minutes Spent Total Time Spent with Patient: Total time spent is greater than 50% in coordination of care (as documented) at patient's floor/unit and/or counseling patient: (1) Diabetes Diabetes mellitus complication status: without complication Diabetes mellitus group home insulin use: without long term care phlebotomist use Diabetes mellitus type: type 2 Qualified Code(s): E11.9 - Type 2 diabetes mellitus without complications (2) Gout Chronicity: chronic Gout etiology: unspecified cause Gout site: unspecified site Presence of tophus: without tophus Qualified Code(s): M1A.9XX0 - Chronic gout, unspecified, without tophus (tophi) (3) Atrial fibrillation Atrial fibrillation type: unspecified Qualified Code(s): I48.91 - Unspecified atrial fibrillation (4) COPD (chronic obstructive pulmonary disease) COPD type: unspecified COPD Qualified Code(s): J44.9 - Chronic obstructive pulmonary disease, unspecified (5) Pulmonary embolism Acute cor pulmonale presence: without acute cor pulmonale Chronicity: unspecified Pulmonary embolism type: unspecified Qualified Code(s): I26.99 - Other pulmonary embolism without acute cor pulmonale (6) Hypertension Hypertension type: essential hypertension Qualified Code(s): I10 - Essential (primary) hypertension (7) Obesity Body mass index: BMI 60.0-69.9 Obesity classification: adult class 3 (BMI >= 40) Obesity type: due to excess calories Serious obesity comorbidity presence: with serious comorbidity Qualified Code(s): E66.01 - Morbid (severe) obesity due to excess calories; Z68.44 - Body mass index (BMI) 60.0-69.9, adult
[2018-09-14] MEDS: ALLOPURINOL 100 MG TAB PO SCH (21:30)
[2018-09-15] MEDS: IPRATROPIUM BROMIDE NEB SOLN 0.02% 2.5 ML VIAL INH SCH ×4 (01:53→19:28)
[2018-09-15] MEDS: LEVALBUTEROL 1.25MG/0.5ML NEB INH SCH ×4 (01:54→19:28)
[2018-09-15 06:00] LABS: Hematocrit (blood only) 24.7 % (42-52); Hemoglobin 7.9 g/dL (14.0-18.0); Mean Corpuscular Volume 103.3 fL (80-100); Mean Platelet Volume 10.1 fL (7.4-10.4); Platelet Count 143 K/uL (130-400); RDW Coefficient of Variation 21.7 % (11.5-14.5); RDW Standard Deviation 79.7 fL (36.4-46.3); Red Blood Count 2.39 M/uL (4.7-6.1); White Blood Count 3.26 K/uL (4.8-10.8)
[2018-09-15 06:31] LABS: BUN Creatinine Ratio 18.1 (10-20); Creatinine Clr Calc Pharmacy 119.1 ml/min; Est GFR (African American) 98.6; Est GFR (Non-African American) 85.1; Potassium 3.8 mmol/L (3.5-5.1)
[2018-09-15] MEDS: FUROSEMIDE 80 MG TAB PO SCH (08:19)
[2018-09-15] MEDS: BENZONATATE 100 MG CAPSULE PO SCH ×3 (08:19→20:51)
[2018-09-15] MEDS: ALLOPURINOL 300 MG TAB PO SCH (08:19)
[2018-09-15] MEDS: FAMOTIDINE 20 MG TAB PO SCH ×2 (08:19→20:50)
[2018-09-15] MEDS: METOPROLOL SUCC 50MG EXT REL TAB PO SCH ×2 (08:20→20:50)
[2018-09-15] MEDS: guaiFENesin 600 MG TABCR PO SCH ×2 (08:20→20:49)
[2018-09-15] MEDS: RIVAROXABAN 20 MG TAB PO SCH (08:20)
[2018-09-15] MEDS: FERROUS SULFATE 325 MG TAB PO SCH ×2 (08:20→20:48)
[2018-09-15] MEDS: INSULIN ASPART 100 UNITS/ML 3 ML PEN SC SCH ×4 (08:22→20:54)
[2018-09-15] MEDS: DEXAMETHASONE CONC 3.75 MG, NYSTATIN 30 ML, DiphenhydrAMINE Syrup 300 MG, ORA-SWEET SYR... PO PRN ×2 (12:16→21:04)
[2018-09-15] MEDS: ACETAMINOPHEN 325 MG TAB PO PRN ×2 (12:16→21:28)
--- NOTE | 2018-09-15 13:15 | Pharmacy Report ---
Pharmacy Glycemic Short Note 2 - Date of Service September 15, 2018 - Glycemic Short BSG Results (Last 24 hours): 09/14/18 09/14/18 09/15/18 16:31 21:27 05:49 Glucose 126 H POC Glucose 152 H 128 H 09/15/18 09/15/18 07:12 11:01 Glucose POC Glucose 137 H 159 H OUTPATIENT ANTIDIABETIC REGIMEN: * Metformin 1gm PO BID * Sitagliptin 100mg PO Q AM * A1c = 6.9% 09/09 The patient is currently receiving: * Basal insulin: None * Correctional Insulin: Novolog Correction per scale ACHS Goal Range: Low 110 mg/dL - High 140 mg/dL Correction Factor: 25 mg/dL/unit * Prandial insulin: Per carb ratio of 1 unit per 9 grams CHO consumed ASSESSMENT: * Patient's BSGs have been well controlled, ranging 111-152 mg/dL yesterday * No basal insulin x1 week, with AM fasting BSG's all < 140 mg/dL. Will discontinue Lantus scale. PLAN FOR INPATIENT GLYCEMIC CONTROL: * Correctional Insulin: Novolog Correction per scale ACHS Goal Range: Low 110 mg/dL - High 140 mg/dL Correction Factor: 25 mg/dL/unit * Prandial insulin: Per carb ratio of 1 unit per 9 grams CHO consumed
[2018-09-15] MEDS: ERTAPENEM SODIUM 1,000 MG in SODIUM CHLORIDE 0.9% 50 ML IV SCH (18:20)
[2018-09-15] MEDS: ALLOPURINOL 100 MG TAB PO SCH (20:52)
--- NOTE | 2018-09-15 21:05 | Hospitalist Progress Note ---
Date of Service September 15, 2018 Assessment & Plan (1) Acute on chronic respiratory failure with hypoxia and hypercapnia: RESOLVED acute component multifactorial, in setting of severe sepsis/bacteremia, CIARRA lung cancer, COPD, acute diastolic CHF, etc. reports chronic O2 dependency at home - 3 L NC. Finishing IV antibiotics for bacteremia. Resumed PO lasix for chronic diastolic CHF. (2) Severe sepsis: 2nd to ESBL e.coli bacteremia. RESOLVED. Source? urine cx did not grow pathogen but still possible. positive blood culture was NOT from port and subsequent cultures were negative making the port unlikely. he does not have a gall bladder. lung source? day #14 of ertapenem. STOP abx today. (3) Acute diastolic CHF (congestive heart failure): patient's weight continues to drop with PO lasix. continue lasix 80mg po daily (home dose). continue metoprolol succinate 100mg BID. recent echo results were limited but appeared to show intact LV function. (4) Atrial fibrillation: Newly discovered this admission. Remains in sustained a.fib. Continues on metoprolol succinate 100mg BID. Appreciate cardiology consultation. Cont xarelto. Overall rate control acceptable in the setting of severe COPD and anemia. (5) Diabetes: Glycemic control satisfactory at this time. Cont novolog SSI. (6) Gout: Continue Allopurinol 300mg am, 100mg pm. No flares. (7) COPD (chronic obstructive pulmonary disease): Stable. No flare at this time. Cont tessalon TID for cough. d/c xopenex/atrovent; change to combivent 1 puff QID. (8) Pulmonary embolism: h/o - diagnosed 2017 in [place]. xarelto 20mg daily. (9) Obesity: Morbid obesity - BMI 54 (10) Hypertension: Continue Metoprolol succinate Controlled (11) Chronic venous insufficiency: normally takes BID keflex for cellulitis prophylaxis hold while on IV ertapenem (12) Antineoplastic chemotherapy induced pancytopenia: Improving - last chemo was before admission. Hemoglobin low but stable today. Continue ferrous sulfate supplementation. CBC in am. (13) Sore throat: resolved with magic mouthwash qid. 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 (15) Physical deconditioning: severe cont PT, OT will need rehab - likely SNF level (16) DVT prophylaxis: on systemic anticoagulation w/ xarelto d/c pichardo awaiting dispo (SNF) Subjective slept good overnight. cough improved. no dyspnea. eating well. sore throat resolved. no dysphagia. Review of Systems Constitutional: no fever and no chills Respiratory: no cough, no dyspnea and no wheezing Cardiovascular: no chest pain, no orthopnea, no paroxysmal nocturnal dyspnea and no edema Gastrointestinal: no nausea and no vomiting Physical Exam Constitutional: + morbidly obese; no acute distress and no altered mental status ENMT: external ear and nose normal, oropharynx normal Mouth: no oral mucosal abnormality Respiratory: no respiratory distress Auscultation: + diminished lung sounds (bases) and + wheezes; no rales Cardiovascular: Rate/Rhythm: regular rate and + irregularly irregular Heart Sounds: normal S1 and normal S2; no murmur Vessels: posterior tibial pulses present and dorsalis pedis pulses present; no JVD Extremities: no edema Chest (Breasts): Additional Comments: mildly tender to palpation lower costal margin Gastrointestinal (Abdomen): normal bowel sounds, soft, nontender, no hepatosplenomegaly Psychiatric: A+Ox3, euthymic affect Results & Data Vital Signs (Past 12 Hours) Vital Signs Temp Pulse Pulse Resp BP BP Pulse Ox 09/15/18 19:30 88 19 97 09/15/18 19:16 36.4 C L 103 H 21 104/70 97 09/15/18 16:00 102 H 09/15/18 15:21 37.1 C 108 H 24 114/75 98 09/15/18 14:56 104 H 114/75 09/15/18 14:55 36.7 C 100 H 23 114/75 98 09/15/18 14:40 36.5 C 102 H 22 102/73 95 09/15/18 14:17 105 H 18 99 09/15/18 13:30 36.5 C 103 H 24 99/74 L 94 09/15/18 13:01 36.6 C 105 H 22 112/59 L 95 09/15/18 12:45 36.9 C 105 H 22 124/56 L 97 09/15/18 12:44 36.6 C 98 H 22 112/59 L 95 09/15/18 12:30 36.6 C 102 H 22 105/85 100 09/15/18 12:13 36.7 C 107 H 22 101/48 L 93 09/15/18 11:32 36.4 C L 106 H 24 109/72 100 09/15/18 10:35 37.2 C 112 H 22 114/66 99 09/15/18 09:35 36.6 C 111 H 22 92/57 L 96 09/15/18 09:15 36.5 C 112 H 28 H 103/83 94 Laboratory Results Laboratory Results - last 24 hr 09/14/18 09/15/18 09/15/18 21:27 05:49 05:49 WBC 3.26 L RBC 2.39 L Hgb 7.9 L Hct 24.7 L MCV 103.3 H MCH 33.1 MCHC 32.0 RDW Std Deviation 79.7 H RDW Coeff of Preeti 21.7 H Plt Count 143 MPV 10.1 Sodium Potassium Chloride Carbon Dioxide Anion Gap BUN Creatinine Est Cr Clr Drug Dosing Est GFR ( Amer) Est GFR (Non-Af Amer) BUN/Creatinine Ratio Glucose POC Glucose 128 H Calcium Blood Type O Negative Antibody Screen NEGATIVE Crossmatch See Detail 09/15/18 09/15/18 09/15/18 05:49 07:12 11:01 WBC RBC Hgb Hct MCV MCH MCHC RDW Std Deviation RDW Coeff of Preeti Plt Count MPV Sodium 139 Potassium 3.8 Chloride 99 Carbon Dioxide 36 H Anion Gap 4.0 BUN 16 Creatinine 0.91 Est Cr Clr Drug Dosing 119.1 Est GFR ( Amer) 98.6 Est GFR (Non-Af Amer) 85.1 BUN/Creatinine Ratio 18.1 Glucose 126 H POC Glucose 137 H 159 H Calcium 9.0 Blood Type Antibody Screen Crossmatch 09/15/18 09/15/18 16:29 20:33 WBC RBC Hgb Hct MCV MCH MCHC RDW Std Deviation RDW Coeff of Preeti Plt Count MPV Sodium Potassium Chloride Carbon Dioxide Anion Gap BUN Creatinine Est Cr Clr Drug Dosing Est GFR ( Amer) Est GFR (Non-Af Amer) BUN/Creatinine Ratio Glucose POC Glucose 140 H 132 H Calcium Blood Type Antibody Screen Crossmatch PG Care Time/CCT Total # of Minutes Spent Total Time Spent with Patient: Total time spent is greater than 50% in coordination of care (as documented) at patient's floor/unit and/or counseling patient: (1) Diabetes Diabetes mellitus complication status: without complication Diabetes mellitus assisted insulin use: without moth exterminator use Diabetes mellitus type: type 2 Qualified Code(s): E11.9 - Type 2 diabetes mellitus without complications (2) Gout Chronicity: chronic Gout etiology: unspecified cause Gout site: unspecified site Presence of tophus: without tophus Qualified Code(s): M1A.9XX0 - Chronic gout, unspecified, without tophus (tophi) (3) Atrial fibrillation Atrial fibrillation type: unspecified Qualified Code(s): I48.91 - Unspecified atrial fibrillation (4) COPD (chronic obstructive pulmonary disease) COPD type: unspecified COPD Qualified Code(s): J44.9 - Chronic obstructive pulmonary disease, unspecified (5) Pulmonary embolism Acute cor pulmonale presence: without acute cor pulmonale Chronicity: unspecified Pulmonary embolism type: unspecified Qualified Code(s): I26.99 - Other pulmonary embolism without acute cor pulmonale (6) Hypertension Hypertension type: essential hypertension Qualified Code(s): I10 - Essential (primary) hypertension (7) Obesity Body mass index: BMI 60.0-69.9 Obesity classification: adult class 3 (BMI >= 40) Obesity type: due to excess calories Serious obesity comorbidity presence: with serious comorbidity Qualified Code(s): E66.01 - Morbid (severe) obesity due to excess calories; Z68.44 - Body mass index (BMI) 60.0-69.9, adult
[2018-09-16] MEDS: ACETAMINOPHEN 325 MG TAB PO PRN ×2 (01:50→18:52)
[2018-09-16 06:16] LABS: Hematocrit (blood only) 29.1 % (42-52); Hemoglobin 9.4 g/dL (14.0-18.0); Mean Corpuscular Hgb Conc 32.3 g/dL (32-36); Mean Corpuscular Volume 99.3 fL (80-100); Mean Platelet Volume 10.4 fL (7.4-10.4); Platelet Count 147 K/uL (130-400); RDW Standard Deviation 73.8 fL (36.4-46.3); Red Blood Count 2.93 M/uL (4.7-6.1); White Blood Count 3.68 K/uL (4.8-10.8)
[2018-09-16 06:54] LABS: BUN Creatinine Ratio 19.4 (10-20); Calcium 8.8 mg/dl (8.5-10.1); Creatinine Clr Calc Pharmacy 112.9 ml/min; Est GFR (African American) 92.4; Est GFR (Non-African American) 79.8; Potassium 3.5 mmol/L (3.5-5.1)
[2018-09-16 07:57] VITALS: TEMP 98.8
[2018-09-16] MEDS: INSULIN ASPART 100 UNITS/ML 3 ML PEN SC SCH ×3 (08:30→17:11)
[2018-09-16] MEDS: IPRATROPIUM BROMIDE/ALBUTEROL respimat INH INH SCH ×3 (08:32→17:10)
[2018-09-16] MEDS: guaiFENesin 600 MG TABCR PO SCH (08:32)
[2018-09-16] MEDS: FUROSEMIDE 80 MG TAB PO SCH (08:32)
[2018-09-16] MEDS: FERROUS SULFATE 325 MG TAB PO SCH (08:32)
[2018-09-16] MEDS: METOPROLOL SUCC 50MG EXT REL TAB PO SCH (08:33)
[2018-09-16] MEDS: BENZONATATE 100 MG CAPSULE PO SCH ×2 (08:33→13:20)
[2018-09-16] MEDS: FAMOTIDINE 20 MG TAB PO SCH (08:33)
[2018-09-16] MEDS: RIVAROXABAN 20 MG TAB PO SCH (08:34)
[2018-09-16] MEDS: ALLOPURINOL 300 MG TAB PO SCH (08:34)
[2018-09-16] MEDS ORDERED: BISACODYL 10 MG SUPP PR ONE (12:24)
[2018-09-16 12:58] VITALS: BP 115/79; O2SAT 98
--- NOTE | 2018-09-16 13:10 | Pharmacy Report ---
Pharmacy Glycemic Sign Off Nt - Date of Service September 16, 2018 - Assessment & Plan ASSESSMENT: * Patient has been receiving/requiring small amounts of insulin per day for adequate glycemic control * BSGs ranging 132-159 mg/dl * Regimen has had no adjustments over the past 48hrs to achieve this level of control * Dr. Cedeño aware pharmacy signing off of glycemic management per conversation at 2N/2W rounds PLAN FOR INPATIENT GLYCEMIC CONTROL: No changes needed to current regimen. * Continue NovoLog per scale ACHS/Q6hrs while NPO * Goal range = 110-140 mg/dl * CF = 25 mg/dl/unit * CR = 1 unit for ever 9 g CHO consumed * Pharmacy is signing off of glycemic consult and will no longer be making adjustments to inpatient regimen. Please feel free to re-consult if needed. Thank you.
[2018-09-16] MEDS: DEXAMETHASONE CONC 3.75 MG, NYSTATIN 30 ML, DiphenhydrAMINE Syrup 300 MG, ORA-SWEET SYR... PO PRN (15:54)
[2018-09-16 20:04] VITALS: PULSE 110
--- NOTE | 2018-09-17 20:09 | Discharge Summary ---
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 Patient reports feeling ill immediately following chemotherapy with subjective fevers/chills and body aches. His symptoms improved and he was feeling fairly well. Today, however, patient developed recurrent subjective fevers and chills/rigors as well as diffuse weakness, nausea, appetite loss and shortness of breath, inability to ambulate due to weakness, and dyspnea. EMS was called and the patient was transported to [facility]. Per report he was tachycardic in the ambulance with HR of 180. He was administered IV Cardizem en route to [place]. While at [place] he was given IVF, Cardizem and Zosyn. He was subsequently transferred to [facility] for continuity of care. Patient presently with multiple complaints but severe dyspnea and dry cough were his worst complaints. He had brief episode of chest discomfort on transport which has since resolved. At [facility] he received the following - NS fluids, Cardizem 25mg bolus, Cardizem 60mg bolus then drip, Ativan 0.5mg, Tylenol 1000mg PO, Zosyn 4.5 gm, Lovenox 1mg/kg (concern of new PE but no imaging obtained). EKG from [place]: Afib with RVR at 126bpm, no acute ischemic changes. Blood and urine cultures were dispatched. Principal Diagnosis severe sepsis/septicemia 2nd to MDR e.coli UTI Discharge Exam Constitutional + morbidly obese; no acute distress and no altered mental status [facility] external ear and nose normal, oropharynx normal Mouth: no oral mucosal abnormality Respiratory no respiratory distress Auscultation: + diminished lung sounds (bases); no rales, no rhonchi and no wheezes very minimal amount of "quiet" tachypnea but no increased work of breathing Cardiovascular Rate/Rhythm: regular rate and + irregularly irregular Heart Sounds: normal S1 and normal S2; no murmur Vessels: posterior tibial pulses present and dorsalis pedis pulses present; no JVD Extremities: no edema Gastrointestinal (Abdomen) normal bowel sounds, soft, nontender, no hepatosplenomegaly Skin port, left chest - clean, no erythema. legs with minimal venous stasis changes. Psychiatric A+Ox3, euthymic affect Discharge Data Allergies Allergy/AdvReac Type Severity Reaction Status Date / Time No Known Drug Allergies Allergy Verified 09/06/18 16:12 Consultations 1. critical care - Gabe Hurd MD 2. hematology/oncology - Billy Crandall MD 3. palliative care 4. PT, OT 5. speech therapy 6. diabetes education Ordered Studies 1. CT chest, abdomen, and pelvis - CT CHEST: Limited exam without the use of IV contrast. No focal thyroid nodule. Subcarinal lymph nodes are seen measuring up to 1.6 x 1.2 cm on image 146 series 6, previo usly 1.5 x 1.1 cm. No definite new or progressive adenopathy of the chest. Moderate cardiomegaly with coronary arterial calcifications. Mild dilation of the pulmonary arterial tree may reflect pulmonary arterial hypertension. No aortic aneurysm. Left subclavian [id number] catheter terminates about the mid SVC. Trace left pleural effusion. Linear subsegmental consolidative opacities suggest atelectasis. Limited evaluation of the lungs secondary to respiratory motion. Calcified granuloma of the anterior segment right upper lobe. Mild bibasilar bronchial wall thickening. No focal airspace consolidation typical for pneumonia. Mild intralobular septal thickening of the left upper lobe. Irregular cavitary mass of the left upper lobe, 5.5 x 3.1 x 4.4 cm in AP, transverse and cranial, dimensions respectively (previously measuring 5.5 x 4.2 x 4.4 cm when measured in a similar fashion) there is progressive central cavitation on today's study with overall decreased size of the mass. No new pulmonary nodules or masses identified. Central airways appear patent. Soft tissues are within normal limits. Degenerative changes of the shoulders and spine. No new suspicious bone lesions. Healed remote left-sided rib fractures. CT ABDOMEN/PELVIS: No pneumatosis or pneumoperitoneum. Study is limited without the use of IV contrast. Hepatomegaly with hepatic steatosis. No definite focal hepatic mass lesion identified. Cholecystectomy. Spleen, pancreas and right adrenal gland are unremarkable. Moderate thickening of the left adrenal gland suggestive of hyperplasia. Kidneys, and ureters are unremarkable. Decompressed urinary bladder with Cooper catheter. Aorta and IVC are within normal limits. Enlarged bilateral inguinal chain lymph nodes, 3.0 x 1.9 cm on the right and 3.1 x 1.8 cm on the left, both of which have mildly increased in size from comparison. Additional more superior inguinal lymph nodes have also increased in size. Small fat filled bilateral inguinal hernias. Fluid-filled distended esophagus with mostly air-filled moderately distended stomach. Duodenum is air and fluid-filled measuring up to 4.2 cm transversely. No obstructing process or lesion identified. Extensive colonic diverticulosis without acute diverticulitis identified. Mild nonspecific inflammatory stranding about the sigmoid colon, image 362 series 7. Appendix not definitively seen. Soft tissues are unremarkable. No new suspicious lytic or blastic bony lesions. IMPRESSION: 1. Limited exam without the use of IV contrast. 2. Slightly decreased size of the large mass of the left upper lobe compatible w ith patient's known primary bronchogenic carcinoma. Additionally, there is progressive central cavitation suggestive of post treatment-related change. 3. Increased size of the enlarged bilateral inguinal chain lymph nodes, nonspecific without additional progressive adenopathy identified within each chest, abdomen or pelvis. Attention at follow-up recommended. 4. Mild nonspecific inflammatory stranding about the mid sigmoid colon may reflect a nonspecific colitis or diverticulitis. 5. Air-filled distended stomach and duodenum without obstructing lesion identified may be on a physiologic basis. 6. Hepatomegaly with hepatic steatosis. 7. Trace left pleural effusion with bibasilar opacities suggestive of probable atelectasis. 2. renal ultrasound - IMPRESSION: 1. Extremely limited exam secondary to portable technique and body habitus. 2. Nonvisualization of the urinary bladder and left kidney. Visualized right kidney demonstrates no gross abnormality. 3. echocardiogram - * limited evaluation due to body habitus * EF 60-65% * normal valvular function * normal estimated pulmonary pressures 4. 6 units PRBCs 5. intubation with mechanical ventilation Hospital Course (1) Septicemia: The patient had evidence of severe sepsis upon arrival to [facility]. He was leukopenic and neutropenic from his recent chemotherapy for his CIARRA lung cancer. He was initiated on broad-spectrum IV antibiotic therapy at admission. By 09/01/18 we were informed that the patient's blood cultures were positive at [facility]. Urine culture was also positive. Repeat blood cultures were obtained at [facility] on 09/01/18. The blood & urine cultures from [place] ultimately grew ESBL e.coli. 1 out of 2 repeat blood culture sets from [facility] from 09/01/18 also grew ESBL e.coli. Fortunately he had evidence of sterility of the blood by 09/05/18 as cultures from that date were negative. He completed in total 14+ days of IV antibiotics while at [facility] (initially zosyn, then narrowed to once-daily ertapenem). Given that the urine culture was positive for ESBL e.coli it was felt that the source for the patient's bacteremia/septicemia was the urine. Although the patient has a port this was felt not to be the source for his i llness. Repeat urine culture at [facility] was ultimately negative. (2) Severe sepsis: 2nd to ESBL e.coli bacteremia/UTI. RESOLVED. (3) Acute on chronic respiratory failure with hypoxia and hypercapnia: The patient presented with severe acute/chronic respiratory failure upon arrival to [facility] from [place]. The acute respiratory failure was likely multifactorial including acute diastolic CHF, rapid a.fib, severe sepsis/septicemia, and COPD exacerbation in the setting of his known CIARRA lung cancer. He required oxymask for several days, then worsened on 09/03/18. He was transitioned to BiPAP at that time. On the AM of 09/04/18 he had worsening hypercarbia and mental status despite BiPAP; thus, he was intubated at that time. He remained on the vent until the AM of 09/07/18 at which time he was successfully extubated. He was maintained on NC O2 4 liters continuously until the time of discharge with stable respiratory status (which was his baseline NC O2 requirement pre- hospital). Night-time CPAP was utilized, however, with 14cm H20 (and 4 L O2 blended) for his NANCY. (4) Acute diastolic CHF (congestive heart failure): The patient's presenting weight was approximately 195kg. Over the course of his protracted stay he had steady diuresis and weight loss. Weight on day of discharge was 169kg. I suspect he had acute diastolic CHF from uncontrolled a.fib among other factors. The CHF was likely a big contributor to his respiratory failure. He was seen by cardiology for his CHF and uncontrolled a.fib (see below). He will remain on lasix 80mg po daily and metoprolol succinate 100mg BID. Again recent echo results were limited but appeared to show intact LV function. The patient had been taking aldactone prior to admission however this was not resumed as he had copious diuresis with lasix alone. Could consider restarting it again in the future, if necessary. (5) Atrial fibrillation: This was seen upon presentation at [facility]. This was a new diagnosis for Mr Leary. He remained in sustained a.fib the entire stay. [facility] was consulted, and his beta mio was titrated. He ultimately landed on a dose of metoprolol succinate 100mg BID. He was maintained on heparin drip for anticoagulation purposes, then was transitioned back to his usual xarelto dose of 20mg daily. Overall his rate control was felt acceptable in the setting of severe COPD and anemia. Rates at rest in the days leading up to discharge were upper 80s to low 100s. If additional rate control is needed could consider cardizem. Follow-up with Dr Barry Henry at [facility] for a.fib surveillance advised. (6) Squamous cell carcinoma of bronchus in left upper lobe: Followed by Dr Daniel Patel at the [facility] at [facility]. s/p chemo just prior to admission with resulting significant pancytopenia and transient neutropenia. Recent chest CT on 09/01/18 showed that the CIARRA mass was mildly smaller in comparison to prior imaging. He will need follow-up with Dr Patel or his partner, Dr Billy Crandall, within 1 week of discharge to discuss ongoing treatment plan for the cancer. (7) Antineoplastic chemotherapy induced pancytopenia: Required 6 units of PRBCs while hospitalized. Discharge hemoglobin was 9.4. He was initiated on ferrous sulfate supplementation twice daily. Platelet count bottomed in the 30s, improving to 147 at discharge. WBC count was 3.6 at discharge but without neutropenia. Recommend repeat CBC in several days after discharge for stability. (8) COPD (chronic obstructive pulmonary disease): The patient may have had mild COPD exacerbation but never required steroid therapy. He was maintained on bronchodilators and tessalon. He will continue combivent 1 puff QID post-discharge and Anoro Ellipta BID. Continue NC O2 4 liters continuously. See discussion above in "acute on chronic respiratory failure...". (9) Diabetes: Glycemic control was satisfactory for most of his stay on basal-bolus insulin. At discharge he will resume his normal metformin and januvia. (10) Obesity: Morbid obesity - BMI 53 (11) Gout: Continue Allopurinol 300mg am, 100mg pm. No flares during the hospitalization. (12) Pulmonary embolism: Prior history of PE - diagnosed 2017 in [facility]. Continue xarelto 20mg daily. (13) Hypertension: Continue Metoprolol succinate. Controlled during the stay. He never needed pressors while in ICU for his septicemia. (14) Chronic venous insufficiency: Normally takes BID keflex for cellulitis prophylaxis. This was on hold while on IV antibiotics. Consider resuming twice daily keflex upon admission to [facility]. (15) Sore throat: Resolved with magic mouthwash qid. Likely due to local trauma from intubation and/or mucositis from recent neutropenia. (16) Physical deconditioning: severe. Seen by PT, OT - rehab advised. Transferring to [facility] in [place] for acute rehab. Total Time Total Time Spent Total Time Spent (In Minutes): 60 Total Time Includes: Examination of the Patient, Discharge Planning, Medication Reconciliation and Communication With Other Providers ([facility]) Discharge Plan Discharge Items Patient Disposition: Transfer [facility] Reason For Visit: NEW ONSET A FIB Discharge Diagnosis: e.coli bacteremia (blood stream infection), atrial fibrillation, pancytopenia due to recent chemotherapy for CIARRA lung cancer. Discharge Goals: Diagnostic testing Activity: As commented below Activity Comment: as tolerated Non-emergency contact: Primary Care Provider and Oncologist Call non-emergency contact if: you have any medication questions, your pain is not controlled, your pain is worsening, your pain is unusual for you, your pain is concerning for you and your temperature is above 100.5 Follow-up/Referrals: Barry Henry MD [Physician] - (see Dr Henry, [facility], within 2 weeks) Billy Crandall [Physician] - (see Dr Crandall - [facility] at [facility] - within 1 week if possible) Josi Sampson DO [Primary Care Provider] - (see PCP within 1 week of di scharge from rehab) Diet: Carb Consistent or DM2 and Heart Healthy Fluids: 1800ml (7 cups) Diet Texture: Mechanical soft (ground) Addtl Provider Instructions: Mr Leary was treated for e.coli bacteremia/sepsis, respiratory failure requiring intubation/mech ventilation, a.fib (new onset), and pancytopenia related to recent chemotherapy for CIARRA lung cancer. The latter is managed by Dr Billy Crandall at [facility]. He completed 14 days of IV antibiotics while hospitalized for e.coli. Source of e.coli - lung vs urine. He is on 4 liters of NC O2 [id number]. He uses CPAP at for NANCY - 14cm H20 with oxygen blended. Recommendations - 1. check fingerstick blood sugars ac/hs 2. check CBC, BMP and magnesium level in 3 days for stability 3. f/u with Dr Billy Crandall within 1 week 4. check daily weights on standing scale; notify MD if any weight gain of more than 3-4 pounds in 1-2 days discharge weight at [facility] 169 kg Prescriptions: New metoprolol succinate 50 mg Tablet Extended Release 24 Hr 100 mg PO BID Qty: 60 RF: 5 benzonatate [Tessalon Perles] 100 mg Capsule 200 mg PO TID PRN (Reason: Cough) Qty: 30 RF: 0 nystatin [Nystop] 100,000 unit/gram Powder 1 applic EXT BID PRN (Reason: yeast rash in groin, skin folds, etc) Qty: 30 RF: 0 ferrous sulfate 325 mg (65 mg iron) Tablet,Delayed Release (Dr/Ec) 325 mg PO BID Qty: 60 RF: 2 Combivent Respimat 20-100 mcg/actuation Mist 1 puff inhalation QID Qty: 1 RF: 0 Oxygen Home Liters Per Minute .ROUTE .MEDSUPPLY Qty: 1 RF: 0 sennosides [senna] 8.6 mg tablet 17.2 mg PO DAILY Qty: 60 RF: 0 Continued Januvia 100 mg tablet 100 mg PO QAM RF: 0 allopurinol 300 mg tablet 300 mg PO QAM RF: 0 metformin 1,000 mg tablet 1,000 mg PO BID RF: 0 omeprazole 20 mg capsule,delayed release(DR/EC) 20 mg PO QAM RF: 0 Centravites 50 Plus tablet 1 tab PO QAM RF: 0 furosemide 40 mg tablet 80 mg PO QAM RF: 0 glucosamine-chondroitin [Osteo Bi-Flex] 250-200 mg tablet 1 tab PO BID RF: 0 Xarelto 20 mg tablet 20 mg PO QAM RF: 0 acetaminophen [Tylenol Extra Strength] 500 mg tablet 500 mg PO Q6H PRN (Reason: Pain) RF: 0 allopurinol 100 mg Tablet 100 mg PO QPM RF: 0 magnesium oxide 500 mg Tablet 1,500 mg PO QPM RF: 0 magnesium oxide 500 mg Tablet 1,000 mg PO QAM RF: 0 potassium chloride 20 mEq Tablet Extended Release 40 meq PO QAM RF: 0 Anoro Ellipta 62.5-25 mcg/actuation Blister With Device 1 - 2 inh INHALATION BID PRN (Reason: Shortness Of Breath) RF: 0 Discontinued metoprolol tartrate 25 mg tablet 25 mg PO BID RF: 0 spironolactone 50 mg tablet 50 mg PO QAM RF: 0 cephalexin 250 mg capsule 250 mg PO BID RF: 0 cilostazol 100 mg tablet 100 mg PO BID RF: 0 Lactobacillus acidophilus 100 mg (1 billion cell) capsule 100 mg PO BID RF: 0 celecoxib [Celebrex] 200 mg capsule 200 mg PO QAM RF: 0 tramadol 50 mg tablet 50 mg PO Q12H PRN (Reason: Pain) RF: 0 loperamide [Imodium A-D] 1 mg/7.5 mL liquid 2 mg PO Q4H PRN (Reason: Diarrhea) RF: 0 lorazepam 0.5 mg tablet 0.5 mg PO DAILY PRN (Reason: Anxiety) RF: 0 potassium chloride 20 mEq Tablet Extended Release 60 meq PO QPM RF: 0 Adult 50+ Probiotic 4 billion cell Capsule 1 cap PO QAM RF: 0 lisinopril 2.5 mg Tablet 2.5 mg PO DAILY RF: 0 Stand-Alone Forms: [facility] Discharge Orders: Discharge Order (Routine); Ordered 09/16/18 Ordered By: Adryan Cedeño Skilled Items Patient informed of condition?: Yes DNR: No Discharge Level of Care: Skilled Communicable Disease: No Discharge Prognosis: Stable Admission Data Admit Date/Time: 08/31/18 03:51 Attending Provider: Adryan Cedeño Admit Provider: Shameka Jack Primary Care Provider: Adrián,Josi L Other Providers: Ace Merchant ; Kahlil Back ; Barry Henry ; Daniel Patel V ; Gabe Hurd Service: Telemetry Other Interventions: Discharge Summary Assessment (RN) Last Done: 09/16/18 20:02 Pending Studies at Discharge: No DC Date/Time DO NOT enter until pt leaves facility: 09/16/18 20:04
== END 2018-09-16 20:04 | DRG 871 ==
LOC: SUATTDRO 03:51 → 2S 03:51 → 1E 09-01 11:00 → 2E 09-08 14:43

== ENCOUNTER 2018-09-30 17:39 | Inpatient (IN) ==
[~2018-09-30 17:39] MED LIST: INSULIN ASPART 100 UNITS/ML 3 ML PEN SC SCH
[2018-09-30] MEDS ORDERED: ACETAMINOPHEN 325 MG TAB PO PRN (19:58)
[2018-09-30] MEDS ORDERED: INSULIN ASPART 100 UNITS/ML 3 ML PEN SC SCH (20:00)
[2018-09-30] MEDS ORDERED: GLUCOSE 40% GEL 15 GM TUBE PO PRN (20:15)
[2018-09-30] MEDS ORDERED: CARBOHYDRATES FOR HYPOGLYCEMIA PO PRN (20:15)
[2018-09-30] MEDS ORDERED: GLUCAGON FOR INJ 1 MG VIAL IM PRN (20:15)
[2018-09-30] MEDS ORDERED: DEXTROSE 50% 50 ML SYRINGE IV PRN (20:15)
[2018-09-30] MEDS ORDERED: GLUCOSE 10 TABS/TUBE PO PRN (20:15)
--- NOTE | 2018-09-30 20:48 | History & Physical Report ---
Date of Service September 30, 2018 Assessment & Plan (1) Acute respiratory failure with hypoxia: 68yoM with hx of COPD, previous PE in 2017, Diastolic HF, and Lung Squamous Cell Carcinoma was received as direct admit from [place] for concern of worsening hypoxia and sob. Records from [place] Reviewed Pertinent Findings Include: Hgb 7.5, Na 132, BUN/Cr 22/1.2 GFR > 60, Bicarb 30, VBG ph 7.43, CO2 56, O2 16, Bicarb 37.2. CXR mild R basilar atelectasis. Received Duoneb x 2. Vitals concerning for HR in 100s-110s. Pt was normotensive. Recent Admission 08/31-09/17/18: For sepsis secondary to MDR E Coli UTI, Acute on chronic RF required intubation and mechanical ventilation in the setting of new onset AFib, and exacerbation of diastolic CHF. PMHx: Diastolic CHF, Afib, COPD on 4L O2 at baseline, NANCY on CPAP, Hx of PE in 2017 on Xarelto, DM2, Gout, HTN, Chronic Venous insufficiency Acute on Chronic Respiratory failure with hypoxia: Concern for PE in the setting of Lung SCC vs. possible Aortic Dissection vs. exacerbation of Diastolic CHF/COPD in the setting of lung cancer Hx of COPD, previous PE in 2017, Diastolic HF, and Lung Squamous Cell Carcinoma (finished XRT and chemo taxol/carboplatin on 08/16/18) On 4L O2 at baseline WBC wnl, VBG: ph 7.43, CO2 56, O2 16, Bicarb 37.2 at [place] today CXR at [place]: mild R basilar atelectasis On Bipap 18/8 40% FiO2 Duonebs QID brittany CTA PE - pending ABG pending Continue to monitor Diastolic CHF/HTN/Afib -BNP 2906 at [place] -Continue home metoprolol 100mg BID and Xarelto -Unable to accurately assess volume status clinically, tachycardic and normotensive which hints pt may be dry but on exam somewhat volume overloaded -Will order IVFs vs. Lasix IV based on CT chest findings Hyponatremia -Na 132 at [place] -Continue to monitor Anemia -Hgb prior admission between 7-9 (09/15 - 7.9, 09/16 - 9.4) -Of note: received 6 upRBC -Prior admission believed to be in the setting of Antineoplastic chemotherapy induced pancytopenia -Was discharged on ferrous sulfate -Hgb 7.5 at [place] today -No concern for acute GI bleed at this time -Continue to monitor Elevated Troponin: likely demand ischemia in the setting of acute RF -noted to be 37 (no lab range noted on record) -Obtain EKG -Troponin ordered DM2 -Hold home metform Gout -Hold home allopurinol while on bipap/NPO NANCY - CPAP at night (14cm H2O and 4L O2) -Currently on Bipap as above Code: FULL per discussion with pt DVT prop: Xarelto Dispo: PCU telemetry (2) Chronic venous insufficiency: (3) Hypertension: (4) Obesity: (5) COPD (chronic obstructive pulmonary disease): (6) Gout: (7) Diabetes: (8) Atrial fibrillation: (9) 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 Patient required CTA to rule out PE but their CT scan could not accommdate patient based on his weight. Patient reports sob, chest pain radiating to back, lightheadness and nausea on presentation. Also vomited yesterday after taking pills ("they give me too many pills"). Endorses dysuria. Denies any fever, chills, headache, abdominal pain, hematuria, hematochezia. Records from [place] Reviewed Pertinent Findings Include: Hgb 7.5, Na 132, BUN/Cr 22/1.2 GFR > 60, Bicarb 30, VBG ph 7.43, CO2 56, O2 16, Bicarb 37.2. CXR mild R basilar atelectasis. Received Duoneb x 2. Vitals concerning for HR in 100s-110s. Pt was normotensive. Recent Admission 08/31-09/17/18: For sepsis secondary to MDR E Coli UTI, Acute on chronic RF required intubation and mechanical ventilation in the setting of new onset AFib, and exacerbation of diastolic CHF. PMHx: Diastolic CHF, Afib, COPD on 4L O2 at baseline, NANCY on CPAP, Hx of PE in 2017 on Xarelto, DM2, Gout, HTN, Chronic Venous insufficiency Social: quit smoking in 2006, 40 pack years, heavy alcohol user in the past Primary Care Provider: Josi Sampson DO Allergies Allergy/AdvReac Type Severity Reaction Status Date / Time No Known Drug Allergies Allergy Verified 09/06/18 16:12 Home Medications Home Medications Medication Instructions Recorded Confirmed Type allopurinol 300 mg tablet 300 mg PO QAM 05/04/18 08/31/18 History furosemide 40 mg tablet 80 mg PO QAM tab 05/04/18 08/31/18 History geriatric multivit with iron and 1 tab PO QAM 05/04/18 08/31/18 History minerals tablet glucosamine-chondroitin 250 mg-200 1 tab PO BID tab 05/04/18 08/31/18 History mg tablet metformin 1,000 mg tablet 1,000 mg PO BID 05/04/18 08/31/18 History omeprazole 20 mg capsule,delayed 20 mg PO QAM 05/04/18 08/31/18 History release rivaroxaban 20 mg tablet 20 mg PO QAM 05/04/18 08/31/18 History sitagliptin 100 mg tablet 100 mg PO QAM 05/04/18 08/31/18 History Anoro Ellipta 1 - 2 inh INHALATION BID PRN 05/23/18 08/31/18 History allopurinol 100 mg PO QPM 05/23/18 08/31/18 History magnesium oxide 1,000 mg PO QAM 05/23/18 08/31/18 History magnesium oxide 1,500 mg PO QPM 05/23/18 08/31/18 History potassium chloride 40 meq PO QAM 05/23/18 08/31/18 History Oxygen Home #1 ea 09/16/18 Rx ferrous sulfate 325 mg PO BID #60 tab 09/16/18 Rx ipratropium-albuterol [Combivent 1 puff INHALATION QID #1 inhaler 09/16/18 Rx Respimat] metoprolol succinate 100 mg PO BID #60 tab 09/16/18 Rx aspirin [Aspirin Low Dose] 81 mg PO DAILY 09/30/18 09/30/18 History cyclobenzaprine 10 mg PO BID 09/30/18 09/30/18 History escitalopram oxalate [Lexapro] 5 mg PO HS 09/30/18 09/30/18 History furosemide 40 mg PO QPM 09/30/18 09/30/18 History hydrocodone-acetaminophen [Vicodin] 1 tab PO Q8 PRN 09/30/18 09/30/18 History insulin lispro See Rx Instructions .ROUTE .COMPLEX 09/30/18 09/30/18 History metolazone 2.5 mg PO DAILY 09/30/18 09/30/18 History nitroglycerin See Rx Instructions .ROUTE .COMPLEX 09/30/18 09/30/18 History Past Med/Surg History Medical History Diabetes mellitus (Acute) Gout (Acute) Lung cancer (Acute) Squamous cell, CIARRA. Anemia Anxiety Cellulitis Chronic, on Keflex BID. Chronic obstructive pulmonary disease Depression Exertional dyspnea History of pulmonary embolism 06/2016. Has been on Xarelto since. Morbid obesity with BMI of 60.0-69.9, adult On home oxygen therapy 3L NC CONT. Osteoarthritis Suspected sleep apnea No sleep study, but per pulm rates 20/24 on [place] Sleepiness Scale (+morbid obesity and need for O2 HS) Surgical History Difficult airway for intubation GLIDESCOPE #3 FOR 05/27/18 EBUS History of bronchoscopy WITH LYMPH NODE BIOPSY 05/27/18. PER SURGEON H+P "THE FACT THAT HE IS ON OXYGEN AND HIS SHEER SIZE AND OTHER COMORBID FACTORS WOULD MAKE HIM EXTREMELY HIGH RISK FOR ANY TYPE OF SURGERY." EBUS WAS WELL TOLERATED. History of cardiac cath History of cholecystectomy History of tonsillectomy Family History Mother , age 71 Myotonic dystrophy Father , age 58 CHF (congestive heart failure) Diabetes 1.5, managed as type 1 Brother , age 66 Myotonic dystrophy Daughter Anxiety Daughter History of back problems Son History of back problems Uncle , age 87 Lung cancer Social History Preferred Language: Indonesian Communication Ability: Effective Visual Impairment: No Limitations Hearing Ability: Normal Box Printer Required: No Beliefs That Will Affect Care: None marital status: marital status details: Current Living Situation: Intermediate Current Living Situation Comment: [facility] current occupational status: retired Other Information That Helps Us Care for You: No other: 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 [employer] Feels Safe at Home: Yes Safety Concerns: Feels Safe At This Time Smoking Status: Former smoker Tobacco Type: cigarettes ; Cigarettes Per Day: 20 ; Second Hand Exposure: No ; Hx Alcohol Use: Yes Hx Substance Use: No Review of Systems 2 Review of Systems: As per HPI Physical Exam Physical Exam: General: In mild distress while on Bipap Neuro: alert and oriented x 4 CV: Irregular rhythm, tachycardic, no m/r/g appreciated PULM: Diffuse rhonchi appreciated while pt on Bipap, equal breath sounds bila terally Abdomen: +BS, obese abdomen, NTTP in all quadrants LE: chronic venous stasis skin findings, 2+ pretibial edema Results & Data Vital Signs (Past 12 Hours) Vital Signs Temp Pulse Pulse Resp BP Pulse Ox 09/30/18 20:00 37.3 C 114 H 30 H 121/65 96 09/30/18 19:20 112 H 30 H 96 Laboratory Results Abnormal lab results 09/30/18 Range/Units 20:45 POC Glucose 177 H (70-99) Medications Administered Current Inpatient Medications Acetaminophen (Tylenol) 650 mg PO Q4H PRN PRN Reason: Pain or Fever Stop: 10/30/18 19:57 Albuterol (Duoneb) 3 ml NEB QIDR BRITTANY Stop: 10/31/18 07:59 Dextrose (Dextrose 50%) 25 - 50 ml IV UD PRN; Protocol PRN Reason: Hypoglycemia Protocol Stop: 10/30/18 20:14 Glucagon (Glucagen) 1 mg IM UD PRN; Protocol PRN Reason: Hypoglycemia Protocol Stop: 10/30/18 20:14 Glucose (Glucose 40%) 15 - 30 gm PO UD PRN; Protocol PRN Reason: Hypoglycemia Protocol Stop: 10/30/18 20:14 Glucose (Dex4 Glucose) 4 - 8 tabs PO UD PRN; Protocol PRN Reason: Hypoglycemia Protocol Stop: 10/30/18 20:14 Insulin Aspart (Novolog Flexpen) 0 units SC Q6 BRITTANY Stop: 10/31/18 00:00 Metoprolol Tartrate (Lopressor) 100 mg PO BID [facility] Stop: 10/30/18 20:59 Miscellaneous (Carbohydrates For Hypoglycemia) 15 - 30 gm PO UD PRN PRN Reason: Hypoglycemia Treatment Stop: 10/30/18 20:14 Rivaroxaban (Xarelto) 20 mg PO QDD BRITTANY Stop: 10/31/18 16:29 Code Status & VTE Plan Code Status Full Code per discussion with patient Supervising Physician Co-Signing Physician Notes Pt seen/examined in conjunction with resident MD Romaine Cisneros. Orders and plan of admission formaulated with resident. This is a 68 y/o M Hx COPD, PE 2017, Diastolic CHF, squamous cell lung CA. Arrives from [facility] due to hypoxia. They wanted a CT chest but he is morbidly obese and could not fit in the CT scanner. He has also been c/o back and chest pain. A CT chest was notable for a lung mass, enlarging pleural effusion and possible osteomyelitis of the T spine - vs mets OE Volume status cannot be assessed clinically due to habitus AAO x 3 - appears uncomfortable and requiring BiPAP S1,2 faint Lung exam is very limited NT, ND, BS + + edema P: Placed on antibiotics for osteo - ortho consult pending We have decided to provide him with fluids as he was tachycardic with a normal/low pressure on arrival, but will have to work empirically in managing his volume The pt's effusion is likely contributing to his SOB and we will consult thoracic as his may be a malignant effusion and lasix does not seem appropriate at present Placed on a SS Anticoagulated with Xarelto PG Care Time/CCT Total # of Minutes Spent Total Time Spent with Patient: Total time spent is greater than 50% in coordination of care (as documented) at patient's floor/unit and/or counseling patient: Resident Activity Tracking Resident Involvement: Resident Care Provided Care Provided: Adult Hospital Medicine (1) Diabetes Diabetes mellitus complication status: without complication Diabetes mellitus ferry terminal agent insulin use: without ferry terminal agent use Diabetes mellitus type: type 2 Qualified Code(s): E11.9 - Type 2 diabetes mellitus without complications (2) Gout Chronicity: chronic Gout etiology: unspecified cause Gout site: unspecified site Presence of tophus: without tophus Qualified Code(s): M1A.9XX0 - Chronic gout, unspecified, without tophus (tophi) (3) Atrial fibrillation Atrial fibrillation type: unspecified Qualified Code(s): I48.91 - Unspecified atrial fibrillation (4) COPD (chronic obstructive pulmonary disease) COPD type: unspecified COPD Qualified Code(s): J44.9 - Chronic obstructive pulmonary disease, unspecified (5) Hypertension Hypertension type: essential hypertension Qualified Code(s): I10 - Essential (primary) hypertension (6) Obesity Body mass index: BMI 60.0-69.9 Obesity classification: adult class 3 (BMI >= 40) Obesity type: due to excess calories Serious obesity comorbidity presence: with serious comorbidity Qualified Code(s): E66.01 - Morbid (severe) obesity due to excess calories; Z68.44 - Body mass index (BMI) 60.0-69.9, adult
[2018-09-30 21:33] LABS: Allen Test Pos (Pos); Base Excess ABG 8.1 mEq/L (-9-1.8); HCO3 ABG 32 mmol/L (19-24); Oxygen Saturation ABG 94.1 % (90-95); PCO2 ABG 43 mmHg (35-46); PO2 ABG 104 mm/Hg (80-95); pH ABG 7.49 (7.35-7.45)
[2018-09-30] MEDS ORDERED: OPTIRAY 320 125ml IV PRN (21:57)
[2018-09-30 22:03] LABS: Appearance Urine Clear (Clear); Bacteria Urine Automated 2+ (Negative); Bilirubin Urine Negative (Negative); Blood Urine Negative (Negative); Color Urine Yellow; Glucose Urine UA Negative (Negative); Ketones Urine Negative (Negative); Leukocyte Esterase Urine 1+ (Negative); Nitrite Urine Positive (Negative); Protein Urine Negative (Negative); RBC Urine Automated 0-4 /hpf (0-4); Specific Gravity Urine 1.016 (1.000-1.030); Urobilinogen Urine Negative (Negative)
[2018-09-30] MEDS: METOPROLOL TARTRATE 100 MG TAB PO SCH (22:11)
--- NOTE | 2018-09-30 22:25 | CT Scan Report ---
CHEST CTA for PULMONARY ARTERIES CT DOSE: 925.59 mGy.cm HISTORY: Shortness of breath. TECHNIQUE: Multiaxial CT images of the chest were performed following the intravenous administration of contrast to evaluate the pulmonary arteries. Maximal intensity projection images were also obtaine d. A dose lowering technique was utilized adhering to the principles of ALARA. COMPARISON STUDY: Chest CT 09/01/2018. FINDINGS: Normal caliber thoracic aorta with no evidence for dissection. The heart is normal in size. Small bilateral pleural effusions have increased in size. No mediastinal or hilar lymphadenopathy. T he visualized liver, spleen, and adrenal glands are unremarkable. Normal esophagus. Left subclavian c entral venous catheter terminates in the SVC. Respiratory motion artifact. This results in nondiagnos tic evaluation of the majority of the segmental and subsegmental pulmonary arteries. The main and lob ar pulmonary arteries appear patent. Interval development of destructive endplate changes at the T7-T 8 disc space level with mild anterior wedge-shaped compression deformity at T7. There is associated p aravertebral fat stranding/soft tissue thickening at this location. Therefore, this favors a discitis /osteomyelitis. A metastatic lesion could also have a similar appearance but is considered less likel y. Evaluation of the central canal is nondiagnostic due to the streak artifact at this location. Smal l amount of mucoid material within the trachea. No pneumothorax. Soft tissue nodularity associated wi th the cavitary lesion within the left upper lobe has improved. This lesion is slightly decreased in size currently measuring 5.0 x 2.8 cm. This previously measured 5.5 x 3.1 cm. Posterior opacities wit hin the bilateral lower lobes favor compressive atelectasis from the small pleural effusions. However , a pneumonia could also have a similar appearance. IMPRESSION: 1. No evidence for central pulmonary embolus with limitations as described above. 2. Interval development of paraspinal fat stranding/soft tissue centered at the T7-T8 disc space leve l with destructive endplate changes. These findings are highly suspicious for discitis/osteomyelitis. There is also mild anterior wedging at T7 suggestive of a developing compression deformity. A metast atic lesion at this location could also have a similar appearance but is considered less likely. 3. Slight improvement in the 5.0 x 2.8 cm cavitary lesion within the left upper lobe. 4. Small amount of mucosal material within the trachea. 5. Bilateral lower lobe posterior space opacities which favor compressive atelectasis from the small pleural effusions. However, pneumonia could also have a similar appearance. 6. These findings were discussed with Dr. Holliday at 10:50 PM on 09/30/2018. Electronically signed by: Andi Kamara M.D. 09/30/2018 10:51 PM
[2018-09-30] MEDS ORDERED: VANCOMYCIN CONSULT ACTIVE PRN (22:57)
[2018-09-30] MEDS ORDERED: PIPERACILL/TAZOBAC CONSULT ACTIVE PRN (22:57)
[2018-09-30] MEDS ORDERED: LACTATED RINGER'S 1,000 ML IV ONE (22:59)
[2018-09-30] MEDS ORDERED: LACTATED RINGER'S 500 ML IV ONE (23:00)
[2018-09-30] MEDS ORDERED: ONDANSETRON INJ 2 MG/ML 2 ML VIAL IV PRN (23:07)
[2018-09-30] MEDS ORDERED: VANCOMYCIN HCL 2,750 MG in SODIUM CHLORIDE 0.9% 500 ML IV ONE (23:15)
[2018-09-30] MEDS ORDERED: PIPERACILLIN/TAZOBACTAM 4.5 GM in DEXTROSE 5% 100 ML IV ONE (23:15)
[2018-10-01] MEDS ORDERED: INSULIN ASPART 100 UNITS/ML 3 ML PEN SC SCH
[2018-10-01] MEDS ORDERED: LACTATED RINGER'S 500 ML IV ONE (00:10)
[2018-10-01] MEDS: MoRPHine SULFATE 2 MG/ML CARP IV PRN (00:31)
[2018-10-01] MEDS: INSULIN ASPART 100 UNITS/ML 3 ML PEN SC SCH ×4 (00:35→18:06)
[2018-10-01] MEDS: PIPERACILLIN/TAZOBACTAM 4.5 GM in DEXTROSE 5% 100 ML IV SCH ×3 (04:03→21:31)
--- NOTE | 2018-10-01 06:13 | Pharmacy Report ---
Pharmacy Abx Initial Consult - Date of Service October 01, 2018 - Pharmacy Dosing Scope Date of Consult: 09/30/18 Consultation requested by: Dr. Cisneros Pharmacy is consulted to initiate Zosyn and Vancomycin IV dosing therapy, order appropriate labs and adjust drug dose/frequency. - Subjective The patient is a 68 year old M admitted on 09/30/18 19:20. The patient was a direct admit from [facility]. Upon work up and assessment he was found to have possible discitis/osteomyelitis via CT scan. He was prescribed Zosyn and Vancomycin by resident physician Dr. Cisneros. Both antibiotics are auto pharmacy consults and will be followed. The patient is familiar to us as he was admitted about 30 days ago and also given Vancomycin and Zosyn empirically. Given patients bariatric stature we will proceed with what regimen yielded a sufficient trough during last admission. In addition due to his obesity I ordered his first trough level a bit earlier than normal to be sure he doesn't accumulate the Vancomycin. - Objective Height: 5 ft 10 in Weight: 180.53 kg Vital Signs (Past 12hrs): Vital Signs Temp Pulse Pulse Resp BP Pulse Ox 10/01/18 03:58 37.0 C 108 H 20 118/63 97 10/01/18 02:17 117 H 25 H 96 09/30/18 23:56 36.9 C 104 H 22 108/62 95 09/30/18 20:00 37.3 C 114 H 30 H 121/65 96 09/30/18 19:20 112 H 30 H 96 Micro Results: 09/30/18 21:30 Urine Culture - Pending Urine,Clean Catch - Risk Factors for Resistance * Hospitalization for 48 hours or more within the past 90 days * Antimicrobial use within the last 90 days: Vancomycin, Zosyn, Keflex for certain - Assessment & Plan Assessment 68 year old M with discitis/osteomyelitis Plan Vancomycin IV * Estimated PK Parameters: Vd ~0.55 L/kg, Bry 0.082 hr-1, t1/2 8.45hr * Loading dose: 2750 mg (15mg/kg) * Maintenance dose: 2250 mg IV (12.5 mg/kg) every 10 hours * Goal trough level : 15 to 20 mcg/mL * Trough level ordered prior to 0800 dose on 10/02/18 * A less than traditional dose has been selected due to likelihood of drug accumulation in obese patient. Piperacillin/tazobactam * 4.5 g bolus administered over 30 minutes, then 4.5 g IV extended infusion every 8 hours for CrCl greater than 20 mL/min * Aggressive dosing selected due to BMI >35 Pharmacy will continue to follow and will adjust dose/frequency as necessary. Thank you.
[2018-10-01 06:30] LABS: Basophils # (auto) 0.01 K/uL (0-0.2); Basophils % (auto) 0.1 %; Hematocrit (blood only) 22.1 % (42-52); Hemoglobin 7.1 g/dL (14.0-18.0); Immature Granulocytes # (auto) 0.02 K/uL (0.00-0.02); Immature Granulocytes % (auto) 0.3 %; Lymphocytes # (auto) 0.38 K/uL (1.2-3.4); Mean Corpuscular Hgb Conc 32.1 g/dL (32-36); Mean Platelet Volume 10.1 fL (7.4-10.4); Monocytes # (auto) 0.71 K/uL (0.11-0.59); Monocytes % (auto) 9.4 %; Neutrophils # (auto) 6.47 K/uL (1.4-6.5); Neutrophils % (auto) 85.2 %; Nucleated RBC # (auto) 0.04 K/uL (0-0); Nucleated RBC % (auto) 0.5 %; Platelet Count 164 K/uL (130-400); RDW Coefficient of Variation 21.7 % (11.5-14.5); RDW Standard Deviation 76.7 fL (36.4-46.3); Red Blood Count 2.21 M/uL (4.7-6.1); White Blood Count 7.59 K/uL (4.8-10.8)
[2018-10-01 06:55] LABS: Base Excess ABG 9.4 mEq/L (-9-1.8); HCO3 ABG 35 mmol/L (19-24); PCO2 ABG 56 mmHg (35-46); PO2 ABG 129 mm/Hg (80-95); pH ABG 7.42 (7.35-7.45)
[2018-10-01 06:56] LABS: Allen Test Pos (Pos); Anisocytosis Present
[2018-10-01 07:04] LABS: Albumin Level 2.1 gm/dl (3.4-5.0); BUN Creatinine Ratio 19.3 (10-20); Calcium 8.8 mg/dl (8.5-10.1); Creatinine Clr Calc Pharmacy 106.4 ml/min; Est GFR (Non-African American) 70.8; Potassium 2.9 mmol/L (3.5-5.1)
[2018-10-01] MEDS: ALBUT/IPRATROP 3MG/0.5MG NEB 3 ML VIAL NEB SCH ×4 (07:04→19:13)
[2018-10-01 07:09] LABS: Albumin Globulin Ratio 0.4 (0.9-2); Bilirubin,Total 0.6 mg/dl (0.2-1); Total Protein 7.1 gm/dl (6.4-8.2)
--- NOTE | 2018-10-01 07:14 | Family Medicine Progress Note ---
Date of Service October 01, 2018 Assessment & Plan (1) Acute respiratory failure with hypoxia: Mr. Leary is a 68 year old male with a past medical history of squamous cell carcinoma of the lungs, Diastolic CHF, Afib, COPD on 4L O2 at baseline, NANCY on CPAP, Hx of PE in 2017 on Xarelto, DM2, Gout, HTN, Chronic Venous insufficiency who was received as direct admit from [facility] for concern of worsening hypoxia and sob. Records from [facility] Reviewed Pertinent Findings Include: Hgb 7.5, Na 132, BUN/Cr 22/1.2 GFR > 60, Bicarb 30, VBG ph 7.43, CO2 56, O2 16, Bicarb 37.2. CXR mild R basilar atelectasis. Received Duoneb x 2. Vitals concerning for HR in 100s-110s. Pt was normotensive. Recent Admission 08/31-09/17/18: For sepsis secondary to MDR E Coli UTI, Acute on chronic RF required intubation and mechanical ventilation in the setting of new onset AFib, and exacerbation of diastolic CHF. Acute on Chronic Respiratory failure with hypoxia - Hx of COPD, previous PE in 2017, Diastolic HF, and Lung Squamous Cell Carcinoma (finished XRT and chemo taxol/carboplatin on 08/16/18) - On 4L O2 at baseline, currently saturating well on 4 L of oxygen via nasal cannula. Patient was quite lethargic this morning, and tends to drop his oxygen saturations when he falls asleep, requiring BiPAP - CXR at [facility]: mild R basilar atelectasis - CTA negative for PE. His CTA did show bilateral lower lobe posterior space opacities, which could be from his pleural effusions versus pneumonia - Thoracic surgery consulted given bilateral pleural effusions, however they do not feel that this is large enough to warrant a thoracentesis - Suspect his hypoxia is secondary to his lethargy & hx of NANCY, in combination with possible aspiration - Speech eval ordered - Kia MISH[facility] Osteomyelitis -CTA showed paraspinal fat stranding centered at the T7/T8 disc space, with destructive endplate changes, suspicious for discitis/osteomyelitis (versus metastatic disease). This is associated with a developing compression deformity at T7 -Ortho spine consulted, awaiting recommendations. Patient may require MRI to further investigate this -Patient started on Zosyn and vancomycin for empiric coverage -Blood cultures drawn and pending, however unfortunately these were drawn after the first dose of the antibiotics -1 g IV Tylenol every 8 hours as needed pain, hold sedating medications such as morphine, given patient becomes lethargic, and hypoxic, requiring BiPAP Hypokalemia -Potassium level of 2.9 today, Repleted with 40 MeQ of IV potassium chloride -Magnesium checked and normal at 2 Diastolic CHF/HTN/Afib -BNP 2906 at [facility] -Continue home metoprolol 100mg BID and Xarelto -Hold home Lasix and metolazone in the setting of infection, can restart if he develops signs of fluid overload -Continue home aspirin Anemia -Hgb prior admission between 7-9 (09/15 - 7.9, 09/16 - 9.4) -Of note: received 6 units of pRBC. -Prior admission believed to be in the setting of Antineoplastic chemotherapy induced pancytopenia -Was discharged on ferrous sulfate -Hgb 7.1 today, will continue to trend -No concern for acute GI bleed at this time GERD -Continue home omeprazole DM2 -Hold home metformin and sitagliptin, continue insulin sliding scale Depression -Continue home Lexapro Gout -Continue home allopurinol NANCY - CPAP at night (14cm H2O and 4L O2) -Currently on Bipap as above Code: FULL per discussion with pt DVT prop: Xarelto Dispo: Remains on telemetry (2) Chronic venous insufficiency: (3) Hypertension: (4) Obesity: (5) COPD (chronic obstructive pulmonary disease): (6) Gout: (7) Diabetes: (8) Atrial fibrillation: (9) Squamous cell carcinoma of bronchus in left upper lobe: Supervising Physician Co-Signing Physician Notes Resident Physician Supervision Note: I independently interviewed and examined the patient and verified the lovelace history and physical, reviewed labs and image studies, discussed the case with the resident Dr. Obando and agree with the findings and care plan. Subjective History is limited secondary history is limited due to Mr. Leary wearing a BiPAP. Mr. Leary states that his breathing is not good. He notes that he has severe back pain. His is present who states that his back pain has been present for a number of weeks. She states that he is minimally ambulatory, and is able to walk a few steps with his walker. Review of Systems Constitutional: + fatigue and + weakness; no fever and no chills Cardiovascular: + edema; no chest pain Gastrointestinal: no abdominal pain, no nausea and no vomiting Musculoskeletal: + back pain Physical Exam Constitutional: + morbidly obese; no acute distress wearing bipap, answering yes/no to questions Respiratory: normal respiratory effort coarse breath sounds bilaterally. Loud snoring when he falls asleep Cardiovascular: Rate/Rhythm: regular rate and regular rhythm Extremities: + edema (2-3+ pitting edema bilaterally); no calf tenderness Gastrointestinal (Abdomen): Inspection/Auscultation: + abdomen distended Percussion/Palpation: abdomen soft; abdomen nontender, no guarding and abdomen not rigid Skin: chronic venous stasis changes b/l Results & Data Vital Signs (Past 12 Hours) Vital Signs Temp Pulse Pulse Resp BP Pulse Ox 10/01/18 07:08 105 H 22 98 10/01/18 07:06 105 H 22 98 10/01/18 03:58 37.0 C 108 H 20 118/63 97 10/01/18 02:17 117 H 25 H 96 09/30/18 23:56 36.9 C 104 H 22 108/62 95 09/30/18 20:00 37.3 C 114 H 30 H 121/65 96 09/30/18 19:20 112 H 30 H 96 PG Care Time/CCT Total # of Minutes Spent Total Time Spent with Patient: Total time spent is greater than 50% in coordination of care (as documented) at patient's floor/unit and/or counseling patient: Resident Activity Tracking Resident Involvement: Resident Care Provided Care Provided: Adult Hospital Medicine (1) Diabetes Diabetes mellitus complication status: without complication Diabetes mellitus terminal makeup operator insulin use: without terminal makeup operator use Diabetes mellitus type: type 2 Qualified Code(s): E11.9 - Type 2 diabetes mellitus without complications (2) Gout Chronicity: chronic Gout etiology: unspecified cause Gout site: unspecified site Presence of tophus: without tophus Qualified Code(s): M1A.9XX0 - Chronic gout, unspecified, without tophus (tophi) (3) Atrial fibrillation Atrial fibrillation type: unspecified Qualified Code(s): I48.91 - Unspecified atrial fibrillation (4) COPD (chronic obstructive pulmonary disease) COPD type: unspecified COPD Qualified Code(s): J44.9 - Chronic obstructive pulmonary disease, unspecified (5) Hypertension Hypertension type: essential hypertension Qualified Code(s): I10 - Essential (primary) hypertension (6) Obesity Body mass index: BMI 60.0-69.9 Obesity classification: adult class 3 (BMI >= 40) Obesity type: due to excess calories Serious obesity comorbidity presence: with serious comorbidity Qualified Code(s): E66.01 - Morbid (severe) obesity due to excess calories; Z68.44 - Body mass index (BMI) 60.0-69.9, adult
[2018-10-01] MEDS: POTASSIUM CHLORIDE / WTR 20 MEQ/100 ML PLCT IV SCH ×2 (08:26→10:27)
[2018-10-01] MEDS: METOPROLOL TARTRATE 100 MG TAB PO SCH ×3 (10:27→23:46)
[2018-10-01] MEDS: VANCOMYCIN HCL 2,250 MG in SODIUM CHLORIDE 0.9% 500 ML IV SCH ×2 (12:15→23:28)
[2018-10-01] MEDS: ACETAMINOPHEN 1,000 MG/100 ML VIAL IV PRN (13:20)
[2018-10-01] MEDS: OXYCODONE HCL IR 5 MG TAB (IMMEDIATE RELEASE) PO PRN ×3 (15:19→23:46)
[2018-10-01] MEDS: RIVAROXABAN 20 MG TAB PO SCH (17:40)
[2018-10-01] MEDS: FERROUS SULFATE 325 MG TAB PO SCH (17:40)
--- NOTE | 2018-10-01 20:03 | Consultation Report ---
DATE OF CONSULTATION: 10/01/2018 REASON FOR CONSULTATION: Evaluation of pleural effusions. HISTORY OF PRESENT ILLNESS: This is a 68-year-old male with multiple medical problems. His records were reviewed. He was recently admitted to [facility] from August 31 through secondary to severe sepsis felt to be due to resistant E. coli that originated from his urinary tract. He also had respiratory failure requiring mechanical ventilatory support during that admission. The patient has since been discharged from the hospital and presented to [facility] last evening secondary to shortness of breath as well as chest pain along with nausea, vomiting. Because of the patient's recent hospitalization at [facility], he was transferred as a direct admission from [facility]. Upon arrival to [facility], the patient did have diagnostic studies performed including a CBC where white blood cell count was noted to be 7.5, hemoglobin and hematocrit are 7.1 and 22.1. His platelet count is noted to be 164,000. Coagulation studies were not performed. The patient did have an arterial blood gas that showed a pH of 7.42, pCO2 of 56 and a pO2 of 129 and only the bicarbonate of 35. Chemistry profile did show that his sodium is 135, potassium 2.9. His BUN and creatinine were 21 and 1.0. His ProBNP was elevated at 2363. Imaging studies were conducted which included a CT scan of the chest. This did show the patient has very small bilateral pleural effusions. There was no evidence of a pulmonary emboli. There was concern for diskitis or osteomyelitis at the T7-T8 level. We have been asked to see the patient to comment on his pleural effusions. At the time of my exam, the patient was resting comfortably in bed. He said his shortness of breath had improved slightly since admission and he did not offer any other complaints at this time. I did question the patient on numerous other symptoms and he did not report any recent falls or head injuries. He denies any new visual changes or tinnitus. He says his throat is not sore. He denies any neck pain. He did not note any chest discomfort at the time of my exam. He says he is short of breath with activity but feels comfortable at rest at the present time. Currently, denies any abdominal pain or dysuria. He does suffer from anxiety, depression and has been treated for PE since 2017. PAST MEDICAL HISTORY: Includes the followin. COPD. 2. History of PE diagnosed in 2017 for which he has been treated with Xarelto. 3. Diastolic CHF. 4. History of squamous cell lung cancer diagnosed by bronchoscopy in April of 2018. 5. Diabetes. 6. Gout. 7. Anemia. 8. Anxiety. 9. Chronic lower extremity cellulitis. 10. Depression. 11. Obesity. 12. Osteoarthritis. 13. Obstructive sleep apnea. 14. Chronic respiratory failure. 15. Atrial fibrillation. PAST SURGICAL HISTORY: Includes: 1. History of bronchoscopy that was reportedly an endobronchial ultrasound. 2. Cardiac catheterization. 3. Cholecystectomy. 4. Tonsillectomy. ALLERGIES: He does not have any known medication allergies. HOME MEDICATIONS: Include; 1. Zosyn intravenously. 2. Vancomycin intravenously. 3. Metoprolol 100 mg twice daily. 4. DuoNeb 4 times daily. 5. Xarelto 20 mg daily. 6. Sliding scale insulin. FAMILY HISTORY: The patient's father suffered from CHF. SOCIAL HISTORY: He is a former smoker. REVIEW OF SYSTEMS: As noted above. PHYSICAL EXAMINATION: VITAL SIGNS: The patient's blood pressure is 141/70, pulse is 90 and regular, respirations are 25, they did not appear labored. He is afebrile with temperature 36.6, pulse ox was 100% on BiPAP. At the time of my exam, he had been titrated down to nasal cannula and had a pulse ox of approximately 90%. GENERAL: The patient was alert to person, place and time. HEENT: Head appeared atraumatic. Eyes: His pupils were nonicteric. Ears: His auditory acuity appeared grossly intact. Nose: There was no evidence of nasal trauma. His mouth had dry mucous membranes. NECK: Did not appear to have any tracheal shift, no stridor is noted. CARDIOVASCULAR: Regular rate and rhythm. LUNGS: Revealed coarse breath sounds bilaterally which were markedly decreased at the bases, likely due to his body habitus. ABDOMEN: Rotund and soft. EXTREMITIES: Revealed a hemosiderin deposition bilaterally of his lower extremities. NEUROLOGIC: Revealed that he could move all 4 extremities without noted focal deficits. DIAGNOSTIC DATA: As noted above. IMPRESSION: A 68-year-old male admitted with shortness of breath and chest pain. PLAN: I reviewed the patient's CAT scan and I do not feel that his small pleural effusions are contributing significantly to his shortness of breath at this time. I feels that his shortness of breath is likely due to his other confounding medical problems listed above. I do not feel that a thoracentesis is warranted as the patient does not appear likely to be able to sit up at the bedside and he is anticoagulated with Xarelto and the fact that these pleural effusions are quite small. I discussed these recommendations with the medical attending. We will leave the remainder of his care at the discretion of the medical team. We will continue to follow along while he is in the hospital.
[2018-10-01] MEDS: ESCITALOPRAM OXALATE 10 MG TAB PO SCH (21:40)
[2018-10-01] MEDS: ALLOPURINOL 100 MG TAB PO SCH (21:40)
[2018-10-01] MEDS ORDERED: METOPROLOL TARTRATE 1 MG/ML VIAL IV PRN (23:15)
[2018-10-02] MEDS: INSULIN ASPART 100 UNITS/ML 3 ML PEN SC SCH ×4 (00:22→18:01)
[2018-10-02] MEDS ORDERED: OXYCODONE HCL IR 5 MG TAB (IMMEDIATE RELEASE) PO STA ×2 (02:49→11:05)
[2018-10-02] MEDS: PIPERACILLIN/TAZOBACTAM 4.5 GM in DEXTROSE 5% 100 ML IV SCH ×3 (04:18→21:00)
[2018-10-02 04:46] LABS: Basophils # (auto) 0.01 K/uL (0-0.2); Basophils % (auto) 0.1 %; Eosinophils # (auto) 0.01 K/uL (0-0.5); Eosinophils % (auto) 0.1 %; Hematocrit (blood only) 22.5 % (42-52); Hemoglobin 7.1 g/dL (14.0-18.0); Immature Granulocytes # (auto) 0.02 K/uL (0.00-0.02); Immature Granulocytes % (auto) 0.3 %; Lymphocytes # (auto) 0.47 K/uL (1.2-3.4); Lymphocytes % (auto) 6.1 %; Mean Corpuscular Hgb Conc 31.6 g/dL (32-36); Mean Corpuscular Volume 101.8 fL (80-100); Mean Platelet Volume 10.4 fL (7.4-10.4); Monocytes # (auto) 0.65 K/uL (0.11-0.59); Monocytes % (auto) 8.5 %; Neutrophils % (auto) 84.9 %; Nucleated RBC # (auto) 0.04 K/uL (0-0); Nucleated RBC % (auto) 0.5 %; Platelet Count 155 K/uL (130-400); RDW Coefficient of Variation 21.5 % (11.5-14.5); RDW Standard Deviation 77.9 fL (36.4-46.3); Red Blood Count 2.21 M/uL (4.7-6.1); White Blood Count 7.66 K/uL (4.8-10.8)
[2018-10-02 05:01] LABS: BUN Creatinine Ratio 17.3 (10-20); Blood Urea Nitrogen 17 mg/dl (7-18); Calcium 8.5 mg/dl (8.5-10.1); Carbon Dioxide 37 mmol/L (21-32); Chloride 93 mmol/L (98-107); Est GFR (African American) 89.1; Est GFR (Non-African American) 76.8; Glucose 153 mg/dl (70-99); Potassium 3.1 mmol/L (3.5-5.1); Sodium 135 mmol/L (136-145)
[2018-10-02 05:06] LABS: Troponin I < 0.015 ng/ml (0-0.045)
[2018-10-02 05:13] LABS: Anisocytosis Present
[2018-10-02] MEDS: OXYCODONE HCL IR 5 MG TAB (IMMEDIATE RELEASE) PO PRN ×4 (06:21→21:29)
[2018-10-02] MEDS: POTASSIUM CHLORIDE / WTR 20 MEQ/100 ML PLCT IV SCH ×2 (06:51→08:43)
[2018-10-02] MEDS: LEVALBUTEROL HCL 0.63 MG/3 ML NEB NEB SCH ×3 (07:06→19:07)
[2018-10-02] MEDS ORDERED: VANCOMYCIN TROUGH ONE (07:30)
[2018-10-02] MEDS: VANCOMYCIN HCL 2,250 MG in SODIUM CHLORIDE 0.9% 500 ML IV SCH ×2 (08:43→21:00)
[2018-10-02] MEDS ORDERED: METOPROLOL TARTRATE 1 MG/ML VIAL IV PRN (08:48)
--- NOTE | 2018-10-02 09:41 | Pharmacy Report ---
Pharmacy Abx Dose Short Note - Date of Service October 02, 2018 - Assessment & Plan Assessment 68 year old M receiving Vancomycin 2250mg q10H for treatment of osteomyelitis Day # 3 of antimicrobial therapy. Laboratory Tests 10/02/18 07:46 Vancomycin Trough 20.9 Plan Vancomycin * Trough level of 20.9 mcg/mL is therapeutic. * This level was obtained a little early due to concern for drug accumulation in bariatric patient. At this time will continue dose of 2250 mg IV every 10 hours and check with 5th maintenance dose. This should be reflective of Css and will also reassess for accumulation. * Goal trough level : ~20 mcg/mL * Trough or random level ordered for: 10/03/18 before 0400 dose. Pharmacy will continue to follow and will adjust dose/frequency as necessary. Thank you.
[2018-10-02] MEDS: METOPROLOL TARTRATE 100 MG TAB PO SCH ×2 (09:56→21:29)
[2018-10-02] MEDS: ASPIRIN 81 MG ECTAB PO SCH (09:57)
[2018-10-02] MEDS: FERROUS SULFATE 325 MG TAB PO SCH ×2 (10:15→17:13)
[2018-10-02] MEDS: ALLOPURINOL 300 MG TAB PO SCH (10:16)
--- NOTE | 2018-10-02 11:55 | Orthopedic Consultation ---
Date of Consultation October 02, 2018 Assessment & Plan (1) Physical deconditioning: I discussed with this patient the possibility of a T7-T8 discitis. This may be infection versus but metastatic disease. Ideally would be able to obtain an MRI with gadolinium. His body habitus and current physical condition may preclude this option. He is not a surgical candidate. Present on Admission?: Yes History of Present Illness Reason for Consultation: Back pain Attending Physician: Barbara Gil MD History of Present Illness This is a 68-year-old male significant medical history. He is complaining of thoracal lumbar back pain. He states he has not been out of bed since admission to the hospital. Eyes any arm or leg pain. Allergies Allergy/AdvReac Type Severity Reaction Status Date / Time No Known Drug Allergies Allergy Verified 09/06/18 16:12 Home Medications Home Medications Medication Instructions Recorded Confirmed Type allopurinol 300 mg tablet 300 mg PO QAM 05/04/18 09/30/18 History furosemide 40 mg tablet 80 mg PO QAM tab 05/04/18 09/30/18 History geriatric multivit with iron and 1 tab PO QAM 05/04/18 09/30/18 History minerals tablet glucosamine-chondroitin 250 mg-200 1 tab PO BID tab 05/04/18 09/30/18 History mg tablet metformin 1,000 mg tablet 1,000 mg PO BID 05/04/18 09/30/18 History omeprazole 20 mg capsule,delayed 20 mg PO QAM 05/04/18 09/30/18 History release rivaroxaban 20 mg tablet 20 mg PO QAM 05/04/18 09/30/18 History sitagliptin 100 mg tablet 100 mg PO QAM 05/04/18 09/30/18 History Anoro Ellipta 1 - 2 inh INHALATION BID PRN 05/23/18 09/30/18 History allopurinol 100 mg PO QPM 05/23/18 09/30/18 History magnesium oxide 1,000 mg PO QAM 05/23/18 09/30/18 History magnesium oxide 1,500 mg PO QPM 05/23/18 09/30/18 History potassium chloride 40 meq PO QAM 05/23/18 09/30/18 History Oxygen Home #1 ea 09/16/18 09/30/18 Rx ferrous sulfate 325 mg PO BID #60 tab 09/16/18 09/30/18 Rx ipratropium-albuterol [Combivent 1 puff INHALATION QID #1 inhaler 09/16/18 09/30/18 Rx Respimat] metoprolol succinate 100 mg PO BID #60 tab 09/16/18 09/30/18 Rx aspirin [Aspirin Low Dose] 81 mg PO DAILY 09/30/18 09/30/18 History cyclobenzaprine 10 mg PO BID 09/30/18 09/30/18 History escitalopram oxalate [Lexapro] 5 mg PO HS 09/30/18 09/30/18 History furosemide 40 mg PO QPM 09/30/18 09/30/18 History hydrocodone-acetaminophen [Vicodin] 1 tab PO Q8 PRN 09/30/18 09/30/18 History insulin lispro See Rx Instructions .ROUTE .COMPLEX 09/30/18 09/30/18 History metolazone 2.5 mg PO DAILY 09/30/18 09/30/18 History nitroglycerin See Rx Instructions .ROUTE .COMPLEX 09/30/18 09/30/18 History Patient History Medical History Diabetes mellitus (Acute) Gout (Acute) Lung cancer (Acute) Squamous cell, CIARRA. Anemia Anxiety Cellulitis Chronic, on Keflex BID. Chronic obstructive pulmonary disease Depression Exertional dyspnea History of pulmonary embolism 06/2016. Has been on Xarelto since. Morbid obesity with BMI of 60.0-69.9, adult On home oxygen therapy 3L [place] CONT. Osteoarthritis Suspected sleep apnea No sleep study, but per pulm rates 20/24 on [place] Sleepiness Scale (+morbid obesity and need for O2 HS) Surgical History Difficult airway for intubation GLIDESCOPE #3 FOR 05/27/18 EBUS History of bronchoscopy WITH LYMPH NODE BIOPSY 05/27/18. PER SURGEON H+P "THE FACT THAT HE IS ON OXYGEN AND HIS SHEER SIZE AND OTHER COMORBID FACTORS WOULD MAKE HIM EXTREMELY HIGH RISK FOR ANY TYPE OF SURGERY." EBUS WAS WELL TOLERATED. History of cardiac cath History of cholecystectomy History of tonsillectomy Family History Mother , age 71 Myotonic dystrophy Father , age 58 CHF (congestive heart failure) Diabetes 1.5, managed as type 1 Brother , age 66 Myotonic dystrophy Daughter Anxiety Daughter History of back problems Son History of back problems Uncle , age 87 Lung cancer Social History Preferred Language: Tajik Communication Ability: Effective Visual Impairment: No Limitations Hearing Ability: Normal Linen Supervisor Required: No Beliefs That Will Affect Care: None marital status: marital status details: Current Living Situation: [facility] Current Living Situation Comment: [facility] current occupational status: retired Other Information That Helps Us Care for You: No other: 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 He is uncomfortable. He is labored breathing. He does exhibit neurologic function the upper and lower extremities. Not able to roll the patient to inspect his spine at this time. Results & Data Vital Signs (Past 12 Hours) Vital Signs Temp Pulse Pulse Resp BP Pulse Ox 10/02/18 07:52 36.6 C 115 H 24 132/65 95 10/02/18 07:06 116 H 28 H 91 10/02/18 03:19 36.7 C 114 H 24 122/58 L 94 10/02/18 03:14 130 H 10/02/18 01:30 101 H 20 99
--- NOTE | 2018-10-02 12:28 | Family Medicine Progress Note ---
Date of Service October 02, 2018 Assessment & Plan (1) Acute respiratory failure with hypoxia: Mr. Leary is a 68 year old male with a past medical history of squamous cell carcinoma of the lungs, Diastolic CHF, Afib, COPD on 4L O2 at baseline, NANCY on CPAP, Hx of PE in 2017 on Xarelto, DM2, Gout, HTN, Chronic Venous insufficiency who was received as direct admit from [facility] for concern of worsening hypoxia and sob. Records from [facility] Reviewed Pertinent Findings Include: Hgb 7.5, Na 132, BUN/Cr 22/1.2 GFR > 60, Bicarb 30, VBG ph 7.43, CO2 56, O2 16, Bicarb 37.2. CXR mild R basilar atelectasis. Received Duoneb x 2. Vitals concerning for HR in 100s-110s. Pt was normotensive. Recent Admission 08/31-09/17/18: For sepsis secondary to MDR E Coli UTI, Acute on chronic RF required intubation and mechanical ventilation in the setting of new onset AFib, and exacerbation of diastolic CHF. Acute on Chronic Respiratory failure with hypoxia Squamous cell carcinoma COPD - Hx of COPD, previous PE in 2017, Diastolic HF, and Lung Squamous Cell Carcinoma (finished XRT and chemo taxol/carboplatin on 08/16/18) - On 4L O2 at baseline - Patient requires BiPAP when laying flat, as well as when he falls asleep, as he drops his saturations into the 80s - CTA negative for PE. His CTA did show bilateral lower lobe posterior space opacities, which could be from his pleural effusions versus pneumonia - Thoracic surgery consulted given bilateral pleural effusions, however they do not feel that this is large enough to warrant a thoracentesis - Suspect his hypoxia is secondary to his lethargy & hx of NANCY, in combination with possible aspiration - Speech eval ordered, however patient is unable to sit up due to pain in order to complete the speech evaluation - DuoNeb's changed to Xopenex given tachycardia Osteomyelitis -CTA showed paraspinal fat stranding centered at the T7/T8 disc space, with destructive endplate changes, suspicious for discitis/osteomyelitis (versus metastatic disease). This is associated with a developing compression deformity at T7 -Ortho spine consulted -> Patient is not a surgical candidate -> Ideally would like an MRI with and without gadolinium to confirm osteomyelitis versus malignancy, however unable to obtain MRI given patient's body habitus -Unable to definitively say that his CT scan changes are due to osteomyelitis, as opposed to metastatic disease. Patient may require transfer to tertiary care center in order to obtain further imaging/CT-guided biopsy -Will consult oncology to help guide decision -Continue Zosyn and vancomycin for empiric coverage -Blood cultures drawn and preliminary results are negative, however unfortunately these were drawn after the first dose of the antibiotics -1 g IV Tylenol every 8 hours as needed for pain -7.5 mg of oxycodone every 3 hours as needed for pain -hold sedating medications such as morphine, given patient becomes lethargic, and hypoxic, requiring BiPAP Hypokalemia -Potassium level of 3.1 today, Repleted with 40 MeQ of IV potassium chloride. Will recheck tomorrow -Magnesium checked and normal at 2 Diastolic CHF/HTN/Afib -BNP 2906 at [facility] -Continue home metoprolol 100mg BID and Xarelto -Hold home Lasix and metolazone in the setting of infection, can restart if he develops signs of fluid overload -Continue home aspirin -Patient has been tachycardic in the 100s, likely secondary to missing doses of his metoprolol -5 mg of IV Lopressor ordered daily 2 hours as needed for tachycardia > 120 bpm Anemia -Hgb prior admission between 7-9 (09/15 - 7.9, 09/16 - 9.4) -Of note: received 6 units of pRBC during his prior admission -Prior admission believed to be in the setting of Antineoplastic chemotherapy induced pancytopenia -Was discharged on ferrous sulfate -Hgb remains stable at 7.1 today, will continue to trend -No concern for acute GI bleed at this time GERD -Continue home omeprazole DM2 -Hold home metformin and sitagliptin, continue insulin sliding scale Depression -Continue home Lexapro Gout -Continue home allopurinol NANCY - CPAP at night (14cm H2O and 4L O2) -Currently on Bipap as above Code: FULL per discussion with pt DVT prop: Xarelto Dispo: Remains on telemetry (2) Chronic venous insufficiency: (3) Hypertension: (4) Obesity: (5) COPD (chronic obstructive pulmonary disease): (6) Gout: (7) Diabetes: (8) Atrial fibrillation: (9) Squamous cell carcinoma of bronchus in left upper lobe: Supervising Physician Co-Signing Physician Notes Resident Physician Supervision Note: I independently interviewed and examined the patient and verified the lovelace history and physical, reviewed labs and image studies, discussed the case with the resident Dr. Obando and agree with the findings and care plan. Subjective Mr. Leary reports that he remains with severe back pain today. He states that he is unable to sit forward due to the pain and prefers laying flat. He states that his breathing is fine. He denies fever or chills. He is very anxious regarding his pain. He was unable to sit up to tolerate a swallowing evaluation. Review of Systems Constitutional: + fatigue and + weakness; no fever and no chills Respiratory: + cough (Minimal, not bringing up much sputum), + dyspnea and + snoring; no wheezing Cardiovascular: + edema; no chest pain Gastrointestinal: no abdominal pain, no nausea and no vomiting Musculoskeletal: + back pain Physical Exam Constitutional: + morbidly obese Respiratory: + cough and able to speak in complete sentences; + abnormal respiratory effort (Appears to be belly breathing) Lungs are coarse bilaterally, and diminished Cardiovascular: Rate/Rhythm: + tachycardic and + irregularly irregular Extremities: + edema (2-3+ pitting edema bilaterally); no calf tenderness Gastrointestinal (Abdomen): Inspection/Auscultation: + abdomen distended Percussion/Palpation: abdomen soft; abdomen nontender, no guarding and abdomen not rigid Results & Data Vital Signs (Past 12 Hours) Vital Signs Temp Pulse Pulse Resp BP Pulse Ox 10/02/18 03:19 36.7 C 114 H 24 122/58 L 94 10/02/18 03:14 130 H 10/02/18 01:30 101 H 20 99 10/01/18 23:40 36.8 C 129 H 24 124/70 93 10/01/18 22:20 123 H 23 100 10/01/18 19:26 36.7 C 112 H 23 135/115 H 98 10/01/18 19:14 100 H 100 H 20 93 PG Care Time/CCT Total # of Minutes Spent Total Time Spent with Patient: Total time spent is greater than 50% in coordination of care (as documented) at patient's floor/unit and/or counseling patient: Resident Activity Tracking Resident Involvement: Resident Care Provided Care Provided: Adult Hospital Medicine (1) Diabetes Diabetes mellitus complication status: without complication Diabetes mellitus prison insulin use: without moth exterminator use Diabetes mellitus type: type 2 Qualified Code(s): E11.9 - Type 2 diabetes mellitus without complications (2) Gout Chronicity: chronic Gout etiology: unspecified cause Gout site: unspecified site Presence of tophus: without tophus Qualified Code(s): M1A.9XX0 - Chronic gout, unspecified, without tophus (tophi) (3) Atrial fibrillation Atrial fibrillation type: unspecified Qualified Code(s): I48.91 - Unspecified atrial fibrillation (4) COPD (chronic obstructive pulmonary disease) COPD type: unspecified COPD Qualified Code(s): J44.9 - Chronic obstructive pulmonary disease, unspecified (5) Hypertension Hypertension type: essential hypertension Qualified Code(s): I10 - Essential (primary) hypertension (6) Obesity Body mass index: BMI 60.0-69.9 Obesity classification: adult class 3 (BMI >= 40) Obesity type: due to excess calories Serious obesity comorbidity presence: with serious comorbidity Qualified Code(s): E66.01 - Morbid (severe) obesity due to excess calories; Z68.44 - Body mass index (BMI) 60.0-69.9, adult
[2018-10-02] MEDS: RIVAROXABAN 20 MG TAB PO SCH (17:13)
[2018-10-02] MEDS: ESCITALOPRAM OXALATE 10 MG TAB PO SCH (21:29)
[2018-10-02] MEDS: ALLOPURINOL 100 MG TAB PO SCH (21:29)
[2018-10-03] MEDS: INSULIN ASPART 100 UNITS/ML 3 ML PEN SC SCH ×4 (00:12→19:23)
[2018-10-03] MEDS: LEVALBUTEROL HCL 0.63 MG/3 ML NEB NEB SCH ×5 (01:54→19:03)
[2018-10-03] MEDS: OXYCODONE HCL IR 5 MG TAB (IMMEDIATE RELEASE) PO PRN ×4 (02:54→19:33)
[2018-10-03] MEDS ORDERED: VANCOMYCIN TROUGH ONE ×2 (03:30→19:30)
[2018-10-03] MEDS: PIPERACILLIN/TAZOBACTAM 4.5 GM in DEXTROSE 5% 100 ML IV SCH (05:09)
[2018-10-03 05:51] LABS: Basophils # (auto) 0.01 K/uL (0-0.2); Basophils % (auto) 0.1 %; Hematocrit (blood only) 23.7 % (42-52); Hemoglobin 7.4 g/dL (14.0-18.0); Immature Granulocytes # (auto) 0.04 K/uL (0.00-0.02); Immature Granulocytes % (auto) 0.5 %; Lymphocytes # (auto) 0.48 K/uL (1.2-3.4); Lymphocytes % (auto) 6.1 %; Mean Corpuscular Hgb Conc 31.2 g/dL (32-36); Mean Platelet Volume 10.3 fL (7.4-10.4); Monocytes # (auto) 0.44 K/uL (0.11-0.59); Monocytes % (auto) 5.6 %; Neutrophils # (auto) 6.86 K/uL (1.4-6.5); Neutrophils % (auto) 87.7 %; Nucleated RBC # (auto) 0.02 K/uL (0-0); Nucleated RBC % (auto) 0.3 %; Platelet Count 156 K/uL (130-400); RDW Coefficient of Variation 21.3 % (11.5-14.5); RDW Standard Deviation 79.8 fL (36.4-46.3); White Blood Count 7.83 K/uL (4.8-10.8)
[2018-10-03 06:20] LABS: Anisocytosis Present
[2018-10-03 06:21] LABS: BUN Creatinine Ratio 15.2 (10-20); Creatinine Clr Calc Pharmacy 82.5 ml/min; Est GFR (African American) 61.2; Est GFR (Non-African American) 52.8; Potassium 3.1 mmol/L (3.5-5.1)
[2018-10-03] MEDS: VANCOMYCIN HCL 2,250 MG in SODIUM CHLORIDE 0.9% 500 ML IV SCH (08:13)
[2018-10-03] MEDS: FERROUS SULFATE 325 MG TAB PO SCH ×2 (08:14→17:03)
[2018-10-03] MEDS: ALLOPURINOL 300 MG TAB PO SCH (08:14)
[2018-10-03] MEDS: ASPIRIN 81 MG ECTAB PO SCH (08:14)
[2018-10-03] MEDS: METOPROLOL TARTRATE 100 MG TAB PO SCH ×2 (08:43→22:17)
--- NOTE | 2018-10-03 09:04 | Consultation Report ---
DATE OF CONSULTATION: 10/03/2018 ONCOLOGY CONSULTATION REASON FOR CONSULTATION: Morbidly obese 68-year-old gentleman with early stage nonsmall cell lung cancer. HISTORY OF PRESENT ILLNESS: Mr. Leary is a morbidly obese 68-year-old gentleman, currently under Dr. Crandall's care with stage IIB nonsmall cell lung cancer, originally treated with chemoradiation and received his first course of consolidative paclitaxel back in mid July. Apparently, this time around Mr. Leary who has been for the most part sedentary since he was discharged from a prolonged hospitalization in August re-presents with intractable mid thoracic back pain. He apparently presented to [facility] and transferred to [facility] because of worsening hypoxia and shortness of breath. Upon transfer, CTA of the chest was performed and negative for pulmonary embolus. However, interval development of a paraspinal fat stranding/soft tissue centered at T7-T8 disk space with destructive endplate changes and findings highly suspicious for diskitis/osteomyelitis, mild anterior wedging at T7 suggestive of developing compression deformity. Metastatic lesion at this location can also appear similar according to the interpreting radiologist. There was slight improvement in the 5.0 x 2.8 cavitary lesion within the left upper lobe. Again, Antonio has not had further consolidation since his initial dose in mid July. It was somewhat difficult extracting further information as he is in Trendelenburg position with BiPAP in place. He states back pain, which he described as sharp and stabbing, has been present for the past 4-5 days. PAST MEDICAL HISTORY: Again, positive for a pulmonary embolism by history, COPD, diabetes mellitus, nonsmall cell lung cancer stage IIB squamous cell. HOME MEDICATIONS: Include allopurinol 300 mg p.o. daily, furosemide 80 mg p.o. daily, glucosamine chondroitin 1 tablet p.o. b.i.d., metformin 1000 mg p.o. b.i.d., omeprazole 20 mg p.o. daily, Xarelto 20 mg p.o. daily, sitagliptin 100 mg p.o. daily, Anoro Ellipta 1 or 2 inhalations b.i.d. p.r.n., magnesium oxide 1000 mg in the a.m., 1500 mg in the p.m., potassium chloride 40 mEq p.o. daily. He is currently on home oxygen as well, ferrous sulfate 325 mg p.o. b.i.d., Combivent inhaler 1 puff inhaled q.i.d., metoprolol 100 mg p.o. b.i.d., aspirin 81 mg daily, Flexeril 10 mg p.o. b.i.d., Lexapro 5 mg p.o. at bedtime, Lasix 40 mg in the p.m., Vicodin 1 tablet p.o. q.8 hours p.r.n., insulin lispro by instruction, metolazone 2.5 mg p.o. daily, nitroglycerin as needed. ALLERGIES: No known drug allergies. SOCIAL HISTORY: The patient is retired. He is . 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 Former tobacco smoker, positive for intermittent alcohol consumption. FAMILY HISTORY: Noncontributory. Mother of myotonic dystrophy. Father from CHF and diabetes. REVIEW OF SYSTEMS: For the most part unobtainable because of difficult communication, but from what I gather, he has had mid thoracic back pain for the past 3-5 days. The patient for the most part has been sedentary since his discharge in August from a prolonged hospitalization, in which he was battling with bacteremia and acute respiratory failure necessitating mechanical intubation and ventilation. He had also developed a PE during that admission. PHYSICAL EXAMINATION: GENERAL: Again, he is a morbidly obese gentleman lying in Trendelenburg position, in no acute distress. He is conversant, but again difficult to understand with BiPAP in place. VITAL SIGNS: Temperature 36.8, pulse 118, respiratory rate 19, blood pressure 103/76. SKIN: Without rash or lesion. HEENT: Head is atraumatic, normocephalic. Eyes PERRLA, EOMI. Sclerae nonicteric. Nares are patent. Oral examination not done. NECK: Bull neck. HEART: Tachy, but regular. LUNGS: Distant breath sounds heard throughout all foote. ABDOMEN: Obese, soft, nontender, nondistended. EXTREMITIES: Trace peripheral edema bilaterally. Stasis dermatitis changes noted. NEUROLOGIC: Grossly intact. LABORATORY DATA: WBC count 7830, hemoglobin 7.4, platelet count 115,000. Sodium 137, potassium 3.1, chloride 95, carbon dioxide 38, BUN 21, creatinine 1.35. IMPRESSION: 1. Intractable mid thoracic back pain. 2. Anemia (multifactorial). 3. Diabetes mellitus. 4. Nonsmall cell lung cancer. 5. Status post consolidative chemotherapy x1 administered 08/16. 6. [id number] respiratory failure. PLAN: I have been asked by the primary service to render opinion on Mr. Antonio Leary. This gentleman is under Dr. Crandall's care and has not received chemotherapy since his initial consolidative course. He did complete full complement of chemoradiation. Radiographically, it would appear he did respond to the initial course of treatment. Nonetheless, he has had difficulties since his last admission, which was quite complicated. Apparently, he has not really moved around much once he got home. He now has intractable back pain with suspected diskitis. He is too large for the MRI equipment at [facility] and they are considering plans to have him imaged at [facility]. From a medical oncology standpoint, I will leave further therapeutics up to Dr. Crandall when he returns on Wednesday. There had been no outpatient followup clinic notes since this gentleman's admission last month. I agree with medical management otherwise. Perhaps transfusing him a couple units of blood may be helpful in oxygen delivery. I have nothing further to add and we will continue to follow him periodically during the hospitalization. Thank you very much for allowing us to participate in his care. TANISHA
[2018-10-03] MEDS ORDERED: CEFEPIME CONSULT ACTIVE PRN (09:59)
[2018-10-03] MEDS: CEFEPIME 2,000 MG in SYRINGE 0 ML IV SCH ×2 (13:01→19:37)
--- NOTE | 2018-10-03 15:31 | Family Medicine Progress Note ---
Date of Service October 03, 2018 Assessment & Plan (1) Acute respiratory failure with hypoxia: Mr. Leary is a 68 year old male with a past medical history of squamous cell carcinoma of the lungs, Diastolic CHF, Afib, COPD on 4L O2 at baseline, NANCY on CPAP, Hx of PE in 2017 on Xarelto, DM2, Gout, HTN, Chronic Venous insufficiency who was received as direct admit from [facility] for concern of worsening hypoxia and sob. Recent Admission 08/31-09/17/18: For sepsis secondary to MDR E Coli UTI, Acute on chronic RF required intubation and mechanical ventilation in the setting of new onset AFib, and exacerbation of diastolic CHF. Spine Lesions -CTA showed paraspinal fat stranding centered at the T7/T8 disc space, with destructive endplate changes, suspicious for discitis/osteomyelitis (versus metastatic disease). This is associated with a developing compression deformity at T7 -Ortho spine consulted -> Patient is not a surgical candidate -> Ideally would like an MRI with and without gadolinium to confirm osteomyelitis versus malignancy, however unable to obtain MRI given patient's body habitus Called local open MRI but they do not do t spine scans. For possible CT guided biopsy, patient would require transfer to a tertiary care facility Patient and declining that option -Continue Zosyn and vancomycin for empiric coverage -Blood cultures drawn and preliminary results are negative, however unfortunately these were drawn after the first dose of the antibiotics -1 g IV Tylenol every 8 hours as needed for pain -7.5 mg of oxycodone every 3 hours as needed for pain -hold sedating medications such as morphine, given patient becomes lethargic, and hypoxic, requiring BiPAP Acute on Chronic Respiratory failure with hypoxia - Hx of COPD, previous PE in 2017, Diastolic HF, and Lung Squamous Cell C arcinoma (finished XRT and chemo taxol/carboplatin on 08/16/18) - On 4L O2 at baseline - Patient requires BiPAP when laying flat, as well as when he falls asleep, as he drops his saturations into the 80s - CTA negative for PE. His CTA did show bilateral lower lobe posterior space opacities, which could be from his pleural effusions versus pneumonia No other evidence of infection, no fevers, no white count - Thoracic surgery consulted given bilateral pleural effusions, however they do not feel that this is large enough to warrant a thoracentesis - Suspect his hypoxia is secondary to his lethargy & hx of NANCY, in combination with possible aspiration - Speech eval ordered, however patient is unable to sit up and they recommend comfort care if not able to sit up moving forward Hypokalemia -Potassium level still at 3.1 Diastolic CHF/HTN/Afib RVR -BNP 2906 at [facility] -Continue home metoprolol 100mg BID and Xarelto -Hold home Lasix and metolazone in the setting of infection, can restart if he develops signs of fluid overload -Continue home aspirin -Patient has been tachycardic in the 100s -5 mg of IV Lopressor ordered daily 2 hours as needed for tachycardia > 110 bpm Anemia -Hgb prior admission between - (09/15 - 7.9, 09/16 - 9.4) -Of note: received 6 units of pRBC during his prior admission -Prior admission believed to be in the setting of Antineoplastic chemotherapy induced pancytopenia -Was discharged on ferrous sulfate -Hgb remains stable, up to 7.4 today, will continue to trend -No concern for acute GI bleed at this time GERD -Continue home omeprazole DM2 -Hold home metformin and sitagliptin, continue insulin sliding scale Depression -Continue home Lexapro Gout -Continue home allopurinol NANCY - CPAP at night (14cm H2O and 4L O2) -Currently on Bipap as above Code: DNR per new discussion with family DVT prop: Xarelto Dispo: Remains on telemetry (2) Back pain: (3) Hypertension: (4) Diabetes: (5) Atrial fibrillation: Supervising Physician Co-Signing Physician Notes Resident Physician Supervision Note: I independently interviewed and examined the patient and verified the lovelace history and physical, reviewed labs and image studies, discussed the case with the resident Dr. Duncan and agree with the findings and care plan. Subjective Mr. Leary is lying in bed in Trendelenburg position with head down about 15 degrees. Patient is very uncomfortable and is endorsing quite a bit of midthoracic back pain. He is concerned that he may have spend the rest of his life in a wheelchair, and is concerned that this might signify a spread of his cancer and that he is dying. at bedside when discussion of transferring patient to tertiary [facility] was brought up she is adamantly opposed. She would prefer to keep treating him here as she does not want to put him through another trip patient agrees. Explained that this would not allow us to fully diagnose the lesions be they infectious or cancerous and change the treatment going forward and they are understanding and still wish to remain here and not get the diagnostic testing done. Review of Systems Constitutional: + body aches and + fatigue; no fever, no chills and no sweats Eyes: no problem reported Respiratory: + dyspnea Cardiovascular: + dyspnea and + dyspnea at rest; no chest pain, no palpitations, no lightheadedness and no syncope Gastrointestinal: no abdominal pain, no nausea and no vomiting Musculoskeletal: + back pain Physical Exam Constitutional: Patient is lying in Trendelenburg position head down about 15 degrees he is obviously uncomfortable and morbidly obese. He is on BiPAP and has difficulty communicating. Eyes: PERRL, conjunctivae normal, anicteric sclerae Respiratory: Patient in mild respiratory distress using accessory muscles on BiPAP, diminished lung sounds Cardiovascular: Heart rate is irregularly irregular and tachycardic S1-S2 normal no murmurs rubs skips or gallops heart sounds distant due to body habitus Gastrointestinal (Abdomen): Abdomen soft causes tenderness to painful spine when palpated Musculoskeletal: Spine pain reproducible by palpation and by movement in the bed Results & Data Vital Signs (Past 12 Hours) Vital Signs Temp Pulse Pulse Pulse Resp BP Pulse Ox 10/03/18 14:18 102 H 20 92 10/03/18 11:45 36.4 C L 110 H 24 93/81 L 86 L 10/03/18 08:00 107 H 10/03/18 07:36 36.8 C 118 H 19 103/76 92 10/03/18 07:02 108 H 103 H 22 92 10/03/18 05:43 114 H 19 92 PG Care Time/CCT Total # of Minutes Spent Total Time Spent with Patient: Total time spent is greater than 50% in coordination of care (as documented) at patient's floor/unit and/or counseling patient: Resident Activity Tracking Resident Involvement: Resident Care Provided Care Provided: Adult Hospital Medicine (1) Hypertension Hypertension type: essential hypertension Qualified Code(s): I10 - Essential (primary) hypertension (2) Diabetes Diabetes mellitus type: type 2 Diabetes mellitus halfway insulin use: without halfway use Diabetes mellitus complication status: without complication Qualified Code(s): E11.9 - Type 2 diabetes mellitus without complications (3) Atrial fibrillation Atrial fibrillation type: unspecified Qualified Code(s): I48.91 - Unspecified atrial fibrillation
--- NOTE | 2018-10-03 16:22 | Palliative Care Consultation ---
Date of Consultation October 03, 2018 Assessment & Plan (1) Goals of care, counseling/discussion: Patient is a 68-year-old male with a past medical history significant for COPD, diabetes, morbid obesity, NANCY, and lung cancer. Patient had just completed a course of chemoradiation on August 16-he was at [facility] for rehab and was progressing well until the day of admission on 09/30 when he started having significantly increased back pain. Patient was also found to be hypoxic at [facility] emergency room and was transferred to [facility] - he required BiPAP. On exam today he was on O2 via oxime asked at 5 L, in Trendelenburg position with a blood pressure of 93/81. Patient was seen by oncology who reported that prior scans had shown some response to chemo. Patient's back pain could be due to compression fracture versus osteomyelitis versus discitis. Patient is unable to undergo MRI due to body habitus- has refused transfer to another facility with a larger MRI due to patient's severe pain. Patient's reports he was having urinary frequency while in rehab and also started having hallucinations. Patient's urine grew out a pansensitive Klebsiella. Patient is on IV vancomycin and cefepime for his UTI, possible aspiration pneumonia as well as possible discitis. Discussion at bedside with patient and -patient reports he is not ready to give up and wants to fight, reassured patient that we would continue aggressive treatment as we are now. Discussed intubation, chest compressions and shock if patient were to code-after detailed discussion with both patient and patient has agreed to change his CODE STATUS to a DNR. Patient wishes to continue aggressive treatment for the above possible infections. Patient reports his pain has been 10/10-decreases to an 8/10 after a PRN oxycodone which she reports is bearable as long as he is in his current position and does not try to sit up or move. Spoke with privately-they have 2 daughters who are also RNs-they understand patient's current condition and prognosis and that if he does not improve he would be moving towards comfort care. -CODE STATUS-patient is agreeable to changing CODE STATUS to DNR -Goals-patient's goal is to continue to fight and continue current level of t reatment -Back pain-continue PRN oxycodone-patient required 5 doses in 24 hours for an oral morphine equivalent of approximately 55 mg of oral morphine and a 24-hour period. Doubt patient would be a good candidate for fentanyl patch due to morbid obesity-would not absorb medication well. -Acute respiratory failure with hypoxia-patient on BiPAP alternating with O2- currently requiring 5 L by OxiMax. Continue aggressive pulmonary toilet and IV antibiotics -Sepsis-Klebsiella UTI with hypotension-patient in Trendelenburg position, continue IV antibiotics and respiratory support. DO NOT INTUBATE -Obesity-BMI 57-contributing to hypoventilation -Lung cancer-scans did show response to chemo/XRT-no further treatment planned. 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 Patient had just completed a course of chemoradiation on August 16-he was at [facility] for rehab and was progressing well until the day of admission on 09/30 when he started having significantly increased back pain. Patient was also found to be hypoxic at [facility] emergency room and was transferred to [facility] - he required BiPAP. On exam today he was on O2 via oxime asked at 5 L, in Trendelenburg position with a blood pressure of 93/81. Patient was seen by oncology who reported that prior scans had shown some response to chemo. Patient's back pain could be due to compression fracture versus osteomyelitis versus discitis. Patient is unable to undergo MRI due to body habitus- has refused transfer to another facility with a larger MRI due to patient's severe pain. Patient's reports he was having urinary frequency while in rehab and also started having hallucinations. Patient's urine grew out a pansensitive Klebsiella. Patient is on IV vancomycin and cefepime for his UTI, possible aspiration pneumonia as well as possible discitis. Discussion at bedside with patient and -patient reports he is not ready to give up and wants to fight, reassured patient that we would continue aggressive treatment as we are now. Discussed intubation, chest compressions and shock if patient were to code-after detailed discussion with both patient and patient has agreed to change his CODE STATUS to a DNR. Patient wishes to continue aggressive treatment for the above possible infections. Patient reports his pain has been 10/10-decreases to an 8/10 after a PRN oxycodone which she reports is bearable as long as he is in his current position and does not try to sit up or move. Spoke with privately-they have 2 daughters who are also RNs-they understand patient's current condition and prognosis and that if he does not improve he would be moving towards comfort care. Allergies Allergy/AdvReac Type Severity Reaction Status Date / Time No Known Drug Allergies Allergy Verified 09/06/18 16:12 Home Medications Home Medications Medication Instructions Recorded Confirmed Type allopurinol 300 mg tablet 300 mg PO QAM 05/04/18 09/30/18 History furosemide 40 mg tablet 80 mg PO QAM tab 05/04/18 09/30/18 History geriatric multivit with iron and 1 tab PO QAM 05/04/18 09/30/18 History minerals tablet glucosamine-chondroitin 250 mg-200 1 tab PO BID tab 05/04/18 09/30/18 History mg tablet metformin 1,000 mg tablet 1,000 mg PO BID 05/04/18 09/30/18 History omeprazole 20 mg capsule,delayed 20 mg PO QAM 05/04/18 09/30/18 History release rivaroxaban 20 mg tablet 20 mg PO QAM 05/04/18 09/30/18 History sitagliptin 100 mg tablet 100 mg PO QAM 05/04/18 09/30/18 History Anoro Ellipta 1 - 2 inh INHALATION BID PRN 05/23/18 09/30/18 History allopurinol 100 mg PO QPM 05/23/18 09/30/18 History magnesium oxide 1,000 mg PO QAM 05/23/18 09/30/18 History magnesium oxide 1,500 mg PO QPM 05/23/18 09/30/18 History potassium chloride 40 meq PO QAM 05/23/18 09/30/18 History Oxygen Home #1 ea 09/16/18 09/30/18 Rx ferrous sulfate 325 mg PO BID #60 tab 09/16/18 09/30/18 Rx ipratropium-albuterol [Combivent 1 puff INHALATION QID #1 inhaler 09/16/18 09/30/18 Rx Respimat] metoprolol succinate 100 mg PO BID #60 tab 09/16/18 09/30/18 Rx aspirin [Aspirin Low Dose] 81 mg PO DAILY 09/30/18 09/30/18 History cyclobenzaprine 10 mg PO BID 09/30/18 09/30/18 History escitalopram oxalate [Lexapro] 5 mg PO HS 09/30/18 09/30/18 History furosemide 40 mg PO QPM 09/30/18 09/30/18 History hydrocodone-acetaminophen [Vicodin] 1 tab PO Q8 PRN 09/30/18 09/30/18 History insulin lispro See Rx Instructions .ROUTE .COMPLEX 09/30/18 09/30/18 History metolazone 2.5 mg PO DAILY 09/30/18 09/30/18 History nitroglycerin See Rx Instructions .ROUTE .COMPLEX 09/30/18 09/30/18 History Patient History Medical History Diabetes mellitus (Acute) Gout (Acute) Lung cancer (Acute) Squamous cell, CIARRA. Anemia Anxiety Cellulitis Chronic, on Keflex BID. Chronic obstructive pulmonary disease Depression Exertional dyspnea History of pulmonary embolism 06/2016. Has been on Xarelto since. Morbid obesity with BMI of 60.0-69.9, adult On home oxygen therapy 3L NC CONT. Osteoarthritis Suspected sleep apnea No sleep study, but per pulm rates on [place] Sleepiness Scale (+morbid obesity and need for O2 HS) Surgical History Difficult airway for intubation GLIDESCOPE #3 FOR 05/27/18 EBUS History of bronchoscopy WITH LYMPH NODE BIOPSY 05/27/18. PER SURGEON H+P "THE FACT THAT HE IS ON OXYGEN AND HIS SHEER SIZE AND OTHER COMORBID FACTORS WOULD MAKE HIM EXTREMELY HIGH RISK FOR ANY TYPE OF SURGERY." EBUS WAS WELL TOLERATED. History of cardiac cath History of cholecystectomy History of tonsillectomy Family History Mother , age 71 Myotonic dystrophy Father , age 58 CHF (congestive heart failure) Diabetes 1.5, managed as type 1 Brother , age 66 Myotonic dystrophy Daughter Anxiety Daughter History of back problems Son History of back problems Uncle , age 87 Lung cancer Social History Preferred Language: Urdu Communication Ability: Effective Visual Impairment: No Limitations Hearing Ability: Normal Spine Surgeon Required: No Beliefs That Will Affect Care: None marital status: marital status details: Current Living Situation: Retirement Current Living Situation Comment: [facility] current occupational status: retired Other Information That Helps Us Care for You: No other: 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 Feels Safe at Home: Yes Safety Concerns: Feels Safe At This Time Smoking Status: Former smoker Tobacco Type: cigarettes ; Cigarettes Per Day: 20 ; Second Hand Exposure: No ; Hx Alcohol Use: Yes Hx Substance Use: No Review of Systems Review of Systems: Patient denies fever, chills, chest pain or abdominal pain + For shortness of breath, back pain, UTI symptoms Physical Exam Physical Exam: PE: Patient with increased shortness of breath, and Tr endelenburg position on O2 via OxiMax at 5 L HEENT: EOMI, hearing within normal limits Respirations: Slightly labored, diminished breath sounds all foote CV: Tachycardic Abdomen: Morbidly obese, soft, nontender Neuro: Alert and oriented x4 Results & Data Vital Signs (Past 12 Hours) Vital Signs Temp Pulse Pulse Pulse Resp BP Pulse Ox 10/03/18 15:37 97.5 F L 108 H 21 110/71 89 L 10/03/18 14:18 102 H 20 92 10/03/18 11:45 97.5 F L 110 H 24 93/81 L 86 L 10/03/18 08:00 107 H 10/03/18 07:36 98.2 F 118 H 19 103/76 92 10/03/18 07:02 108 H 103 H 22 92 10/03/18 05:43 114 H 19 92 PG Care Time/CCT Total # of Minutes Spent Total Time Spent with Patient: Total time spent is greater than 50% in coordination of care (as documented) at patient's floor/unit and/or counseling patient: Time Spent Attending Total time spent 70 minutes with greater than 50% of that time spent at bedside discussing patient's current condition, prognosis as well as goals of care. Address CODE STATUS
[2018-10-03] MEDS: RIVAROXABAN 20 MG TAB PO SCH (17:03)
[2018-10-03] MEDS ORDERED: POTASSIUM CHLORIDE / WTR 10 MEQ/100 ML PLCT IV SCH (18:30)
[2018-10-03] MEDS: HEPARIN 100 UNIT/ML 5ML FLUSH FLUSH PRN (19:37)
[2018-10-03] MEDS ORDERED: LORazepam 0.5 MG/1 ML VIAL IV STA (22:04)
[2018-10-03] MEDS: ALLOPURINOL 100 MG TAB PO SCH (22:17)
[2018-10-03] MEDS: METOPROLOL TARTRATE 1 MG/ML VIAL IV PRN (22:17)
[2018-10-03] MEDS: ESCITALOPRAM OXALATE 10 MG TAB PO SCH (22:17)
[2018-10-04] MEDS: INSULIN ASPART 100 UNITS/ML 3 ML PEN SC SCH ×4 (00:22→18:48)
[2018-10-04] MEDS: LEVALBUTEROL HCL 0.63 MG/3 ML NEB NEB SCH ×4 (02:09→19:17)
[2018-10-04] MEDS: CEFEPIME 2,000 MG in SYRINGE 0 ML IV SCH ×2 (03:14→11:57)
[2018-10-04] MEDS: METOPROLOL TARTRATE 1 MG/ML VIAL IV PRN ×3 (05:26→11:50)
[2018-10-04 05:48] LABS: Hematocrit (blood only) 25.3 % (42-52); Hemoglobin 7.8 g/dL (14.0-18.0); Mean Corpuscular Hgb Conc 30.8 g/dL (32-36); Mean Corpuscular Volume 103.7 fL (80-100); Mean Platelet Volume 10.7 fL (7.4-10.4); Nucleated RBC # (auto) 0.04 K/uL (0-0); Nucleated RBC % (auto) 0.6 %; Platelet Count 170 K/uL (130-400); RDW Coefficient of Variation 21.2 % (11.5-14.5); RDW Standard Deviation 78.3 fL (36.4-46.3); Red Blood Count 2.44 M/uL (4.7-6.1); White Blood Count 6.96 K/uL (4.8-10.8)
[2018-10-04 06:24] LABS: Albumin Level 1.9 gm/dl (3.4-5.0); BUN Creatinine Ratio 17.1 (10-20); Calcium 9.3 mg/dl (8.5-10.1); Creatinine Clr Calc Pharmacy 79.3 ml/min; Est GFR (African American) 58.6; Est GFR (Non-African American) 50.5; Potassium 2.9 mmol/L (3.5-5.1)
[2018-10-04 06:27] LABS: Albumin Globulin Ratio 0.4 (0.9-2); Bilirubin,Total 0.8 mg/dl (0.2-1); Globulin 5.2 gm/dl (2.5-4.0); Total Protein 7.1 gm/dl (6.4-8.2)
[2018-10-04] MEDS ORDERED: VANCOMYCIN TROUGH ONE (07:30)
--- NOTE | 2018-10-04 08:20 | Pharmacy Report ---
Pharmacy Abx Dose Short Note - Date of Service October 04, 2018 - Assessment & Plan Assessment 68 year old M receiving IV Vancomycin and Cefepime for treatment of suspected discitis and UTI Day # 4 of antimicrobial therapy MRI not able to be obtained given patient's body habitus to distinguish osteomyelitis vs malignant disease Patient's SCr increased to 1.40 mg/dL (baseline 1.0-1.1 mg/dL), BUN/SCr ~ 17.0, UO < 0.5 cc/kg/hr Urine culture resulted with pansensitive K. pneumoniae Blood cultures sterile to date (drawn after first dose of abx) Plan Vancomycin * Trough level of 29.2 mcg/mL is supratherapeutic (prior to 3rd dose on 10/03) * Random level this AM was 25.6 mcg/mL, still supratherapeutic (estimated Bry 0.0112 hr-1, estimated half-life 62 hrs) * Dose has been on hold secondary to suspicion for accumulation given patient's weight and CRESCENCIO (last vancomycin dose 10/03 at 0813) * Will continue to hold vancomycin for today (10/04) given supratherapeutic levels and CRESCENCIO * Random level ordered for: 10/05/18 with AM labs (if still supratherapeutic, may consider changing regimen to daptomycin) * Goal trough level for osteomyelitis: 15 to 20 mcg/mL Cefepime * Continue 2000 mg IV every 8 hours * Recommend a total 7 days of treatment for UTI Pharmacy will continue to follow and will adjust dose/frequency as necessary. Thank you.
[2018-10-04] MEDS: POTASSIUM CHLORIDE / WTR 10 MEQ/100 ML PLCT IV SCH ×8 (08:30→20:14)
[2018-10-04] MEDS: FERROUS SULFATE 325 MG TAB PO SCH ×2 (08:31→16:17)
[2018-10-04] MEDS: ASPIRIN 81 MG ECTAB PO SCH (08:31)
[2018-10-04] MEDS: METOPROLOL TARTRATE 100 MG TAB PO SCH (08:32)
[2018-10-04] MEDS: ALLOPURINOL 300 MG TAB PO SCH (08:32)
--- NOTE | 2018-10-04 08:57 | Family Medicine Progress Note ---
Date of Service October 04, 2018 Assessment & Plan (1) Acute respiratory failure with hypoxia: Mr. Leary is a 68 year old male with a past medical history of squamous cell carcinoma of the lungs, Diastolic CHF, Afib, COPD on 4L O2 at baseline, NANCY on CPAP, Hx of PE in 2017 on Xarelto, DM2, Gout, HTN, Chronic Venous insufficiency who was received as direct admit from [facility] for concern of worsening hypoxia and sob. Recent Admission 08/31-09/17/18: For sepsis secondary to MDR E Coli UTI, Acute on chronic RF required intubation and mechanical ventilation in the setting of new onset AFib, and exacerbation of diastolic CHF. Spine Lesions -CTA showed paraspinal fat stranding centered at the T7/T8 disc space, with destructive endplate changes, suspicious for discitis/osteomyelitis (versus metastatic disease). This is associated with a developing compression deformity at T7 -Ortho spine consulted -> Patient is not a surgical candidate -> Ideally would like an MRI with and without gadolinium to confirm osteomyelitis versus malignancy, however unable to obtain MRI given patient's body habitus Called local open MRI but they do not do t spine scans. For possible CT guided biopsy, patient would require transfer to a tertiary care facility Patient and declining that option -Continue Zosyn and vancomycin for empiric coverage -Blood cultures no growth to date -1 g IV Tylenol every 8 hours as needed for pain -7.5 mg of oxycodone every 3 hours as needed for pain Dr. Crandall patient's primary oncologist will return on Wednesday and discuss patient's situation with him and the family Acute on Chronic Respiratory failure with hypoxia - Hx of COPD, previous PE in 2017, Diastolic HF, and Lung Squamous Cell Carcinoma (finished XRT and chemo taxol/carboplatin on 08/16/18) - On 4L O2 at baseline - Patient requires BiPAP when laying flat, as well as when he falls asleep, as he drops his saturations into the 80s - CTA negative for PE. His CTA did show bilateral lower lobe posterior space opacities, which could be from his pleural effusions versus pneumonia No other evidence of infection, no fevers, no white count - Thoracic surgery consulted given bilateral pleural effusions, however they do not feel that this is large enough to warrant a thoracentesis - Suspect his hypoxia is secondary to his lethargy & hx of NANCY, in combination with possible aspiration - Speech eval ordered, however patient is unable to sit up and they recommend comfort care if not able to sit up moving forward Patient is willing to try to sit up today if he is successful we will reconsult for speech eval Hypokalemia -Potassium 2.9 repleting with 40 mEq IV Diastolic CHF/HTN/Afib RVR -BNP 2906 at [facility] -Continue home metoprolol 100mg BID and Xarelto -Hold home Lasix and metolazone in the setting of infection, can restart if he develops signs of fluid overload -Continue home aspirin -Patient has been tachycardic in the 100s -5 mg of IV Lopressor ordered daily 2 hours as needed for tachycardia > 110 bpm Patient continues to remain tachycardic, and blood pressures have improved will consider placing patient on drip Anemia -Hgb prior admission between 7-9 (09/15 - 7.9, 09/16 - 9.4) -Of note: received 6 units of pRBC during his prior admission -Prior admission believed to be in the setting of Antineoplastic chemotherapy induced pancytopenia -Was discharged on ferrous sulfate -Hgb remains stable, up to 7. 8 today, will continue to trend -No concern for acute GI bleed at this time GERD -Continue home omeprazole DM2 -Hold home metformin and sitagliptin, continue insulin sliding scale Depression -Continue home Lexapro Gout -Continue home allopurinol Code: DNR per new discussion with family DVT prop: Xarelto Dispo: Remains on telemetry (2) Back pain: (3) Hypertension: (4) Diabetes: Supervising Physician Co-Signing Physician Notes Resident Physician Supervision Note: I independently interviewed and examined the patient and verified the lovelace history and physical, reviewed labs and image studies, discussed the case with the resident Dr. Duncan and agree with the findings and care plan. Subjective Mr. Leary has risen to a flat bed from his previous Trendelenburg position. He has BiPAP in place and is having trouble communicating through the BiPAP tells me his pain is better controlled today he rates it about a 6 and he is willing to try sitting up throughout the day. Otherwise no complaints at this time Review of Systems Review of Systems: All systems reviewed & are unremarkable except as noted in HPI & below Physical Exam Physical Exam: Constitutional: Morbidly obese, ill-appearing patient with BiPAP in place lying horizontal Eyes: Anicteric sclerae extraocular muscle movements intact bilaterally Respiratory: Lung sounds distant no added lung noises chest x-ray expansion symmetric BiPAP in place Cardiovascular: Irregular rate irregular rhythm tachycardic to 125 GI: Abdomen soft nontender no mass detected morbidly obese abdomen Integumentary: No new skin rashes noted Results & Data Vital Signs (Past 12 Hours) Vital Signs Temp Pulse Pulse Pulse Resp BP BP 10/04/18 07:49 125 H 10/04/18 07:41 37.0 C 120 H 25 H 131/99 10/04/18 07:20 113 H 113 H 22 10/04/18 05:26 123 H 10/04/18 04:00 36.6 C 120 H 26 H 107/79 10/04/18 02:12 113 H 21 10/04/18 02:11 113 H 21 10/04/18 01:16 108 H 10/03/18 23:24 36.6 C 130 H 24 161/64 H 10/03/18 22:17 120 H 138/62 10/03/18 21:45 36.4 C L 126 H 27 H 138/62 Pulse Ox 10/04/18 07:49 10/04/18 07:41 89 L 10/04/18 07:20 96 10/04/18 05:26 10/04/18 04:00 93 10/04/18 02:12 98 10/04/18 02:11 98 10/04/18 01:16 10/03/18 23:24 90 10/03/18 22:17 10/03/18 21:45 87 L PG Care Time/CCT Total # of Minutes Spent Total Time Spent with Patient: Total time spent is greater than 50% in coordination of care (as documented) at patient's floor/unit and/or counseling patient: Resident Activity Tracking Resident Involvement: Resident Care Provided Care Provided: Adult Hospital Medicine (1) Hypertension Hypertension type: essential hypertension Qualified Code(s): I10 - Essential (primary) hypertension (2) Diabetes Diabetes mellitus type: type 2 Diabetes mellitus intermediate insulin use: without moth exterminator use Diabetes mellitus complication status: without complication Qualified Code(s): E11.9 - Type 2 diabetes mellitus without complications
--- NOTE | 2018-10-04 10:23 | Progress Note ---
DATE: 10/04/2018 The patient was seen today. We were asked to see him for pleural effusion; however, they are tiny. There is really no fluid to drain. I did discuss this with the house staff. We will sign off the patient. If we are needed, please call.
[2018-10-04] MEDS: ACETAMINOPHEN 1,000 MG/100 ML VIAL IV PRN (10:50)
[2018-10-04] MEDS: METOPROLOL TARTRATE 1 MG/ML VIAL IV SCH ×3 (12:39→20:14)
[2018-10-04] MEDS: MoRPHine SULFATE 2 MG/ML CARP IV PRN (12:41)
[2018-10-04 14:34] LABS: BUN Creatinine Ratio 16.6 (10-20); Calcium 9.1 mg/dl (8.5-10.1); Creatinine Clr Calc Pharmacy 77.6 ml/min; Est GFR (African American) 57.1; Est GFR (Non-African American) 49.3; Potassium 3.2 mmol/L (3.5-5.1)
--- NOTE | 2018-10-04 15:08 | Palliative Care Progress Note ---
Date of Service October 04, 2018 Assessment & Plan (1) Goals of care, counseling/discussion: Patient is a 68-year-old male with a past medical history significant for COPD, diabetes, morbid obesity, NANCY, and lung cancer. Patient had just completed a course of chemoradiation on August 16-he was at [facility] for rehab and was progressing well until the day of admission on 09/30 when he started having significantly increased back pain. Patient was also found to be hypoxic at [facility] emergency room and was transferred to [facility] - he required BiPAP. On exam today he was on BiPAP, minimally responsive. Patient is n.p.o., he received 2 mg of IV morphine for severe back pain-patient's back pain could be due to compression fracture versus osteomyelitis versus discitis. Patient is unable to undergo MRI due to body habitus- has refused transfer to another facility with a larger MRI due to patient's severe pain. Patient is on IV vancomycin and cefepime for his UTI, possible aspiration pneumonia as well as possible discitis. Discussion at bedside with regarding patient's current condition. understands that he needs to be able to sit upright in order to take p.o., a feeding tube would not be an option. also understands that he may not r ecover and continue to decline. -Back pain-suggest changing to oxycodone liquid-patient with less confusion and oxycodone that on morphine. -Acute respiratory failure with hypoxia-patient on BiPAP alternating with O2 by OxiMax. Continue aggressive pulmonary toilet and IV antibiotics -Sepsis-Klebsiella UTI with hypotension-BP improving, continue IV antibiotics and respiratory support. DO NOT INTUBATE -Obesity-BMI 57-contributing to hypoventilation -Lung cancer-scans did show response to chemo/XRT-no further treatment planned. Will continue to follow and assist patient and with medical decision making and provide support to family. 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 Patient back on BiPAP, minimally responsive after receiving a dose of IV morphine for pain. Patient only received 2 mg of IV morphine-discussed with attending team using liquid oxycodone as his pain responds well to oxycodone with less confusion. reports that patient was able to sit upright in bed, but only for short period time. Review of Systems Review of Systems: Unobtainable due to cognitive status Physical Exam Physical Exam: PE: Patient and slight Trendelenburg, BiPAP in place Respirations: Unlabored, on BiPAP, respiratory rate in the lower 20s, adequate O2 saturation CV: Tachycardic, no increased edema Abdomen: Soft, morbidly obese Neuro: Unable to participate in conversation Results & Data Vital Signs (Past 12 Hours) Vital Signs Temp Pulse Pulse Pulse Resp BP Pulse Ox 10/04/18 14:11 116 H 22 96 10/04/18 14:08 116 H 22 96 10/04/18 11:50 131 H 10/04/18 11:31 98.6 F 132 H 25 H 124/79 89 L 10/04/18 07:49 125 H 10/04/18 07:41 98.6 F 120 H 25 H 131/99 89 L 10/04/18 07:20 113 H 113 H 22 96 10/04/18 05:26 123 H 10/04/18 04:00 97.9 F 120 H 26 H 107/79 93 PG Care Time/CCT Total # of Minutes Spent Total Time Spent with Patient: Total time spent is greater than 50% in coordination of care (as documented) at patient's floor/unit and/or counseling p atient: Time Spent Attending Total time spent 35 minutes with greater than 50% of the time spent at bedside discussing patient's current condition and providing support to patient's at bedside. (1) Obesity Obesity type: due to excess calories Obesity classification: adult class 3 (BMI >= 40) Serious obesity comorbidity presence: with serious comorbidity Body mass index: BMI 60.0-69.9 Qualified Code(s): E66.01 - Morbid (severe) obesity due to excess calories; Z68.44 - Body mass index (BMI) 60.0-69.9, adult
[2018-10-04] MEDS: OXYCODONE HCL SOLN 5 MG/5 ML UDC PO PRN ×2 (16:06→20:24)
[2018-10-04] MEDS: RIVAROXABAN 20 MG TAB PO SCH (16:17)
[2018-10-04] MEDS: cefTRIAXone SODIUM 2,000 MG in DEXTROSE 5% 50 ML IV SCH (20:15)
[2018-10-04] MEDS: ALLOPURINOL 100 MG TAB PO SCH (21:50)
[2018-10-04] MEDS: ESCITALOPRAM OXALATE 10 MG TAB PO SCH (21:50)
[2018-10-05] MEDS: INSULIN ASPART 100 UNITS/ML 3 ML PEN SC SCH ×4 (00:17→19:00)
[2018-10-05] MEDS: METOPROLOL TARTRATE 1 MG/ML VIAL IV SCH ×6 (00:19→20:30)
[2018-10-05] MEDS: OXYCODONE HCL SOLN 5 MG/5 ML UDC PO PRN ×2 (00:22→08:55)
[2018-10-05] MEDS: LEVALBUTEROL HCL 0.63 MG/3 ML NEB NEB SCH ×4 (02:00→19:06)
[2018-10-05 07:40] LABS: Hematocrit (blood only) 25.4 % (42-52); Hemoglobin 7.8 g/dL (14.0-18.0); Mean Corpuscular Hgb Conc 30.7 g/dL (32-36); Mean Corpuscular Volume 104.1 fL (80-100); Mean Platelet Volume 10.8 fL (7.4-10.4); Nucleated RBC # (auto) 0.05 K/uL (0-0); Nucleated RBC % (auto) 0.8 %; Platelet Count 176 K/uL (130-400); RDW Coefficient of Variation 21.7 % (11.5-14.5); RDW Standard Deviation 82.2 fL (36.4-46.3); Red Blood Count 2.44 M/uL (4.7-6.1); White Blood Count 6.93 K/uL (4.8-10.8)
[2018-10-05 08:07] LABS: Albumin Level 1.9 gm/dl (3.4-5.0); BUN Creatinine Ratio 17.4 (10-20); Calcium 9.5 mg/dl (8.5-10.1); Creatinine Clr Calc Pharmacy 77.4 ml/min; Est GFR (African American) 57.1; Est GFR (Non-African American) 49.3; Potassium 3.2 mmol/L (3.5-5.1)
[2018-10-05 08:10] LABS: Albumin Globulin Ratio 0.4 (0.9-2); Bilirubin,Total 0.9 mg/dl (0.2-1); Globulin 5.3 gm/dl (2.5-4.0); Total Protein 7.2 gm/dl (6.4-8.2)
[2018-10-05] MEDS ORDERED: DAPTOMYCIN CONSULT ACTIVE PRN (09:03)
[2018-10-05] MEDS: POTASSIUM CHLORIDE / WTR 10 MEQ/100 ML PLCT IV SCH ×3 (09:18→11:51)
--- NOTE | 2018-10-05 09:22 | Family Medicine Progress Note ---
Date of Service October 05, 2018 Assessment & Plan (1) Acute respiratory failure with hypoxia: Mr. Leary is a 68 year old male with a past medical history of squamous cell carcinoma of the lungs, Diastolic CHF, Afib, COPD on 4L O2 at baseline, NANCY on CPAP, Hx of PE in 2017 on Xarelto, DM2, Gout, HTN, Chronic Venous insufficiency who was received as direct admit from [facility] for concern of worsening hypoxia and sob. Recent Admission 08/31-09/17/18: For sepsis secondary to MDR E Coli UTI, Acute on chronic RF required intubation and mechanical ventilation in the setting of new onset AFib, and exacerbation of diastolic CHF. Spine Lesions -CTA showed paraspinal fat stranding centered at the T7/T8 disc space, with destructive endplate changes, suspicious for discitis/osteomyelitis (versus metastatic disease). This is associated with a developing compression deformity at T7 -Ortho spine consulted -> Patient is not a surgical candidate -> Ideally would like an MRI with and without gadolinium to confirm osteomyelitis versus malignancy, however unable to obtain MRI given patient's body habitus Called local open MRI but they do not do t spine scans. For possible CT guided biopsy, patient would require transfer to a tertiary care facility Patient and declining that option -Continue Zosyn and vancomycin for empiric coverage -Blood cultures no growth to date -1 g IV Tylenol every 8 hours as needed for pain -7.5 mg of oxycodone every 3 hours as needed for pain Dr. Crandall patient's primary oncologist will discuss plan of care from oncology standpoint with family today Acute on Chronic Respiratory failure with hypoxia - Hx of COPD, previous PE in 2017, Diastolic HF, and Lung Squamous Cell Carcinoma (finished XRT and chemo taxol/carboplatin on 08/16/18) - On 4L O2 at baseline - Patient requires BiPAP when laying flat, as well as when he falls asleep, as he drops his saturations into the 80s - CTA negative for PE. His CTA did show bilateral lower lobe posterior space opacities, which could be from his pleural effusions versus pneumonia No other evidence of infection, no fevers, no white count - Thoracic surgery consulted given bilateral pleural effusions, however they do not feel that this is large enough to warrant a thoracentesis - Suspect his hypoxia is secondary to his lethargy & hx of NANCY, in combination with possible aspiration - Speech eval ordered, however patient is unable to sit up and they recommend comfort care if not able to sit up moving forward Patient unsuccessful in sitting up for speech evaluation today Hypokalemia -Potassium 3.2 repleting with 30 mEq IV Diastolic CHF/HTN/Afib RVR -BNP 2906 at [facility] -Continue home metoprolol 100mg BID and Xarelto -Hold home Lasix and metolazone in the setting of infection, can restart if he develops signs of fluid overload -Continue home aspirin -Patient has been tachycardic in the 100s -5 mg of IV Lopressor ordered daily 2 hours as needed for tachycardia > 110 bpm Patient continues to remain tachycardic blood pressure soft currently. Anemia -Hgb prior admission between 7-9 (09/15 - 7.9, 09/16 - 9.4) -Of note: received 6 units of pRBC during his prior admission -Prior admission believed to be in the setting of Antineoplastic chemotherapy induced pancytopenia -Was discharged on ferrous sulfate -Hgb remains stable, 7. 8 today, will continue to trend -No concern for acute GI bleed at this time GERD -Continue home omeprazole DM2 -Hold home metformin and sitagliptin, continue insulin sliding scale Depression -Continue home Lexapro Gout -Continue home allopurinol F/E/N: As patient cannot get upright, remains NPO DVT prop: Xarelto Dispo: Remains on telemetry Supervising Physician Co-Signing Physician Notes Resident Physician Supervision Note: I independently interviewed and examined the patient and verified the lovelace history and physical, reviewed labs and image studies, discussed the case with the resident Dr. Duncan and agree with the findings and care plan. Subjective Mr. Leary is sitting up to about 20 degrees in bed and says he will try to sit completely upright after he receives his pain medication. His pain is notably improved this morning and he feels less short of breath. Review of Systems Review of Systems: All systems reviewed & are unremarkable except as noted in HPI & below Physical Exam Physical Exam: Constitutional: Morbidly obese, ill-appearing patient with BiPAP in place lying horizontal Eyes: Anicteric sclerae extraocular muscle movements intact bilaterally Respiratory: Lung sounds distant no added lung noises chest x-ray expansion symmetric BiPAP in place Cardiovascular: Irregular rate irregular rhythm tachycardic to 125 GI: Abdomen soft nontender no mass detected morbidly obese abdomen Integumentary: No new skin rashes noted Results & Data Vital Signs (Past 12 Hours) Vital Signs Temp Pulse Pulse Pulse Resp BP BP 10/05/18 07:28 132 H 137/102 H 10/05/18 06:58 118 H 26 H 10/05/18 06:56 118 H 26 H 10/05/18 04:13 116 H 146/61 H 10/05/18 03:57 36.6 C 117 H 19 146/61 H 10/05/18 02:00 118 H 118 H 19 10/05/18 00:19 145 H 104/74 10/05/18 00:00 36.7 C 113 H 127 H 17 104/74 10/04/18 23:25 128 H 29 H Pulse Ox 10/05/18 07:28 10/05/18 06:58 97 10/05/18 06:56 97 10/05/18 04:13 10/05/18 03:57 96 10/05/18 02:00 97 10/05/18 00:19 10/05/18 00:00 98 10/04/18 23:25 97 PG Care Time/CCT Total # of Minutes Spent Total Time Spent with Patient: Total time spent is greater than 50% in coordination of care (as documented) at patient's floor/unit and/or counseling patient: Resident Activity Tracking Resident Involvement: Resident Care Provided Care Provided: Adult Hospital Medicine
[2018-10-05] MEDS: FERROUS SULFATE 325 MG TAB PO SCH ×2 (09:51→16:43)
[2018-10-05] MEDS: ALLOPURINOL 300 MG TAB PO SCH (09:51)
[2018-10-05] MEDS: ASPIRIN 81 MG ECTAB PO SCH (09:51)
[2018-10-05] MEDS: DAPTOmycin 675 MG in SYRINGE 0 ML IV SCH (10:38)
--- NOTE | 2018-10-05 15:51 | Palliative Care Progress Note ---
Date of Service October 05, 2018 Assessment & Plan (1) Goals of care, counseling/discussion: -Patient is more alert today. Still on bipap during my visit this morning. No family was at bedside while I was there. Patient's back pain seems much more controlled today, but he was lying almost flat. He has been unable to eat/drink due to having to lie flat. -Patient declined transfer to tertiary care for further investigation of his spinal lesions/fractures, yet wants to continue with full treatment. According to imaging, his lung cancer has responded to chemo, but unfortunately his other comorbidities are worsening. Uncertain of the plan at this time. Per resident physician's note, patient's oncologist is to discuss plan from oncologic standpoint with patient and family today. -Need to reengage with family and patient at some point to discuss goals of care. Update 1630: Received call from patient's nurse that patient is stating he wants to , that he wants to take the bipap off and . I called patient's , Rosalba. She stated that patient is just upset that she is not there with him right now. However, she said that she knows "he's not going to get better," and does want to discuss goals of care and plan moving forward. I then went to patient's room to discuss with him. His nurse Carolina came into room with me. Patient stated, "I don't want to . I want to life. I just want to talk to my before I ." "They're giving me morphine to ." I assured patient that the 1mg IV morphine he is receiving is for his back pain so that he is able to sit up. He said, "Oh. I thought it was to help me ." I told patient that his will be in tomorrow morning and we will all get together to discuss plan. Dr. Duncan was updated on these conversations. Will follow up tomorrow. 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 Still on bipap during my visit this morning. No family was at bedside while I was there. Patient's back pain seems much more controlled today, but he was lying almost flat. He has been unable to eat/drink due to having to lie flat. Review of Systems Review of Systems: +back pain and SOB. Results & Data Vital Signs (Past 12 Hours) Vital Signs Temp Pulse Pulse Pulse Resp BP BP 10/05/18 15:26 36.0 C L 121 H 23 114/83 10/05/18 14:00 120 H 120 H 26 H 10/05/18 11:54 133 H 123/81 10/05/18 11:20 36.8 C 119 H 20 123/81 10/05/18 11:15 123 H 33 H 10/05/18 10:35 131 H 94/74 L 10/05/18 08:00 121 H 10/05/18 07:28 132 H 137/102 H 10/05/18 06:58 118 H 26 H 10/05/18 06:56 118 H 26 H 10/05/18 04:13 116 H 146/61 H 10/05/18 03:57 36.6 C 117 H 19 146/61 H Pulse Ox 10/05/18 15:26 97 10/05/18 14:00 95 10/05/18 11:54 10/05/18 11:20 10/05/18 11:15 96 10/05/18 10:35 10/05/18 08:00 10/05/18 07:28 10/05/18 06:58 97 10/05/18 06:56 97 10/05/18 04:13 10/05/18 03:57 96 PG Care Time/CCT Total # of Minutes Spent Total Time Spent with Patient: Total time spent is greater than 50% in coordination of care (as documented) at patient's floor/unit and/or counseling patient: Time Spent Midlevel 45 minutes with >50% of the time spent at bedside with patient, nursing staff, and IDT discussing condition and GOC. (1) Obesity Obesity type: due to excess calories Obesity classification: adult class 3 (BMI >= 40) Serious obesity comorbidity presence: with serious comorbidity Body mass index: BMI 60.0-69.9 Qualified Code(s): E66.01 - Morbid (severe) obesity due to excess calories; Z68.44 - Body mass index (BMI) 60.0-69.9, adult
[2018-10-05] MEDS: MoRPHine SULFATE 2 MG/ML CARP IV PRN ×2 (15:52→20:34)
[2018-10-05] MEDS: HEPARIN 100 UNIT/ML 5ML FLUSH FLUSH PRN ×2 (15:52→20:31)
[2018-10-05] MEDS: RIVAROXABAN 20 MG TAB PO SCH (16:42)
[2018-10-05] MEDS ORDERED: LORazepam 1 MG/2 ML VIAL IV STA (18:07)
[2018-10-05] MEDS ORDERED: LORazepam 1 MG/2 ML VIAL IV PRN (18:08)
[2018-10-05] MEDS: cefTRIAXone SODIUM 2,000 MG in DEXTROSE 5% 50 ML IV SCH (20:29)
[2018-10-05] MEDS: ESCITALOPRAM OXALATE 10 MG TAB PO SCH (20:31)
[2018-10-05] MEDS: ALLOPURINOL 100 MG TAB PO SCH (20:31)
[2018-10-06] MEDS: INSULIN ASPART 100 UNITS/ML 3 ML PEN SC SCH ×3 (00:32→12:23)
[2018-10-06] MEDS: METOPROLOL TARTRATE 1 MG/ML VIAL IV SCH ×5 (00:34→19:31)
[2018-10-06] MEDS: MoRPHine SULFATE 2 MG/ML CARP IV PRN ×4 (01:28→17:15)
[2018-10-06] MEDS: LEVALBUTEROL HCL 0.63 MG/3 ML NEB NEB SCH ×3 (01:51→14:02)
[2018-10-06 06:17] LABS: Hematocrit (blood only) 24.2 % (42-52); Hemoglobin 7.4 g/dL (14.0-18.0); Mean Corpuscular Hgb Conc 30.6 g/dL (32-36); Mean Corpuscular Volume 103.9 fL (80-100); Mean Platelet Volume 10.4 fL (7.4-10.4); Platelet Count 152 K/uL (130-400); RDW Coefficient of Variation 21.9 % (11.5-14.5); RDW Standard Deviation 81.7 fL (36.4-46.3); Red Blood Count 2.33 M/uL (4.7-6.1); White Blood Count 5.91 K/uL (4.8-10.8)
[2018-10-06 06:47] LABS: BUN Creatinine Ratio 18.5 (10-20); Calcium 9.6 mg/dl (8.5-10.1); Creatinine Clr Calc Pharmacy 77.4 ml/min; Est GFR (African American) 57.1; Est GFR (Non-African American) 49.3; Potassium 3.2 mmol/L (3.5-5.1)
[2018-10-06 06:50] LABS: Albumin Globulin Ratio 0.4 (0.9-2); Bilirubin,Total 0.9 mg/dl (0.2-1); Globulin 5.1 gm/dl (2.5-4.0); Total Protein 7.1 gm/dl (6.4-8.2)
[2018-10-06 07:12] VITALS: TEMP 98.2
[2018-10-06 07:17] VITALS: O2SAT 100
[2018-10-06] MEDS: DAPTOmycin 675 MG in SYRINGE 0 ML IV SCH (08:26)
[2018-10-06 08:27] VITALS: BP 147/98
[2018-10-06] MEDS: ASPIRIN 81 MG ECTAB PO SCH (09:44)
[2018-10-06] MEDS: ALLOPURINOL 300 MG TAB PO SCH (09:44)
[2018-10-06] MEDS: FERROUS SULFATE 325 MG TAB PO SCH ×2 (09:44→19:31)
[2018-10-06 11:04] VITALS: PULSE 115
--- NOTE | 2018-10-06 11:42 | Palliative Care Progress Note ---
Date of Service October 06, 2018 Assessment & Plan (1) Goals of care, counseling/discussion: -Patient remains uncomfortable and stuck on bipap today. -Met with patient's , Rosalba, daughter, Gila, a granddaughter, and Dr. Duncan in room 205. Given patient's lack of progress, continued pain issues, respiratory failure, bipap dependence, inability to sit up to eat/drink, and inability to make his own decisions due to delirium/confusion, family has collectively decided to move towards comfort measures. -Plan will be to discontinue Bipap and place on high-flow nasal cannula to bridge to a lower amount of oxygen-- wean as tolerated for comfort. -Continue pain and anxiety medication despite the secondary side effects such as sedation and respiratory depression. -NO ESCALATION IN CARE. If patient continues to do poorly and continues to decline, move to full comfort measures only status. Continue abx and other medications for now. -Transfer out of telemetry unit. -Increase morphine to 2mg IV Q2h PRN pain or SOB. -Lorazepam 1mg IV Q2h PRN anxiety/agitation. -Will continue to follow and see how patient does. Prognosis is poor. 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 His Rosalba and daughter Gila are at bedside, as well as a granddaughter. Patient is having confusion and hallucinations, talking about "moving the dirt" in the room. Review of Systems Review of Systems: +back pain and SOB. Ear, Nose, Mouth, Throat: + dry mouth Psychiatric: + anxiety, + confusion (reported by staff and family) and + hallucinations (reported by family) Physical Exam Constitutional: + ill appearing and + morbidly obese ENMT: Mouth: + dry oral mucous membranes Neck: + thick neck Respiratory: + labored breathing Auscultation: + diminished lung sounds Cardiovascular: Rate/Rhythm: + tachycardic Extremities: + edema Gastrointestinal (Abdomen): morbidly obese abdomen Neurologic: moves all extremities, awake and + confused Psychiatric: Orientation: alert, oriented to person, oriented to place and oriented to time Affect: + irritable affect Hallucinations: + visual hallucinations Insight: + poor insight Results & Data Vital Signs (Past 12 Hours) Vital Signs Temp Pulse Pulse Resp BP BP Pulse Ox 10/06/18 09:00 115 H 10/06/18 08:26 131 H 147/98 H 10/06/18 07:16 111 H 20 100 10/06/18 07:14 111 H 20 99 10/06/18 07:11 36.8 C 108 H 20 149/98 H 99 10/06/18 03:43 36.7 C 110 H 20 119/71 99 10/06/18 03:29 117 H 115/83 10/06/18 01:52 113 H 16 94 10/06/18 01:51 113 H 16 94 10/06/18 00:34 117 H 122/91 10/06/18 00:00 36.4 C L 128 H 117 H 19 122/91 98 PG Care Time/CCT Prolonged Care Time Prolonged Care Time: Yes Total Prolonged Care Time: 65 Time Spent Midlevel 65 minutes with >50% of time spent at bedside with patient and family discussing condition and GOC. (1) Obesity Body mass index: BMI 60.0-69.9 Obesity classification: adult class 3 (BMI >= 40) Obesity type: due to excess calories Serious obesity comorbidity presence: with serious comorbidity Qualified Code(s): E66.01 - Morbid (severe) obesity due to excess calories; Z68.44 - Body mass index (BMI) 60.0-69.9, adult
[2018-10-06] MEDS ORDERED: LORazepam 2 MG/4 ML VIAL ONE (11:45)
[2018-10-06] MEDS: LORazepam 1 MG/2 ML VIAL IV PRN ×2 (12:08→15:41)
[2018-10-06] MEDS ORDERED: LORazepam 1 MG/2 ML VIAL IV STA (12:11)
[2018-10-06] MEDS ORDERED: MoRPHine SULFATE 2 MG/ML CARP IV STA (12:25)
[2018-10-06] MEDS: MoRPHine SULF/NSS 100 MG/100 ML BAG IV SCH ×2 (12:29→22:19)
--- NOTE | 2018-10-06 16:34 | Hematology/Oncology Prog Note ---
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 Leary is now on comfort measures due to worsening respiratory distress. He had a very lengthy and complicated hospitalization following his first consolidative chemotherapy cycle. He had prolonged cytopenias and has since had several infectious complications. He also became deconditioned which, in light of his obesity hypoventilation and NANCY, has led to his current respiratory d istress. I concur with his family and his other physicians that his likelihood of recovery from this insult is low. As a result, and in light of his severe pain and distress, I think palliative measures are reasonable. It is profoundly disappointing that he has had such an adverse outcome. His tumor did respond somewhat to treatment, though the response was less than we would have hoped for. I spent some time talking with his family and offered any assistance I could. They were at peace with their decision and ready for the next step. Present on Admission?: Yes Subjective I came to see Mr. Leary today and he was unresponsive and tachypneic on a morphine drip. His and daughter were at the bedside. He did not appear to be in any visible pain. Review of Systems Review of Systems: Unobtainable due to reduced consciousness Physical Exam Constitutional: + acute distress (respiratory distress), + ill appearing and + morbidly obese Respiratory: + respiratory distress and + tachypneic Cardiovascular: Rate/Rhythm: + tachycardic and + irregularly irregular Gastrointestinal (Abdomen): Inspection/Auscultation: abdomen not distended Percussion/Palpation: abdomen soft; abdomen nontender Neurologic: + obtunded Results & Data Vital Signs (Past 12 Hours) Vital Signs Temp Pulse Pulse Resp BP BP Pulse Ox 10/06/18 09:00 115 H 10/06/18 08:26 131 H 147/98 H 10/06/18 07:16 111 H 20 100 10/06/18 07:14 111 H 20 99 10/06/18 07:11 36.8 C 108 H 20 149/[address] Chest, 09/30/18: IMPRESSION: 1. No evidence for central pulmonary embolus with limitations as described above. 2. Interval development of paraspinal fat stranding/soft tissue centered at the T7-T8 disc space level with destructive endplate changes. These findings are highly suspicious for discitis/osteomyelitis. There is also mild anterior wedging at T7 suggestive of a developing compression deformity. A metastatic lesion at this location could also have a similar appearance but is considered less likely. 3. Slight improvement in the 5.0 x 2.8 cm cavitary lesion within the left upper lobe. 4. Small amount of mucosal material within the trachea. 5. Bilateral lower lobe posterior space opacities which favor compressive atelectasis from the small pleural effusions. However, pneumonia could also have a similar appearance. 6. These findings were discussed with Dr. Holliday at 10:50 PM on 09/30/2018.
[2018-10-06] MEDS ORDERED: INSULIN ASPART 100 UNITS/ML 3 ML PEN SC SCH (18:00)
--- NOTE | 2018-10-06 18:27 | Family Medicine Progress Note ---
Date of Service October 06, 2018 Assessment & Plan (1) Goals of care, counseling/discussion: Comfort care Family is been decision to place Mr. Jensen comfort care Withdrew BiPAP in place patient on high flow nasal cannula, he has become very agitated and is yelling out causing her distress the family, bolused for milligrams of morphine and started patient on morphine drip. Also giving Ativan 1 mg every 4 hours Patient developed secretions treated with scopolamine patch and atropine drops Patient's respiratory status poor due to his positioning and coming off BiPAP opiates are helping with air hunger Discontinued all medications apart from antibiotics as they are therapeutic for his back and seemed to have relieved a large amount of his pain in the last several days Transition patient to [facility] we will continue to check in with the family and make him as comfortable as possible (2) Need for comfort care: Subjective Mr. Leary is delirious and agitated today, he is not able to participate in conversation though he does ask when he is going to . After long discussion with patient's family and palliative care team, the decision was made to place Mr. Leary and comfort care by the family. They would like to remove BiPAP and continue with IV antibiotics as it has appeared to improve his pain. They understand that this will likely lead to Mr. Nichols's in the near future and are accepting of that outcome. Review of Systems Review of Systems: All systems reviewed & are unremarkable except as noted in HPI & below Physical Exam Physical Exam: Constitutional: Morbidly obese, ill-appearing patient with BiPAP in place lying horizontal Eyes: Anicteric sclerae extraocular muscle movements intact bilaterally Respiratory: Lung sounds distant no added lung noises chest x-ray expansion symmetric BiPAP in place Cardiovascular: Irregular rate irregular rhythm tachycardic GI: Abdomen soft nontender no mass detected morbidly obese abdomen Integumentary: No new skin rashes noted Results & Data Vital Signs (Past 12 Hours) Vital Signs Temp Pulse Pulse Resp BP BP Pulse Ox 10/06/18 09:00 115 H 10/06/18 08:26 131 H 147/98 H 10/06/18 07:16 111 H 20 100 10/06/18 07:14 111 H 20 99 10/06/18 07:11 36.8 C 108 H 20 149/98 H 99 PG Care Time/CCT Total # of Minutes Spent Total Time Spent with Patient: Total time spent is greater than 50% in coordination of care (as documented) at patient's floor/unit and/or counseling patient: Resident Activity Tracking Resident Involvement: Resident Care Provided Care Provided: Adult [facility] Medicine
[2018-10-06] MEDS ORDERED: SCOPOLAMINE 1.5 MG TDSY TD SCH (18:30)
[2018-10-06] MEDS ORDERED: Nursing to Pharmacy Communication ONE (19:03)
[2018-10-06] MEDS: RIVAROXABAN 20 MG TAB PO SCH (19:31)
[2018-10-06] MEDS: ATROPINE SULFATE 1% OP SOLN 5 ML BTL SL SCH (19:50)
[2018-10-06] MEDS: cefTRIAXone SODIUM 2,000 MG in DEXTROSE 5% 50 ML IV SCH (20:09)
[2018-10-07] MEDS ORDERED: CHECK SCOPOLAMINE PATCH PLACEMENT SCH
[2018-10-07] MEDS: ATROPINE SULFATE 1% OP SOLN 5 ML BTL SL SCH (02:06)
--- NOTE | 2018-10-17 18:44 | Discharge Summary ---
Date of Service October 07, 2018 Admission Exam (Per Admitting) Constitutional pt not seen on AM of passing. see 10/06 progress note Discharge Data Consultations 10/03/18 12:55 Consult Palliative Care Routine Hospital Course (1) Acute respiratory failure with hypoxia: See below as most recent assessment and plan from my progress note. Later patient and family chose to be comfort measures only, as the patient was very much struggling to breathe, could not tolerate BiPAP all the time, and was aware that he had very little chance of true recovery. With this he was made comfort measures only, comfort was obtained with morphine and Ativan, and he passed peacefully on 10/07/2018. Mr. Leary is a 68 year old male with a past medical history of squamous cell carcinoma of the lungs, Diastolic CHF, Afib, COPD on 4L O2 at baseline, NANCY on CPAP, Hx of PE in 2017 on Xarelto, DM2, Gout, HTN, Chronic Venous insufficiency who was received as direct admit from [facility] for concern of worsening hypoxia and sob. Records from [facility] Reviewed Pertinent Findings Include: Hgb 7.5, Na 132, BUN/Cr 22/1.2 GFR > 60, Bicarb 30, VBG ph 7.43, CO2 56, O2 16, Bicarb 37.2. CXR mild R basilar atelectasis. Received Duoneb x 2. Vitals concerning for HR in 100s-110s. Pt was normotensive. Recent Admission 08/31-09/17/18: For sepsis secondary to MDR E Coli UTI, Acute on chronic RF required intubation and mechanical ventilation in the setting of new onset AFib, and exacerbation of diastolic CHF. Acute on Chronic Respiratory failure with hypoxia Squamous cell carcinoma COPD - Hx of COPD, previous PE in 2017, Diastolic HF, and Lung Squamous Cell Carcinoma (finished XRT and chemo taxol/carboplatin on 08/16/18) - On 4L O2 at baseline - Patient requires BiPAP when laying flat, as well as when he falls asleep, as he drops his saturations into the 80s - CTA negative for PE. His CTA did show bilateral lower lobe posterior space opacities, which could be from his pleural effusions versus pneumonia - Thoracic surgery consulted given bilateral pleural effusions, however they do not feel that this is large enough to warrant a thoracentesis - Suspect his hypoxia is secondary to his lethargy & hx of NANCY, in combination with possible aspiration - Speech eval ordered, however patient is unable to sit up due to pain in order to complete the speech evaluation - DuoNeb's changed to Xopenex given tachycardia Osteomyelitis -CTA showed paraspinal fat stranding centered at the T7/T8 disc space, with destructive endplate changes, suspicious for discitis/osteomyelitis (versus metastatic disease). This is associated with a developing compression deformity at T7 -Ortho spine consulted -> Patient is not a surgical candidate -> Ideally would like an MRI with and without gadolinium to confirm osteomyelitis versus malignancy, however unable to obtain MRI given patient's body habitus -Unable to definitively say that his CT scan changes are due to osteomyelitis, as opposed to metastatic disease. Patient may require transfer to tertiary care center in order to obtain further imaging/CT-guided biopsy -Will consult oncology to help guide decision -Continue Zosyn and vancomycin for empiric coverage -Blood cultures drawn and preliminary results are negative, however unfortunately these were drawn after the first dose of the antibiotics -1 g IV Tylenol every 8 hours as needed for pain -7.5 mg of oxycodone every 3 hours as needed for pain -hold sedating medications such as morphine, given patient becomes lethargic, and hypoxic, requiring BiPAP Hypokalemia -Potassium level of 3.1 today, Repleted with 40 MeQ of IV potassium chloride. Will recheck tomorrow -Magnesium checked and normal at 2 Diastolic CHF/HTN/Afib -BNP 2906 at [facility] -Continue home metoprolol 100mg BID and Xarelto -Hold home Lasix and metolazone in the setting of infection, can restart if he develops signs of fluid overload -Continue home aspirin -Patient has been tachycardic in the 100s, likely secondary to missing doses of his metoprolol -5 mg of IV Lopressor ordered daily 2 hours as needed for tachycardia > 120 bpm Anemia -Hgb prior admission between 7-9 (09/15 - 7.9, 09/16 - 9.4) -Of note: received 6 units of pRBC during his prior admission -Prior admission believed to be in the setting of Antineoplastic chemotherapy induced pancytopenia -Was discharged on ferrous sulfate -Hgb remains stable at 7.1 today, will continue to trend -No concern for acute GI bleed at this time GERD -Continue home omeprazole DM2 -Hold home metformin and sitagliptin, continue insulin sliding scale Depression -Continue home Lexapro Gout -Continue home allopurinol NANCY - CPAP at night (14cm H2O and 4L O2) -Currently on Bipap as above
== END 2018-10-07 03:55 | disposition expired | DRG 189 ==
LOC: SUATTDRO 19:20 → 2E 19:20 → 4W 10-06 11:37
DX: G47.33 Obstructive sleep apnea (adult) (pediatric); N17.9 Acute kidney failure, unspecified; Z87.891 Personal history of nicotine dependence; E11.9 Type 2 diabetes mellitus without complications; M10.9 Gout, unspecified; Z92.3 Personal history of irradiation; E87.6 Hypokalemia; I48.91 Unspecified atrial fibrillation; J96.21 Acute and chronic respiratory failure with hypoxia; D61.810 Antineoplastic chemotherapy induced pancytopenia; E87.1 Hypo-osmolality and hyponatremia; J44.9 Chronic obstructive pulmonary disease, unspecified; I11.9 Hypertensive heart disease without heart failure; I50.30 Unspecified diastolic (congestive) heart failure; I24.8 Other forms of acute ischemic heart disease; Z99.81 Dependence on supplemental oxygen; Z68.44 Body mass index [BMI] 60.0-69.9, adult; T45.1X5A Adverse effect of antineoplastic and immunosuppressive drugs, initial encounter; Z51.5 Encounter for palliative care; E66.01 Morbid (severe) obesity due to excess calories; C34.12 Malignant neoplasm of upper lobe, left bronchus or lung; J91.8 Pleural effusion in other conditions classified elsewhere; M46.44 Discitis, unspecified, thoracic region; Y92.009 Unspecified place in unspecified non-institutional (private) residence as the place of occurrence of the external cause